=== PATIENT | male | born 1930 | race Hispanic/Latino ===

== ENCOUNTER 2018-06-23 16:02 | Inpatient (IN) | payer MEDICARE, MEDICAID ==
[2018-06-23 16:05] VITALS: BMI 33.7
[2018-06-23] MEDS ORDERED: Etomidate 20 mg/10ml Inj IV ONE (16:10)
[2018-06-23] MEDS ORDERED: Propofol 10 mg/ml Inj (20 ML) ONE (16:11)
[2018-06-23] MEDS ORDERED: Succinylcholine 200 mg/10 ml Inj IV ONE (16:11)
[2018-06-23] MEDS ORDERED: Propofol 10 mg/ml Inj (20 ML) IVP STA (16:17)
--- NOTE | 2018-06-23 16:23 | ED PDOC ---
Arrival/HPI - General Chief Complaint: Altered Mental Status Time Seen by Provider: 06/23/18 16:14 - History of Present Illness Narrative History of Present Illness (Text): 06/23/18 16:18 87 m with unknown pmhx presents to the ED for altered mentation and witnessed seizure activity. As per medics, they were called to scene for seizure, was noticed to be unconscious, fixed lateral gaze, breathing spontaneously, had another seizure en route to the hospital, was given ativan. Patient arrived in the ED, unsconcious, unresponsive to deep stimulus, breathing spontaneously, pupils were pinpoint and minimally responsive to light, eyes were roaming. Patient arrived in the ED alone.Code stroke was called immediately upon arrival. The decision was made to intubate prior to going to CT in order to protect airway as the patient was deeply unresponsive and to facilitate transfer to CT safely. 06/23/18 16:38 06/23/18 17:01 Further history obtained from the via tankage grinder operator. According to the , the patient woke up at [facility] 11:30 this morning and appeared confused where he picked up the remote and began talking on the remote control as if it were a phone. Patient has a hx of kidney cancer and ?cancer of the spine, was recently prescribed a pain medication, took first dose last night, slept all of this morning -?med too strong- patient sees dr. ozuna. As per the , she did not witness any seizure activity. Patient's son is reportedly on the way to hospital from [place]. Past Medical History - Cardiac Hx Cardiac Disorders: Yes Hx Hypertension: Yes - Renal Hx Renal Disorder: Yes - Endocrine/Metabolic Hx Endocrine Disorders: Yes Hx Hypothyroidism: Yes - Psychiatric Hx Substance Use: No Family/Social History Family/Social History: No Known Family HX Smoking Status: Never Smoked Hx Alcohol Use: No Hx Substance Use: No Allergies/Home Meds Allergies/Adverse Reactions: Allergies Unobtainable Allergy (Verified 06/23/18 16:04) Home Medications: Home Meds Medication Instructions Recorded Confirmed Allopurinol [Zyloprim] 300 mg PO DAILY 06/23/18 06/23/18 Furosemide [Lasix] 40 mg PO DAILY 06/23/18 06/23/18 Levothyroxine Sodium [Unithroid] 150 mcg PO DAILY 06/23/18 06/23/18 Omeprazole 40 mg PO DAILY 06/23/18 06/23/18 Tamsulosin [Flomax] 0.4 mg PO DAILY 06/23/18 06/23/18 Tramadol HCl [Ultram] 50 mg PO DAILY 06/23/18 06/23/18 cloNIDine [clonidine HCl] 0.1 mg PO BID 06/23/18 06/23/18 Review of Systems - Review of Systems Systems not reviewed;Unavailable: Altered Mental Status Physical Exam - Physical Exam Narrative Physical Exam (Text): 06/23/18 16:37 Gen: VS reviewed,well developed, well nourished, nontoxic, moderate distress , unresponsive (every patient is mild distress unless otherwise stated) Do not place this statement in any chart Eye: pupils equal and pinpoint bilaterally Neck: no JVD CV: rapid rate, regular rhythm, no rubs,no murmur, S1, S2 Pulm: no distress, clear to auscultation, no wheeze, no rhonchi, breath sounds equal, no rales Abd: soft, nondistended Ext: no edema Skin: good color, no rash, no cyanosis Psych: unable to assess second to unresponsiveness Neuro: unable to assess second to unresponsiveness Vital Signs Pulse Resp BP Pulse Ox 06/23/18 16:16 91 H 16 155/100 H 99 06/23/18 16:03 119 H 20 175/140 H 99 Medical Decision Making ED Course and Treatment: 06/23/18 16:[address] charlton, would like to get CTA head/neck and EEG. agrees that the patient is not a candidate for thrombolysis. 06/23/18 17:[address] russell, consult to dr. deutsch, mo ramsey, dr. aranda, injfectious disease. stroke consult cancelled as patient is not a candidate for thrombolysis. patient was seen for obtunded state, intubated upon arrival for airway protection and to facilitate Ct imaging, patient was worked up for CVA and admit to ICU. case d/w dr. cardozo, automotive service assistant, will see pt in consult/disposition planning 06/23/18 18:[address] kimble, neurosurgery, state he has personally re viewed the Ct of the brain and that "there's nothing there, it's normal, old patient's get calcified falx all the time" 06/23/18 18:08 06/24/18 17:51 06/24/18 17:52 - Critical Care Critical Care Minutes: 60 minutes - RAD Interpretation Narrative RAD Interpretations (Text): 06/23/18 18:24 Date of service: 06/23/2018 HISTORY: Code Stroke COMPARISON: 07/16/2013 FINDINGS: Endotracheal tube terminates at the aretha. LUNGS: Limited portable examination. There are low lung volumes. There is apparent airspace disease in the right lower lobe. The left lung is clear. PLEURA: No pleural effusions or pneumothorax. CARDIOVASCULAR: The heart is normal in size. No aortic atherosclerotic calcifications present. OSSEOUS STRUCTURES: Within normal limits for the patient's age. VISUALIZED UPPER ABDOMEN: Normal. OTHER FINDINGS: None. IMPRESSION: Endotracheal tube terminates at the aretha. Apparent airspace disease in the right lower lobe may represent effusion/edema or consolidation. Limited portable examination. Follow-up PA radiograph is recommended. 06/23/18 18:25 Date of service: 06/23/2018 PROCEDURE: CT HEAD WITHOUT CONTRAST. HISTORY: Code Stroke COMPARISON: None available. TECHNIQUE: Axial computed tomography images were obtained through the head/brain without intravenous contrast. Radiation dose: Total exam DLP = 1289.58 mGy-cm. This CT exam was performed using one or more of the following dose reduction techniques: Automated exposure control, adjustment of the mA and/or kV according to patient size, and/or use of iterative reconstruction technique. FINDINGS: HEMORRHAGE: No intracranial hemorrhage. BRAIN: Diffuse atrophy with prominence of the ventricles and sulci noted. No mass effect or edema. Intracranial atherosclerosis. Dense calcifications noted along the falx. Scattered periventricular and subcortical white matter hypodensities, which are nonspecific, but often seen with chronic microvascular ischemic disease. Please note that MRI with diffusion imaging is more sensitive in the detection of acute ischemic event. VENTRICLES: No hydrocephalus. CALVARIUM: Unremarkable. PARANASAL SINUSES: Mucosal thickening of the frontal sinuses and ethmoid air cells. MASTOID AIR CELLS: Under aeration of the left mastoid air cells. The right mastoid air cells appear clear. OTHER FINDINGS: Partially imaged endotracheal tube. IMPRESSION: Generalized atrophy. Nonspecific white matter changes. Under aeration of the left mastoid air cells. Mucosal thickening of the frontal sinuses and ethmoid air cells. Partially imaged endotracheal tube. Findings discussed with Dr. Robbins on 06/23/18 at 4:27 p.m. Radiology Orders: 06/23/18 16:15 HEAD W/O (CODE STROKE) [CT] Stat CHEST PORTABLE [RAD] Stat - EKG Interpretation EKG Interpretation (Text): 06/23/18 18:22 1630: sinus tach at 101 bpm, rbbb, lafb Interpreted by ED Physician: Yes - Medication Orders Current Medication Orders: Sodium Chloride (Sodium Chloride 0.9%) 1,000 mls @ 100 mls/hr IV .Q10H LUZ MARINA Propofol (Diprivan) 100 mg IVP ONCE STA Stop: 06/23/18 16:18 NIHSS Scale ([place]) Time Performed: 16:33 - How Severe is the Stoke Baseline Level of Consciousness: 3=Unresponsive LOC to Questions: 1=One correct LOC to commands: 2=Neither correct Best Gaze: 1=Partial gaze palsy Visual: 1=Partial hemianopia Facial: 0=Normal Motor Arm - Left: 4=No movement Motor Arm - Right: 4=No movement Motor Leg - Left: 4=No movement Motor Leg - Right: 4=No movement Limb Ataxia: 0=Absent Sensory: 2=Severe to total loss Best Language: 3=Mute Dysarthia: 2=Severe, near unintelligible or worse Extinction & Inattention (Neglect): 2=Profound neglect(does not recognize own hand or orients to one side) Score: 33 Risk Level: Severe Stroke Risk - Notes Notes: unreliable NIH scale as the patient was not conscious and could not participate in examination. rTPA Inclusion/Exclusion - Refusal of Treatment Patient Refused Treatment: No - Inclusion Criteria for Altepase Patient is 18 years or Older: Yes The Clinical Diagnosis of Ischemic Stroke That is Causing a Potentially Disa milan Neurological Deficit: Yes Time of Onset is Well Established to be Less Than 270 Minute Before Treatment Would Begin: No Risk/Benefit Discussed With Patient/Family Member Present: No - Exclusion Criteria for Altepase Uncontrolled Hypertension at Time of Treatment (Systolic BP above 185 or Diastolic BP above 110 mmHg): Yes - Warning to TPA With Conditions Condition: Seizure at Onset of Stroke Procedures - Time-Out Type of Procedure: endotracheal intubation done upon arrival Physician Name: Rosendo - Intubation Time of Intubation: 17:37 (done at arrival, see RN notes) Tube Size (cm): 7.5 Breath Sounds after Intubation: equal Intubation Complications: no complications Post Intubation Xray: Yes Disposition/Present on Arrival - Present on Arrival Any Indicators Present on Arrival: No History of DVT/PE: No History of Uncontrolled Diabetes: No Urinary Catheter: No History of Decub. Ulcer: No History Surgical Site Infection Following: None - Disposition Have Diagnosis and Disposition been Completed?: Yes Diagnosis: Seizure Disposition: HOSPITALIZED Disposition Time: 18:08 Patient Plan: Admission, ICU Patient Problems: Current Active Problems Problem Status Onset Seizure Acute Condition: GUARDED
[2018-06-23 16:24] LABS: BASO # 0.08 K/mm3 (0.0-2.0); BASO % 0.5 % (0.0-3.0); EOS # 0.4 (0.0-0.7); EOS % 2.4 % (1.5-5.0); HEMOGLOBIN 10.9 g/dL (14.0-18.0); LYMPH # 5.9 (1.2-3.4); MEAN CELL VOLUME 85.5 fl (80.0-105.0); MEAN CORPUSCULAR HEMOGLOBIN 24.7 pg (25.0-35.0); MEAN CORPUSCULAR HGB CONC 28.9 g/dl (31.0-37.0); MEAN PLATELET VOLUME 10.7 fl (7.0-11.0); RBC 4.41 10^6/uL (3.5-6.1); RED CELL DISTRIBUTION WIDTH 18.5 % (11.5-14.5); WHITE BLOOD COUNT 15.8 10^3/uL (4.5-11.0)
[2018-06-23 16:29] LABS: INR 1.08; PARTIAL THROMBOPLASTIN TIME 29.6 Seconds (26.9-38.3)
[2018-06-23 16:32] LABS: ALB/GLOB RATIO 1.2 (1.1-1.8); ALBUMIN 4.2 g/dL (3.0-4.8); ALT/SGPT 10 U/L (7-56); AST/SGOT 28 U/L (17-59); BLOOD UREA NITROGEN 21 mg/dL (7-21); CALCIUM 10.2 mg/dL (8.4-10.5); GFR NON-AFRICAN AMERICAN 52; HDL CHOLESTEROL 27 mg/dL (29-60)
[2018-06-23] MEDS ORDERED: Vancomycin 500 mg Inj IVPB STA (16:41)
--- NOTE | 2018-06-23 16:41 | CT ---
Date of service: 06/23/2018 PROCEDURE: CT HEAD WITHOUT CONTRAST. HISTORY: Code Stroke COMPARISON: None available. TECHNIQUE: Axial computed tomography images were obtained through the head/brain without intravenous contrast. Radiation dose: Total exam DLP = 1289.58 mGy-cm. This CT exam was performed using one or more of the following dose reduction techniques: Automated exposure control, adjustment of the mA and/or kV according to patient size, and/or use of iterative reconstruction technique. FINDINGS: HEMORRHAGE: No intracranial hemorrhage. BRAIN: Diffuse atrophy with prominence of the ventricles and sulci noted. No mass effect or edema. Intracranial atherosclerosis. Dense calcifications noted along the falx. Scattered periventricular and subcortical white matter hypodensities, which are nonspecific, but often seen with chronic microvascular ischemic disease. Please note that MRI with diffusion imaging is more sensitive in the detection of acute ischemic event. VENTRICLES: No hydrocephalus. CALVARIUM: Unremarkable. PARANASAL SINUSES: Mucosal thickening of the frontal sinuses and ethmoid air cells. MASTOID AIR CELLS: Under aeration of the left mastoid air cells. The right mastoid air cells appear clear. OTHER FINDINGS: Partially imaged endotracheal tube. IMPRESSION: Generalized atrophy. Nonspecific white matter changes. Under aeration of the left mastoid air cells. Mucosal thickening of the frontal sinuses and ethmoid air cells. Partially imaged endotracheal tube. Findings discussed with Dr. Robbins on 06/23/18 at 4:27 p.m.
[2018-06-23 16:43] LABS: LDL CHOLESTEROL 65 mg/dL (0-129)
[2018-06-23 16:45] LABS: TROPONIN I < 0.01 ng/mL
[2018-06-23] MEDS ORDERED: Vancomycin 1.5 GM in Sodium Chloride 0.9% 500 ML IVPB ONE (16:45)
--- NOTE | 2018-06-23 16:58 | RAD ---
Date of service: 06/23/2018 HISTORY: Code Stroke COMPARISON: 07/16/2013 FINDINGS: Endotracheal tube terminates at the aretha. LUNGS: Limited portable examination. There are low lung volumes. There is apparent airspace disease in the right lower lobe. The left lung is clear. PLEURA: No pleural effusions or pneumothorax. CARDIOVASCULAR: The heart is normal in size. No aortic atherosclerotic calcifications present. OSSEOUS STRUCTURES: Within normal limits for the patient's age. VISUALIZED UPPER ABDOMEN: Normal. OTHER FINDINGS: None. IMPRESSION: Endotracheal tube terminates at the aretha. Apparent airspace disease in the right lower lobe may represent effusion/edema or consolidation. Limited portable examination. Follow-up PA radiograph is recommended.
[2018-06-23] MEDS: Sodium Chloride 0.9% 1,000 ML IV SCH (17:00)
[2018-06-23 17:16] LABS: PH,URINE 6.5 (4.7-8.0); URINE BILIRUBIN NEGATIVE (NEGATIVE); URINE BLOOD SMALL (NEGATIVE); URINE GLUCOSE (UA) NEGATIVE (NEGATIVE); URINE LEUKOCYTE ESTERASE NEGATIVE Leu/uL (NEGATIVE); URINE PROTEIN 100 mg/dL (<30 mg/dL); URINE UROBILINOGEN 0.2 E.U./dL (<1 E.U./dL)
[2018-06-23 17:17] LABS: URINE APPEARANCE CLEAR (CLEAR); URINE COLOR LIGHT YELLOW (YELLOW)
[2018-06-23] MEDS ORDERED: Iohexol 350 MG/100 ML VIAL ONE (17:20)
[2018-06-23 17:22] LABS: URINE RBC 0 - 2 /hpf (0-2)
[2018-06-23] MEDS: Propofol 10 mg/ml 1,000 MG/100 ML VIAL IV PRN ×2 (17:27→22:58)
[2018-06-23 18:05] LABS: ARTERIAL BLOOD GAS HCO3 24.2 mmol/L (21-28); ARTERIAL BLOOD GAS O2 SAT 97.7 % (95-98); ARTERIAL BLOOD GAS PCO2 48 mm/Hg (35-45); ARTERIAL BLOOD GAS PH 7.31 (7.35-7.45); ARTERIAL BLOOD GAS TCO2 25.7 mmol.L (22-28)
--- NOTE | 2018-06-23 18:25 | CP.PCM.PCO ---
Addendum Addendum: 06/23/18 18:22 MICU Attending Patient seen and examined in the ED Will accept patient to ICU Patient awake, moving all extremities despite being intubated and on propofol CT head reported as no bleed as per ED Dr Robbins discussion with rads and neurosurgery No signs of sepsis will work up for patient being unresponsive, likely due to pain medication adjustment Full consult note to follow Jas Ennis MD MICU Attending
--- NOTE | 2018-06-23 18:30 | CP.PCM.CON ---
History of Present Illness - History of Present Illness History of Present Illness: Vipin Cagle, PGY1 ICU Consult Note for Dr. Ennis: CC: AMS and witnessed seizure activity ICU Consulted for: Ventalitory Failure Pt is a 87yo M with pmhx of CHF, Renal Ca s/p Nephrectomy, and COPD who came to the ED for AMS and witnessed seizure activity. Pt was given ativan on the field and then became flaccid. In ED pt was not responding to deep painful stimuli per ED physician and the decision was made to intubate the pt. Code Stroke was then initiated in the ED and pt was taken to CT scan. ICU is consulted for ventalitory failure. Pt at this time is intubated and sedated and there is no family present to provide additional hx. Further hx provided by ER physician which was provided by pts son (not present at time of exam). Pmhx: CHF, RCC s/p questionable Nephrectomy, COPD Pshx: questionable nephrectomy per pts family Meds: Unobtainable 2/2 pt intubated and sedated All: Unobtainable 2/2 pt intubated and sedated Fam hx: Unobtainable Review of Systems - Review of Systems Systems not reviewed;Unavailable: Intubated Past Patient History - Past Social History Smoking Status: Never Smoked - CARDIAC Hx Cardiac Disorders: Yes Hx Hypertension: Yes - RENAL Hx Chronic Kidney Disease: Yes - ENDOCRINE/METABOLIC Hx Endocrine Disorders: Yes Hx Hypothyroidism: Yes - PSYCHIATRIC Hx Substance Use: No - SURGICAL HISTORY Hx Surgeries: No Meds Allergies/Adverse Reactions: Allergies Allergy/AdvReac Type Severity Reaction Status Date / Time Unobtainable Allergy Verified 06/23/18 16:04 - Medications Medications: Current Medications Sodium Chloride (Sodium Chloride 0.9%) 1,000 mls @ 100 mls/hr IV .Q10H LUZ MARINA Last Admin: 06/23/18 17:00 Dose: 100 mls/hr Propofol (Diprivan) 1,000 mg in 100 mls @ 2.756 mls/hr IV .Q24H PRN; Protocol PRN Reason: TITRATE PER MD ORDER Last Admin: 06/23/18 17:27 Dose: 2.756 mls/hr Vancomycin HCl 1.5 gm/ Sodium (Chloride) 500 mls @ 167 mls/hr IVPB ONCE ONE Stop: 06/23/18 19:44 Last Admin: 06/23/18 17:33 Dose: 167 mls/hr Physical Exam - Constitutional Appears: Other (PT is intubated and sedated at this time.) - Head Exam Head Exam: ATRAUMATIC, NORMAL INSPECTION, NORMOCEPHALIC - Eye Exam Eye Exam: PERRL - ENT Exam Additional comments: ETT in place and secured - Respiratory Exam Respiratory Exam: Clear to Auscultation Bilateral. absent: Rales, Rhonchi, Wheezes Additional comments: Pt is intubated, only anterior lung tiwari could be assessed. - Cardiovascular Exam Cardiovascular Exam: Tachycardia, +S1, +S2. absent: Gallop, Rubs - GI/Abdominal Exam GI & Abdominal Exam: Normal Bowel Sounds, Soft. absent: Firm - Extremities Exam Extremities exam: Positive for: normal capillary refill, normal inspection, pedal edema, pedal pulses present - Back Exam Additional comments: unable to assess due to pt being intubated - Neurological Exam Additional comments: Pt is intubated and sedated - Psychiatric Exam Additional comments: Pt intubated and sedated. - Skin Skin Exam: Dry, Intact, Warm Results - Vital Signs Recent Vital Signs: Last Vital Signs Temp Pulse 91 H 06/23/18 16:16 Resp 16 06/23/18 16:16 BP 155/100 H 06/23/18 16:16 Pulse Ox 99 06/23/18 16:16 - Labs Result Diagrams: 06/23/18 16:17 06/23/18 16:17 Labs: Laboratory Results - last 24 hr 06/23/18 06/23/18 06/23/18 16:05 16:17 16:17 WBC 15.8 H RBC 4.41 Hgb 10.9 L Hct 37.7 L MCV 85.5 MCH 24.7 L MCHC 28.9 L RDW 18.5 H Plt Count 310 MPV 10.7 Neut % (Auto) 54.1 Lymph % (Auto) 37.0 H [place] % (Auto) 6.0 Eos % (Auto) 2.4 Baso % (Auto) 0.5 Lymph # (Auto) 5.9 H [place] # (Auto) 1.0 H Eos # (Auto) 0.4 Baso # (Auto) 0.08 Absolute Neuts (auto) 8.55 H PT 12.0 INR 1.08 APTT 29.6 pCO2 pO2 HCO3 ABG pH ABG Total CO2 ABG O2 Saturation ABG Base Excess ABG Potassium Glucose Lactate Mechanical Rate FiO2 Tidal Volume PEEP Sodium Potassium Chloride Carbon Dioxide Anion Gap BUN Creatinine Est GFR ( Amer) Est GFR (Non-Af Amer) Random Glucose Calcium Total Bilirubin AST ALT Alkaline Phosphatase Troponin I Total Protein Albumin Globulin Albumin/Globulin Ratio Triglycerides Cholesterol LDL Cholesterol Direct HDL Cholesterol Arterial Blood Potassium Urine Color Urine Appearance Urine pH Ur Specific [place] Urine Protein Urine Glucose (UA) Urine Ketones Urine Blood Urine Nitrate Urine Bilirubin Urine Urobilinogen Ur Leukocyte Esterase Urine RBC Urine WBC Ur Epithelial Cells Blood Type A NEGATIVE Blood Type Confirm Antibody Screen Negative BBK History Checked No verified bt 06/23/18 06/23/18 06/23/18 16:17 16:55 17:12 WBC RBC Hgb Hct MCV MCH MCHC RDW Plt Count MPV Neut % (Auto) Lymph % (Auto) [place] % (Auto) Eos % (Auto) Baso % (Auto) Lymph # (Auto) [place] # (Auto) Eos # (Auto) Baso # (Auto) Absolute Neuts (auto) PT INR APTT pCO2 pO2 HCO3 ABG pH ABG Total CO2 ABG O2 Saturation ABG Base Excess ABG Potassium Glucose Lactate Mechanical Rate FiO2 Tidal Volume PEEP Sodium 141 Potassium 4.0 Chloride 102 Carbon Dioxide 29 Anion Gap 14 BUN 21 Creatinine 1.3 Est GFR ( Amer) > 60 Est GFR (Non-Af Amer) 52 Random Glucose 169 H Calcium 10.2 Total Bilirubin 0.4 AST 28 ALT 10 Alkaline Phosphatase 101 Troponin I < 0.01 Total Protein 7.6 Albumin 4.2 Globulin 3.5 Albumin/Globulin Ratio 1.2 Triglycerides 203 H Cholesterol 134 LDL Cholesterol Direct 65 HDL Cholesterol 27 L Arterial Blood Potassium Urine Color Light yellow Urine Appearance Clear Urine pH 6.5 Ur Specific [place] 1.025 Urine Protein 100 H Urine Glucose (UA) Negative Urine Ketones Negative Urine Blood Small H Urine Nitrate Negative Urine Bilirubin Negative Urine Urobilinogen 0.2 Ur Leukocyte Esterase Negative Urine RBC 0 - 2 Urine WBC None Ur Epithelial Cells None Blood Type Blood Type Confirm A NEGATIVE Antibody Screen BBK History Checked 06/23/18 18:02 WBC RBC Hgb Hct MCV MCH MCHC RDW Plt Count MPV Neut % (Auto) Lymph % (Auto) [place] % (Auto) Eos % (Auto) Baso % (Auto) Lymph # (Auto) [place] # (Auto) Eos # (Auto) Baso # (Auto) Absolute Neuts (auto) PT INR APTT pCO2 48 H pO2 133.0 H HCO3 24.2 ABG pH 7.31 L ABG Total CO2 25.7 ABG O2 Saturation 97.7 ABG Base Excess -2.5 L ABG Potassium 3.3 L Glucose 181 H Lactate 1.9 Mechanical Rate 14 FiO2 50.0 Tidal Volume 400 PEEP 5 Sodium 138.0 Potassium Chloride 107.0 Carbon Dioxide Anion Gap BUN Creatinine Est GFR ( Amer) Est GFR (Non-Af Amer) Random Glucose Calcium Total Bilirubin AST ALT Alkaline Phosphatase Troponin I Total Protein Albumin Globulin Albumin/Globulin Ratio Triglycerides Cholesterol LDL Cholesterol Direct HDL Cholesterol Arterial Blood Potassium 3.3 L Urine Color Urine Appearance Urine pH Ur Specific [place] Urine Protein Urine Glucose (UA) Urine Ketones Urine Blood Urine Nitrate Urine Bilirubin Urine Urobilinogen Ur Leukocyte Esterase Urine RBC Urine WBC Ur Epithelial Cells Blood Type Blood Type Confirm Antibody Screen BBK History Checked Assessment & Plan - Assessment and Plan (Free Text) Assessment: Pt is a 87yo M with pmhx of CHF, Renal Ca s/p Nephrectomy, and COPD who came to the ED for AMS and witnessed seizure activity. Pt was given ativan on the field and then became flaccid. Pt in ED was intubated to protect airway and was sent for head CT. ICU consulted due to ventilatory failure. Plan: Neuro: AMS: - Head CT Showed: Generalized atrophy. Nonspecific white matter changes. Under aeration of the left mastoid air cells. Mucosal thickening of the frontal sinuses and ethmoid air cells. Partially imaged endotracheal tube. Diffuse atrophy with prominence of the ventricles and sulci noted. No mass effect or edema. Intracranial atherosclerosis. Dense calcifications noted along the falx. - Pt is sedated at this time - Likely 2/2 new pain medication by doctor started yesterday. Cardio: - Pt noted to be HTNsive on ICU floor - Nicardipine drip - Maintain MAP >65 - Will closely monitor pts BP Pulm: Ventilatory Failure: - Pt is intubated at this time - ABG shows: pH = 7.31, p02 = 133, pCO2 = 48, bicarb = 29 - Pt on propofol drip currently, will titrate to precedex over night - Duonebs q2 PRN - CXR: RLL may have effusion vs consolidation - f/u procal - f/u blood and sputum cx - Zithro and rocephin IV GI: - Will start ppx Nephro: - Will keep pt euvolemic Endo: - Will keep pt euglycemic Case seen and discussed with Dr. Loli Cagle, PGY1
--- NOTE | 2018-06-23 18:35 | CT ---
Date of service: 06/23/2018 PROCEDURE: CT Angiography of the neck and brain HISTORY: Altered mentation COMPARISON: Comparison made with prior CT scan brain 3 8 19 at 1621 hr. TECHNIQUE: Contiguous axial images of the neck were obtained from the level of the vertex of the skull to the superior mediastinum in the arteriographic phase of enhancement. Coronal and sagittal reformats or also generated. IV contrast dose: 100 cc Visipaque 350 contrast material. Radiation dose: Total exam DLP = 563.8 mGy-cm. This CT exam was performed using one or more of the following dose reduction techniques: Automated exposure control, adjustment of the mA and/or kV according to patient size, and/or use of iterative reconstruction technique. FINDINGS: Study is limited by motion artifact most significantly affecting superior sections particularly the intra cerebral vasculature. In situ endotracheal tube is present. The aortic arch is patent despite some mild calcified atherosclerotic plaque. 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 This lesion exhibits Hounsfield units in the mid 20s suggesting proteinaceous component. Internal and peripheral calcifications are present.. Rule out malignant neoplasm Followup thyroid ultrasound recommended. The lesion exerts mass-effect on the trachea and esophagus which are displaced anterolaterally and posterolaterally respectively.. The common carotid arteries and carotid bifurcations are patent despite some very minor partially calcified plaque along the right carotid bifurcation. No significant stenosis. No evidence of dissection. The distal internal carotid arteries including the petrous segments are patent. Note that the cavernous segments as well as the remaining intra cerebral vasculature is significantly distorted and obscured by motion artifact cannot be adequately evaluated although the supraclinoid carotid arteries appear patent as do the proximal middle cerebral arteries. The distal middle anterior and posterior cerebral arteries are poorly delineated. The vertebral arteries are patent throughout right-sided which is much larger in caliber/more dominant than the left side. Basilar artery is patent. There is distortion and motion artifact partially obscuring the distal vertebral artery and posterior cerebral arteries. IMPRESSION: Significant motion artifact results in obscuration of most of the cysts intra cerebral vasculature. The common carotid arteries and internal carotid arteries including the petrous segments are patent. Cavernous segments are poorly seen. There distortion of the supraclinoid segments which do appear patent. The distal cerebral vasculature is distorted by motion artifact. Marked asymmetry of the vertebral arteries right-sided which is larger in caliber/more dominant than the left. 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 This lesion contains internal and scattered peripheral calcifications. Follow-up thyroid ultrasound recommended further evaluation to exclude neoplasm. .
[2018-06-23] MEDS ORDERED: Labetalol 5mg/ml (4ml) IVP ONE (18:52)
[2018-06-23] MEDS: Nicardipine 20 MG/200 ML 20 MG/200 ML BAG IV PRN ×2 (19:03→23:38)
[2018-06-23 19:26] LABS: VENOUS BLOOD GAS BASE EXCESS 2.8 mmol/L (0.0-2.0); VENOUS BLOOD GAS PO2 35 mm/Hg (30-55); VENOUS BLOOD PH 7.29 (7.32-7.43)
[2018-06-23 21:13] LABS: B-TYPE NATRIURETIC PEPTIDE 474 pg/mL (0-450)
--- NOTE | 2018-06-23 22:34 | CARD ---
APPROVED REPORT Date of service: 06/23/2018 EKG Measurement Heart [id number] <Conclusion> Sinus tachycardia with 2 episodes of dropped beats- questionable high degree of AV block Right bundle branch block Left anterior fascicular block Bifascicular block CCR Abnormal ECG
[2018-06-23 23:01] LABS: VENOUS BLOOD GAS BASE EXCESS 6.4 mmol/L (0.0-2.0); VENOUS BLOOD GAS PO2 45 mm/Hg (30-55); VENOUS BLOOD PH 7.43 (7.32-7.43)
--- NOTE | 2018-06-24 04:54 | HP ---
DATE OF EXAM: 06/23/2018 HISTORY OF PRESENT ILLNESS: I know Federica very well from house calls. He is an 87-year-old man who presents to the emergency room with altered mentation and witnessed seizure. is unconscious, fixed lateral gaze, breathing spontaneously, had another seizure, admitted to the hospital. He was given Ativan. He was unconscious and unresponsive to deep stimuli. Breathing spontaneously. Pupils were pinpoint, minimally responsive to light. Eyes were roaming. Code stroke was called immediately. He was intubated. said he appeared confused, he took the remote control there is a phone. He does have a history of kidney cancer and nephrectomy. He was given pain medication by pain management doctor, Dr. Sandoval and he has done the same since. He has history of hypothyroidism. No substance abuse. One kidney from kidney cancer, had one removed. He has CHF and hypertension. SOCIAL HISTORY: No smoking. Not drinking. No drugs, REVIEW OF SYSTEMS: Unobtainable since he has altered mental status. PHYSICAL EXAMINATION: GENERAL: He is in distress, unresponsive. VITAL SIGNS: Pulse 119, respiratory rate 20, blood pressure 175/140, and O2 sat 99%. HEENT: Equal and pin point pupils. NECK: No JVD. HEART: Regular rate, tachy. LUNGS: Decreased breath sounds, clear, poor inspiration. ABDOMEN: Soft, obese, and nontender. EXTREMITIES: Pitting edema +3/4. SKIN: He has some venous stasis, otherwise the skin has no rash, no ulcers. NEUROLOGIC: He is unresponsive LABORATORY DATA: He had multiple tests. Because of thickening of the frontal sinuses CAT scan of the head. There is a thyroid mass on the neck CTA. Chest x-ray showed endotracheal tube terminates at the aretha, right lower lobe possible consolidation. Urine was clean. Sodium 141, potassium 4, BUN 21, creatinine 1.3, GFR 62, and sugar is 169. Hemoglobin A1c is 6.4. Calcium is 10.2, total bili is 0.4. AST is 20, ALT is 10, and alkaline phosphate 101. Troponin I is less than 0.1. BNP is 474. Total protein is 7.6. Albumin is 4.2. Globulin 3.5. Triglyceride is 203. Cholesterol 134, LDL 65, HDL 27, lactate 3.3. INR is 1.08. White count 15.8, hemoglobin 10.9, hemoglobin 37.7, and platelets 310. IMPRESSION AND PLAN: He will have multiple consults, Cardiology for congestive heart failure, Infectious Disease for elevated white count possible pneumonia, Neurology for his mental status changes and seizures, Pulmonary for the ventilation, and ENT for thyroid mass. We will check his labs tomorrow. He is currently on Ativan, Diprivan, nicardipine, propofol, pantoprazole, Rocephin, IV fluids, Trandate, vancomycin and azithromycin. He has got seizures. Respiratory failure on the ventilator. Change of mentation. Aleksey Neal DO MTDD
[2018-06-24 05:40] LABS: ALB/GLOB RATIO 1.1 (1.1-1.8); ALBUMIN 3.7 g/dL (3.0-4.8); ALT/SGPT 14 U/L (7-56); AST/SGOT 24 U/L (17-59); BLOOD UREA NITROGEN 21 mg/dL (7-21); CALCIUM 9.9 mg/dL (8.4-10.5); GFR NON-AFRICAN AMERICAN > 60
[2018-06-24 05:43] LABS: HEMOGLOBIN 10.3 g/dL (14.0-18.0); LYMPH # 1.3 (1.2-3.4); LYMPH % 7.6 % (22.0-35.0); MEAN CORPUSCULAR HEMOGLOBIN 23.8 pg (25.0-35.0); MEAN PLATELET VOLUME 10.1 fl (7.0-11.0); MONO # 0.8 (0.1-0.6); MONO % 4.6 % (1.0-6.0); RBC 4.33 10^6/uL (3.5-6.1); RED CELL DISTRIBUTION WIDTH 18.2 % (11.5-14.5); WHITE BLOOD COUNT 17.6 10^3/uL (4.5-11.0)
[2018-06-24] MEDS: Propofol 10 mg/ml 1,000 MG/100 ML VIAL IV PRN ×3 (05:45→19:25)
[2018-06-24] MEDS: Sodium Chloride 0.9% 1,000 ML IV SCH (06:46)
[2018-06-24] MEDS: Acyclovir 500 MG in Sodium Chloride 0.9% 100 ML IV SCH ×3 (09:00→21:33)
[2018-06-24] MEDS: cefTRIAXone 1 gm 1 GM/100 ML BAG IVPB SCH (09:42)
[2018-06-24] MEDS: Azithromycin 250 MG in Sodium Chloride 0.9% 250 ML IVPB SCH (09:43)
--- NOTE | 2018-06-24 11:33 | CON ---
DATE OF CONSULTATION: 06/24/2018 The patient is in the ICU 129, bed 2. The patient is intubated on a ventilator. CHIEF COMPLAINT: Change in mental status and new onset of seizures. HISTORY OF PRESENT ILLNESS: This is an 87-year-old male with congestive heart failure, hypertension, hypothyroidism, history of kidney cancer with questionable spine involvement, and chronic obstructive lung disease. The patient had nephrectomy. As per the nursing, the family states the patient was fine until the patient had an episode of confusion, may have been contributed to a medication. He had picked up the remote and thought it was a telephone, and there were no reports of fevers or headaches; however, there is a report of new onset of seizures. REVIEW OF SYSTEMS: Twelve-point review of systems is performed. PAST MEDICAL HISTORY: Significant for congestive heart failure, hypertension, hypothyroidism, kidney cancer with questionable spine involvement, chronic obstructive lung disease. PAST SURGICAL HISTORY: Significant for nephrectomy. ALLERGIES: UNKNOWN. MEDICATIONS: Medications at home included the patient was on tramadol, Unithroid, omeprazole, Lasix, and clonidine. PHYSICAL EXAMINATION: GENERAL: The patient is in bed, intubated on a ventilator. VITAL SIGNS: Temperature of 97, blood pressure is 130/50, respiratory rate is on the vent, heart rate of 68. HEENT: Examination of HEENT is ET-tube is in place. NECK: Supple. LUNGS: Have decreased breath sounds. HEART: Normal S1, S2. ABDOMEN: Soft, nontender. LABORATORY DATA: Laboratory examination reveals a white count of 15,000, hemoglobin of 10, platelets of 310. Chemistries revealed a BUN of 21, creatinine of 1.3 with a GFR of 52, and the BNP is 474. Urinalysis is noted. The patient had a CT of the head, which is unremarkable. The patient also had a CTA, which is also noted. Chest x-ray, is a right lower lobe infiltrate. ASSESSMENT AND PLAN: An 87-year-old male with hypertension, congestive heart failure, kidney cancer, questionable spine involvement, chronic obstructive lung disease, who has had a nephrectomy, and who is admitted with leukocytosis, tachycardia, change in mental status, new onset of seizures and developed, 1. Severe sepsis, respiratory failure, intubated on a ventilator with a right lower lobe community-acquired aspiration pneumonia. We will check on the pancultures, blood, urine, sputum, MRSA screen, concerned about the new seizures, and change in mental status, herpes encephalitis is in the differential diagnosis. At this time, we will start empirically acyclovir and dose adjusted for the renal insufficiency. We will adjust at 500 mg IV every 8 hours. We will follow the creatinine closely. Ceftriaxone and azithromycin are started. The patient also will check on the urine for Legionella antigen and procalcitonin, and if the change in mental status is not explained entirely, we will need an antiseizure, and neuro should consider MRI and a spinal tap and sent the CSF for herpes PCR, and we will make sure further recommendations upon availability of initial results. We will discuss with him. Omer Fortune MD
[2018-06-24] MEDS: Nicardipine 20 MG/200 ML 20 MG/200 ML BAG IV PRN ×2 (12:10→21:32)
--- NOTE | 2018-06-24 12:30 | PN ---
DATE: 06/24/2018 SUBJECTIVE: The patient is sedated on the ventilator with FIO2 of 50%. No new events last night. The patient continues to be on a Cardene drip and propofol for sedation. PHYSICAL EXAMINATION: VITAL SIGNS: Temperature is 97.7, his pulse is 67, respirations are 14, and BP is 137/51. SKIN: Warm and dry. HEENT: Head atraumatic, normocephalic. Eyes reactive to light. Ears, nose and throat seemed to be within normal limits. NECK: Supple. No JVD. No thyroid enlargement, no lymph nodes. HEART: Has regular rate and rhythm. Normal S1, S2. LUNGS: Reveal bilateral rhonchi. ABDOMEN: Soft. Decreased bowel sounds. GENITALIA AND RECTAL: Deferred. MUSCULOSKELETAL: No joint deformities. EXTREMITIES: Reveal positive edema. NEUROLOGIC: He is sedated on a ventilator. LABORATORY DATA: As far as his laboratories are concerned, his white count is 17.6, hemoglobin is 10.3, hematocrit 35.5 with platelets of 278,000. Sodium is 138, potassium 3.8, chloride 102, CO2 of 29 with a BUN of 21, creatinine of 1.1 and a glucose of 177. The patient's chest x-ray is pending. IMPRESSION: This patient has respiratory failure with requiring ventilator support, pneumonia, congestive heart failure as well as chronic obstructive pulmonary disease. The patient presented with altered mental status and seizure disorder and has a history of renal cell carcinoma and with a history of having a nephrectomy. The patient has anemia as well. PLAN: As far as our plan, we will continue to titrate the FIO2 as tolerated on the ventilator and support the patient with the Cardene and propofol for sedation. The patient is on Protonix as well as Rocephin, IV fluids, azithromycin and acyclovir. We will continue to treat aggressively along with the other consultants and the primary care doctor. Rebel Cardoso MD
--- NOTE | 2018-06-24 14:07 | CON ---
DATE: 06/24/2018 CHIEF COMPLAINT: Altered mental status, questionable seizure like activity. HISTORY OF PRESENT ILLNESS: This is an 87-year-old man, with history of CHF, renal carcinoma status post nephrectomy, COPD, who came into the ER after altered mental status with seizure like activity by EMS, and was intubated and placed on Propofol. The patient was given some pain medications became altered and like some generalized seizure activity was seen. CAT scan of the head showed no intracranial abnormalities. REVIEW OF SYSTEMS: Unable to obtain, since the patient is sedated. the patient open eyes to voice, withdraws localized to pain, moves all extremities equally. FAMILY HISTORY: Noncontributory. MEDICATIONS: Reviewed by nurse reconciliation sheet. ALLERGIES: NOT OBTAINED AT THIS TIME. PAST MEDICAL HISTORY: As above. LABORATORY DATA: Sodium is 138, potassium 3.8, chloride 102, carbon dioxide 29, BUN of 21, creatinine 1.1, and random glucose 177. PHYSICAL EXAMINATION: GENERAL: The patient is intubated on the ventilator. VITAL SIGNS: Temperature 97, blood pressure 130/50, respirations on the vent, and heart rate of 68. HEENT: Atraumatic and normocephalic. PERRLA. Extraocular muscles are intact. ET tube in place. LUNGS: Decreased breath sounds bilaterally. HEART: S1 and S2. Normal, rate, and rhythm. No murmurs, rubs. or gallops. ABDOMEN: Soft, nontender, and nondistended. Bowel sounds present. EXTREMITIES: No clubbing and no cyanosis. Peripheral pulses are 2+ bilaterally. NEUROLOGIC: The patient is drowsy. No acute distress. Cranial nerves II through XII are intact. Speech is difficult to access at this time. Motor exam; spontaneous movements in all of the extremities are noted. Sensory; . DTRs are 2+ in one at both knees and ankles. Toes are downgoing bilaterally. Coordination and gait is deferred for now. IMPRESSION: This is a 87-year-old man with history of hypertension, congestive heart failure, renal cell carcinoma status post nephrectomy, chronic obstructive pulmonary disease, who was admitted with leukocytosis and possible new onset seizure developed which is likely secondary to severe sepses, respiratory failure, and with underlying right lower lobe community acquired aspiration pneumonia. PLAN: At this time; 1. We will hold EEDs for now since there is no major seizure activity. 2. We will recommend an MRI of the brain with contrast. 3. An EEG. 4. Continue with the patient's euvolemic and euglycemic and monitor electrolytes accordingly. Thank you for this consult. Zach Bonilla MD
--- NOTE | 2018-06-24 14:48 | PN ---
DATE: 06/24/2018 SUBJECTIVE: He is still on the ventilator. He is still on Diprivan, acyclovir, Ativan, IV fluids, codeine, Protonix, Rocephin, IV fluids. PHYSICAL EXAMINATION: VITAL SIGNS: He has a 97.7 temperature, 77 pulse, 134/67 blood pressure, 15 respiratory rate, 97% O2 sat. HEENT: Head is atraumatic and normocephalic. GENERAL: He is not awake. HEART: Regular rate. LUNGS: Decreased breath sounds. ABDOMEN: Soft and obese. EXTREMITIES: +2/4 edema. LABORATORY DATA: He has a 17.6 white count going up, 10.3 hemoglobin, 35.5 hematocrit, 278 platelets. His lactate is 2.4 still elevated. 138 sodium, potassium 3.8, BUN 21, creatinine 1.1, GFR is greater than 60, sugar is 158, calcium 9.9, total bili is 0.3, AST is 24, ALT is 40, alk phos 97, and total protein 6.9. ASSESSMENT AND PLAN: He is being seen by Cardiology, Infectious Disease, Neurology, Pulmonary, and ENT. So far nobody has seen him yet. come in, he had seizures, acute respiratory failure, thyroid mass, possible right lower lobe pneumonia, change in mentation. He is intubated in the intensive care unit with seizures. Aleksey Neal DO MTDChandu
--- NOTE | 2018-06-24 16:29 | CON ---
DATE OF CONSULTATION: 06/24/[address] Prabhakar Cristina. REASON FOR CONSULTATION: Respiratory failure. 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 Apparently, the patient was given , which required him to be intubated. The patient is currently in the ICU. No reported hypotension or ventricular arrhythmia. PAST MEDICAL HISTORY: According to the primary physician's documentation, the patient has a history of hypothyroidism, had nephrectomy for kidney cancer, has history of CHF and hypertension. CURRENT MEDICATIONS: Acyclovir 500 mg every 8 hours, Zithromax 250 mg intravenously daily. The patient is on Cardene infusion at 2.5 mg per hour. He is on also IV Diprivan, Rocephin 1 g intravenously daily, normal saline at 100 mL an hour. REVIEW OF SYSTEMS: No reported seizures in ICU, no reported hypotension, and no reported ventricular arrhythmia. PHYSICAL EXAMINATION: GENERAL: The patient is an elderly male, who is currently sedated on a ventilator. VITAL SIGNS: Blood pressure 127/48, heart rate 69, temperature 97.7. HEENT: No icterus. NECK: No JVD. CHEST: Absent breath sounds over the bases. HEART: S1 and S2 regular. ABDOMEN: Soft. EXTREMITIES: Trace leg edema. LABORATORY DATA: SMA-7: Sodium 138, potassium 3.8, chloride 102, CO2 of 29, glucose 177, BUN 21, creatinine 1.1. One set of troponin is negative. Hemoglobin and hematocrit are 10.3 and 35.3. White count 17.6, platelet count 278,000. PT/PTT and INR are within normal limits. Chest x-ray was poor technique. It revealed cardiomegaly, right lower lobe and left hilar infiltrate. The costophrenic angles are not visualized. EKG revealed sinus tachycardia with frequent APCs, right bundle-branch block, multifocal atrial tachycardia cannot be completely ruled out, left anterior fascicular block. Head CT scan without contrast, generalized atrophy, nonspecific white matter changes. Head and neck CT angio: Significant for motion artifact. Common cardiac arteries and internal carotid arteries including the petrous segment are patent. Cavernous segments are poorly seen. There is distortion of the supraglenoid segment, which do appear patent. The distal cerebral vasculature is distorted by motion artifact. Marked asymmetry of the vertebral arteries, right sided, which is larger in caliber. There is a large mass lesion in the right lobe thyroid gland, extends to the mediastinum, compresses and displaces the trachea and esophagus to the left side. Followup thyroid ultrasound is recommended. ASSESSMENT: 1. Respiratory failure. 2. Witnessed seizure activity. 3. Retrosternal goiter. RECOMMENDATIONS: 1. Continue current IV Cardene, IV Rocephin. 2. Obtain chest CT scan without contrast and schedule the patient for a bedside echo. 3. Repeat 12-lead EKG. Manohar Guzman MD
--- NOTE | 2018-06-24 17:03 | RAD ---
Date of service: 06/24/2018 HISTORY: intubated/resp failure COMPARISON: Portable chest 06/23/2018. FINDINGS: LUNGS: Endotracheal tube does not appear significantly changed in position, terminating at the aretha. Retraction 2-3 cm remains advised. Left basilar atelectasis or infiltrate is unchanged with limited right basilar airspace disease present. PLEURA: No right pleural effusion. No pneumothorax bilaterally. Limited left pleural effusion not excluded. CARDIOVASCULAR: Calcific atherosclerotic changes are seen related to the thoracic aorta. Stable cardiac silhouette. No pulmonary vascular congestion. OSSEOUS STRUCTURES: No significant abnormalities. VISUALIZED UPPER ABDOMEN: Normal. OTHER FINDINGS: None. IMPRESSION: Limited right basilar airspace disease remaining with no interval change at retrocardiac left basilar opacity reflecting atelectasis or infiltrate. Small left pleural effusion not excluded. None is seen at the right. No pulmonary vascular congestion evident. ET tube terminates the aretha with retraction 2-3 cm recommended for more optimal positioning.
--- NOTE | 2018-06-24 21:14 | CARD ---
APPROVED REPORT Date of service: 06/24/2018 EKG Measurement Heart [id number] <Conclusion> Sinus rhythm with 1st degree AV block Right bundle branch block Left anterior fascicular block Bifascicular block Abnormal ECG
[2018-06-25] MEDS: Propofol 10 mg/ml 1,000 MG/100 ML VIAL IV PRN ×4 (00:09→18:07)
[2018-06-25] MEDS: Acyclovir 500 MG in Sodium Chloride 0.9% 100 ML IV SCH ×3 (05:27→21:40)
[2018-06-25 05:39] LABS: ARTERIAL BLOOD GAS HCO3 25.4 mmol/L (21-28); ARTERIAL BLOOD GAS PCO2 43 mm/Hg (35-45); ARTERIAL BLOOD GAS PH 7.38 (7.35-7.45); ARTERIAL BLOOD GAS TCO2 26.7 mmol.L (22-28)
[2018-06-25] MEDS: Nicardipine 20 MG/200 ML 20 MG/200 ML BAG IV PRN ×3 (06:17→15:00)
[2018-06-25 06:24] LABS: BASO # 0.01 K/mm3 (0.0-2.0); BASO % 0.1 % (0.0-3.0); EOS % 0.1 % (1.5-5.0); LYMPH # 1.1 (1.2-3.4); LYMPH % 7.5 % (22.0-35.0); MEAN CELL VOLUME 82.2 fl (80.0-105.0); MEAN CORPUSCULAR HGB CONC 29.2 g/dl (31.0-37.0); MEAN PLATELET VOLUME 10.1 fl (7.0-11.0); MONO # 1.4 (0.1-0.6); MONO % 9.5 % (1.0-6.0); RBC 4.16 10^6/uL (3.5-6.1); RED CELL DISTRIBUTION WIDTH 18.5 % (11.5-14.5); WHITE BLOOD COUNT 15.2 10^3/uL (4.5-11.0)
[2018-06-25 06:42] LABS: ALB/GLOB RATIO 1.1 (1.1-1.8); ALBUMIN 3.2 g/dL (3.0-4.8); ALT/SGPT 13 U/L (7-56); AST/SGOT 20 U/L (17-59); BLOOD UREA NITROGEN 17 mg/dL (7-21); CALCIUM 9.2 mg/dL (8.4-10.5); GFR NON-AFRICAN AMERICAN > 60
[2018-06-25 06:46] LABS: HDL CHOLESTEROL 27 mg/dL (29-60)
[2018-06-25 06:56] LABS: LDL CHOLESTEROL 61 mg/dL (0-129)
--- NOTE | 2018-06-25 07:31 | PCM.VEEG ---
Video EEG - Procedure Start Date: 06/24/18 Start Time: 14:25 End Date: 06/25/18 End Time: 07:10 Technical Summary: DATA ACQUISITION: This was a multichannel inpatient video-EEG, a minimum of 22 channels were uti lized, performed in accordance with recommendations specified by the [place] [employer] Society (Romain Espana et al. ACNS Guideline 1: Minimum Technical Requirements for Performing Clinical Electroencephalography. Journal of Clinical Neurophysiology 2016;33:303-7). The 10-20 electrode placement system was utilized in accordance with guidelines detailed by the International Federation of Clinical Neurophysiology (Loco Finley et al. The Ten-Twenty Electrode System of the International Federation. Recommendations for the Practice of Clinical Neurophysiology: Guidelines of the International Federation of Clinical Physiology 1999; EEG Suppl. 52.). DATA REVIEW / SPIKE DETECTION / DIGITAL ANALYSIS: The entire EEG was scanned and reviewed. Synchronized audio and video recording were reviewed at the time of each alarm and whenever an abnormality or suspicious activity was noted. The entire recording was analyzed utilizing an automated digital spike and seizure analysis program and all automatic spike and seizure detections were manually reviewed. A compressed spectral array was displayed and reviewed alongside the raw EEG tracings. In addition, further analysis of the EEG was performed when abnormalities were identified, including montage changes, dipole source localization, and frequency band identification. This study was attended 24 hours per day. - Interpretation Description of the study: 87 y/o man with new onset seizures. EEG Finding during wakefulness: On the entire study was not discernible awake EEG background, the EEG showed continuos monotonous diffuse bilateral attenuation with frequencies in the 4 to 5 Hz. Drowsiness was not seen. . There was intermittent bifrontal rhythmic delta slowing at 3 to 4 Hz lasting 3 to 6 seconds mainly seen during drowsiness occasionally during wakefulness. EEG Finding during sleep: Normal sleep architecture was not seen, the EEG showed diffuse bilateral slowing at 4 to 5 Hz. Interictal non-epileptiform abnormalities: None Interictal epileptiform abnormalities: There were occasional right frontal maximally at FP2, sharp waves that were seen in isolation. NO organized seizure activity was seen. Ictal epileptiform abnormalities: No seizures No Pb activations Induction procedures: None - Impression Impression: IMPRESSION: This was an abnormal video EEG, monitoring study, due to the presence of: 1-Severe background slowing/attenuation . 2-Right hemispheric mainly frontal interictal epileptiform discharges. NO SEIZURES, NOT IN STATUS EPILEPTICUS. INTERPRETATION: The above mentioned findings are in keeping with a moderate to sever non specific diffuse disturbance of cortical activity. This is in keeping with a diffuse graham matter dysfunction. The findings do not suggest a specific etiology. 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 Lastly, if clinical indicated, acute MANAGER [employer] conditions, should be considered, like herpes encephalitis, among others.
[2018-06-25] MEDS ORDERED: Vancomycin 1gm in NS 250ml 1 GM/250 ML BAG IVPB STA (08:56)
[2018-06-25] MEDS: Sodium Chloride 0.9% 1,000 ML IV SCH (09:00)
[2018-06-25] MEDS: cefTRIAXone 1 gm 1 GM/100 ML BAG IVPB SCH (09:04)
[2018-06-25] MEDS: Azithromycin 250 MG in Sodium Chloride 0.9% 250 ML IVPB SCH (09:12)
--- NOTE | 2018-06-25 10:02 | PN ---
DATE: 06/25/2018 SUBJECTIVE: The patient is still on vent with FIO2 of 50%, still sedated. No events overnight. The patient is on Cardene drip and propofol for sedation. Note that the patient does have large thyroid lesion pressing on the esophagus as well as the trachea. The patient is getting an EEG. PHYSICAL EXAMINATION: VITAL SIGNS: Temperature is 98.4, his pulse is 69, respirations are 18 and BP is 135/68. SKIN: Warm and dry. HEENT: Head atraumatic, normocephalic. Eyes reactive to light. Ears, nose and throat seemed to be within normal limits. NECK: Supple. No significant JVD. No obvious neck mass or thyroid. LUNGS: Bilateral rhonchi. HEART: Has regular rate and rhythm. Normal S1, S2. ABDOMEN: Soft. Decreased bowel sounds. GENITALIA AND RECTAL: Deferred. MUSCULOSKELETAL: No joint deformities. EXTREMITIES: Reveal positive edema. NEUROLOGICAL: He is sedated on a ventilator. LABORATORY DATA: White count of 15.2, hemoglobin of 10, hematocrit 34.2 with platelets of 237,000. Arterial blood gas reveals a pH of 7.38, pCO2 of 43, pO2 of 166. Sodium is 138, potassium 3.7, chloride 106, CO2 of 26 with a BUN of 17, creatinine of 1 and glucose of 101. IMPRESSION: The patient has respiratory failure requiring ventilator support secondary to pneumonia and congestive failure. He has a history of chronic obstructive pulmonary disease, presents with altered mental status and seizure. He also has a history of renal cell carcinoma with status post nephrectomy and anemia. It is noted on CT scan of the head and neck that the patient has a large thyroid lesion on the right that is pressing on the esophagus as well as the trachea. PLAN: We will continue with ventilator support and decrease the FIO2 as tolerated. Continue with aggressive pulmonary toilet. The patient is on Cardene as well as propofol and Protonix and Rocephin. He is also getting azithromycin and acyclovir. We will continue to treat aggressively along with the other consultants and the primary care doctor. Rebel Cardoso MD
--- NOTE | 2018-06-25 12:50 | PN ---
DATE: 06/25/2018 SUBJECTIVE: The patient is in bed, in CCU 129, bed 2. Nursing staff states overnight events. The patient remains intubated on the ventilator. PHYSICAL EXAMINATION: VITAL SIGNS: Temperature is 98, blood pressure is 135/68, respiratory rate is 20 on the vent, heart rate of 72. HEENT: Unremarkable. NECK: Supple. LUNGS: Decreased breath sounds. HEART: Normal S1, S2. ABDOMEN: Soft, nontender. LABORATORY DATA: Reveals a white count of 15,200, hemoglobin of 10, platelets of 237. BUN of 17, creatinine of 1. Urinalysis is noted. Microbiology reveals the blood cultures are negative; the nares, MRSA is not detected. The patient has continuous EEG. Chest x-ray shows ET tube with a left basal atelectasis infiltrate. Right basilar airspace disease. 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 Dr. Bonilla's consult is reviewed. ASSESSMENT AND PLAN: This is an 87-year-old male with hypertensive congestive heart failure, kidney cancer, questionable spine involvement, chronic obstructive lung disease, who has had a history of nephrectomy on this admission admitted with change of mental status, new onset of seizures, leukocytosis, positive infiltrate. Severe sepsis, respiratory failure, intubated on a ventilator with right lower lobe community-acquired pneumonia, original cause of change in mental status and seizure is unclear, herpes encephalitis is always in the differential diagnosis and new onset of seizures, currently on acyclovir, ceftriaxone, and azithromycin. Workup in progress. We will follow with you. We will discuss with Dr. Bonilla. Omer Fortune MD
[2018-06-25] MEDS: levETIRAcetam 500mg IVPB 500 MG/100 ML BAG IV SCH ×2 (13:05→21:40)
--- NOTE | 2018-06-25 13:15 | PN ---
DATE: 06/25/2018 SUBJECTIVE: He is in intensive care unit on the ventilator with a 24-hour video EEG on. He is on acyclovir, Ativan, azithromycin, Cardene, Diprivan, Keppra, Protonix, Rocephin and IV fluids. PHYSICAL EXAMINATION: VITAL SIGNS: He has 98.2 temp, 76 pulse, and he has 100% O2 sat. HEENT: Head atraumatic, normocephalic. HEART: Regular rate. LUNGS: Decreased breath sounds. ABDOMEN: Soft, obese. EXTREMITIES: +2/4 pitting edema. LABORATORY DATA: White count 15.2, 10 hemoglobin, 34.2 hematocrit with 237 platelets. Sodium 138, potassium 3.7, BUN 17, creatinine 1, GFR greater than 60, sugar is 101, calcium is 9.2, total bili is 0.3. AST is 20, ALT is 13, and alk phos is 84. Total protein is 6.2, albumin is 3.2, globulin 3, triglycerides 116. ASSESSMENT AND PLAN: He is being seen by the program director air talent, Neurology, Infectious Disease. 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 He has got multiple problems. He has new onset seizures, acute respiratory failure, thyroid mass, right lower lobe pneumonia, change in mentation, congestive heart failure, severe sepsis, continue aggressive treatment and care. Check his labs. Aleksey Neal DO
[2018-06-25] MEDS ORDERED: Magnesium Sulfate 1 gm in D5W 1 GM/100 ML BAG IVPB ONE (15:08)
--- NOTE | 2018-06-25 19:10 | PN ---
DATE: 06/25/2018 SUBJECTIVE: The patient was reported to be mildly bradycardic. He is still on a ventilator and is on IV Cardene and IV Keppra. OBJECTIVE: VITAL SIGNS: Blood pressure 159/56, earlier heart rate was 50, currently in the 60s, temperature 98.4. HEENT: Normocephalic. CHEST: Diminished breath sounds over the bases. HEART: S1 and S2 regular. EXTREMITIES: 2+ pitting edema. LABORATORY DATA: Hemoglobin and hematocrit 10 and 34.2, white count 15.2, platelet count 237,000. Today's SMA-7 is entirely within normal limits. EEG revealed severe background slowing/attenuation right hemispheric, mainly frontal interictal epileptiform discharges. 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 ASSESSMENT: 1. Respiratory failure. 2. Newly diagnosed seizure. 3. Retrosternal goiter. 4. Rule out underlying heart failure. 5. Hypertension. RECOMMENDATIONS: Continue current IV Cardene, continue current IV Zithromax, IV Keppra, IV Rocephin, and IV Protonix. Obtain a bedside echocardiogram study. Manohar Guzman MD
[2018-06-26] MEDS: Propofol 10 mg/ml 1,000 MG/100 ML VIAL IV PRN ×3 (00:17→18:19)
[2018-06-26] MEDS: Nicardipine 20 MG/200 ML 20 MG/200 ML BAG IV PRN ×3 (00:17→22:37)
[2018-06-26 05:42] LABS: ARTERIAL BLOOD GAS HCO3 26.6 mmol/L (21-28); ARTERIAL BLOOD GAS O2 SAT 98.1 % (95-98); ARTERIAL BLOOD GAS PCO2 42 mm/Hg (35-45); ARTERIAL BLOOD GAS PH 7.41 (7.35-7.45); ARTERIAL BLOOD GAS TCO2 27.9 mmol.L (22-28)
[2018-06-26 06:13] LABS: BASO # 0.02 K/mm3 (0.0-2.0); BASO % 0.1 % (0.0-3.0); EOS # 0.2 (0.0-0.7); EOS % 1.3 % (1.5-5.0); HEMOGLOBIN 10.3 g/dL (14.0-18.0); LYMPH # 1.5 (1.2-3.4); LYMPH % 11.2 % (22.0-35.0); MEAN CELL VOLUME 81.7 fl (80.0-105.0); MEAN CORPUSCULAR HEMOGLOBIN 24.5 pg (25.0-35.0); MEAN PLATELET VOLUME 9.8 fl (7.0-11.0); MONO # 1.5 (0.1-0.6); MONO % 10.8 % (1.0-6.0); RBC 4.2 10^6/uL (3.5-6.1); RED CELL DISTRIBUTION WIDTH 18.4 % (11.5-14.5); WHITE BLOOD COUNT 13.8 10^3/uL (4.5-11.0)
[2018-06-26] MEDS: Acyclovir 500 MG in Sodium Chloride 0.9% 100 ML IV SCH ×3 (06:20→21:39)
[2018-06-26 06:48] LABS: ALBUMIN 3.1 g/dL (3.0-4.8); ALT/SGPT 12 U/L (7-56); AST/SGOT 25 U/L (17-59); BLOOD UREA NITROGEN 12 mg/dL (7-21); GFR NON-AFRICAN AMERICAN > 60
--- NOTE | 2018-06-26 08:23 | PN ---
DATE: 06/24/2018 SUBJECTIVE: The patient remains intubated on mechanical ventilation in the intensive care unit. He has been followed by the military communications specialist on-call. He was seen by his primary medical doctor earlier today. I have discussed the case at length with the RN. The patient has a history of renal carcinoma, status post nephrectomy. The patient had presented unconscious and unresponsive. He had multiple seizures and altered mental status. The patient has no previous history of COPD according to the staff. PHYSICAL EXAMINATION: VITAL SIGNS: The patient is intubated on mechanical ventilation, afebrile. Temperature 99.8, pulse 110, respiratory rate 20, blood pressure 180/100, O2 saturation 99%. HEENT: Normocephalic, atraumatic. Pinpoint pupils. NECK: No jugular venous distention. No bruit. No mass. HEART: Tachycardic. No murmur appreciated. LUNGS: Scattered rhonchi throughout but essentially clear. ABDOMEN: Soft. Bowel sounds normoactive. EXTREMITIES: Edema in both lower extremities. SKIN: Venous stasis. No other rashes, no excoriations. NEUROLOGIC: Unresponsive. CURRENT LABORATORY DATA: White count 17,000, hemoglobin 10, hematocrit 35. PT 12. Last blood gas pH 7.43, pCO2 48, pO2 133. Chemistries show blood sugar of 177. Chest x-ray is a portable examination with poor inspiration. The left lung is clear. The right side appears to show a pneumonic infiltrate. Followup x-ray will be required. IMPRESSION: 1. Respiratory failure. 2. Cerebrovascular catastrophe. 3. Seizure disorder. 4. Renal cell carcinoma, status post nephrectomy. 5. Pneumonia. 6. Sepsis. PLAN: We will discuss with the military communications specialist on-call and primary medical doctor. Prognosis appears guarded at the age of 87 with past history as such. The patient's ability to fight is poor, awaiting another chest x-ray and blood gas which is pending. We will follow closely with you and decide on the need for further changes in treatment plan. Prognosis guarded. We will discuss with you. Stefan Alvarado MD
--- NOTE | 2018-06-26 08:39 | PN ---
DATE: 06/25/2018 PULMONARY PROGRESS NOTE SUBJECTIVE: The patient remains on mechanical ventilation, sedated. He is undergoing a 24-hour EEG to rule out brain . The patient remains on mechanical ventilation at this time with a poor prognosis. The case has been discussed with head nurse and the patient's private nurse. PHYSICAL EXAMINATION: VITAL SIGNS: The patient remains afebrile, respiratory rate of 18, and blood pressure 130/60. HEENT: Normocephalic, atraumatic. NECK: Supple, no jugular venous distention. HEART: Regular rhythm, S1 and S2 without murmur. LUNGS: Bilateral rhonchi. ABDOMEN: Soft, bowel sounds normoactive without mass, guarding, rebound, or organomegaly. : Within normal limits EXTREMITIES: Revealed no clubbing, cyanosis, or edema. SKIN: Dry; intact LABORATORY DATA: White count 15,000, hemoglobin 10. Chest x-ray not yet completed. Last arterial blood gas, pH 7.38, PCO2 43, PO2 of 166. CLINICAL IMPRESSION: 1. Respiratory failure. 2. Mechanical support. 3. Pneumonia. 4. Congestive heart failure. 5. Chronic obstructive pulmonary disease. 6. Abnormal mental status, rule out brain . 7. Renal cell carcinoma. PLAN: Continue ventilator support, pending EEG evaluation. We will defer to special events fundraiser on-call. We will follow closely with you. Stefan Alvarado MD MTD[facility]and[facility]
[2018-06-26] MEDS: levETIRAcetam 500mg IVPB 500 MG/100 ML BAG IV SCH ×2 (09:32→21:41)
[2018-06-26] MEDS: cefTRIAXone 1 gm 1 GM/100 ML BAG IVPB SCH (09:33)
[2018-06-26] MEDS: Azithromycin 250 MG in Sodium Chloride 0.9% 250 ML IVPB SCH (09:34)
--- NOTE | 2018-06-26 09:54 | CP.CCUPN ---
<Geoff Fernandez - Last Filed: 06/26/18 15:36> CCU Subjective - Physician Review Subjective (Free Text): Geoff Fernandez DO. Critical Care Progress note Patient seen and examined at bedside. No acute events overnight. He sedated/intubated on propofol. Awake but does not follow verbal stimuli. CCU Objective - Vital Signs / Intake & Output Intake and Output (Last 8hrs): Intake & Output 06/25/18 06/26/18 06/26/18 22:59 06:59 14:59 Intake Total 1439 2390 200 Output Total 1200 1070 Balance 239 1320 200 Intake: IV 1439 2390 200 0.9 400 1200 Magnesium 100 Potassium 200 antibiotic 100 200 cardene 141 240 diprivan 198 300 keppra 100 Output: Urine 1200 1070 Urethral (Phan) 1200 1070 - Physical Exam Physical Exam Limitations: Positive for: Altered Mental Status Head: Positive for: Atraumatic, Normocephalic Pupils: Positive for: PERRL Extroacular Muscles: Positive for: EOMI Conjunctiva: Positive for: Normal Pharnyx: Positive for: Normal Neck: Positive for: Normal Range of Motion. Negative for: JVD Respiratory/Chest: Positive for: Clear to Auscultation, Good Air Exchange Cardiovascular: Positive for: Regular Rate and Rhythm, Normal S1, S2 Abdomen: Positive for: Normal Bowel Sounds. Negative for: Tenderness, Distention Back: Positive for: Normal Inspection Upper Extremity: Positive for: Edema Lower Extremity: Positive for: Edema, Swelling Skin: Positive for: Warm, Dry, Normal Color - Medications Active Medications: Active Medications Generic Name Dose Route Start Last Admin Trade Name Freq PRN Reason Stop Dose Admin Sodium Chloride 1,000 mls @ 100 mls/hr 06/23/18 16:15 06/25/18 09:00 Sodium Chloride 0.9% IV 100 mls/hr .Q10H LUZ MARINA Administration Propofol 1,000 mg in 100 mls @ 2.756 mls/hr 06/23/18 16:18 06/26/18 03:00 Diprivan IV 20 mcg/kg/min .Q24H PRN 11.022 mls/hr TITRATE PER MD ORDER Titration Protocol 5 MCG/KG/MIN Nicardipine HCl 20 mg in 200 mls @ 50 mls/hr 06/23/18 18:52 06/26/18 09:38 Cardene Iv Premix IV 2 mg/hr .Q4H PRN 20 mls/hr TITRATE PER MD ORDER Administration Protocol 5 MG/HR Ceftriaxone Sodium 1 gm in 100 mls @ 100 mls/hr 06/24/18 10:00 06/26/18 09:33 Rocephin 1 Gram Ivpb IVPB 100 mls/hr DAILY LUZ MARINA Administration Protocol Azithromycin 250 mg/ Sodium 250 mls @ 167 mls/hr 06/24/18 10:00 06/26/18 09:34 Chloride IVPB 167 mls/hr DAILY LUZ MARINA Administration Protocol Acyclovir 500 mg/ Sodium 100 mls @ 100 mls/hr 06/24/18 07:24 06/26/18 06:20 Chloride IV 07/01/18 07:25 100 mls/hr Q8 LUZ MARINA Administration Protocol Levetiracetam 500 mg in 100 mls @ 400 mls/hr 06/25/18 11:45 06/26/18 09:32 Keppra 500mg Ivpb IV 400 mls/hr Q12 LUZ MARINA Administration Potassium Chloride 10 meq in 100 mls @ 50 mls/hr 06/26/18 08:15 06/26/18 09:32 Potassium Chloride 10 Meq/100 Ml IVPB 06/26/18 12:14 50 mls/hr Q2H LUZ MARINA Administration Lorazepam 2 mg 06/23/18 19:50 Ativan IVP Q1H PRN Seizure activity Protocol Pantoprazole Sodium 40 mg 06/24/18 10:00 06/26/18 09:41 Protonix Inj IVP 40 mg DAILY LUZ MARINA Administration - Patient Studies Lab Studies: Microbiology Studies 06/23/18 16:00 S.aureus & Coag-Neg Staph PNA FISH - Preliminary Blood-Venous Blood Culture - Preliminary Gram Positive Cocci Gram Stain - Final 06/23/18 16:30 Blood Culture - Preliminary Blood-Venous NO GROWTH AFTER 48 HOURS 06/23/18 17:12 Urine Culture - Final Urine,Catheterized No Growth (<1,000 CFU/ML) Lab Studies 06/26/18 06/26/18 06/26/18 Range/Units 07:57 06:06 05:40 WBC (4.5-11.0) 10^3/uL RBC (3.5-6.1) 10^6/uL Hgb (14.0-18.0) g/dL Hct (42.0-52.0) % MCV (80.0-105.0) fl MCH (25.0-35.0) pg MCHC (31.0-37.0) g/dl RDW (11.5-14.5) % Plt Count (120.0-450.0) 10^3/uL MPV (7.0-11.0) fl Neut % (Auto) (50.0-68.0) % Lymph % (Auto) (22.0-35.0) % [place] % (Auto) (1.0-6.0) % Eos % (Auto) (1.5-5.0) % Baso % (Auto) (0.0-3.0) % Lymph # (Auto) (1.2-3.4) [place] # (Auto) (0.1-0.6) Eos # (Auto) (0.0-0.7) Baso # (Auto) (0.0-2.0) K/mm3 Absolute Neuts (auto) (1.4-6.5) pCO2 (35-45) mm/Hg pO2 (80-100) mm/Hg HCO3 (21-28) mmol/L ABG pH (7.35-7.45) ABG Total CO2 (22-28) mmol.L ABG O2 Saturation (95-98) % ABG Base Excess (-2.0-3.0) mmol/L ABG Potassium (3.6-5.2) mmol/L Sodium 138 (132-148) mmol/L Chloride 105 (98-107) mmol/L Glucose (75-110) mg/dl Lactate (0.7-2.1) mmol/L FiO2 % Potassium 3.3 L (3.6-5.0) mmol/L Carbon Dioxide 27 (21-33) mmol/L Anion Gap 9 L (10-20) BUN 12 (7-21) mg/dL Creatinine 0.9 (0.8-1.5) mg/dl Est GFR ( Amer) > 60 Est GFR (Non-Af Amer) > 60 POC Glucose (mg/dL) 78 93 (65-110) mg/dL Random Glucose 100 (70-110) mg/dL Calcium 9.0 (8.4-10.5) mg/dL Magnesium (1.7-2.2) mg/dL Total Bilirubin 0.3 (0.2-1.3) mg/dL AST 25 (17-59) U/L ALT 12 (7-56) U/L Alkaline Phosphatase 79 (38-126) U/L Total Protein 6.0 (5.8-8.3) g/dL Albumin 3.1 (3.0-4.8) g/dL Globulin 3.0 gm/dL Albumin/Globulin Ratio 1.0 L (1.1-1.8) Arterial Blood Potassium (3.6-5.2) mmol/L 06/26/18 06/26/18 06/25/18 Range/Units 05:40 05:15 21:42 WBC 13.8 H (4.5-11.0) 10^3/uL RBC 4.20 (3.5-6.1) 10^6/uL Hgb 10.3 L (14.0-18.0) g/dL Hct 34.3 L (42.0-52.0) % MCV 81.7 (80.0-105.0) fl MCH 24.5 L (25.0-35.0) pg MCHC 30.0 L (31.0-37.0) g/dl RDW 18.4 H (11.5-14.5) % Plt Count 246 (120.0-450.0) 10^3/uL MPV 9.8 (7.0-11.0) fl Neut % (Auto) 76.6 H (50.0-68.0) % Lymph % (Auto) 11.2 L (22.0-35.0) % [place] % (Auto) 10.8 H (1.0-6.0) % Eos % (Auto) 1.3 L (1.5-5.0) % Baso % (Auto) 0.1 (0.0-3.0) % Lymph # (Auto) 1.5 (1.2-3.4) [place] # (Auto) 1.5 H (0.1-0.6) Eos # (Auto) 0.2 (0.0-0.7) Baso # (Auto) 0.02 (0.0-2.0) K/mm3 Absolute Neuts (auto) 10.54 H (1.4-6.5) pCO2 42 (35-45) mm/Hg pO2 172.0 H (80-100) mm/Hg HCO3 26.6 (21-28) mmol/L ABG pH 7.41 (7.35-7.45) ABG Total CO2 27.9 (22-28) mmol.L ABG O2 Saturation 98.1 H (95-98) % ABG Base Excess 1.7 (-2.0-3.0) mmol/L ABG Potassium 3.0 L (3.6-5.2) mmol/L Sodium 139.0 (132-148) mmol/L Chloride 109.0 H (98-107) mmol/L Glucose 101 (75-110) mg/dl Lactate 0.7 (0.7-2.1) mmol/L FiO2 50.0 % Potassium (3.6-5.0) mmol/L Carbon Dioxide (21-33) mmol/L Anion Gap (10-20) BUN (7-21) mg/dL Creatinine (0.8-1.5) mg/dl Est GFR ( Amer) Est GFR (Non-Af Amer) POC Glucose (mg/dL) 80 (65-110) mg/dL Random Glucose (70-110) mg/dL Calcium (8.4-10.5) mg/dL Magnesium (1.7-2.2) mg/dL Total Bilirubin (0.2-1.3) mg/dL AST (17-59) U/L ALT (7-56) U/L Alkaline Phosphatase (38-126) U/L Total Protein (5.8-8.3) g/dL Albumin (3.0-4.8) g/dL Globulin gm/dL Albumin/Globulin Ratio (1.1-1.8) Arterial Blood Potassium 3.0 L (3.6-5.2) mmol/L 06/25/18 06/25/18 06/25/18 Range/Units 16:00 11:13 07:12 WBC (4.5-11.0) 10^3/uL RBC (3.5-6.1) 10^6/uL Hgb (14.0-18.0) g/dL Hct (42.0-52.0) % MCV (80.0-105.0) fl MCH (25.0-35.0) pg MCHC (31.0-37.0) g/dl RDW (11.5-14.5) % Plt Count (120.0-450.0) 10^3/uL MPV (7.0-11.0) fl Neut % (Auto) (50.0-68.0) % Lymph % (Auto) (22.0-35.0) % [place] % (Auto) (1.0-6.0) % Eos % (Auto) (1.5-5.0) % Baso % (Auto) (0.0-3.0) % Lymph # (Auto) (1.2-3.4) [place] # (Auto) (0.1-0.6) Eos # (Auto) (0.0-0.7) Baso # (Auto) (0.0-2.0) K/mm3 Absolute Neuts (auto) (1.4-6.5) pCO2 (35-45) mm/Hg pO2 (80-100) mm/Hg HCO3 (21-28) mmol/L ABG pH (7.35-7.45) ABG Total CO2 (22-28) mmol.L ABG O2 Saturation (95-98) % ABG Base Excess (-2.0-3.0) mmol/L ABG Potassium (3.6-5.2) mmol/L Sodium (132-148) mmol/L Chloride (98-107) mmol/L Glucose (75-110) mg/dl Lactate (0.7-2.1) mmol/L FiO2 % Potassium (3.6-5.0) mmol/L Carbon Dioxide (21-33) mmol/L Anion Gap (10-20) BUN (7-21) mg/dL Creatinine (0.8-1.5) mg/dl Est GFR ( Amer) Est GFR (Non-Af Amer) POC Glucose (mg/dL) 88 103 111 H (65-110) mg/dL Random Glucose (70-110) mg/dL Calcium (8.4-10.5) mg/dL Magnesium (1.7-2.2) mg/dL Total Bilirubin (0.2-1.3) mg/dL AST (17-59) U/L ALT (7-56) U/L Alkaline Phosphatase (38-126) U/L Total Protein (5.8-8.3) g/dL Albumin (3.0-4.8) g/dL Globulin gm/dL Albumin/Globulin Ratio (1.1-1.8) Arterial Blood Potassium (3.6-5.2) mmol/L 06/25/18 Range/Units 06:00 WBC (4.5-11.0) 10^3/uL RBC (3.5-6.1) 10^6/uL Hgb (14.0-18.0) g/dL Hct (42.0-52.0) % MCV (80.0-105.0) fl MCH (25.0-35.0) pg MCHC (31.0-37.0) g/dl RDW (11.5-14.5) % Plt Count (120.0-450.0) 10^3/uL MPV (7.0-11.0) fl Neut % (Auto) (50.0-68.0) % Lymph % (Auto) (22.0-35.0) % [place] % (Auto) (1.0-6.0) % Eos % (Auto) (1.5-5.0) % Baso % (Auto) (0.0-3.0) % Lymph # (Auto) (1.2-3.4) [place] # (Auto) (0.1-0.6) Eos # (Auto) (0.0-0.7) Baso # (Auto) (0.0-2.0) K/mm3 Absolute Neuts (auto) (1.4-6.5) pCO2 (35-45) mm/Hg pO2 (80-100) mm/Hg HCO3 (21-28) mmol/L ABG pH (7.35-7.45) ABG Total CO2 (22-28) mmol.L ABG O2 Saturation (95-98) % ABG Base Excess (-2.0-3.0) mmol/L ABG Potassium (3.6-5.2) mmol/L Sodium (132-148) mmol/L Chloride (98-107) mmol/L Glucose (75-110) mg/dl Lactate (0.7-2.1) mmol/L FiO2 % Potassium (3.6-5.0) mmol/L Carbon Dioxide (21-33) mmol/L Anion Gap (10-20) BUN (7-21) mg/dL Creatinine (0.8-1.5) mg/dl Est GFR ( Amer) Est GFR (Non-Af Amer) POC Glucose (mg/dL) (65-110) mg/dL Random Glucose (70-110) mg/dL Calcium (8.4-10.5) mg/dL Magnesium 1.8 (1.7-2.2) mg/dL Total Bilirubin (0.2-1.3) mg/dL AST (17-59) U/L ALT (7-56) U/L Alkaline Phosphatase (38-126) U/L Total Protein (5.8-8.3) g/dL Albumin (3.0-4.8) g/dL Globulin gm/dL Albumin/Globulin Ratio (1.1-1.8) Arterial Blood Potassium (3.6-5.2) mmol/L Laboratory Results - last 24 hr 06/25/18 06/25/18 06/25/18 06:00 07:12 11:13 WBC RBC Hgb Hct MCV MCH MCHC RDW Plt Count MPV Neut % (Auto) Lymph % (Auto) [place] % (Auto) Eos % (Auto) Baso % (Auto) Lymph # (Auto) [place] # (Auto) Eos # (Auto) Baso # (Auto) Absolute Neuts (auto) pCO2 pO2 HCO3 ABG pH ABG Total CO2 ABG O2 Saturation ABG Base Excess ABG Potassium Sodium Chloride Glucose Lactate FiO2 Potassium Carbon Dioxide Anion Gap BUN Creatinine Est GFR ( Amer) Est GFR (Non-Af Amer) POC Glucose (mg/dL) 111 H 103 Random Glucose Calcium Magnesium 1.8 Total Bilirubin AST ALT Alkaline Phosphatase Total Protein Albumin Globulin Albumin/Globulin Ratio Arterial Blood Potassium 06/25/18 06/25/18 06/26/18 16:00 21:42 05:15 WBC RBC Hgb Hct MCV MCH MCHC RDW Plt Count MPV Neut % (Auto) Lymph % (Auto) [place] % (Auto) Eos % (Auto) Baso % (Auto) Lymph # (Auto) [place] # (Auto) Eos # (Auto) Baso # (Auto) Absolute Neuts (auto) pCO2 42 pO2 172.0 H HCO3 26.6 ABG pH 7.41 ABG Total CO2 27.9 ABG O2 Saturation 98.1 H ABG Base Excess 1.7 ABG Potassium 3.0 L Sodium 139.0 Chloride 109.0 H Glucose 101 Lactate 0.7 FiO2 50.0 Potassium Carbon Dioxide Anion Gap BUN Creatinine Est GFR ( Amer) Est GFR (Non-Af Amer) POC Glucose (mg/dL) 88 80 Random Glucose Calcium Magnesium Total Bilirubin AST ALT Alkaline Phosphatase Total Protein Albumin Globulin Albumin/Globulin Ratio Arterial Blood Potassium 3.0 L 06/26/18 06/26/18 06/26/18 05:40 05:40 06:06 WBC 13.8 H RBC 4.20 Hgb 10.3 L Hct 34.3 L MCV 81.7 MCH 24.5 L MCHC 30.0 L RDW 18.4 H Plt Count 246 MPV 9.8 Neut % (Auto) 76.6 H Lymph % (Auto) 11.2 L [place] % (Auto) 10.8 H Eos % (Auto) 1.3 L Baso % (Auto) 0.1 Lymph # (Auto) 1.5 [place] # (Auto) 1.5 H Eos # (Auto) 0.2 Baso # (Auto) 0.02 Absolute Neuts (auto) 10.54 H pCO2 pO2 HCO3 ABG pH ABG Total CO2 ABG O2 Saturation ABG Base Excess ABG Potassium Sodium 138 Chloride 105 Glucose Lactate FiO2 Potassium 3.3 L Carbon Dioxide 27 Anion Gap 9 L BUN 12 Creatinine 0.9 Est GFR ( Amer) > 60 Est GFR (Non-Af Amer) > 60 POC Glucose (mg/dL) 93 Random Glucose 100 Calcium 9.0 Magnesium Total Bilirubin 0.3 AST 25 ALT 12 Alkaline Phosphatase 79 Total Protein 6.0 Albumin 3.1 Globulin 3.0 Albumin/Globulin Ratio 1.0 L Arterial Blood Potassium 06/26/18 07:57 WBC RBC Hgb Hct MCV MCH MCHC RDW Plt Count MPV Neut % (Auto) Lymph % (Auto) [place] % (Auto) Eos % (Auto) Baso % (Auto) Lymph # (Auto) [place] # (Auto) Eos # (Auto) Baso # (Auto) Absolute Neuts (auto) pCO2 pO2 HCO3 ABG pH ABG Total CO2 ABG O2 Saturation ABG Base Excess ABG Potassium Sodium Chloride Glucose Lactate FiO2 Potassium Carbon Dioxide Anion Gap BUN Creatinine Est GFR ( Amer) Est GFR (Non-Af Amer) POC Glucose (mg/dL) 78 Random Glucose Calcium Magnesium Total Bilirubin AST ALT Alkaline Phosphatase Total Protein Albumin Globulin Albumin/Globulin Ratio Arterial Blood Potassium Fingerstick Blood Sugar Results: 80 Review of Systems - Review of Systems Systems not reviewed;Unavailable: Altered Mental Status Critical Care Progress Note - Ventilator Checklist Head of Bed 30 Degrees: Yes Daily Sedation Vacation: Yes Daily Assessment of Readiness to Wean: Yes Daily Spontaneous Breathing Trial: Yes PUD Prophalyxis: Yes DVT Prophylaxis: Yes Oral Care with Chlorhexidine Gluconate {CHG}: Yes - Vent Settings MODE:: ASSIST CONTROL - Nutrition Nutrition: Nutrition Category Date Time Status NPO Diet [DIET] Diets 06/25/18 Lunch Ordered Assessment/Plan - Assessment and Plan (Free Text) Assessment: 87 y/o male admitted to ICU for AMS in the setting of new onset seizure episode. He developed respiratory failure requiring ventilation/ sedation. Plan: Neuro: -awake, not oriented, does not follow verbal stimuli -etiology for AMS and new onset seizure is still unclear -MRI brain ordered -lumber puncture consent obtained from son on the phone -CT head negative for ICH, mass, edema -EEG negative for seizure , no status epilepticus -continue keppra 500 mg q12 -continue ativan prn for seizure Cardio: -maintain MAP>65 Pulm: -AB.41/42/172/26 -Vent settings: 400/14/5/40% -possible RLL PNA Renal: -maintain euvolemia -continue IVF -monitor I/O ID: -continue acyclovir, zithromax, rocephin as per ID -procal negative -leukocytosis is trending down -ID following Prophylaxis: Protonix SCD reviewed and discussed with attending Dr Ojeda <Micah Ojeda - Last Filed: 06/26/18 16:53> CCU Objective - Vital Signs / Intake & Output Intake and Output (Last 8hrs): Intake & Output 06/26/18 06/26/18 06/26/18 06:59 14:59 22:59 Intake Total 2390 250 Output Total 1070 Balance 1320 250 Intake: IV 2390 250 0.9 1200 antibiotic 200 cardene 240 diprivan 300 keppra 100 Output: Urine 1070 Urethral (Phan) 1070 - Medications Active Medications: Active Medications Generic Name Dose Route Start Last Admin Trade Name Freq PRN Reason Stop Dose Admin Sodium Chloride 1,000 mls @ 100 mls/hr 06/23/18 16:15 06/25/18 09:00 Sodium Chloride 0.9% IV 100 mls/hr .Q10H LUZ MARINA Administration Propofol 1,000 mg in 100 mls @ 2.756 mls/hr 06/23/18 16:18 06/26/18 09:53 Diprivan IV 20 mcg/kg/min .Q24H PRN 11.022 mls/hr TITRATE PER MD ORDER Administration Protocol 5 MCG/KG/MIN Nicardipine HCl 20 mg in 200 mls @ 50 mls/hr 06/23/18 18:52 06/26/18 09:38 Cardene Iv Premix IV 2 mg/hr .Q4H PRN 20 mls/hr TITRATE PER MD ORDER Administration Protocol 5 MG/HR Ceftriaxone Sodium 1 gm in 100 mls @ 100 mls/hr 06/24/18 10:00 06/26/18 09:33 Rocephin 1 Gram Ivpb IVPB 100 mls/hr DAILY LUZ MARINA Administration Protocol Azithromycin 250 mg/ Sodium 250 mls @ 167 mls/hr 06/24/18 10:00 06/26/18 09:34 Chloride IVPB 167 mls/hr DAILY LUZ MARINA Administration Protocol Acyclovir 500 mg/ Sodium 100 mls @ 100 mls/hr 06/24/18 07:24 06/26/18 14:28 Chloride IV 07/01/18 07:25 100 mls/hr Q8 LUZ MARINA Administration Protocol Levetiracetam 500 mg in 100 mls @ 400 mls/hr 06/25/18 11:45 06/26/18 09:32 Keppra 500mg Ivpb IV 400 mls/hr Q12 LUZ MARINA Administration Lorazepam 2 mg 06/23/18 19:50 Ativan IVP Q1H PRN Seizure activity Protocol Pantoprazole Sodium 40 mg 06/24/18 10:00 06/26/18 09:41 Protonix Inj IVP 40 mg DAILY LUZ MARINA Administration - Patient Studies Lab Studies: Microbiology Studies 06/23/18 16:00 S.aureus & Coag-Neg Staph PNA FISH - Final Blood-Venous Blood Culture - Preliminary Gram Positive Cocci Gram Stain - Final 06/23/18 16:30 Blood Culture - Preliminary Blood-Venous NO GROWTH AFTER 48 HOURS Lab Studies 06/26/18 06/26/18 06/26/18 Range/Units 11:10 07:57 06:06 WBC (4.5-11.0) 10^3/uL RBC (3.5-6.1) 10^6/uL Hgb (14.0-18.0) g/dL Hct (42.0-52.0) % MCV (80.0-105.0) fl MCH (25.0-35.0) pg MCHC (31.0-37.0) g/dl RDW (11.5-14.5) % Plt Count (120.0-450.0) 10^3/uL MPV (7.0-11.0) fl Neut % (Auto) (50.0-68.0) % Lymph % (Auto) (22.0-35.0) % [place] % (Auto) (1.0-6.0) % Eos % (Auto) (1.5-5.0) % Baso % (Auto) (0.0-3.0) % Lymph # (Auto) (1.2-3.4) [place] # (Auto) (0.1-0.6) Eos # (Auto) (0.0-0.7) Baso # (Auto) (0.0-2.0) K/mm3 Absolute Neuts (auto) (1.4-6.5) pCO2 (35-45) mm/Hg pO2 (80-100) mm/Hg HCO3 (21-28) mmol/L ABG pH (7.35-7.45) ABG Total CO2 (22-28) mmol.L ABG O2 Saturation (95-98) % ABG Base Excess (-2.0-3.0) mmol/L ABG Potassium (3.6-5.2) mmol/L Sodium (132-148) mmol/L Chloride (98-107) mmol/L Glucose (75-110) mg/dl Lactate (0.7-2.1) mmol/L FiO2 % Potassium (3.6-5.0) mmol/L Carbon Dioxide (21-33) mmol/L Anion Gap (10-20) BUN (7-21) mg/dL Creatinine (0.8-1.5) mg/dl Est GFR ( Amer) Est GFR (Non-Af Amer) POC Glucose (mg/dL) 94 78 93 (65-110) mg/dL Random Glucose (70-110) mg/dL Calcium (8.4-10.5) mg/dL Total Bilirubin (0.2-1.3) mg/dL AST (17-59) U/L ALT (7-56) U/L Alkaline Phosphatase (38-126) U/L Total Protein (5.8-8.3) g/dL Albumin (3.0-4.8) g/dL Globulin gm/dL Albumin/Globulin Ratio (1.1-1.8) Arterial Blood Potassium (3.6-5.2) mmol/L 06/26/18 06/26/18 06/26/18 Range/Units 05:40 05:40 05:15 WBC 13.8 H (4.5-11.0) 10^3/uL RBC 4.20 (3.5-6.1) 10^6/uL Hgb 10.3 L (14.0-18.0) g/dL Hct 34.3 L (42.0-52.0) % MCV 81.7 (80.0-105.0) fl MCH 24.5 L (25.0-35.0) pg MCHC 30.0 L (31.0-37.0) g/dl RDW 18.4 H (11.5-14.5) % Plt Count 246 (120.0-450.0) 10^3/uL MPV 9.8 (7.0-11.0) fl Neut % (Auto) 76.6 H (50.0-68.0) % Lymph % (Auto) 11.2 L (22.0-35.0) % [place] % (Auto) 10.8 H (1.0-6.0) % Eos % (Auto) 1.3 L (1.5-5.0) % Baso % (Auto) 0.1 (0.0-3.0) % Lymph # (Auto) 1.5 (1.2-3.4) [place] # (Auto) 1.5 H (0.1-0.6) Eos # (Auto) 0.2 (0.0-0.7) Baso # (Auto) 0.02 (0.0-2.0) K/mm3 Absolute Neuts (auto) 10.54 H (1.4-6.5) pCO2 42 (35-45) mm/Hg pO2 172.0 H (80-100) mm/Hg HCO3 26.6 (21-28) mmol/L ABG pH 7.41 (7.35-7.45) ABG Total CO2 27.9 (22-28) mmol.L ABG O2 Saturation 98.1 H (95-98) % ABG Base Excess 1.7 (-2.0-3.0) mmol/L ABG Potassium 3.0 L (3.6-5.2) mmol/L Sodium 138 139.0 (132-148) mmol/L Chloride 105 109.0 H (98-107) mmol/L Glucose 101 (75-110) mg/dl Lactate 0.7 (0.7-2.1) mmol/L FiO2 50.0 % Potassium 3.3 L (3.6-5.0) mmol/L Carbon Dioxide 27 (21-33) mmol/L Anion Gap 9 L (10-20) BUN 12 (7-21) mg/dL Creatinine 0.9 (0.8-1.5) mg/dl Est GFR ( Amer) > 60 Est GFR (Non-Af Amer) > 60 POC Glucose (mg/dL) (65-110) mg/dL Random Glucose 100 (70-110) mg/dL Calcium 9.0 (8.4-10.5) mg/dL Total Bilirubin 0.3 (0.2-1.3) mg/dL AST 25 (17-59) U/L ALT 12 (7-56) U/L Alkaline Phosphatase 79 (38-126) U/L Total Protein 6.0 (5.8-8.3) g/dL Albumin 3.1 (3.0-4.8) g/dL Globulin 3.0 gm/dL Albumin/Globulin Ratio 1.0 L (1.1-1.8) Arterial Blood Potassium 3.0 L (3.6-5.2) mmol/L 03/10/19 Range/Units 21:42 WBC (4.5-11.0) 10^3/uL RBC (3.5-6.1) 10^6/uL Hgb (14.0-18.0) g/dL Hct (42.0-52.0) % MCV (80.0-105.0) fl MCH (25.0-35.0) pg MCHC (31.0-37.0) g/dl RDW (11.5-14.5) % Plt Count (120.0-450.0) 10^3/uL MPV (7.0-11.0) fl Neut % (Auto) (50.0-68.0) % Lymph % (Auto) (22.0-35.0) % [place] % (Auto) (1.0-6.0) % Eos % (Auto) (1.5-5.0) % Baso % (Auto) (0.0-3.0) % Lymph # (Auto) (1.2-3.4) [place] # (Auto) (0.1-0.6) Eos # (Auto) (0.0-0.7) Baso # (Auto) (0.0-2.0) K/mm3 Absolute Neuts (auto) (1.4-6.5) pCO2 (35-45) mm/Hg pO2 (80-100) mm/Hg HCO3 (21-28) mmol/L ABG pH (7.35-7.45) ABG Total CO2 (22-28) mmol.L ABG O2 Saturation (95-98) % ABG Base Excess (-2.0-3.0) mmol/L ABG Potassium (3.6-5.2) mmol/L Sodium (132-148) mmol/L Chloride (98-107) mmol/L Glucose (75-110) mg/dl Lactate (0.7-2.1) mmol/L FiO2 % Potassium (3.6-5.0) mmol/L Carbon Dioxide (21-33) mmol/L Anion Gap (10-20) BUN (7-21) mg/dL Creatinine (0.8-1.5) mg/dl Est GFR ( Amer) Est GFR (Non-Af Amer) POC Glucose (mg/dL) 80 (65-110) mg/dL Random Glucose (70-110) mg/dL Calcium (8.4-10.5) mg/dL Total Bilirubin (0.2-1.3) mg/dL AST (17-59) U/L ALT (7-56) U/L Alkaline Phosphatase (38-126) U/L Total Protein (5.8-8.3) g/dL Albumin (3.0-4.8) g/dL Globulin gm/dL Albumin/Globulin Ratio (1.1-1.8) Arterial Blood Potassium (3.6-5.2) mmol/L Laboratory Results - last 24 hr 06/25/18 06/26/18 06/26/18 21:42 05:15 05:40 WBC 13.8 H RBC 4.20 Hgb 10.3 L Hct 34.3 L MCV 81.7 MCH 24.5 L MCHC 30.0 L RDW 18.4 H Plt Count 246 MPV 9.8 Neut % (Auto) 76.6 H Lymph % (Auto) 11.2 L [place] % (Auto) 10.8 H Eos % (Auto) 1.3 L Baso % (Auto) 0.1 Lymph # (Auto) 1.5 [place] # (Auto) 1.5 H Eos # (Auto) 0.2 Baso # (Auto) 0.02 Absolute Neuts (auto) 10.54 H pCO2 42 pO2 172.0 H HCO3 26.6 ABG pH 7.41 ABG Total CO2 27.9 ABG O2 Saturation 98.1 H ABG Base Excess 1.7 ABG Potassium 3.0 L Sodium 139.0 Chloride 109.0 H Glucose 101 Lactate 0.7 FiO2 50.0 Potassium Carbon Dioxide Anion Gap BUN Creatinine Est GFR ( Amer) Est GFR (Non-Af Amer) POC Glucose (mg/dL) 80 Random Glucose Calcium Total Bilirubin AST ALT Alkaline Phosphatase Total Protein Albumin Globulin Albumin/Globulin Ratio Arterial Blood Potassium 3.0 L 06/26/18 06/26/18 06/26/18 05:40 06:06 07:57 WBC RBC Hgb Hct MCV MCH MCHC RDW Plt Count MPV Neut % (Auto) Lymph % (Auto) [place] % (Auto) Eos % (Auto) Baso % (Auto) Lymph # (Auto) [place] # (Auto) Eos # (Auto) Baso # (Auto) Absolute Neuts (auto) pCO2 pO2 HCO3 ABG pH ABG Total CO2 ABG O2 Saturation ABG Base Excess ABG Potassium Sodium 138 Chloride 105 Glucose Lactate FiO2 Potassium 3.3 L Carbon Dioxide 27 Anion Gap 9 L BUN 12 Creatinine 0.9 Est GFR ( Amer) > 60 Est GFR (Non-Af Amer) > 60 POC Glucose (mg/dL) 93 78 Random Glucose 100 Calcium 9.0 Total Bilirubin 0.3 AST 25 ALT 12 Alkaline Phosphatase 79 Total Protein 6.0 Albumin 3.1 Globulin 3.0 Albumin/Globulin Ratio 1.0 L Arterial Blood Potassium 06/26/18 11:10 WBC RBC Hgb Hct MCV MCH MCHC RDW Plt Count MPV Neut % (Auto) Lymph % (Auto) [place] % (Auto) Eos % (Auto) Baso % (Auto) Lymph # (Auto) [place] # (Auto) Eos # (Auto) Baso # (Auto) Absolute Neuts (auto) pCO2 pO2 HCO3 ABG pH ABG Total CO2 ABG O2 Saturation ABG Base Excess ABG Potassium Sodium Chloride Glucose Lactate FiO2 Potassium Carbon Dioxide Anion Gap BUN Creatinine Est GFR ( Amer) Est GFR (Non-Af Amer) POC Glucose (mg/dL) 94 Random Glucose Calcium Total Bilirubin AST ALT Alkaline Phosphatase Total Protein Albumin Globulin Albumin/Globulin Ratio Arterial Blood Potassium Radiology Impressions: Radiology Impressions Chest CT 06/24/18 11:48 IMPRESSION: 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 Endotracheal tube in place. Bilateral effusions and associated bibasilar compressive atelectasis. Attending/Attestation - Attestation I have personally seen and examined this patient.: Yes I have fully participated in the care of the patient.: Yes I have reviewed all pertinent clinical information: Yes Notes (Text): 06/26/18 16:[address] Ojeda note
--- NOTE | 2018-06-26 10:04 | PN ---
DATE: 06/26/2018 PULMONARY NOTE SUBJECTIVE: The patient remains in the ICU. He remains on the ventilator and sedated. PHYSICAL EXAMINATION VITAL SIGNS: Temperature is 98.2, pulse is 70, respiratory rate 16/14. The blood pressure is 166/70. HEENT: Normocephalic, atraumatic. No JVD. CARDIOVASCULAR: Systolic ejection murmur at the lower left sternal border. No S3 gallop. LUNGS: Decreased breath sounds at the bases. No rhonchi. No wheezing. GI: Soft, nondistended. Bowel sounds are positive. EXTREMITIES: Mild edema. No cyanosis. No clubbing. SKIN: No acute rash. NEUROLOGIC: Limited at the present time. LABORATORY DATA: Arterial blood gas was done on PRVC 14, tidal volume 400, FiO2 of 50%. Results are; a pH of 7.41, pCO2 of 42, pO2 of 172. I have also reviewed the chest x-ray from 06/24/2018. There are minimal basilar changes most consistent with atelectasis. IMPRESSION 1. Respiratory failure. 2. New-onset seizures. 3. R/O Thyroid mass. 4. Renal cancer. 5. Anemia. PLAN: The patient remains in the ICU. He is intubated and sedated. I did discuss the case with the night nurse at length. The night nurse stated the patient had an uneventful night. I did review the last chest x-ray done. The chest x-ray is most consistent with bibasilar atelectasis. In addition, the procalcitonin done on 06/23/2018 -- negative. I would continue with the antibiotic coverage as per Infectious Disease. Input by Dr. Fortune is noted. The temperatures have fully resolved. The leukocytosis is resolving. Inputs by Cardiology and Neurology are also noted. An MRI has been ordered by Dr. Bonilla (Neurology). The patient remains critically ill with very guarded/poor prognosis. I did discuss the case with Dr. Ojeda (ICU) and the medical residents earlier this morning. I will discuss the above with the attending physician (Dr. Neal) later this morning. Theo Rivas MD [facility] # [id number] TODD
--- NOTE | 2018-06-26 10:27 | PN ---
DATE: 06/26/2018 CARDIOLOGY FOLLOWUP SUBJECTIVE: The patient remains on a ventilator. He is currently sedated. OBJECTIVE: VITAL SIGNS: Blood pressure is 168/78, heart rate reveals periods of Wenckebach. NECK: Negative JVD. LUNGS: Without rales. HEART: S1 and S2. EXTREMITIES: Without edema. LABORATORY DATA: Preliminary echocardiogram portable reveals good LV function with LVH and no aortic stenosis. Hemoglobin is 10.3, BUN and creatinine are unremarkable. IMPRESSION: 1. Respiratory failure. 2. Seizure 3. Hypertension. 4. Hypothyroidism. 5. Recent pain management. PLAN: Given these findings, the patient is for MRI and then possible spinal tap today. We will have a formal echocardiogram done. We will need to call his landscape painter to see what medications the patient was given. Prabhakar Cristina MD
--- NOTE | 2018-06-26 11:04 | CT ---
Date of service: 06/26/2018 PROCEDURE: CT Chest without contrast HISTORY: retro-sternal goiter COMPARISON: 06/24/2018 chest x-ray TECHNIQUE: Contiguous axial images were obtained through the chest without intravenous contrast enhancement. Sagittal and coronal reconstructions were performed. Radiation dose: Total exam DLP = 800.07 mGy-cm. This CT exam was performed using one or more of the following dose reduction techniques: Automated exposure control, adjustment of the mA and/or kV according to patient size, and/or use of iterative reconstruction technique. FINDINGS: LUNGS: Bilateral effusions and associated bibasilar compressive atelectasis. MEDIASTINUM: Unremarkable thoracic aorta. No aneurysm. Normal sized heart. Main pulmonary artery unremarkable. No vascular congestion. No lymphadenopathy. PLEURA: See above. BONES: No fracture. No destructive lesion. UPPER ABDOMEN: Grossly unremarkable. OTHER FINDINGS: 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 Endotracheal tube in place. IMPRESSION: 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 Endotracheal tube in place. Bilateral effusions and associated bibasilar compressive atelectasis.
--- NOTE | 2018-06-26 12:09 | PN ---
DATE: 06/26/2018 SUBJECTIVE: I saw him in the intensive care unit. He is on the ventilator. He is on acyclovir, Ativan, azithromycin premix, Cardene, Diprivan, Keppra, potassium replacement, Protonix, Rocephin and IV fluids. PHYSICAL EXAMINATION: VITAL SIGNS: He has 98.2 temp, 70 pulse, 99% O2 sat. HEENT: Head atraumatic, normocephalic. He is on a ventilator. He is on Diprivan. HEART: Regular rate. LUNGS: Decreased breath sounds, but clear. ABDOMEN: Soft, obese. EXTREMITIES: +2/4 pitting edema. LABORATORY DATA: He has a 30.8 white count, little better, 10.3 hemoglobin, 34.3 hematocrit with 246 platelets. He has a 138 sodium, potassium 3.3, potassium was replaced, BUN 12, creatinine 0.9, GFR greater than 60, sugar is 78, calcium is 9. AST is 25, ALT is 12, and alk phos 79. Total protein 6. Gram-positive cocci in venous blood. ASSESSMENT AND PLAN: We will continue aggressive treatment care on Federica De Leon. Discussed with the family at length. He had seizures, acute respiratory failure, severe sepsis. Aleksey Neal DO
--- NOTE | 2018-06-26 12:53 | PN ---
DATE: 06/26/2018 SUBJECTIVE: The patient is seen and examined at bedside. He is sedated with propofol 20 mcg per kg per minute. He just failed pressure support trial (he became tachypneic, and at some point, his heart rate went down). He is on PRVC now 400/14/5/40%. He is on nicardipine drip 2 mg per hour. He is on propofol 20 mcg per kg per minute. PHYSICAL EXAMINATION: VITAL SIGNS: On that setting as follows: Heart rate 72, oxygen saturation 99%, end-tidal CO2 on the monitor of 41, temperature 98.2, respiratory rate 16, blood pressure 174/91. HEAD, EYES, EARS, NOSE, AND THROAT: Head and neck atraumatic. The patient is intubated. HEART: Regular rate and rhythm. S1, S2 distant. Lungs: CTA b/l ABDOMEN: Soft, nontender, nondistended. MUSCULOSKELETAL: No C/C/E. NEUROLOGIC: The patient was seen moving all extremities spontaneously during pressure support trial. SKIN: Moist. PSYCHIATRIC: The patient appeared to be trying following commands. DIAGNOSTIC DATA: EEG on 06/25/2018 showed severe background slowing attenuation, right hemispheric mainly frontal interictal epileptiform discharges. No seizures, and not in status epilepticus. 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 Head and neck CTA showed patent common carotid arteries and internal carotid arteries, marked symmetry of the vertebral arteries right-sided which is large in caliber, more dominant than the left. Of note, it also showed large mass lesion in the right lobe thyroid gland extending into the mediastinum compresses and displacing the trachea and esophagus to the left side. The lesion contains internal and scattered peripheral calcifications. Followup thyroid ultrasound recommended to exclude neoplasm. Head CT showed generalized atrophy, nonspecific changes, no acute intracranial pathology. Chest x-ray showed limited right basilar air space disease remaining with no interval change at retrocardiac left basilar opacity reflecting atelectasis or infiltrate. Small left pleural effusion not excluded. Bedside echocardiogram done by law secretary today showed no significant left ventricular or right ventricular systolic dysfunction. Formal echocardiogram is pending. LABORATORY DATA: WBC 13.8, hemoglobin 10.3, platelet count 248. Sodium 138, potassium 3.3, chloride 105, carbon dioxide 27, BUN 12, creatinine 0.9, glucose 78, AST 25, ALT 12, total bilirubin 0.3, creatinine 0.9. ABG on 50% FiO2 showed 7.41/42/172. WBC 13.8, hemoglobin 10.3, platelet count 246. MEDICATIONS: Acyclovir 500 mg IV every 8 hours, Keppra, Ativan p.r.n., Cardene drip, Protonix, propofol drip, ceftriaxone, azithromycin, and normal saline 100 mL per hour. ASSESSMENT AND PLAN: This is an 87-year-old gentleman who presented with new onset of clinical seizures, requiring endotracheal intubation for airway protection. Subsequent electroencephalogram showed increased irritability in the right frontal focus without status epilepticus or active electroencephalographic seizures. One of the differential diagnosis include herpes encephalitis. Thus, the patient was empirically started on acyclovir by Infectious Disease service. MRI of the brain is pending as well as spinal tap. The thyroid mass compressing over trachea and esophagus is concerning, and once more acute pathologies ruled out or addressed (e.g brain mets? herpex encephalitis?), this will take priority as well. Neurologic: No seizures or status epilepticus found on recent electroencephalogram. The patient is on sedation with propofol which also has antiseizure activity. The patient is on Keppra. Neurology service is following him as well. The patient did not tolerate pressure support trial during which she was off of propofol. I did discuss weaning off propofol with Dr. Zach Bonilla. We agreed to proceed with sedation vacation under cover of Keppra. MRI of the brain is pending. Pulmonary: We will continue with [id number] tidal volume ventilation with plateau pressure less than 25 cmH20. Conservative fluid and oxygen management. Head of bed elevated more than 35 degrees. Oral hygiene. Deep venous thrombosis and gastrointestinal prophylaxis. Daily sedation vacation and weaning trials. Concern for community-acquired pneumonia versus aspiration pneumonitis was raised. The patient is on ceftriaxone and azithromycin for it at present time. We might start small dose of steroids as well as well as bronchodilators. Mediastinal mass that is thought to be originated from thyroid gland is of concern as well as it appeared to press over esophagus and trachea. It may represent malignancy and has to be worked up as well right after acute issues are resolved or addressed (such as ruling out herpes encephalitis and avoiding seizures). Cardiovascular: The patient is on Cardene drip for elevated blood pressure. Echocardiogram is pending, however, bedside did not reveal significant left ventricular or right ventricular dysfunction. We will continue to wean down Cardene drip as well. Gastrointestinal: The patient is nothing by mouth for now. Once spinal tap attempted, we might consider putting nasogastric tube and start some trophic feeds. Gastrointestinal prophylaxis. Infectious Disease: The patient has what appears to be community-acquired pneumonia versus aspiration pneumonitis. The patient is being treated with ceftriaxone and azithromycin. Infectious Disease service is following the patient as well. Blood culture, urine culture, and procalcitonin will be ordered. Urine for Legionella streptococcal antigen will be ordered as well. There is a concern for herpes encephalitis and the patient is on empiric acyclovir therapy as well. He tolerated well, and there are no signs of nephrotoxicity presently. Renal: We will maintain mean arterial pressure more than 65, urine output more than 0.5 cc per kg per hour. Maintain euvolemia, euglycemia, normothermia, and avoid hyperchloremia. Endocrine: We will maintain blood glucose within 140-180 range according to NICE-SUGAR trial. . ccm time 40 min Micah Ojeda MD TODD
--- NOTE | 2018-06-26 13:55 | PN ---
DATE: 06/26/2018 NEUROLOGY FOLLOWUP CHIEF COMPLAINT: Altered mental status followup. SUBJECTIVE: The patient was seen and examined at bedtime. Video EEG is complete, which showed no diffuse seizures, but showed some evidence of right hemispheric frontal interictal sharp waves with severe background slowing, which could indicates some acute AIRPORT PLANNER condition or encephalitis. The patient is currently on broad spectrum antibiotics, which is acylovir, ceftriaxone, and azithromycin for underlying sepsis. WBC count has trended down from 15.8 to 13.8. Electrolytes have been stabilized. The patient's MRI of brain is currently pending. The patient is on Keppra 500 mg IV every 12 hours for seizure prophylaxis. FAMILY HISTORY: Noncontributory. MEDICATIONS: Reviewed by nurse's reconciliation sheet. ALLERGIES: UNOBTAINABLE AT THIS TIME DUE TO MENTAL STATUS CHANGE. PAST MEDICAL HISTORY: History of CHF, renal cell carcinoma, status post nephrectomy and COPD. REVIEW OF SYSTEMS: A 14-point review of systems is unable to be obtained due to the patient's altered mental status. LABORATORY DATA: Sodium is 138, potassium 3.2, chloride 105, carbon dioxide 27, BUN of 12, creatinine 0.9. PHYSICAL EXAMINATION VITAL SIGNS: Temperature 98.2, pulse 87, blood pressure 166/70, ,. oxygen saturation 99% on mechanical ventilation. The patient is off sedation, being tapered off propofol. HEENT: Atraumatic, normocephalic. PERRLA. Extraocular muscles are intact. NECK: Supple. No JVD. No adenopathy noted. LUNGS: Decreased breath sounds bilaterally. ABDOMEN: Soft, nontender, obese. EXTREMITIES: 2+ pitting edema. Peripheral pulses 2+ felt bilaterally. NEUROLOGIC: Lethargic, no acute distress. Cranial nerves II through XII intact. Speech is difficult to assess at this time. Motor exam; Spontaneous movements of both upper and lower extremities are noted. Sensory exam, withdraws localized to noxious stimulus. DTRs are 2+ throughout, 1 at both knees and ankles. Toes are downgoing bilaterally. Coordination and gait is deferred for now. IMPRESSION: This is an 87-year-old man with history of hypertension, congestive heart failure, renal cell carcinoma status post nephrectomy, chronic obstructive pulmonary disease, who was admitted for leukocytosis, altered mental status, possible new onset of seizure likely secondary to severe sepsis, respiratory failure, which right lower lobe aspiration pneumonia. In addition, had an EEG, which shows some right hemispheric severe diffused slowing consistent with encephalopathy and right hemispheric interictal spikes indicate possible central etiologies as well. He has placed on Keppra 500 mg IV every 12 hours. RECOMMENDATIONS: 1. At this time, we will recommend continue with Keppra 500 mg IV every 12 hours for seizure prophylaxis. 2. Monitor electrolytes and correct accordingly. 3. MRI of the brain with and without contrast to assess any structural abnormalities. 4. done by the die sinking machine operator. Case discussed with Dr. Ojeda this morning and continue to monitor electrolytes. Zach Bonilla MD
--- NOTE | 2018-06-26 14:12 | CP.PCM.PCO ---
Physician Communication Note - Physician Communication Note Physician Communication Note: pt. remains intubated , resp failure
[2018-06-26] MEDS ORDERED: Gadodiamide 287 MG/ML VIAL (15ML) IV ONE (15:34)
--- NOTE | 2018-06-26 17:28 | CARD ---
APPROVED REPORT Date of service: 06/26/2018 EXAM: Two-dimensional and M-mode echocardiogram with Doppler and color Doppler. INDICATION Congestive Heart Failure 2D DIMENSIONS Left Atrium (2D)3.8 (1.6-4.0cm)IVSd1.5 (0.7-1.1cm) LVDd3.9 (3.9-5.9cm)PWd1.6 (0.7-1.1cm) LVDs2.8 (2.5-4.0cm)FS (%) 29.8 % LVEF (%)57.5 (>50%) M-Mode DIMENSIONS Aortic Root3.80 (2.2-3.7cm)Aortic Cusp Exc.1.90 (1.5-2.0cm) Aortic Valve AoV Peak Pcojlbvu088.0cm/Eduardo Peak GR.14mmHg Mitral Valve E/A ratio0.0 TDI E/Lateral E'0.0E/Medial E'0.0 Pulmonary Valve PV Peak Gszpkhga889.0cm/sPV Peak Grad.5mmHg Tricuspid Valve TR Peak [id number]/sRAP [id number] Peak Gr.35mmHg [id number] LEFT VENTRICLE The left ventricle is normal size. There is mild concentric left ventricular hypertrophy. The left ventricular function is normal. The left ventricular ejection fraction is within the normal range. There is normal LV segmental wall motion. Transmitral Doppler flow pattern is abnormal. RIGHT VENTRICLE The right ventricle is mildly dilated. There is normal right ventricular wall thickness. The right ventricular systolic function is normal. ATRIA The left atrium size is normal. The right atrium size is normal. AORTIC VALVE The aortic valve is mildly thickened. There is mild aortic regurgitation. There is no aortic valvular stenosis. MITRAL VALVE The mitral valve is normal in structure. There is no mitral valve regurgitation noted. There is no mitral valve stenosis. TRICUSPID VALVE There is mild tricuspid regurgitation. There is mild to moderate pulmonary hypertension. PULMONIC VALVE There is mild pulmonic valvular regurgitation. GREAT VESSELS The aortic root is mildly enlarged. The IVC collapses <50% with inspiration. <Conclusion> There is mild concentric left ventricular hypertrophy. The left ventricular function is normal. The left ventricular ejection fraction is within the normal range. There is normal LV segmental wall motion. There is mild aortic regurgitation. The aortic root is mildly enlarged. There is mild tricuspid regurgitation. There is mild pulmonic valvular regurgitation. There is mild to moderate pulmonary hypertension.
--- NOTE | 2018-06-26 17:41 | MRI ---
Date of service: 06/26/2018 PROCEDURE: MRI BRAIN WITH AND WITHOUT CONTRAST HISTORY: AMS COMPARISON: Comparison made with prior CT scan brain and CT brain dated 06/23/2018. TECHNIQUE: Multiplanar, multisequence MR images of the brain were obtained with and without intravenous contrast enhancement. FINDINGS: HEMORRHAGE: No acute parenchymal, subarachnoid nor extra-axial hemorrhage. No hemosiderin deposition identified on gradient echo weighted sequence. DWI: No evidence of an acute or early subacute infarction seen on diffusion. BRAIN PARENCHYMA: Mild chronic periventricular white matter ischemic changes seen extending peripherally into the deep white matter both cerebral hemispheres. Additionally, multiple more discrete small chronic lacunar-type infarcts scattered about and subcortical white matter both cerebral hemispheres.. Moderate to significant central volume loss. ENHANCEMENT: No enhancing parenchymal nor extra-axial masses or collections. No evidence of unusual meningeal enhancement VENTRICLES: No obstructive hydrocephalus. CRANIUM: Unremarkable. ORBITS: Changes of right-sided cataract surgery. PARANASAL SINUSES/MASTOIDS: Moderate mucosal thickening seen within the ethmoid and frontal sinuses. The maxillary antra appear diminutive in overall size right smaller than the left. VASCULAR SYSTEM: Visualized major vascular flow voids at skull base patent. OTHER FINDINGS: None . IMPRESSION: No evidence of acute intracranial hemorrhage or infarct. Mild chronic white matter and scattered basal nuclei ischemic changes. No enhancing lesions are identified. Moderate central volume loss.
[2018-06-26] MEDS: Albuterol-Ipratrop 3 mg / 0.5 (3 ml) UD IH SCH (19:31)
[2018-06-26] MEDS: MethylPREDNISolone 40 mg Vial IVP SCH (21:41)
--- NOTE | 2018-06-26 22:02 | PN ---
DATE: 06/26/2018 SUBJECTIVE: The patient is in bed, seen earlier this morning in room 129, bed 2. The patient remains intubated on a ventilator. No fevers reported. PHYSICAL EXAMINATION: VITAL SIGNS: Temperature is 98, blood pressure is 160/70, respiratory rate on the vent, heart rate of 74. HEENT: Unremarkable. NECK: Supple. LUNGS: Have decreased breath sounds. HEART: Normal S1 and S2. ABDOMEN: Soft. LABORATORY EXAMINATION: Reveals a white count of 13,800; hemoglobin of 10; platelets of 246. Chemistries reveal a BUN of 12, creatinine of 0.9. Procalcitonin is noted. Urinalysis is noted. Microbiology reveals gram-positive cocci. His report is a coag-negative staph by . Repeat blood cultures pending. Review of orders reveals the patient to be on ceftriaxone, acyclovir, and intermittent vancomycin. The patient is on azithromycin. The patient's procalcitonin is less than 0.05. Dr. Bonilla's progress note is reviewed. The patient had MRI of the brain; results are pending. Chest x-ray on 06/24/2018 is noted. ASSESSMENT AND PLAN: This is an 87-year-old male with hypertension, congestive heart failure, kidney disease, questionable spine involvement, chronic obstructive lung disease, history of nephrectomy on admission. Admitted with a change in mental status, new onset of seizures, leukocytosis, positive infiltrates, severe sepsis, respiratory failure, intubated on a ventilator with right lower lobe community-acquired pneumonia and change in mental status and seizure is unclear, herpes encephalitis is always in the differential diagnosis. Currently on ceftriaxone, acyclovir, azithromycin. We will request the urine for Legionella antigen. We will check on the MRI of the brain, and we will follow with you. Omer Fortune MD
[2018-06-27 00:03] VITALS: TEMP 98.1
[2018-06-27] MEDS: Propofol 10 mg/ml 1,000 MG/100 ML VIAL IV PRN ×2 (01:40→08:43)
[2018-06-27] MEDS: Sodium Chloride 0.9% 1,000 ML IV SCH (01:41)
[2018-06-27] MEDS: Albuterol-Ipratrop 3 mg / 0.5 (3 ml) UD IH SCH ×4 (01:44→20:30)
[2018-06-27] MEDS: Nicardipine 20 MG/200 ML 20 MG/200 ML BAG IV PRN (03:51)
[2018-06-27] MEDS: Acyclovir 500 MG in Sodium Chloride 0.9% 100 ML IV SCH ×2 (05:40→13:31)
[2018-06-27] MEDS ORDERED: PHENYLEPHRINE 2.5% OU SCH (06:00)
[2018-06-27] MEDS ORDERED: Tropicamide 1% Opht SOLUTION OU SCH (06:00)
[2018-06-27 06:10] LABS: ARTERIAL BLOOD GAS HCO3 23.5 mmol/L (21-28); ARTERIAL BLOOD GAS HEMOGLOBIN 9.4 g/dL (11.7-17.4); ARTERIAL BLOOD GAS O2 CAPACITY 13.2 mL/dl (16-24); ARTERIAL BLOOD GAS O2 CONTENT 12.9 ML/dl (15-23); ARTERIAL BLOOD GAS O2 SAT 97.9 % (95-98); ARTERIAL BLOOD GAS PCO2 37 mm/Hg (35-45); ARTERIAL BLOOD GAS PH 7.41 (7.35-7.45); ARTERIAL BLOOD GAS TCO2 24.6 mmol.L (22-28)
[2018-06-27 06:48] LABS: HEMOGLOBIN 10.2 g/dL (14.0-18.0); LYMPH # 0.7 (1.2-3.4); LYMPH % 5.5 % (22.0-35.0); MEAN CELL VOLUME 81.2 fl (80.0-105.0); MEAN CORPUSCULAR HEMOGLOBIN 24.3 pg (25.0-35.0); MEAN CORPUSCULAR HGB CONC 29.9 g/dl (31.0-37.0); MEAN PLATELET VOLUME 10.4 fl (7.0-11.0); MONO # 0.4 (0.1-0.6); PLATELET COUNT 256 10^3/uL (120.0-450.0); RED CELL DISTRIBUTION WIDTH 18.4 % (11.5-14.5); WHITE BLOOD COUNT 12.7 10^3/uL (4.5-11.0)
[2018-06-27 07:18] LABS: ALBUMIN 2.9 g/dL (3.0-4.8); ALT/SGPT 8 U/L (7-56); AST/SGOT 24 U/L (17-59); BLOOD UREA NITROGEN 14 mg/dL (7-21); GFR NON-AFRICAN AMERICAN > 60
--- NOTE | 2018-06-27 07:47 | PN ---
DATE: 06/27/2018 PULMONARY NOTE SUBJECTIVE: The patient remains on the ventilator. He remains sedated. PHYSICAL EXAMINATION: VITALS: Temperature is 98.1, pulse 76, respirations 17/14, blood pressure 166/70. HEENT: Normocephalic, atraumatic. No JVD. CARDIOVASCULAR: Systolic ejection murmur at the lower left sternal border. No S3 gallop. LUNGS: Decreased breath sounds at the bases. No rhonchi. No wheezing. EXTREMITIES: Mild edema. No cyanosis. No clubbing. GASTROINTESTINAL: Abdomen is soft, nondistended. Bowel sounds are positive. SKIN: No acute rash. NEUROLOGIC: Exam limited at the present time. PERTINENT LABORATORY DATA: Chest x-ray was done this morning and reviewed. There is chronic elevation of the right hemidiaphragm. There remains minimal bibasilar changes. Arterial blood gas was done on PRVC 14, tidal volume 400, FiO2 of 40%. Results are: PH 7.41, pCO2 37, pO2 of 105. IMPRESSION: 1. Respiratory failure. 2. New-onset seizures. 3. Thyroid mass (rule out goiter). 4. Renal cancer. 5. Anemia. PLAN: The patient remains in the ICU. He remains intubated and sedated. I discussed the case to night nurse at length. The night nurse stated that the patient had an uneventful night. I did review the chest x-ray as above. The chest x-ray reveals persistent bibasilar changes. I have also reviewed the arterial blood gas. The arterial blood gas is improved with normalization of the pH, and a decrease in the alveolar-arterial gradient. I will discuss possible weaning trials with the ICU team this morning. I would continue with the antibiotic coverage as per Infectious Disease. Input by Dr. Fortune is noted. There are no temperatures noted. The leukocytosis is resolving. Inputs by Cardiology and Neurology are also noted. Clinical status of the patient does appear improved - compared to last week. However, given the above, the future status/prognosis for this patient remains very guarded. I will discuss the above with the entire ICU team in the next few moments. I will also discuss the above with the attending physician later this morning. Theo Karpman, MD [facility] # [id number]
[2018-06-27 08:06] LABS: LYMPHOCYTE 5 % (22.0-35.0); MONOCYTE 1 % (1.0-6.0); NEUTROPHIL 94 % (50.0-70.0)
[2018-06-27 08:07] LABS: PLATELET ESTIMATE NORMAL (NORMAL)
--- NOTE | 2018-06-27 09:27 | RAD ---
Date of service: 06/27/2018 HISTORY: f/u COMPARISON: CT chest without contrast from 06/26/2018. FINDINGS: Endotracheal tube is stable in position and terminates in the mid trachea LUNGS: There is redemonstration of airspace disease in the right lower lobe. The left lung is well inflated and clear. PLEURA: Worsening right pleural effusion. No large left pleural effusion. No pneumothorax CARDIOVASCULAR: Persistent moderate cardiomegaly. There are aortic atherosclerotic calcifications present. OSSEOUS STRUCTURES: Within normal limits for the patient's age. VISUALIZED UPPER ABDOMEN: Normal. OTHER FINDINGS: Persistent widening of the superior mediastinum related to retrosternal goiter on the right. IMPRESSION: Worsening right pleural effusion. Underlying airspace disease may represent atelectasis or pneumonia.
--- NOTE | 2018-06-27 09:33 | CP.CCUPN ---
<Geoff Fernandez - Last Filed: 06/27/18 13:50> CCU Subjective - Physician Review Subjective (Free Text): Geoff Fernandez DO. Critical Care Progress note Patient seen and examined at bedside. No acute events overnight, afebrile. He is sedated/intubated on propofol. Awake but does not follow verbal stimuli. CCU Objective - Vital Signs / Intake & Output Vital Signs (Last 4 hours): Vital Signs Resp Pulse Ox 06/27/18 07:12 17 97 Intake and Output (Last 8hrs): Intake & Output 06/26/18 06/27/18 06/27/18 22:59 06:59 14:59 Intake Total 2762 2792 100 Output Total 3100 500 Balance -338 2292 100 Weight 202 lb Intake: IV 2512 2542 100 0.9 1200 1200 Magnesium 100 Potassium 200 antibiotic 200 200 cardene 260 500 diprivan 152 192 keppra 100 100 Oral 250 250 Output: Urine 3100 500 Urethral (Phan) 3100 500 Other: # Bowel Movements 0 0 - Physical Exam Physical Exam Limitations: Positive for: Altered Mental Status Head: Positive for: Atraumatic, Normocephalic Pupils: Positive for: PERRL Extroacular Muscles: Positive for: EOMI Conjunctiva: Positive for: Normal Pharnyx: Positive for: Normal Neck: Positive for: Normal Range of Motion. Negative for: JVD Respiratory/Chest: Positive for: Clear to Auscultation, Good Air Exchange Cardiovascular: Positive for: Regular Rate and Rhythm, Normal S1, S2 Abdomen: Positive for: Normal Bowel Sounds. Negative for: Tenderness, Distention Back: Positive for: Normal Inspection Upper Extremity: Positive for: Edema Lower Extremity: Positive for: Edema, Swelling Skin: Positive for: Warm, Dry, Normal Color Psychiatric: Positive for: Other (sedated/ntubated) - Medications Active Medications: Active Medications Generic Name Dose Route Start Last Admin Trade Name Freq PRN Reason Stop Dose Admin Albuterol/Ipratropium 3 ml 06/26/18 20:00 06/27/18 07:06 Duoneb 3 Mg/0.5 Mg (3 Ml) Ud IH 3 ml [id number] LUZ MARINA Administration Sodium Chloride 1,000 mls @ 100 mls/hr 06/23/18 16:15 06/27/18 01:41 Sodium Chloride 0.9% IV 100 mls/hr .Q10H LUZ MARINA Administration Propofol 1,000 mg in 100 mls @ 2.756 mls/hr 06/23/18 16:18 06/27/18 08:43 Diprivan IV 20 mcg/kg/min .Q24H PRN 11.022 mls/hr TITRATE PER MD ORDER Administration Protocol 5 MCG/KG/MIN Nicardipine HCl 20 mg in 200 mls @ 50 mls/hr 06/23/18 18:52 06/27/18 04:30 Cardene Iv Premix IV 2.5 mg/hr .Q4H PRN 25 mls/hr TITRATE PER MD ORDER Titration Protocol 5 MG/HR Ceftriaxone Sodium 1 gm in 100 mls @ 100 mls/hr 06/24/18 10:00 06/26/18 09:33 Rocephin 1 Gram Ivpb IVPB 100 mls/hr DAILY LUZ MARINA Administration Protocol Azithromycin 250 mg/ Sodium 250 mls @ 167 mls/hr 06/24/18 10:00 06/26/18 09:34 Chloride IVPB 167 mls/hr DAILY LUZ MARINA Administration Protocol Acyclovir 500 mg/ Sodium 100 mls @ 100 mls/hr 06/24/18 07:24 06/27/18 05:40 Chloride IV 07/01/18 07:25 100 mls/hr Q8 LUZ MARINA Administration Protocol Levetiracetam 500 mg in 100 mls @ 400 mls/hr 06/25/18 11:45 06/26/18 21:41 Keppra 500mg Ivpb IV 400 mls/hr Q12 LUZ MARINA Administration Lorazepam 2 mg 06/23/18 19:50 Ativan IVP Q1H PRN Seizure activity Protocol Methylprednisolone 20 mg 06/26/18 22:00 06/26/18 21:41 Solu-Medrol IVP 20 mg Q12 LUZ MARINA Administration Pantoprazole Sodium 40 mg 06/24/18 10:00 06/26/18 09:41 Protonix Inj IVP 40 mg DAILY LUZ MARINA Administration - Patient Studies Lab Studies: Microbiology Studies 06/23/18 16:00 S.aureus & Coag-Neg Staph PNA FISH - Final Blood-Venous Blood Culture - Final Coagulase Neg Staphylococcus Gram Stain - Final 06/23/18 16:30 Blood Culture - Preliminary Blood-Venous NO GROWTH AFTER 3 DAYS Lab Studies 06/27/18 06/27/18 06/27/18 Range/Units 07:13 05:50 05:35 WBC (4.5-11.0) 10^3/uL RBC (3.5-6.1) 10^6/uL Hgb (14.0-18.0) g/dL Hct (42.0-52.0) % MCV (80.0-105.0) fl MCH (25.0-35.0) pg MCHC (31.0-37.0) g/dl RDW (11.5-14.5) % Plt Count (120.0-450.0) 10^3/uL MPV (7.0-11.0) fl Neut % (Auto) (50.0-68.0) % Lymph % (Auto) (22.0-35.0) % [place] % (Auto) (1.0-6.0) % Eos % (Auto) (1.5-5.0) % Baso % (Auto) (0.0-3.0) % Lymph # (Auto) (1.2-3.4) [place] # (Auto) (0.1-0.6) Eos # (Auto) (0.0-0.7) Baso # (Auto) (0.0-2.0) K/mm3 Absolute Neuts (auto) (1.4-6.5) Neutrophils % (Manual) (50.0-70.0) % Lymphocytes % (Manual) (22.0-35.0) % Monocytes % (Manual) (1.0-6.0) % Platelet Evaluation (NORMAL) pCO2 37 (35-45) mm/Hg pO2 105.0 H (80-100) mm/Hg HCO3 23.5 (21-28) mmol/L ABG pH 7.41 (7.35-7.45) ABG Total CO2 24.6 (22-28) mmol.L ABG O2 Saturation 97.9 (95-98) % ABG O2 Content 12.9 L (15-23) ML/dl ABG Base Excess -0.9 (-2.0-3.0) mmol/L ABG Hemoglobin 9.4 L (11.7-17.4) g/dL ABG Carboxyhemoglobin 1.0 (0.5-1.5) % POC ABG HHb (Measured) 2.1 (0-5) % ABG Methemoglobin 0.8 (0.0-3.0) % ABG O2 Capacity 13.2 L (16-24) mL/dl Hgb O2 Saturation 96.1 (95.0-98.0) % FiO2 40.0 % Sodium 137 (132-148) mmol/L Potassium 3.7 (3.6-5.0) mmol/L Chloride 105 (98-107) mmol/L Carbon Dioxide 26 (21-33) mmol/L Anion Gap 9 L (10-20) BUN 14 (7-21) mg/dL Creatinine 1.0 (0.8-1.5) mg/dl Est GFR ( Amer) > 60 Est GFR (Non-Af Amer) > 60 POC Glucose (mg/dL) 164 H (65-110) mg/dL Random Glucose 160 H (70-110) mg/dL Calcium 9.0 (8.4-10.5) mg/dL Total Bilirubin 0.3 (0.2-1.3) mg/dL AST 24 (17-59) U/L ALT 8 (7-56) U/L Alkaline Phosphatase 73 (38-126) U/L Total Protein 5.8 (5.8-8.3) g/dL Albumin 2.9 L (3.0-4.8) g/dL Globulin 2.9 gm/dL Albumin/Globulin Ratio 1.0 L (1.1-1.8) 06/27/18 06/26/18 06/26/18 Range/Units 05:35 21:35 11:10 WBC 12.7 H (4.5-11.0) 10^3/uL RBC 4.20 (3.5-6.1) 10^6/uL Hgb 10.2 L (14.0-18.0) g/dL Hct 34.1 L (42.0-52.0) % MCV 81.2 (80.0-105.0) fl MCH 24.3 L (25.0-35.0) pg MCHC 29.9 L (31.0-37.0) g/dl RDW 18.4 H (11.5-14.5) % Plt Count 256 (120.0-450.0) 10^3/uL MPV 10.4 (7.0-11.0) fl Neut % (Auto) 91.5 H (50.0-68.0) % Lymph % (Auto) 5.5 L (22.0-35.0) % [place] % (Auto) 3.0 (1.0-6.0) % Eos % (Auto) 0.0 L (1.5-5.0) % Baso % (Auto) 0.0 (0.0-3.0) % Lymph # (Auto) 0.7 L (1.2-3.4) [place] # (Auto) 0.4 (0.1-0.6) Eos # (Auto) 0.0 (0.0-0.7) Baso # (Auto) 0.00 (0.0-2.0) K/mm3 Absolute Neuts (auto) 11.57 H (1.4-6.5) Neutrophils % (Manual) 94 H (50.0-70.0) % Lymphocytes % (Manual) 5 L (22.0-35.0) % Monocytes % (Manual) 1 (1.0-6.0) % Platelet Evaluation Normal (NORMAL) pCO2 (35-45) mm/Hg pO2 (80-100) mm/Hg HCO3 (21-28) mmol/L ABG pH (7.35-7.45) ABG Total CO2 (22-28) mmol.L ABG O2 Saturation (95-98) % ABG O2 Content (15-23) ML/dl ABG Base Excess (-2.0-3.0) mmol/L ABG Hemoglobin (11.7-17.4) g/dL ABG Carboxyhemoglobin (0.5-1.5) % POC ABG HHb (Measured) (0-5) % ABG Methemoglobin (0.0-3.0) % ABG O2 Capacity (16-24) mL/dl Hgb O2 Saturation (95.0-98.0) % FiO2 % Sodium (132-148) mmol/L Potassium (3.6-5.0) mmol/L Chloride (98-107) mmol/L Carbon Dioxide (21-33) mmol/L Anion Gap (10-20) BUN (7-21) mg/dL Creatinine (0.8-1.5) mg/dl Est GFR ( Amer) Est GFR (Non-Af Amer) POC Glucose (mg/dL) 113 H 94 (65-110) mg/dL Random Glucose (70-110) mg/dL Calcium (8.4-10.5) mg/dL Total Bilirubin (0.2-1.3) mg/dL AST (17-59) U/L ALT (7-56) U/L Alkaline Phosphatase (38-126) U/L Total Protein (5.8-8.3) g/dL Albumin (3.0-4.8) g/dL Globulin gm/dL Albumin/Globulin Ratio (1.1-1.8) Laboratory Results - last 24 hr 06/26/18 06/26/18 06/27/18 11:10 21:35 05:35 WBC 12.7 H RBC 4.20 Hgb 10.2 L Hct 34.1 L MCV 81.2 MCH 24.3 L MCHC 29.9 L RDW 18.4 H Plt Count 256 MPV 10.4 Neut % (Auto) 91.5 H Lymph % (Auto) 5.5 L [place] % (Auto) 3.0 Eos % (Auto) 0.0 L Baso % (Auto) 0.0 Lymph # (Auto) 0.7 L [place] # (Auto) 0.4 Eos # (Auto) 0.0 Baso # (Auto) 0.00 Absolute Neuts (auto) 11.57 H Neutrophils % (Manual) 94 H Lymphocytes % (Manual) 5 L Monocytes % (Manual) 1 Platelet Evaluation Normal pCO2 pO2 HCO3 ABG pH ABG Total CO2 ABG O2 Saturation ABG O2 Content ABG Base Excess ABG Hemoglobin ABG Carboxyhemoglobin POC ABG HHb (Measured) ABG Methemoglobin ABG O2 Capacity Hgb O2 Saturation FiO2 Sodium Potassium Chloride Carbon Dioxide Anion Gap BUN Creatinine Est GFR ( Amer) Est GFR (Non-Af Amer) POC Glucose (mg/dL) 94 113 H Random Glucose Calcium Total Bilirubin AST ALT Alkaline Phosphatase Total Protein Albumin Globulin Albumin/Globulin Ratio 06/27/18 06/27/18 06/27/18 05:35 05:50 07:13 WBC RBC Hgb Hct MCV MCH MCHC RDW Plt Count MPV Neut % (Auto) Lymph % (Auto) [place] % (Auto) Eos % (Auto) Baso % (Auto) Lymph # (Auto) [place] # (Auto) Eos # (Auto) Baso # (Auto) Absolute Neuts (auto) Neutrophils % (Manual) Lymphocytes % (Manual) Monocytes % (Manual) Platelet Evaluation pCO2 37 pO2 105.0 H HCO3 23.5 ABG pH 7.41 ABG Total CO2 24.6 ABG O2 Saturation 97.9 ABG O2 Content 12.9 L ABG Base Excess -0.9 ABG Hemoglobin 9.4 L ABG Carboxyhemoglobin 1.0 POC ABG HHb (Measured) 2.1 ABG Methemoglobin 0.8 ABG O2 Capacity 13.2 L Hgb O2 Saturation 96.1 FiO2 40.0 Sodium 137 Potassium 3.7 Chloride 105 Carbon Dioxide 26 Anion Gap 9 L BUN 14 Creatinine 1.0 Est GFR ( Amer) > 60 Est GFR (Non-Af Amer) > 60 POC Glucose (mg/dL) 164 H Random Glucose 160 H Calcium 9.0 Total Bilirubin 0.3 AST 24 ALT 8 Alkaline Phosphatase 73 Total Protein 5.8 Albumin 2.9 L Globulin 2.9 Albumin/Globulin Ratio 1.0 L Radiology Impressions: Radiology Impressions Chest CT 06/24/18 11:48 IMPRESSION: 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 Endotracheal tube in place. Bilateral effusions and associated bibasilar compressive atelectasis. Brain MRI 06/26/18 10:30 IMPRESSION: No evidence of acute intracranial hemorrhage or infarct. Mild chronic white matter and scattered basal nuclei ischemic changes. No enhancing lesions are identified. Moderate central volume loss. Chest X-Ray 06/27/18 06:00 IMPRESSION: Worsening right pleural effusion. Underlying airspace disease may represent atelectasis or pneumonia. Fingerstick Blood Sugar Results: 99 Review of Systems - Review of Systems Systems not reviewed;Unavailable: Altered Mental Status Critical Care Progress Note - Ventilator Checklist Head of Bed 30 Degrees: Yes Daily Sedation Vacation: Yes Daily Assessment of Readiness to Wean: Yes Daily Spontaneous Breathing Trial: Yes PUD Prophalyxis: Yes DVT Prophylaxis: Yes Oral Care with Chlorhexidine Gluconate {CHG}: Yes - Prophylaxis GI Prophylaxis GI: PPI - Prophylaxis DVT Prophylaxis DVT: Heparin SQ, SCDs - Nutrition Nutrition: Nutrition Category Date Time Status NPO Diet [DIET] Diets 06/27/18 Breakfast Ordered Assessment/Plan - Assessment and Plan (Free Text) Assessment: 87 y/o male admitted to ICU for AMS in the setting of new onset seizure episode. He developed respiratory failure requiring ventilation/ sedation. Plan: Neuro: -awake, not oriented, does not follow verbal stimuli -etiology for AMS and new onset seizure is still unclear -MRI brain is negative -lumber puncture done today. CSF cuture/cytology/HSV sent -CT head negative for ICH, mass, edema -EEG negative for seizure , no status epilepticus -continue keppra 500 mg q12 -continue ativan prn for seizure Cardio: -maintain MAP>65 -continue Nicardepine mg/hr Pulm: -AB.41/37/105/23 -Vent settings: 400/14/5/40% -possible RLL PNA -continue duoneb prn -continue solu-medrol q12h -consevative fluid and oxygen management Renal: -maintain euvolemia -continue IVF -I/O 5804/3600 continue monitoring ID: -continue acyclovir, zithromax, rocephin as per ID -procal negative -leukocytosis is trending down. Afebrile -BCxs 1/2 positive for coag negative staph -ID following Endo: -right thyroid mass, concern for neoplasm, IR consulted for biopsy -Surgery consulted, Dr Garrido -f/u TSH Prophylaxis: -Protonix -SCD. Heparin SQ NPO reviewed and discussed with attending Dr Ojeda <Micah Ojeda - Last Filed: 06/27/18 16:24> CCU Objective - Vital Signs / Intake & Output Intake and Output (Last 8hrs): Intake & Output 06/27/18 06/27/18 06/27/18 06:59 14:59 22:59 Intake Total 2792 260 0 Output Total 500 Balance 2292 260 0 Weight 202 lb Intake: IV 2542 260 0 0.9 1200 antibiotic 200 cardene 500 diprivan 192 keppra 100 Oral 250 Output: Urine 500 Urethral (Phan) 500 Other: # Bowel Movements 0 - Medications Active Medications: Active Medications Generic Name Dose Route Start Last Admin Trade Name Freq PRN Reason Stop Dose Admin Albuterol/Ipratropium 3 ml 06/26/18 20:00 06/27/18 13:18 Duoneb 3 Mg/0.5 Mg (3 Ml) Ud IH 3 ml [id number] LUZ MARINA Administration Heparin Sodium (Porcine) 5,000 units 06/27/18 14:00 06/27/18 13:37 Heparin SC 5,000 units Q8 LUZ MARINA Administration Protocol Sodium Chloride 1,000 mls @ 100 mls/hr 06/23/18 16:15 06/27/18 01:41 Sodium Chloride 0.9% IV 100 mls/hr .Q10H LUZ MARINA Administration Propofol 1,000 mg in 100 mls @ 2.756 mls/hr 06/23/18 16:18 06/27/18 16:11 Diprivan IV 9.07 mcg/kg/min .Q24H PRN 5 mls/hr TITRATE PER MD ORDER Titration Protocol 5 MCG/KG/MIN Nicardipine HCl 20 mg in 200 mls @ 50 mls/hr 06/23/18 18:52 06/27/18 11:40 Cardene Iv Premix IV 0 mg/hr .Q4H PRN 0 mls/hr TITRATE PER MD ORDER Titration Protocol 5 MG/HR Ceftriaxone Sodium 1 gm in 100 mls @ 100 mls/hr 06/24/18 10:00 06/27/18 12:40 Rocephin 1 Gram Ivpb IVPB 100 mls/hr DAILY LUZ MARINA Administration Protocol Azithromycin 250 mg/ Sodium 250 mls @ 167 mls/hr 06/24/18 10:00 06/27/18 12:39 Chloride IVPB 167 mls/hr DAILY LUZ MARINA Administration Protocol Acyclovir 500 mg/ Sodium 100 mls @ 100 mls/hr 06/24/18 07:24 06/27/18 13:31 Chloride IV 07/01/18 07:25 100 mls/hr Q8 LUZ MARINA Administration Protocol Levetiracetam 500 mg in 100 mls @ 400 mls/hr 06/25/18 11:45 06/27/18 12:12 Keppra 500mg Ivpb IV 400 mls/hr Q12 LUZ MARINA Administration Lorazepam 2 mg 06/23/18 19:50 06/27/18 13:24 Ativan IVP 2 mg Q1H PRN Administration Seizure activity Protocol Methylprednisolone 20 mg 06/26/18 22:00 06/27/18 12:24 Solu-Medrol IVP 20 mg Q12 LUZ MARINA Administration Pantoprazole Sodium 40 mg 06/24/18 10:00 06/27/18 12:14 Protonix Inj IVP 40 mg DAILY LUZ MARINA Administration - Patient Studies Lab Studies: Microbiology Studies 06/23/18 16:00 S.aureus & Coag-Neg Staph PNA FISH - Final Blood-Venous Blood Culture - Final Coagulase Neg Staphylococcus Gram Stain - Final 06/23/18 16:30 Blood Culture - Preliminary Blood-Venous NO GROWTH AFTER 3 DAYS Lab Studies 06/27/18 06/27/18 06/27/18 Range/Units 11:50 11:50 07:13 WBC (4.5-11.0) 10^3/uL RBC (3.5-6.1) 10^6/uL Hgb (14.0-18.0) g/dL Hct (42.0-52.0) % MCV (80.0-105.0) fl MCH (25.0-35.0) pg MCHC (31.0-37.0) g/dl RDW (11.5-14.5) % Plt Count (120.0-450.0) 10^3/uL MPV (7.0-11.0) fl Neut % (Auto) (50.0-68.0) % Lymph % (Auto) (22.0-35.0) % [place] % (Auto) (1.0-6.0) % Eos % (Auto) (1.5-5.0) % Baso % (Auto) (0.0-3.0) % Lymph # (Auto) (1.2-3.4) [place] # (Auto) (0.1-0.6) Eos # (Auto) (0.0-0.7) Baso # (Auto) (0.0-2.0) K/mm3 Absolute Neuts (auto) (1.4-6.5) Neutrophils % (Manual) (50.0-70.0) % Lymphocytes % (Manual) (22.0-35.0) % Monocytes % (Manual) (1.0-6.0) % Platelet Evaluation (NORMAL) pCO2 (35-45) mm/Hg pO2 (80-100) mm/Hg HCO3 (21-28) mmol/L ABG pH (7.35-7.45) ABG Total CO2 (22-28) mmol.L ABG O2 Saturation (95-98) % ABG O2 Content (15-23) ML/dl ABG Base Excess (-2.0-3.0) mmol/L ABG Hemoglobin (11.7-17.4) g/dL ABG Carboxyhemoglobin (0.5-1.5) % POC ABG HHb (Measured) (0-5) % ABG Methemoglobin (0.0-3.0) % ABG O2 Capacity (16-24) mL/dl Hgb O2 Saturation (95.0-98.0) % FiO2 % Sodium (132-148) mmol/L Potassium (3.6-5.0) mmol/L Chloride (98-107) mmol/L Carbon Dioxide (21-33) mmol/L Anion Gap (10-20) BUN (7-21) mg/dL Creatinine (0.8-1.5) mg/dl Est GFR ( Amer) Est GFR (Non-Af Amer) POC Glucose (mg/dL) 164 H (65-110) mg/dL Random Glucose (70-110) mg/dL Calcium (8.4-10.5) mg/dL Total Bilirubin (0.2-1.3) mg/dL AST (17-59) U/L ALT (7-56) U/L Alkaline Phosphatase (38-126) U/L Total Protein (5.8-8.3) g/dL Albumin (3.0-4.8) g/dL Globulin gm/dL Albumin/Globulin Ratio (1.1-1.8) Fluid Type Spinal fluid CSF Volume 1 (0-1) mL CSF Appearance Clear/colorless (CLEAR) CSF WBC TEST NOT PERFORMED CSF RBC TEST NOT PERFORMED CSF Total Cell Counted 0 (0-0) CSF Monos/Macrophages TEST NOT PERFORMED CSF Comment No cell seen CSF Glucose 91 H (40-70) mg/dL CSF Total Protein 37.0 (12-60) mg/dL 06/27/18 06/27/18 06/27/18 Range/Units 05:50 05:35 05:35 WBC 12.7 H (4.5-11.0) 10^3/uL RBC 4.20 (3.5-6.1) 10^6/uL Hgb 10.2 L (14.0-18.0) g/dL Hct 34.1 L (42.0-52.0) % MCV 81.2 (80.0-105.0) fl MCH 24.3 L (25.0-35.0) pg MCHC 29.9 L (31.0-37.0) g/dl RDW 18.4 H (11.5-14.5) % Plt Count 256 (120.0-450.0) 10^3/uL MPV 10.4 (7.0-11.0) fl Neut % (Auto) 91.5 H (50.0-68.0) % Lymph % (Auto) 5.5 L (22.0-35.0) % [place] % (Auto) 3.0 (1.0-6.0) % Eos % (Auto) 0.0 L (1.5-5.0) % Baso % (Auto) 0.0 (0.0-3.0) % Lymph # (Auto) 0.7 L (1.2-3.4) [place] # (Auto) 0.4 (0.1-0.6) Eos # (Auto) 0.0 (0.0-0.7) Baso # (Auto) 0.00 (0.0-2.0) K/mm3 Absolute Neuts (auto) 11.57 H (1.4-6.5) Neutrophils % (Manual) 94 H (50.0-70.0) % Lymphocytes % (Manual) 5 L (22.0-35.0) % Monocytes % (Manual) 1 (1.0-6.0) % Platelet Evaluation Normal (NORMAL) pCO2 37 (35-45) mm/Hg pO2 105.0 H (80-100) mm/Hg HCO3 23.5 (21-28) mmol/L ABG pH 7.41 (7.35-7.45) ABG Total CO2 24.6 (22-28) mmol.L ABG O2 Saturation 97.9 (95-98) % ABG O2 Content 12.9 L (15-23) ML/dl ABG Base Excess -0.9 (-2.0-3.0) mmol/L ABG Hemoglobin 9.4 L (11.7-17.4) g/dL ABG Carboxyhemoglobin 1.0 (0.5-1.5) % POC ABG HHb (Measured) 2.1 (0-5) % ABG Methemoglobin 0.8 (0.0-3.0) % ABG O2 Capacity 13.2 L (16-24) mL/dl Hgb O2 Saturation 96.1 (95.0-98.0) % FiO2 40.0 % Sodium 137 (132-148) mmol/L Potassium 3.7 (3.6-5.0) mmol/L Chloride 105 (98-107) mmol/L Carbon Dioxide 26 (21-33) mmol/L Anion Gap 9 L (10-20) BUN 14 (7-21) mg/dL Creatinine 1.0 (0.8-1.5) mg/dl Est GFR ( Amer) > 60 Est GFR (Non-Af Amer) > 60 POC Glucose (mg/dL) (65-110) mg/dL Random Glucose 160 H (70-110) mg/dL Calcium 9.0 (8.4-10.5) mg/dL Total Bilirubin 0.3 (0.2-1.3) mg/dL AST 24 (17-59) U/L ALT 8 (7-56) U/L Alkaline Phosphatase 73 (38-126) U/L Total Protein 5.8 (5.8-8.3) g/dL Albumin 2.9 L (3.0-4.8) g/dL Globulin 2.9 gm/dL Albumin/Globulin Ratio 1.0 L (1.1-1.8) Fluid Type CSF Volume (0-1) mL CSF Appearance (CLEAR) CSF WBC CSF RBC CSF Total Cell Counted (0-0) CSF Monos/Macrophages CSF Comment CSF Glucose (40-70) mg/dL CSF Total Protein (12-60) mg/dL 06/26/18 Range/Units 21:35 WBC (4.5-11.0) 10^3/uL RBC (3.5-6.1) 10^6/uL Hgb (14.0-18.0) g/dL Hct (42.0-52.0) % MCV (80.0-105.0) fl MCH (25.0-35.0) pg MCHC (31.0-37.0) g/dl RDW (11.5-14.5) % Plt Count (120.0-450.0) 10^3/uL MPV (7.0-11.0) fl Neut % (Auto) (50.0-68.0) % Lymph % (Auto) (22.0-35.0) % [place] % (Auto) (1.0-6.0) % Eos % (Auto) (1.5-5.0) % Baso % (Auto) (0.0-3.0) % Lymph # (Auto) (1.2-3.4) [place] # (Auto) (0.1-0.6) Eos # (Auto) (0.0-0.7) Baso # (Auto) (0.0-2.0) K/mm3 Absolute Neuts (auto) (1.4-6.5) Neutrophils % (Manual) (50.0-70.0) % Lymphocytes % (Manual) (22.0-35.0) % Monocytes % (Manual) (1.0-6.0) % Platelet Evaluation (NORMAL) pCO2 (35-45) mm/Hg pO2 (80-100) mm/Hg HCO3 (21-28) mmol/L ABG pH (7.35-7.45) ABG Total CO2 (22-28) mmol.L ABG O2 Saturation (95-98) % ABG O2 Content (15-23) ML/dl ABG Base Excess (-2.0-3.0) mmol/L ABG Hemoglobin (11.7-17.4) g/dL ABG Carboxyhemoglobin (0.5-1.5) % POC ABG HHb (Measured) (0-5) % ABG Methemoglobin (0.0-3.0) % ABG O2 Capacity (16-24) mL/dl Hgb O2 Saturation (95.0-98.0) % FiO2 % Sodium (132-148) mmol/L Potassium (3.6-5.0) mmol/L Chloride (98-107) mmol/L Carbon Dioxide (21-33) mmol/L Anion Gap (10-20) BUN (7-21) mg/dL Creatinine (0.8-1.5) mg/dl Est GFR ( Amer) Est GFR (Non-Af Amer) POC Glucose (mg/dL) 113 H (65-110) mg/dL Random Glucose (70-110) mg/dL Calcium (8.4-10.5) mg/dL Total Bilirubin (0.2-1.3) mg/dL AST (17-59) U/L ALT (7-56) U/L Alkaline Phosphatase (38-126) U/L Total Protein (5.8-8.3) g/dL Albumin (3.0-4.8) g/dL Globulin gm/dL Albumin/Globulin Ratio (1.1-1.8) Fluid Type CSF Volume (0-1) mL CSF Appearance (CLEAR) CSF WBC CSF RBC CSF Total Cell Counted (0-0) CSF Monos/Macrophages CSF Comment CSF Glucose (40-70) mg/dL CSF Total Protein (12-60) mg/dL Laboratory Results - last 24 hr 06/26/18 06/27/18 06/27/18 21:35 05:35 05:35 WBC 12.7 H RBC 4.20 Hgb 10.2 L Hct 34.1 L MCV 81.2 MCH 24.3 L MCHC 29.9 L RDW 18.4 H Plt Count 256 MPV 10.4 Neut % (Auto) 91.5 H Lymph % (Auto) 5.5 L [place] % (Auto) 3.0 Eos % (Auto) 0.0 L Baso % (Auto) 0.0 Lymph # (Auto) 0.7 L [place] # (Auto) 0.4 Eos # (Auto) 0.0 Baso # (Auto) 0.00 Absolute Neuts (auto) 11.57 H Neutrophils % (Manual) 94 H Lymphocytes % (Manual) 5 L Monocytes % (Manual) 1 Platelet Evaluation Normal pCO2 pO2 HCO3 ABG pH ABG Total CO2 ABG O2 Saturation ABG O2 Content ABG Base Excess ABG Hemoglobin ABG Carboxyhemoglobin POC ABG HHb (Measured) ABG Methemoglobin ABG O2 Capacity Hgb O2 Saturation FiO2 Sodium 137 Potassium 3.7 Chloride 105 Carbon Dioxide 26 Anion Gap 9 L BUN 14 Creatinine 1.0 Est GFR ( Amer) > 60 Est GFR (Non-Af Amer) > 60 POC Glucose (mg/dL) 113 H Random Glucose 160 H Calcium 9.0 Total Bilirubin 0.3 AST 24 ALT 8 Alkaline Phosphatase 73 Total Protein 5.8 Albumin 2.9 L Globulin 2.9 Albumin/Globulin Ratio 1.0 L Fluid Type CSF Volume CSF Appearance CSF WBC CSF RBC CSF Total Cell Counted CSF Monos/Macrophages CSF Comment CSF Glucose CSF Total Protein 06/27/18 06/27/18 06/27/18 05:50 07:13 11:50 WBC RBC Hgb Hct MCV MCH MCHC RDW Plt Count MPV Neut % (Auto) Lymph % (Auto) [place] % (Auto) Eos % (Auto) Baso % (Auto) Lymph # (Auto) [place] # (Auto) Eos # (Auto) Baso # (Auto) Absolute Neuts (auto) Neutrophils % (Manual) Lymphocytes % (Manual) Monocytes % (Manual) Platelet Evaluation pCO2 37 pO2 105.0 H HCO3 23.5 ABG pH 7.41 ABG Total CO2 24.6 ABG O2 Saturation 97.9 ABG O2 Content 12.9 L ABG Base Excess -0.9 ABG Hemoglobin 9.4 L ABG Carboxyhemoglobin 1.0 POC ABG HHb (Measured) 2.1 ABG Methemoglobin 0.8 ABG O2 Capacity 13.2 L Hgb O2 Saturation 96.1 FiO2 40.0 Sodium Potassium Chloride Carbon Dioxide Anion Gap BUN Creatinine Est GFR ( Amer) Est GFR (Non-Af Amer) POC Glucose (mg/dL) 164 H Random Glucose Calcium Total Bilirubin AST ALT Alkaline Phosphatase Total Protein Albumin Globulin Albumin/Globulin Ratio Fluid Type Spinal fluid CSF Volume 1 CSF Appearance Clear/colorless CSF WBC TEST NOT PERFORMED CSF RBC TEST NOT PERFORMED CSF Total Cell Counted 0 CSF Monos/Macrophages TEST NOT PERFORMED CSF Comment No cell seen CSF Glucose CSF Total Protein 06/27/18 11:50 WBC RBC Hgb Hct MCV MCH MCHC RDW Plt Count MPV Neut % (Auto) Lymph % (Auto) [place] % (Auto) Eos % (Auto) Baso % (Auto) Lymph # (Auto) [place] # (Auto) Eos # (Auto) Baso # (Auto) Absolute Neuts (auto) Neutrophils % (Manual) Lymphocytes % (Manual) Monocytes % (Manual) Platelet Evaluation pCO2 pO2 HCO3 ABG pH ABG Total CO2 ABG O2 Saturation ABG O2 Content ABG Base Excess ABG Hemoglobin ABG Carboxyhemoglobin POC ABG HHb (Measured) ABG Methemoglobin ABG O2 Capacity Hgb O2 Saturation FiO2 Sodium Potassium Chloride Carbon Dioxide Anion Gap BUN Creatinine Est GFR ( Amer) Est GFR (Non-Af Amer) POC Glucose (mg/dL) Random Glucose Calcium Total Bilirubin AST ALT Alkaline Phosphatase Total Protein Albumin Globulin Albumin/Globulin Ratio Fluid Type CSF Volume CSF Appearance CSF WBC CSF RBC CSF Total Cell Counted CSF Monos/Macrophages CSF Comment CSF Glucose 91 H CSF Total Protein 37.0 Radiology Impressions: Radiology Impressions Brain MRI 06/26/18 10:30 IMPRESSION: No evidence of acute intracranial hemorrhage or infarct. Mild chronic white matter and scattered basal nuclei ischemic changes. No enhancing lesions are identified. Moderate central volume loss. Chest X-Ray 06/27/18 06:00 IMPRESSION: Worsening right pleural effusion. Underlying airspace disease may represent atelectasis or pneumonia. Chest X-Ray 06/27/18 11:40 IMPRESSION: Little interval change in right lower lobe atelectasis/pneumonia and persistent small right pleural effusion. Endotracheal tube is low in position and terminates at the aretha. Critical Care Progress Note - Nutrition Nutrition: Nutrition Category Date Time Status NPO Diet [DIET] Diets 06/27/18 Breakfast Ordered Attending/Attestation - Attestation I have personally seen and examined this patient.: Yes I have fully participated in the care of the patient.: Yes I have reviewed all pertinent clinical information: Yes Notes (Text): 06/27/18 16:[address] Ojeda note
--- NOTE | 2018-06-27 10:32 | PN ---
DATE: 06/27/2018 SUBJECTIVE: He is still on a ventilator in Intensive Care Unit. We did do an lumbar puncture today. Then after that the plan will be to start to wean him off the ventilator. Most probably he needs to go to an [facility] before he goes home. He is on acyclovir IV, Ativan, azithromycin IV, Cardene IV, Diprivan, DuoNeb, Keppra IV, Protonix IV, Rocephin IV, IV fluids and Solu-Medrol IV. PHYSICAL EXAMINATION VITAL SIGNS: He has a 98.1 temperature, 79 pulse, 17 respiratory rate and 97% O2 sat. HEENT: Head is atraumatic and normocephalic. HEART: Regular rate. LUNGS: Decreased breath sounds. ABDOMEN: Soft and obese. EXTREMITIES: +2/4 pitting edema. LABORATORY DATA: A 12.7 white count, still coming down slowly, 10.2 hemoglobin, 34.1 hematocrit and 256 platelets. A 137 sodium, potassium 3.7, BUN 40, creatinine 1, GFR is greater than 60, sugar is 160, calcium 9, , AST is 24, ALT is 8, alk phos 73 and total protein is 5.8. 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 Being seen by Pulmonary, Infectious Disease, Cardiology and Pantograph Transferrer. He had seizures, respiratory failure, possible RN CVOR infection, lets see what that lumbar puncture shows. Continue aggressive treatment and check his labs tomorrow. Aleksey Neal DO MTDChandu
--- NOTE | 2018-06-27 10:34 | CP.PCM.PN ---
<Abe Cunningham - Last Filed: 06/27/18 10:29> Subjective - Date & Time of Evaluation Date of Evaluation: 06/27/18 Time of Evaluation: 09:00 - Subjective Subjective: Abe Cunningham D.O. PGY-3, Internal Medicine Resident, Infectious Disease Progress Note 87 year old male with a PMH of HF, renal Ca s/p nephrectomy, and COPD who presented for AMS and witnessed seizure activity. Infectious disease consultation was requested for sepsis. Patient was seen and examined at bedside. Continues to be intubated and currently sedated. Objective - Vital Signs/Intake and Output Vital Signs (last 24 hours): Temp Pulse Resp BP Pulse Ox 98.1 F 76 17 166/70 H 97 06/27/18 00:00 06/27/18 04:00 06/27/18 07:12 06/26/18 05:30 06/27/18 07:12 Intake and Output: 06/27/18 06/27/18 06:59 18:59 Intake Total 2992 100 Output Total 500 Balance 2492 100 - Medications Medications: Current Medications Albuterol/Ipratropium (Duoneb 3 Mg/0.5 Mg (3 Ml) Ud) 3 ml IH [id number] LUZ MARINA Last Admin: 06/27/18 07:06 Dose: 3 ml Sodium Chloride (Sodium Chloride 0.9%) 1,000 mls @ 100 mls/hr IV .Q10H [facility] Last Admin: 06/27/18 01:41 Dose: 100 mls/hr Propofol (Diprivan) 1,000 mg in 100 mls @ 2.756 mls/hr IV .Q24H PRN; Protocol PRN Reason: TITRATE PER MD ORDER Last Admin: 06/27/18 08:43 Dose: 20 mcg/kg/min, 11.022 mls/hr Nicardipine HCl (Cardene Iv Premix) 20 mg in 200 mls @ 50 mls/hr IV .Q4H PRN; Protocol PRN Reason: TITRATE PER MD ORDER Last Titration: 06/27/18 04:30 Dose: 2.5 mg/hr, 25 mls/hr Ceftriaxone Sodium (Rocephin 1 Gram Ivpb) 1 gm in 100 mls @ 100 mls/hr IVPB DAILY [facility] MARINA; Protocol Last Admin: 06/26/18 09:33 Dose: 100 mls/hr Azithromycin 250 mg/ Sodium (Chloride) 250 mls @ 167 mls/hr IVPB DAILY [facility]; Protocol Last Admin: 06/26/18 09:34 Dose: 167 mls/hr Acyclovir 500 mg/ Sodium (Chloride) 100 mls @ 100 mls/hr IV Q8 LUZ MARINA; Protocol Stop: 07/01/18 07:25 Last Admin: 06/27/18 05:40 Dose: 100 mls/hr Levetiracetam (Keppra 500mg Ivpb) 500 mg in 100 mls @ 400 mls/hr IV Q12 [facility]INA Last Admin: 06/26/18 21:41 Dose: 400 mls/hr Lorazepam (Ativan) 2 mg IVP Q1H PRN; Protocol PRN Reason: Seizure activity Methylprednisolone (Solu-Medrol) 20 mg IVP Q12 [facility] Last Admin: 06/26/18 21:41 Dose: 20 mg Pantoprazole Sodium (Protonix Inj) 40 mg IVP DAILY [facility] MARINA Last Admin: 06/26/18 09:41 Dose: 40 mg - Labs Labs: 06/27/18 05:35 06/27/18 05:35 PT 12.0 SECONDS (9.4-12.5) 06/23/18 16:17 INR 1.08 06/23/18 16:17 APTT 29.6 Seconds (26.9-38.3) 06/23/18 16:17 - Constitutional Appears: Other (AMS, elderly white male) - Head Exam Head Exam: ATRAUMATIC - Eye Exam Eye Exam: absent: Scleral icterus - ENT Exam ENT Exam: Mucous Membranes Moist - Neck Exam Neck Exam: Normal Inspection - Respiratory Exam Respiratory Exam: absent: Rhonchi - Cardiovascular Exam Cardiovascular Exam: RRR, +S1, +S2 - GI/Abdominal Exam GI & Abdominal Exam: Soft. absent: Tenderness - Extremities Exam Extremities Exam: Pedal Edema - Neurological Exam Additional comments: sedated - Skin Skin Exam: Dry, Warm Assessment and Plan - Assessment and Plan (Free Text) Assessment: 87 year old male with a PMH of HF, renal Ca s/p nephrectomy, and COPD who presented for AMS and witnessed seizure activity. Infectious disease consultation was requested for sepsis. Plan: Severe sepsis RLL CAP Acute mental status changes with new onset seizures BCxs 1/2 positive for coag negative staph Brain MRI did not show any areas of enhancement, only old areas of ischemic changes Continue azithromycin/acyclovir/ceftriaxone day 4 Leukocytosis continues to downtrend Has been afebrile Neurology note appreciated May benefit from a lumbar tap to further elucidate etiology given MRI findings Patient was seen and examined and case to be discussed with attending physician Thank you for the pleasure of participating in the care of this interesting patient <DevikaOmer - Last Filed: 06/27/18 12:42> Objective - Vital Signs/Intake and Output Vital Signs (last 24 hours): Temp Pulse Resp BP Pulse Ox 98.1 F 76 17 166/70 H 97 06/27/18 00:00 06/27/18 04:00 06/27/18 07:12 06/26/18 05:30 06/27/18 07:12 Intake and Output: 06/27/18 06/27/18 06:59 18:59 Intake Total 2992 100 Output Total 500 Balance 2492 100 - Medications Medications: Current Medications Albuterol/Ipratropium (Duoneb 3 Mg/0.5 Mg (3 Ml) Ud) 3 ml IH [id number] LUZ MARINA Last Admin: 06/27/18 07:06 Dose: 3 ml Heparin Sodium (Porcine) (Heparin) 5,000 units SC Q8 [facility] MARINA; Protocol Sodium Chloride (Sodium Chloride 0.9%) 1,000 mls @ 100 mls/hr IV .Q10H [facility] Last Admin: 06/27/18 01:41 Dose: 100 mls/hr Propofol (Diprivan) 1,000 mg in 100 mls @ 2.756 mls/hr IV .Q24H PRN; Protocol PRN Reason: TITRATE PER MD ORDER Last Admin: 06/27/18 08:43 Dose: 20 mcg/kg/min, 11.022 mls/hr Nicardipine HCl (Cardene Iv Premix) 20 mg in 200 mls @ 50 mls/hr IV .Q4H PRN; Protocol PRN Reason: TITRATE PER MD ORDER Last Titration: 06/27/18 04:30 Dose: 2.5 mg/hr, 25 mls/hr Ceftriaxone Sodium (Rocephin 1 Gram Ivpb) 1 gm in 100 mls @ 100 mls/hr IVPB DAILY [facility]INA; Protocol Last Admin: 03/11/19 09:33 Dose: 100 mls/hr Azithromycin 250 mg/ Sodium (Chloride) 250 mls @ 167 mls/hr IVPB DAILY [facility] MARINA; Protocol Last Admin: 06/26/18 09:34 Dose: 167 mls/hr Acyclovir 500 mg/ Sodium (Chloride) 100 mls @ 100 mls/hr IV Q8 [facility]; Protocol Stop: 07/01/18 07:25 Last Admin: 06/27/18 05:40 Dose: 100 mls/hr Levetiracetam (Keppra 500mg Ivpb) 500 mg in 100 mls @ 400 mls/hr IV Q12 [facility] Last Admin: 06/26/18 21:41 Dose: 400 mls/hr Lorazepam (Ativan) 2 mg IVP Q1H PRN; Protocol PRN Reason: Seizure activity Methylprednisolone (Solu-Medrol) 20 mg IVP Q12 [facility] Last Admin: 06/26/18 21:41 Dose: 20 mg Pantoprazole Sodium (Protonix Inj) 40 mg IVP DAILY [facility] Last Admin: 06/26/18 09:41 Dose: 40 mg - Labs Labs: 06/27/18 05:35 06/27/18 05:35 PT 12.0 SECONDS (9.4-12.5) 06/23/18 16:17 INR 1.08 06/23/18 16:17 APTT 29.6 Seconds (26.9-38.3) 06/23/18 16:17 Attending/Attestation - Attestation I have personally seen and examined this patient.: Yes I have fully participated in the care of the patient.: Yes I have reviewed all pertinent clinical information, including history, physical exam and plan: Yes
[2018-06-27] MEDS ORDERED: Midazolam 2 MG/2 ML VIAL IVP ONE ×2 (11:28→11:55)
[2018-06-27] MEDS ORDERED: Albuterol-Ipratrop 3 mg / 0.5 (3 ml) UD IH STA (11:43)
[2018-06-27] MEDS ORDERED: Ipratropium 0.02% Inhal Soln (0.5 mg/2.5 ml) UD IH ONE (11:46)
[2018-06-27 11:57] LABS: FLUID TYPE SPINAL FLUID
[2018-06-27 12:12] LABS: CSF VOLUME 1 mL (0-1)
[2018-06-27] MEDS: levETIRAcetam 500mg IVPB 500 MG/100 ML BAG IV SCH (12:12)
[2018-06-27 12:13] LABS: CSF APPEARANCE CLEAR/COLORLESS (CLEAR)
[2018-06-27] MEDS: MethylPREDNISolone 40 mg Vial IVP SCH (12:24)
[2018-06-27] MEDS: Azithromycin 250 MG in Sodium Chloride 0.9% 250 ML IVPB SCH (12:39)
[2018-06-27] MEDS: cefTRIAXone 1 gm 1 GM/100 ML BAG IVPB SCH (12:40)
--- NOTE | 2018-06-27 12:42 | PN ---
DATE: 06/27/2018 SUBJECTIVE: The patient remains on a ventilator. PHYSICAL EXAMINATION: VITAL SIGNS: Blood pressure varies from 144-166 systolic, heart rate is in the 70s. NECK: Negative JVD. LUNGS: Without rales. HEART: S1, S2. EXTREMITIES: Without change. LABORATORY DATA: Hemoglobin is 10.2, white count is down to 12.7. BUN and creatinine unremarkable. The glucose is 160. IMPRESSION: 1. Respiratory failure. 2. Seizure disorder. 3. History of recurrent epidural in the pain management office. 4. Hypertension. 5. Hypothyroidism. RECOMMENDATION: Given these findings, the patient is for LP today. The echocardiogram reveals good LV function with [id number] pulmonary hypertension. No acute cardiac issues at this time. Prabhakar Cristina MD
--- NOTE | 2018-06-27 13:37 | RAD ---
Date of service: 06/27/2018 HISTORY: hypoxic COMPARISON: 06/27/2018 FINDINGS: Endotracheal tube terminates at the aretha. LUNGS: There is stable airspace disease in the right lower lobe. The visualized left lung is clear. PLEURA: Small right pleural effusion. CARDIOVASCULAR: The heart is normal in size. No aortic atherosclerotic calcifications present. OSSEOUS STRUCTURES: Within normal limits for the patient's age. VISUALIZED UPPER ABDOMEN: Normal. 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 IMPRESSION: Little interval change in right lower lobe atelectasis/pneumonia and persistent small right pleural effusion. Endotracheal tube is low in position and terminates at the aretha.
--- NOTE | 2018-06-27 14:39 | CP.PCM.CON ---
History of Present Illness - History of Present Illness History of Present Illness: Alyce Napoles PGY1 Consult Note for Dr. Garrido Pt is a 87yo M with pmhx of CHF, Renal Ca s/p Nephrectomy, and COPD who came to the ED for AMS and witnessed seizure activity. He was intubated and sedated. Patient admitted and treated for sepsis, CAP, and AMS with new onset seizures. He is not able to provide history at this time as he is intubated and sedated. History obtained from EMR. Pmhx: CHF, RCC s/p questionable Nephrectomy, COPD Pshx: nephrectomy Meds: unobtainable Allergies: unobtainable Review of Systems - Review of Systems Systems not reviewed;Unavailable: Intubated Past Patient History - Past Social History Smoking Status: Never Smoked - CARDIAC Hx Cardiac Disorders: Yes Hx Hypertension: Yes - NEUROLOGICAL Hx Seizures: Yes - RENAL Hx Chronic Kidney Disease: Yes - ENDOCRINE/METABOLIC Hx Endocrine Disorders: Yes Hx Hypothyroidism: Yes - HEMATOLOGICAL/ONCOLOGICAL Hx Cancer: Yes - MUSCULOSKELETAL/RHEUMATOLOGICAL Hx Falls: Yes - PSYCHIATRIC Hx Substance Use: No - SURGICAL HISTORY Hx Surgeries: No Meds Allergies/Adverse Reactions: Allergies Allergy/AdvReac Type Severity Reaction Status Date / Time Unobtainable Allergy Verified 06/23/18 16:04 - Medications Medications: Current Medications Albuterol/Ipratropium (Duoneb 3 Mg/0.5 Mg (3 Ml) Ud) 3 ml IH [id number] [facility]Z MARINA Last Admin: 06/27/18 13:18 Dose: 3 ml Heparin Sodium (Porcine) (Heparin) 5,000 units SC Q8 [facility]Z MARINA; Protocol Last Admin: 06/27/18 13:37 Dose: 5,000 units Sodium Chloride (Sodium Chloride 0.9%) 1,000 mls @ 100 mls/hr IV .Q10H [facility] Last Admin: 06/27/18 01:41 Dose: 100 mls/hr Propofol (Diprivan) 1,000 mg in 100 mls @ 2.756 mls/hr IV .Q24H PRN; Protocol PRN Reason: TITRATE PER MD ORDER Last Titration: 06/27/18 12:00 Dose: 0 mcg/kg/min, 0 mls/hr Nicardipine HCl (Cardene Iv Premix) 20 mg in 200 mls @ 50 mls/hr IV .Q4H PRN; Protocol PRN Reason: TITRATE PER MD ORDER Last Titration: 06/27/18 11:40 Dose: 0 mg/hr, 0 mls/hr Ceftriaxone Sodium (Rocephin 1 Gram Ivpb) 1 gm in 100 mls @ 100 mls/hr IVPB DAILY [facility]; Protocol Last Admin: 06/27/18 12:40 Dose: 100 mls/hr Azithromycin 250 mg/ Sodium (Chloride) 250 mls @ 167 mls/hr IVPB DAILY [facility] MARINA; Protocol Last Admin: 06/27/18 12:39 Dose: 167 mls/hr Acyclovir 500 mg/ Sodium (Chloride) 100 mls @ 100 mls/hr IV Q8 [facility]INA; Protocol Stop: 07/01/18 07:25 Last Admin: 06/27/18 13:31 Dose: 100 mls/hr Levetiracetam (Keppra 500mg Ivpb) 500 mg in 100 mls @ 400 mls/hr IV Q12 [facility] Last Admin: 06/27/18 12:12 Dose: 400 mls/hr Lorazepam (Ativan) 2 mg IVP Q1H PRN; Protocol PRN Reason: Seizure activity Last Admin: 06/27/18 13:24 Dose: 2 mg Methylprednisolone (Solu-Medrol) 20 mg IVP Q12 [facility] Last Admin: 06/27/18 12:24 Dose: 20 mg Pantoprazole Sodium (Protonix Inj) 40 mg IVP DAILY [facility] Last Admin: 06/27/18 12:14 Dose: 40 mg Physical Exam - Head Exam Head Exam: ATRAUMATIC, NORMOCEPHALIC - ENT Exam ENT Exam: Mucous Membranes Dry Additional comments: intubated - Neck Exam Neck exam: Positive for: Thyromegaly - Respiratory Exam Respiratory Exam: NORMAL BREATHING PATTERN. absent: Accessory Muscle Use, Respiratory Distress - Cardiovascular Exam Cardiovascular Exam: REGULAR RHYTHM, +S1, +S2. absent: Gallop, Rubs, Systolic Murmur - GI/Abdominal Exam GI & Abdominal Exam: Normal Bowel Sounds, Soft. absent: Distended, Tenderness - Extremities Exam Extremities exam: Positive for: pedal edema Additional comments: upper extremity edema - Neurological Exam Additional comments: intubated and sedated, unable to asses mental status currently - Skin Skin Exam: Normal Color Results - Vital Signs Recent Vital Signs: Last Vital Signs Temp 98.1 F 06/27/18 00:00 Pulse 76 06/27/18 04:00 Resp 17 06/27/18 07:12 BP 166/70 H 06/26/18 05:30 Pulse Ox 97 06/27/18 07:12 - Labs Result Diagrams: 06/27/18 05:35 06/27/18 05:35 Labs: Laboratory Results - last 24 hr 06/26/18 06/27/18 06/27/18 21:35 05:35 05:35 WBC 12.7 H RBC 4.20 Hgb 10.2 L Hct 34.1 L MCV 81.2 MCH 24.3 L MCHC 29.9 L RDW 18.4 H Plt Count 256 MPV 10.4 Neut % (Auto) 91.5 H Lymph % (Auto) 5.5 L Lake % (Auto) 3.0 Eos % (Auto) 0.0 L Baso % (Auto) 0.0 Lymph # (Auto) 0.7 L Lake # (Auto) 0.4 Eos # (Auto) 0.0 Baso # (Auto) 0.00 Absolute Neuts (auto) 11.57 H Neutrophils % (Manual) 94 H Lymphocytes % (Manual) 5 L Monocytes % (Manual) 1 Platelet Evaluation Normal pCO2 pO2 HCO3 ABG pH ABG Total CO2 ABG O2 Saturation ABG O2 Content ABG Base Excess ABG Hemoglobin ABG Carboxyhemoglobin POC ABG HHb (Measured) ABG Methemoglobin ABG O2 Capacity Hgb O2 Saturation FiO2 Sodium 137 Potassium 3.7 Chloride 105 Carbon Dioxide 26 Anion Gap 9 L BUN 14 Creatinine 1.0 Est GFR ( Amer) > 60 Est GFR (Non-Af Amer) > 60 POC Glucose (mg/dL) 113 H Random Glucose 160 H Calcium 9.0 Total Bilirubin 0.3 AST 24 ALT 8 Alkaline Phosphatase 73 Total Protein 5.8 Albumin 2.9 L Globulin 2.9 Albumin/Globulin Ratio 1.0 L Fluid Type CSF Volume CSF Appearance CSF WBC CSF RBC CSF Total Cell Counted CSF Monos/Macrophages CSF Comment CSF Glucose CSF Total Protein 06/27/18 06/27/18 06/27/18 05:50 07:13 11:50 WBC RBC Hgb Hct MCV MCH MCHC RDW Plt Count MPV Neut % (Auto) Lymph % (Auto) Lake % (Auto) Eos % (Auto) Baso % (Auto) Lymph # (Auto) Lake # (Auto) Eos # (Auto) Baso # (Auto) Absolute Neuts (auto) Neutrophils % (Manual) Lymphocytes % (Manual) Monocytes % (Manual) Platelet Evaluation pCO2 37 pO2 105.0 H HCO3 23.5 ABG pH 7.41 ABG Total CO2 24.6 ABG O2 Saturation 97.9 ABG O2 Content 12.9 L ABG Base Excess -0.9 ABG Hemoglobin 9.4 L ABG Carboxyhemoglobin 1.0 POC ABG HHb (Measured) 2.1 ABG Methemoglobin 0.8 ABG O2 Capacity 13.2 L Hgb O2 Saturation 96.1 FiO2 40.0 Sodium Potassium Chloride Carbon Dioxide Anion Gap BUN Creatinine Est GFR ( Amer) Est GFR (Non-Af Amer) POC Glucose (mg/dL) 164 H Random Glucose Calcium Total Bilirubin AST ALT Alkaline Phosphatase Total Protein Albumin Globulin Albumin/Globulin Ratio Fluid Type Spinal fluid CSF Volume 1 CSF Appearance Clear/colorless CSF WBC TEST NOT PERFORMED CSF RBC TEST NOT PERFORMED CSF Total Cell Counted 0 CSF Monos/Macrophages TEST NOT PERFORMED CSF Comment No cell seen CSF Glucose CSF Total Protein 06/27/18 11:50 WBC RBC Hgb Hct MCV MCH MCHC RDW Plt Count MPV Neut % (Auto) Lymph % (Auto) Lake % (Auto) Eos % (Auto) Baso % (Auto) Lymph # (Auto) Lake # (Auto) Eos # (Auto) Baso # (Auto) Absolute Neuts (auto) Neutrophils % (Manual) Lymphocytes % (Manual) Monocytes % (Manual) Platelet Evaluation pCO2 pO2 HCO3 ABG pH ABG Total CO2 ABG O2 Saturation ABG O2 Content ABG Base Excess ABG Hemoglobin ABG Carboxyhemoglobin POC ABG HHb (Measured) ABG Methemoglobin ABG O2 Capacity Hgb O2 Saturation FiO2 Sodium Potassium Chloride Carbon Dioxide Anion Gap BUN Creatinine Est GFR ( Amer) Est GFR (Non-Af Amer) POC Glucose (mg/dL) Random Glucose Calcium Total Bilirubin AST ALT Alkaline Phosphatase Total Protein Albumin Globulin Albumin/Globulin Ratio Fluid Type CSF Volume CSF Appearance CSF WBC CSF RBC CSF Total Cell Counted CSF Monos/Macrophages CSF Comment CSF Glucose 91 H CSF Total Protein 37.0 Assessment & Plan - Assessment and Plan (Free Text) Assessment: Pt is a 87yo M with pmhx of CHF, Renal Ca s/p Nephrectomy, and COPD who came to the ED for AMS and witnessed seizure activity. He was intubated and sedated. Patient admitted and treated for sepsis, CAP, and AMS with new onset seizures. Surgery consulted for thyroid mass. 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 Garrido
--- NOTE | 2018-06-27 16:10 | PN ---
DATE: 06/27/2018 SUBJECTIVE: The patient seen and examined at bedside. He had spinal tap performed just about 2 hours ago, he tolerated procedure well. There were no cells, glucose was 91 and total protein was 37 in the CSF. The rest of the labs related to CSF are pending. Meanwhile, the patient is off of Cardizem drip. He is off of sedation. Of note, he did receive 2 mg of Versed and 50 mcg of fentanyl for sedation during the procedure. OBJECTIVE: VITAL SIGNS: His blood pressure 153/76, heart rate is 77. His oxygen saturation 98% on 40% FIO2. His end-tidal CO2 on the monitor is 38. HEENT: Head and neck atraumatic. The patient is intubated. LUNGS: Clear to auscultation bilaterally. Decreased breath sounds in the right base. HEART: Regular rate and rhythm. S1 and S2 is distant. ABDOMEN: Soft, nontender, nondistended. MUSCULOSKELETAL: Trace bilateral pedal and ankle edema. NEURO: The patient was seen moving all extremities spontaneously. SKIN: Moist. PSYCH: The patient currently is sedated. LABORATORY DATA: WBC 12.7, hemoglobin 10.2, platelet count 256. Sodium 137, potassium 3.7, chloride 105, carbon dioxide 26, BUN 14, creatinine 1, up from 0.9, glucose 164, AST 24, ALT 8, total bilirubin 0.3, total protein 5.8, albumin 2.9. ABG today is 7.41/37/105. CSF, no cells, glucose 91 and total protein 37. MEDICATIONS: Acyclovir, DuoNeb every 6 hours, heparin subcu, Keppra, Ativan p.r.n., Solu-Medrol 20 mg IV every 12 hours, Cardene drip is off, Protonix, ceftriaxone, azithromycin. Chest x-ray today showed a little interval change in the right lower lobe atelectasis/infiltrate and persistent small right pleural effusion. ASSESSMENT AND PLAN: This is 87-year-old gentleman who presented with altered mental status after clinical seizure complicated by inability to protect airways, requiring intubation. The patient also was found to have right lower lobe infiltrate and has been treated for community-acquired pneumonia versus aspiration. The patient is on ceftriaxone, azithromycin and acyclovir at present time. Acyclovir was started out of concern for possibility of herpes encephalitis as the patient presented with altered mental status and new onset seizures. Of note, procalcitonin level was very low, which argues significantly against bacterial etiology of the potential/presumed infection. MRI of the brain did not show focal changes that otherwise would have been suggesting viral/herpes encephalitis. What makes infectious (viral or bacterial) encephalitis even less likely is the lack of cells in the spinal fluid. Transparent/clear quality of the spinal fluid, normal glucose level and no elevation of total protein makes possibility of bacterial SCRAPE GATHERER infection very, very unlikely as well. The HSV PCR as well as CMV PCR in the spinal fluid were also sent for analysis and results are pending currently. The patient did fail pressure support trial earlier. The patient is not on any sedation drip, however may have some residual somnolence due to sedation recquiring for the procedure. 3. Neuro: The patient is somnolent, however, off of all sedation drip. We will avoid p.r.n. benzos or opiates before considering new pressure support trial. MRI of the brain yesterday revealed no enhancing lesion that otherwise would suggest metastasis. As was mentioned before, no focal changes on MRI that otherwise would suggest herpes encephalitis were seen. No acute intracranial hemorrhage or infarct were also seen. I will touch base with Neurology Service whether they would want to repeat EEG. 4. Pulmonary: The patient back on PRVC. We will continue with low to intermediate tidal volume ventilation with plateau pressure less than 25 cm of water. Head of bed elevated more than 35 degrees, oral hygiene, conservative fluid and oxygen management, daily sedation vacations and weaning trials. The patient may have aspiration pneumonitis. The patient is on low-dose steroids, bronchodilators. While not completely ruled out, the possibility of bacterial origin of community-acquired pneumonia appears to be less likely in light of a very low procalcitonin level. 5. Cardiovascular: The patient is hemodynamically relatively stable except for mild hypertension. 6. GI: We will put NG tube in and start enteral feeds at a minimal rate. 7. ID: The patient is on acyclovir, ceftriaxone and azithromycin. ID service is following the patient. Procalcitonin is very low. LP was done. Preliminary analysis does not suggest bacterial or even viral involvement. HSV PCR is still pending.. CMV PCR is still pending. 8. Renal: The patient is on acyclovir therapy for empiric coverage for herpes encephalitis. The creatinine start hanging around 1 (up from 0.9), and urine appears to become darker. u/o slowed down to 40 cc/hr, which is a bit less then 0.5 cc/kg/hr-->will increase IVF and call nephro consult. Will will touch base with ID service whether it would be prudent to stop acyclovir now based on MRI results and preliminary the CSF results. Nevertheless, we will proceed with IV fluids, maintaining mean arterial pressure more than 65, avoiding hyperchloremia. Maintain euvolemia and euglycemia. 9. Endocrine: We will maintain blood glucose within 140-180 range according to nice sugar trial. 10. Heme/Onc: The patient has thyroid growth which based on CAT scan description appears to be highly suspicious for malignancy. General surgery was consulted for the possibility of biopsy. Dr. Garrido saw patient at bedside. DVT, GI prophylaxis. ccm time 40 min Micah Ojeda MD .) MTDD
--- NOTE | 2018-06-27 16:23 | CP.PCM.PCO ---
Physician Communication Note - Physician Communication Note Physician Communication Note: patient intubated, s/p lumbar tap,thryoid mass,awaits IR bx when stable,
--- NOTE | 2018-06-27 16:24 | CP.PCM.PCO ---
Physician Communication Note - Physician Communication Note Physician Communication Note: Pt. will need YECENIA,after extubated and resp. status stable,per pmd
[2018-06-27] MEDS ORDERED: Sodium Chloride 0.9% 1,000 ML IV SCH (17:07)
[2018-06-27 17:22] LABS: FREE T4 0.97 ng/dL (0.78-2.19)
--- NOTE | 2018-06-27 18:32 | PN ---
DATE: 06/27/2018 NEUROLOGY FOLLOWUP CHIEF COMPLAINT: Followup for altered mental status. SUBJECTIVE: The patient is seen and examined at the bedside. The patient is awake, was on sedation, when taken off propofol which was a localized noxious stimulus. Does not follow any verbal responses. The patient was on Keppra, does have some interictal sharp waves with severe background slowing. MRI of the brain showed no acute intracranial abnormalities. The patient is status post lumbar puncture, HSV/PCR has been sent out. The CSF total protein is normal and CSF appearance of the fluid appeared colorless. The patient will definitely need subacute rehab once extubated and off sedation and proper telemetry monitoring. FAMILY HISTORY: Noncontributory. MEDICATIONS: Reviewed by nurse practitioner today. ALLERGIES: UNABLE TO OBTAIN DUE TO THE PATIENT'S MENTAL STATUS CHANGE. REVIEW OF SYSTEMS: 14-point unable to obtain due to the patient's altered mental status. PAST MEDICAL HISTORY: CHF, renal cell carcinoma, status post nephrectomy, COPD. LABORATORY DATA: Sodium is 137, potassium 3.7, chloride 105, carbon dioxide 26, BUN 9, creatinine of 14, random glucose of 160. CSF protein is 37, CSF glucose 91, is elevated. PHYSICAL EXAMINATION: GENERAL: The patient is intubated, when off sedation, opens eyes but does not have any verbal stimuli. HEENT: Atraumatic, normocephalic. PERRLA. Extraocular muscles are intact. NECK: Supple. No JVD. No adenopathy. LUNGS: Decreased breath sounds bilaterally. HEART: S1 and S2. Normal rate and rhythm. No murmurs, rubs, or gallops. ABDOMEN: Soft, nontender, nondistended, not obese. EXTREMITIES: 2+ pitting edema. Peripheral pulses 2+ felt bilaterally. NEUROLOGIC: Lethargic. When off sedation, wakes and moves all extremities spontaneously because of localized noxious stimulus. Cranial nerves II through XII are noted. Motor exam, spontaneous movements of upper and lower extremities are noted. Sensory examination withdraws and localized to noxious stimulus. No mean purposeful movements are elicited. DTRs are 2+ throughout and 1 at both knees and ankles. Toes are downgoing bilaterally. Coordination and gait deferred for now. IMPRESSION AND PLAN: This is an 87-year-old man with past medical history of hypertension, congestive heart failure, renal cell carcinoma status post nephrectomy, chronic obstructive pulmonary disease, admitted for leukocytosis and altered mental status with a new onset seizure secondary to severe sepsis and respiratory failure which resulted in right lower lobe aspiration pneumonia as well. In addition, he had an electroencephalogram showing right hemispheric slowing associated with interictal spikes on the right and became consistent with encephalopathy or possible central etiologies. On Keppra 500 mg intravenous every 12 hours. MRI of the brain showed no acute intracranial abnormalities. Status post lumbar puncture with a normal cerebrospinal fluid protein and elevated glucose. HSV/PCR has been sent off. At this time, would recommend: 1. Continuing with Keppra 500 mg IV every 12 hours for seizure prophylaxis. 2. Monitor electrolytes and correct accordingly. 3. Follow up for CSF HSV/PCR. 4. Continue current antibiotics and monitor electrolytes and correct accordingly. We will recommend subacute rehab once the patient is out of an acute stage. Thank you for this consult. Zach Bonilla MD
--- NOTE | 2018-06-27 20:03 | CP.PCM.CON ---
History of Present Illness - History of Present Illness History of Present Illness: CC: thyroid mass/VDRF 87 y/o male admitted to [facility] CCU. Patient has a past medical history of CHF, Renal cancer s/p nephrectomy and COPD who came to the ED with Seizure and acute mental status change. He has been intubated since his arrival on 06/23/18. The Patient has had a LP by ICU reported as clear on visualization. He has been geovany ated for pneumonia. ENT has been consulted regarding Thyroid mass and failure to wean from ventilator. The patient has had a known thyroid mass for many years treated with [place]. The family is involved with the care. He has a son who is a physician Milad, another son Harshad and a who are involved in the decision making. The Patient is sedated at time of examination. Review of Systems - Constitutional Constitutional: As Per HPI - EENT Eyes: As Per HPI Ears: As Per HPI Nose/Mouth/Throat: As Per HPI - Cardiovascular Cardiovascular: As Per HPI - Respiratory Respiratory: As Per HPI - Gastrointestinal Gastrointestinal: As Per HPI - Genitourinary Genitourinary: As Per HPI - Reproductive: Male Reproductive:Male: As Per HPI - Musculoskeletal Musculoskeletal: As Per HPI - Integumentary Integumentary: As Per HPI - Neurological Neurological: As Per HPI - Psychiatric Psychiatric: As Per HPI - Endocrine Endocrine: As Per HPI - Hematologic/Lymphatic Hematologic: As Per HPI Past Patient History - Past Social History Smoking Status: Never Smoked - CARDIAC Hx Cardiac Disorders: Yes Hx Hypertension: Yes - NEUROLOGICAL Hx Seizures: Yes - RENAL Hx Chronic Kidney Disease: Yes - ENDOCRINE/METABOLIC Hx Endocrine Disorders: Yes Hx Hypothyroidism: Yes - HEMATOLOGICAL/ONCOLOGICAL Hx Cancer: Yes - MUSCULOSKELETAL/RHEUMATOLOGICAL Hx Falls: Yes - PSYCHIATRIC Hx Substance Use: No - SURGICAL HISTORY Hx Surgeries: No Meds Allergies/Adverse Reactions: Allergies Allergy/AdvReac Type Severity Reaction Status Date / Time Unobtainable Allergy Verified 06/23/18 16:04 - Medications Medications: Current Medications Albuterol/Ipratropium (Duoneb 3 Mg/0.5 Mg (3 Ml) Ud) 3 ml IH [id number] LUZ MARINA Last Admin: 06/27/18 13:18 Dose: 3 ml Heparin Sodium (Porcine) (Heparin) 5,000 units SC Q8 LUZ MARINA; Protocol Last Admin: 06/27/18 13:37 Dose: 5,000 units Propofol (Diprivan) 1,000 mg in 100 mls @ 2.756 mls/hr IV .Q24H PRN; Protocol PRN Reason: TITRATE PER MD ORDER Last Titration: 06/27/18 16:11 Dose: 9.07 mcg/kg/min, 5 mls/hr Nicardipine HCl (Cardene Iv Premix) 20 mg in 200 mls @ 50 mls/hr IV .Q4H PRN; Protocol PRN Reason: TITRATE PER MD ORDER Last Titration: 06/27/18 11:40 Dose: 0 mg/hr, 0 mls/hr Ceftriaxone Sodium (Rocephin 1 Gram Ivpb) 1 gm in 100 mls @ 100 mls/hr IVPB DAILY LUZ MARINA; Protocol Last Admin: 06/27/18 12:40 Dose: 100 mls/hr Azithromycin 250 mg/ Sodium (Chloride) 250 mls @ 167 mls/hr IVPB DAILY LUZ MARINA; Protocol Last Admin: 06/27/18 12:39 Dose: 167 mls/hr Acyclovir 500 mg/ Sodium (Chloride) 100 mls @ 100 mls/hr IV Q8 LUZ MARINA; Protocol Stop: 07/01/18 07:25 Last Admin: 06/27/18 13:31 Dose: 100 mls/hr Levetiracetam (Keppra 500mg Ivpb) 500 mg in 100 mls @ 400 mls/hr IV Q12 LUZ MARINA Last Admin: 06/27/18 12:12 Dose: 400 mls/hr Sodium Chloride (Sodium Chloride 0.9%) 1,000 mls @ 150 mls/hr IV .Q6H40M LUZ MARINA Lorazepam (Ativan) 2 mg IVP Q1H PRN; Protocol PRN Reason: Seizure activity Last Admin: 06/27/18 13:24 Dose: 2 mg Methylprednisolone (Solu-Medrol) 20 mg IVP Q12 LUZ MARINA Last Admin: 06/27/18 12:24 Dose: 20 mg Pantoprazole Sodium (Protonix Inj) 40 mg IVP DAILY LUZ MARINA Last Admin: 06/27/18 12:14 Dose: 40 mg Physical Exam - Constitutional Appears: Well, Non-toxic - Head Exam Head Exam: NORMAL INSPECTION - ENT Exam ENT Exam: Mucous Membranes Moist Additional comments: ET tube in place - Neck Exam Neck exam: Positive for: Normal Inspection Additional comments: Thyroid poorly palpable Results - Vital Signs Recent Vital Signs: Last Vital Signs Temp 98.1 F 06/27/18 00:00 Pulse 86 06/27/18 12:00 Resp 17 06/27/18 07:12 BP 166/70 H 06/26/18 05:30 Pulse Ox 97 06/27/18 07:12 - Labs Result Diagrams: 06/27/18 05:35 06/27/18 05:35 Labs: Laboratory Results - last 24 hr 06/26/18 06/27/18 06/27/18 21:35 05:35 05:35 WBC 12.7 H RBC 4.20 Hgb 10.2 L Hct 34.1 L MCV 81.2 MCH 24.3 L MCHC 29.9 L RDW 18.4 H Plt Count 256 MPV 10.4 Neut % (Auto) 91.5 H Lymph % (Auto) 5.5 L Sac % (Auto) 3.0 Eos % (Auto) 0.0 L Baso % (Auto) 0.0 Lymph # (Auto) 0.7 L Sac # (Auto) 0.4 Eos # (Auto) 0.0 Baso # (Auto) 0.00 Absolute Neuts (auto) 11.57 H Neutrophils % (Manual) 94 H Lymphocytes % (Manual) 5 L Monocytes % (Manual) 1 Platelet Evaluation Normal pCO2 pO2 HCO3 ABG pH ABG Total CO2 ABG O2 Saturation ABG O2 Content ABG Base Excess ABG Hemoglobin ABG Carboxyhemoglobin POC ABG HHb (Measured) ABG Methemoglobin ABG O2 Capacity Hgb O2 Saturation FiO2 Sodium 137 Potassium 3.7 Chloride 105 Carbon Dioxide 26 Anion Gap 9 L BUN 14 Creatinine 1.0 Est GFR ( Amer) > 60 Est GFR (Non-Af Amer) > 60 POC Glucose (mg/dL) 113 H Random Glucose 160 H Calcium 9.0 Magnesium Total Bilirubin 0.3 AST 24 ALT 8 Alkaline Phosphatase 73 Total Protein 5.8 Albumin 2.9 L Globulin 2.9 Albumin/Globulin Ratio 1.0 L Free T4 TSH 3rd Generation Fluid Type CSF Volume CSF Appearance CSF WBC CSF RBC CSF Total Cell Counted CSF Monos/Macrophages CSF Comment CSF Glucose CSF Total Protein 06/27/18 06/27/18 06/27/18 05:50 07:13 11:50 WBC RBC Hgb Hct MCV MCH MCHC RDW Plt Count MPV Neut % (Auto) Lymph % (Auto) Sac % (Auto) Eos % (Auto) Baso % (Auto) Lymph # (Auto) Sac # (Auto) Eos # (Auto) Baso # (Auto) Absolute Neuts (auto) Neutrophils % (Manual) Lymphocytes % (Manual) Monocytes % (Manual) Platelet Evaluation pCO2 37 pO2 105.0 H HCO3 23.5 ABG pH 7.41 ABG Total CO2 24.6 ABG O2 Saturation 97.9 ABG O2 Content 12.9 L ABG Base Excess -0.9 ABG Hemoglobin 9.4 L ABG Carboxyhemoglobin 1.0 POC ABG HHb (Measured) 2.1 ABG Methemoglobin 0.8 ABG O2 Capacity 13.2 L Hgb O2 Saturation 96.1 FiO2 40.0 Sodium Potassium Chloride Carbon Dioxide Anion Gap BUN Creatinine Est GFR ( Amer) Est GFR (Non-Af Amer) POC Glucose (mg/dL) 164 H Random Glucose Calcium Magnesium Total Bilirubin AST ALT Alkaline Phosphatase Total Protein Albumin Globulin Albumin/Globulin Ratio Free T4 TSH 3rd Generation Fluid Type Spinal fluid CSF Volume 1 CSF Appearance Clear/colorless CSF WBC TEST NOT PERFORMED CSF RBC TEST NOT PERFORMED CSF Total Cell Counted 0 CSF Monos/Macrophages TEST NOT PERFORMED CSF Comment No cell seen CSF Glucose CSF Total Protein 06/27/18 06/27/18 06/27/18 11:50 16:15 16:15 WBC RBC Hgb Hct MCV MCH MCHC RDW Plt Count MPV Neut % (Auto) Lymph % (Auto) Sac % (Auto) Eos % (Auto) Baso % (Auto) Lymph # (Auto) Sac # (Auto) Eos # (Auto) Baso # (Auto) Absolute Neuts (auto) Neutrophils % (Manual) Lymphocytes % (Manual) Monocytes % (Manual) Platelet Evaluation pCO2 pO2 HCO3 ABG pH ABG Total CO2 ABG O2 Saturation ABG O2 Content ABG Base Excess ABG Hemoglobin ABG Carboxyhemoglobin POC ABG HHb (Measured) ABG Methemoglobin ABG O2 Capacity Hgb O2 Saturation FiO2 Sodium Potassium Chloride Carbon Dioxide Anion Gap BUN Creatinine Est GFR ( Amer) Est GFR (Non-Af Amer) POC Glucose (mg/dL) Random Glucose Calcium Magnesium 1.9 Total Bilirubin AST ALT Alkaline Phosphatase Total Protein Albumin Globulin Albumin/Globulin Ratio Free T4 0.97 TSH 3rd Generation 0.91 Fluid Type CSF Volume CSF Appearance CSF WBC CSF RBC CSF Total Cell Counted CSF Monos/Macrophages CSF Comment CSF Glucose 91 H CSF Total Protein 37.0 - Impressions Impression: CT Chest reviewed. Assessment & Plan (1) Seizure Status: Acute (2) CHF (congestive heart failure) Status: Acute (3) COPD (chronic obstructive pulmonary disease) Status: Acute (4) Carcinoma of kidney Status: Acute (5) S/p nephrectomy Status: Acute (6) Thyroid mass Status: Acute (7) Ventilatory failure Status: Acute - Assessment and Plan (Free Text) Plan: I had a long discussion with both sons of the patient. I informed them and they are aware this is a difficult situation. I presented options to the family 1) continued weaning trials and trial of extubation. 2) tracheotomy alone, 3) tracheotomy with thyroidectomy (possibly sternotomy). The family clearly understood the high risk of this procedure on a patient who is 87 years of age. We discussed all the potential complications nerve injury, calcium problems, bleeding, infection scarring and possibly . I discussed the case with the cardiothoracic surgery team at [facility]. I discussed the guzman sfer with the patient's current physician Dr. Neal. I discussed transferring the patient to [facility] under the care of the ICU Dr. Bradford. Dr. Bradford is willing to accept the admission. The family is agreeable to the transfer and will make a decision regarding surgery in the days to come. 2 hour discussion with all involved. - Date & Time Date: 06/27/18 Time: 20:03
[2018-06-27 22:21] LABS: SPECIMEN SOURCE FLUID
[2018-06-27 23:43] VITALS: BP 163/87; PULSE 79; RESP 18; O2SAT 99
--- NOTE | 2018-06-29 02:21 | OP ---
PROCEDURE DATE: 06/27/2018 PROCEDURE: Spinal tap. INDICATION: Rule out herpes encephalitis. DESCRIPTION OF PROCEDURE: After obtaining informed consent, operational area was sterilized. Needle insertion was made between L4 and L5. About 3 mL of clear transparent fluid was received. The patient tolerated the procedure well. Sterile dressing was applied. No blood loss. Micah Ojeda MD
== END 2018-06-27 22:40 | disposition short-term general hospital (02) | DRG 870 ==
LOC: ED 16:02 → ERH 17:23 → CCU 18:48
PROVIDERS: ADMIT Family Medicine; ATTEND Family Medicine
PROC: 5A1955Z Respiratory Ventilation, Greater than 96 Consecutive Hours (ICD-10-PCS; principal; 2018-06-23)
PROC: 0BH17EZ Insertion of Endotracheal Airway into Trachea, Via Natural or Artificial Opening (ICD-10-PCS; 2018-06-23)
PROC: 009U3ZX Drainage of Spinal Canal, Percutaneous Approach, Diagnostic (ICD-10-PCS; 2018-06-27)
DX: A41.9 Sepsis, unspecified organism (principal); J96.00 Acute respiratory failure, unspecified whether with hypoxia or hypercapnia; J69.0 Pneumonitis due to inhalation of food and vomit; G93.40 Encephalopathy, unspecified; I45.2 Bifascicular block; J98.11 Atelectasis; Z99.11 Dependence on respirator [ventilator] status; R65.20 Severe sepsis without septic shock; G40.909 Epilepsy, unspecified, not intractable, without status epilepticus; E03.9 Hypothyroidism, unspecified; I11.0 Hypertensive heart disease with heart failure; I50.9 Heart failure, unspecified; J44.9 Chronic obstructive pulmonary disease, unspecified; E04.8 Other specified nontoxic goiter; I27.20 Pulmonary hypertension, unspecified; D64.9 Anemia, unspecified; Z85.528 Personal history of other malignant neoplasm of kidney; Z90.5 Acquired absence of kidney; Z79.899 Other long term (current) drug therapy; Z79.890 Hormone replacement therapy

== ENCOUNTER 2018-07-14 21:40 | Inpatient (IN) | payer MEDICARE, MEDICAID ==
[2018-07-14 22:05] VITALS: BMI 30.6
[2018-07-14] MEDS ORDERED: Dextrose 50% SYRINGE Inj (50 ml) IV PRN (22:13)
[2018-07-14] MEDS ORDERED: Piperacillin/Tazobact 2.25gm 2.25 GM/100 ML BAG IVPB STA (22:13)
--- NOTE | 2018-07-15 02:02 | CP.PCM.CON ---
<Timothy Napoles - Last Filed: 07/15/18 02:30> History of Present Illness - History of Present Illness History of Present Illness: Dr Napoles CCU Consult Note Pt is a 87yo M with pmhx of CHF, Renal Ca s/p Nephrectomy, and COPD who was originally admitted [place] [facility] [place] ago for AMS and witnessed seizure activity. Pt was given ativan on the field and then became flaccid. In ED pt was not responding to deep painful stimuli per ED physician and the decision was made to intubate the pt. Pt was found to have a thyroid mass, decision was made to transfer to [facility] for possible ENT intervention by Dr Ndiaye, Pt was then recieved by Intesivist Dr Bradford. Pt did not end up receiving any surgical intervention while there, decision was made to transfer back to [facility] Pt's Son Milad is a physician. Pt at this time is intubated and sedated. Pmhx: CHF, RCC s/p questionable Nephrectomy, COPD Pshx: questionable nephrectomy per pts family Meds: Unobtainable 2/2 pt intubated and sedated All: Unobtainable 2/2 pt intubated and sedated Fam hx: Unobtainable Review of Systems - Review of Systems Systems not reviewed;Unavailable: Acuity of Condition, Intubated Past Patient History - Past Social History Smoking Status: Unknown If Ever Smoked - CARDIAC Hx Cardiac Disorders: Yes Hx Hypertension: Yes - NEUROLOGICAL Hx Seizures: Yes - RENAL Hx Chronic Kidney Disease: Yes - ENDOCRINE/METABOLIC Hx Endocrine Disorders: Yes Hx Hypothyroidism: Yes - HEMATOLOGICAL/ONCOLOGICAL Hx Cancer: Yes - MUSCULOSKELETAL/RHEUMATOLOGICAL Hx Falls: Yes - PSYCHIATRIC Hx Substance Use: No - SURGICAL HISTORY Hx Surgeries: No Meds Allergies/Adverse Reactions: Allergies Allergy/AdvReac Type Severity Reaction Status Date / Time Unobtainable Allergy Verified 06/23/18 16:04 - Medications Medications: Current Medications Amino Acid Protein (Prostat 15 G Packet) 15 gm GT BID [facility]Z [facility]INA Amlodipine Besylate (Norvasc) 5 mg PO DAILY LUZ MARINA Atorvastatin Calcium (Lipitor) 20 mg PO DIN LUZ MARINA Dextrose (Dextrose 50% Inj) 0 ml IV STAT PRN; Protocol PRN Reason: Hypoglycemia Protocol Heparin Sodium (Porcine) (Heparin) 5,000 units SC Q8 LUZ MARINA; Protocol Dextrose (Dextrose 5% In Water 1000 Ml) 1,000 mls @ 0 mls/hr IV .Q0M PRN; Protocol PRN Reason: Hypoglycemia Protocol Insulin Human Regular (Humulin R Low) 0 units SC ACHS LUZ MARINA; Protocol Morphine Sulfate (Morphine) 4 mg IVP Q4H PRN PRN Reason: Pain, moderate (4-7) Pantoprazole Sodium (Protonix Inj) 40 mg IVP DAILY LUZ MARINA Polyethylene Glycol (Miralax) 17 gm PO BID [facility]Z MARINA Quetiapine Fumarate (Seroquel) 50 mg PO HS LUZ MARINA; Protocol Senna/Docusate Sodium (Senokot S 50 Mg-8.6 Mg) 1 tab PO BID LUZ MARINA Results - Vital Signs Recent Vital Signs: Last Vital Signs Temp 99.9 F H 07/15/18 01:40 Pulse 69 07/15/18 01:40 Resp 19 07/14/18 22:06 BP 126/71 07/15/18 01:01 Pulse Ox 100 07/15/18 01:40 - Labs Labs: Laboratory Results - last 24 hr 07/14/18 22:36 POC Glucose (mg/dL) 106 Assessment & Plan - Assessment and Plan (Free Text) Assessment: 87 y/o male admitted to ICU for AMS in the setting of new onset seizure episode. He developed respiratory failure requiring ventilation/ sedation. Plan: Neuro: -awake, not oriented, does not follow verbal stimuli -etiology for AMS and new onset seizure is still unclear -MRI brain is negative -CSF cuture/cytology/HSV: neg -CT head negative for ICH, mass, edema -EEG negative for seizure , no status epilepticus -continue keppra 500 mg q12 -Seroquel 50 HS Cardio: -maintain MAP>65 -continue Norvasc 5mg daily Pulm: -Vent settings: 400/14/5/40% -Zosyn 2.25 q8 IVPB -consevative fluid and oxygen management Renal: -maintain euvolemia -Monitor I/Os ID: -continue zisyn 2.25 q8 IVPB -leukocytosis is trending down. Afebrile -BCxs 1/2 positive for coag negative staph -ID following Endo: -right thyroid mass, concern for neoplasm, ENT Dr Ndiaye consulted Prophylaxis: -Protonix -SCD. Heparin SQ <Bonilla,Bankimchan - Last Filed: 07/15/18 20:13> Meds - Medications Medications: Current Medications Amino Acid Protein (Prostat 15 G Packet) 15 gm GT BID [facility] Last Admin: 07/15/18 18:00 Dose: Not Given Amlodipine Besylate (Norvasc) 5 mg PO DAILY [facility] Last Admin: 07/15/18 10:49 Dose: 5 mg Atorvastatin Calcium (Lipitor) 20 mg PO DIN [facility] Last Admin: 07/15/18 17:00 Dose: Not Given Dextrose (Dextrose 50% Inj) 0 ml IV STAT PRN; Protocol PRN Reason: Hypoglycemia Protocol Heparin Sodium (Porcine) (Heparin) 5,000 units SC Q8 LUZ MARINA; Protocol Last Admin: 07/15/18 14:18 Dose: 5,000 units Dextrose (Dextrose 5% In Water 1000 Ml) 1,000 mls @ 0 mls/hr IV .Q0M PRN; Protocol PRN Reason: Hypoglycemia Protocol Cefepime HCl (Maxipime 1gm) 1 gm in 100 mls @ 100 mls/hr IVPB Q8 LUZ MARINA; Protocol Last Admin: 07/15/18 17:27 Dose: 100 mls/hr Vancomycin HCl (Vancomycin 1gm) 1 gm in 250 mls @ 167 mls/hr IVPB DAILY [facility]; Protocol Stop: 07/18/18 17:01 Last Admin: 07/15/18 17:28 Dose: 167 mls/hr Insulin Human Regular (Humulin R Med) 0 units SC Q6H LUZ MARINA; Protocol Last Admin: 07/15/18 18:00 Dose: Not Given Levetiracetam (Keppra) 500 mg PO BID [facility] Last Admin: 07/15/18 18:00 Dose: Not Given Morphine Sulfate (Morphine) 4 mg IVP Q4H PRN PRN Reason: Pain, moderate (4-7) Pantoprazole Sodium (Protonix Inj) 40 mg IVP DAILY [facility] Last Admin: 07/15/18 10:49 Dose: 40 mg Polyethylene Glycol (Miralax) 17 gm PO BID [facility] Last Admin: 07/15/18 18:00 Dose: Not Given Quetiapine Fumarate (Seroquel) 50 mg PO HS [facility]; Protocol Senna/Docusate Sodium (Senokot S 50 Mg-8.6 Mg) 1 tab PO BID [facility] Last Admin: 07/15/18 18:00 Dose: Not Given Results - Vital Signs Recent Vital Signs: Last Vital Signs Temp 100.2 F H 07/15/18 09:00 Pulse 83 07/15/18 16:00 Resp 19 07/14/18 22:06 BP 145/63 07/15/18 11:50 Pulse Ox 98 07/15/18 09:00 - Labs Result Diagrams: 07/15/18 15:16 07/15/18 08:30 Labs: Laboratory Results - last 24 hr 07/14/18 07/15/18 07/15/18 22:36 07:19 08:30 WBC 17.6 H D RBC 3.20 L Hgb 7.8 L D Hct 26.5 L MCV 82.8 MCH 24.4 L MCHC 29.4 L RDW 21.2 H Plt Count 598 H MPV 9.9 Neut % (Auto) 82.3 H Lymph % (Auto) 10.1 L [place] % (Auto) 5.5 Eos % (Auto) 1.8 Baso % (Auto) 0.3 Lymph # (Auto) 1.8 [place] # (Auto) 1.0 H Eos # (Auto) 0.3 Baso # (Auto) 0.05 Absolute Neuts (auto) 14.47 H APTT Sodium Potassium Chloride Carbon Dioxide Anion Gap BUN Creatinine Est GFR ( Amer) Est GFR (Non-Af Amer) POC Glucose (mg/dL) 106 150 H Random Glucose Calcium Phosphorus Magnesium Total Bilirubin AST ALT Alkaline Phosphatase Total Protein Albumin Globulin Albumin/Globulin Ratio Blood Type Antibody Screen Crossmatch BBK History Checked 07/15/18 07/15/18 07/15/18 08:30 08:30 11:00 WBC RBC Hgb Hct MCV MCH MCHC RDW Plt Count MPV Neut % (Auto) Lymph % (Auto) [place] % (Auto) Eos % (Auto) Baso % (Auto) Lymph # (Auto) [place] # (Auto) Eos # (Auto) Baso # (Auto) Absolute Neuts (auto) APTT 29.7 Sodium 140 Potassium 3.3 L Chloride 104 Carbon Dioxide 32 Anion Gap 8 L BUN 49 H Creatinine 1.2 Est GFR ( Amer) > 60 Est GFR (Non-Af Amer) 57 POC Glucose (mg/dL) Random Glucose 118 H Calcium 10.0 Phosphorus 3.4 Magnesium 1.8 Total Bilirubin 0.3 AST 95 H D ALT 64 H Alkaline Phosphatase 512 H D Total Protein 5.7 L Albumin 2.6 L Globulin 3.1 Albumin/Globulin Ratio 0.8 L Blood Type A NEGATIVE Antibody Screen Negative Crossmatch See Detail BBK History Checked Patient has bt 07/15/18 07/15/18 07/15/18 11:46 15:16 17:40 WBC 19.1 H RBC 3.05 L Hgb 7.6 L Hct 25.3 L MCV 83.0 MCH 24.9 L MCHC 30.0 L RDW 21.0 H Plt Count 603 H MPV 10.2 Neut % (Auto) 82.0 H Lymph % (Auto) 10.3 L [place] % (Auto) 6.0 Eos % (Auto) 1.4 L Baso % (Auto) 0.3 Lymph # (Auto) 2.0 [place] # (Auto) 1.2 H Eos # (Auto) 0.3 Baso # (Auto) 0.05 Absolute Neuts (auto) 15.68 H APTT Sodium Potassium Chloride Carbon Dioxide Anion Gap BUN Creatinine Est GFR ( Amer) Est GFR (Non-Af Amer) POC Glucose (mg/dL) 141 H 107 Random Glucose Calcium Phosphorus Magnesium Total Bilirubin AST ALT Alkaline Phosphatase Total Protein Albumin Globulin Albumin/Globulin Ratio Blood Type Antibody Screen Crossmatch BBK History Checked Attending/Attestation - Attestation I have personally seen and examined this patient.: Yes I have fully participated in the care of the patient.: Yes I have reviewed all pertinent clinical information: Yes Notes (Text): 07/15/18 20:12 CCT:30 minutes.
--- NOTE | 2018-07-15 07:27 | CP.CCUPN ---
<Jesu Ramirez - Last Filed: 07/15/18 15:21> CCU Subjective - Physician Review Events Since Last Encounter (Free Text): 07/15/18 07:23 Pt received last night from [facility], trach in place on vent. no cute events overnight Subjective (Free Text): 07/15/18 07:27 Pt seen and examined this morning at bedside, trach in place, NAD CCU Objective - Vital Signs / Intake & Output Vital Signs (Last 4 hours): Vital Signs Temp Pulse BP Pulse Ox 07/15/18 06:10 100.2 F H 58 L 99 07/15/18 06:01 100.2 F H 66 120/86 97 07/15/18 06:00 100.2 F H 85 94 L 07/15/18 05:50 100.2 F H 71 99 07/15/18 05:40 100.0 F H 58 L 99 07/15/18 05:30 100.0 F H 62 99 07/15/18 05:20 100.0 F H 77 99 07/15/18 05:10 100.0 F H 70 07/15/18 05:05 99.9 F H 67 07/15/18 05:04 99.9 F H 78 07/15/18 05:03 99.9 F H 53 L 07/15/18 05:02 99.9 F H 70 07/15/18 05:01 106/44 L 07/15/18 05:00 99.9 F H 93 H 07/15/18 04:59 99.9 F H 82 07/15/18 04:58 99.9 F H 77 07/15/18 04:57 99.9 F H 76 07/15/18 04:56 99.9 F H 66 07/15/18 04:55 99.9 F H 88 07/15/18 04:54 99.9 F H 66 07/15/18 04:53 99.9 F H 70 07/15/18 04:52 99.9 F H 73 07/15/18 04:51 99.9 F H 86 07/15/18 04:50 99.9 F H 72 07/15/18 04:49 99.9 F H 82 07/15/18 04:48 99.9 F H 72 07/15/18 04:47 99.9 F H 77 07/15/18 04:46 99.9 F H 81 07/15/18 04:45 99.9 F H 81 07/15/18 04:44 99.9 F H 90 07/15/18 04:43 99.9 F H 82 07/15/18 04:42 99.9 F H 74 07/15/18 04:41 99.9 F H 68 07/15/18 04:40 99.9 F H 90 07/15/18 04:39 99.9 F H 69 07/15/18 04:38 99.9 F H 65 07/15/18 04:37 99.9 F H 76 07/15/18 04:36 99.9 F H 89 07/15/18 04:35 99.7 F H 82 07/15/18 04:34 99.9 F H 68 07/15/18 04:33 99.9 F H 66 07/15/18 04:32 99.9 F H 70 07/15/18 04:31 99.9 F H 66 07/15/18 04:30 99.7 F H 60 07/15/18 04:29 99.7 F H 75 07/15/18 04:28 99.9 F H 85 07/15/18 04:27 99.9 F H 79 07/15/18 04:26 99.9 F H 70 07/15/18 04:25 99.7 F H 59 L 07/15/18 04:24 99.7 F H 77 07/15/18 04:23 99.7 F H 83 07/15/18 04:22 99.9 F H 74 07/15/18 04:21 99.9 F H 71 07/15/18 04:20 99.9 F H 66 07/15/18 04:19 99.9 F H 72 Intake and Output (Last 8hrs): Intake & Output 07/14/18 07/15/18 07/15/18 22:59 06:59 14:59 Intake Total 895 Output Total 900 Balance -5 Weight 226 lb 226 lb Intake: IV 100 Left Upper arm 100 Tube Feeding 315 Other 480 Output: Urine 900 Urethral (Phan) 900 Other: # Bowel Movements 1 - Physical Exam Head: Positive for: Atraumatic, Normocephalic Pupils: Positive for: PERRL Extroacular Muscles: Positive for: EOMI Mouth: Positive for: Moist Mucous Membranes Respiratory/Chest: Positive for: Clear to Auscultation, Good Air Exchange. Negative for: Respiratory Distress, Accessory Muscle Use Cardiovascular: Positive for: Regular Rate and Rhythm, Normal S1, S2. Negative for: Murmurs Abdomen: Negative for: Tenderness, Distention, Normal Bowel Sounds Upper Extremity: Negative for: Edema Lower Extremity: Positive for: Edema Skin: Positive for: Warm, Dry, Normal Color - Medications Active Medications: Active Medications Generic Name Dose Route Start Last Admin Trade Name Freq PRN Reason Stop Dose Admin Amino Acid Protein 15 gm 07/15/18 10:00 Prostat 15 G Packet GT BID [facility] Amlodipine Besylate 5 mg 07/15/18 10:00 Norvasc PO DAILY [facility] Atorvastatin Calcium 20 mg 07/15/18 17:00 Lipitor PO DIN [facility] Dextrose 0 ml 07/14/18 22:13 Dextrose 50% Inj IV STAT PRN Hypoglycemia Protocol Protocol Heparin Sodium (Porcine) 5,000 units 07/15/18 06:00 07/15/18 05:29 Heparin SC 5,000 units Q8 [facility] Administration Protocol Dextrose 1,000 mls @ 0 mls/hr 07/14/18 22:13 Dextrose 5% In Water 1000 Ml IV .Q0M PRN Hypoglycemia Protocol Protocol Per Protocol Insulin Human Regular 0 units 07/15/18 07:30 Humulin R Low SC ACHS [facility] Protocol Levetiracetam 500 mg 07/15/18 10:00 Keppra PO BID [facility] Morphine Sulfate 4 mg 07/14/18 22:13 Morphine IVP Q4H PRN Pain, moderate (4-7) Pantoprazole Sodium 40 mg 07/15/18 10:00 Protonix Inj IVP DAILY [facility] Polyethylene Glycol 17 gm 07/15/18 10:00 Miralax PO BID [facility] Quetiapine Fumarate 50 mg 07/15/18 22:00 Seroquel PO HS [facility] Protocol Senna/Docusate Sodium 1 tab 07/15/18 10:00 Senokot S 50 Mg-8.6 Mg PO BID [facility] - Patient Studies Lab Studies: Lab Studies 07/14/18 Range/Units 22:36 POC Glucose (mg/dL) 106 (65-110) mg/dL Laboratory Results - last 24 hr 07/14/18 22:36 POC Glucose (mg/dL) 106 Fingerstick Blood Sugar Results: 106 Assessment/Plan - Assessment and Plan (Free Text) Assessment: Pt is an 87 yo male with a PMH of CHF, renal cancer, COPD, seizures, and a thyroid mass, who was admitted to the ICU for AMS and new onset seizure, who subsequently developed respiratory failure and needed ventilation. Plan: Neuro - awake, but not oriented - MRI brain 06/26/18 unremarkable - CSF cuture/cytology/HSV: neg, from 06/27/18 - EEG negative for seizure , no status epilepticus, 06/25/18 - keppra 500 mg q12 - Seroquel 50 HS Cardio - maintain MAP>65 - Norvasc, lipitor Pulm -Vent settings: 500/15/5/50% -given a dose of Zosyn -conservative fluid and oxygen management GI -Protonix Renal - maintain euvolemia ID - given dose of zosyn - ID consulted, Dr Fortune Endo - right thyroid mass - ENT consulted, Dr Ndiaye, michael thyroid surgical intervention was performed Heme -SCD. Heparin SQ Pt seen, examined, assessment and plan discussed with Dr Rusty Rmairez PGY1 - Date & Time Date: 07/15/18 Time: 07:28 <Micah Ojeda - Last Filed: 07/15/18 17:09> CCU Objective - Vital Signs / Intake & Output Vital Signs (Last 4 hours): Vital Signs Pulse 07/15/18 16:00 83 Intake and Output (Last 8hrs): Intake & Output 07/15/18 07/15/18 07/15/18 06:59 14:59 22:59 Intake Total 895 Output Total 900 Balance -5 Weight 226 lb Intake: IV 100 Left Upper arm 100 Tube Feeding 315 Other 480 Output: Urine 900 Urethral (Phan) 900 Other: # Bowel Movements 1 - Medications Active Medications: Active Medications Generic Name Dose Route Start Last Admin Trade Name Freq PRN Reason Stop Dose Admin Amino Acid Protein 15 gm 07/15/18 10:00 07/15/18 11:51 Prostat 15 G Packet GT 15 gm BID [facility] Administration Amlodipine Besylate 5 mg 07/15/18 10:00 07/15/18 10:49 Norvasc PO 5 mg DAILY [facility] Administration Atorvastatin Calcium 20 mg 07/15/18 17:00 Lipitor PO DIN [facility] Dextrose 0 ml 07/14/18 22:13 Dextrose 50% Inj IV STAT PRN Hypoglycemia Protocol Protocol Heparin Sodium (Porcine) 5,000 units 07/15/18 06:00 07/15/18 14:18 Heparin SC 5,000 units Q8 [facility] Administration Protocol Dextrose 1,000 mls @ 0 mls/hr 07/14/18 22:13 Dextrose 5% In Water 1000 Ml IV .Q0M PRN Hypoglycemia Protocol Protocol Per Protocol Cefepime HCl 1 gm in 100 mls @ 100 mls/hr 07/15/18 17:00 Maxipime 1gm IVPB Q8 [facility] Protocol Vancomycin HCl 1 gm in 250 mls @ 167 mls/hr 07/15/18 17:00 Vancomycin 1gm IVPB 07/18/18 17:01 DAILY [facility] Protocol Insulin Human Regular 0 units 07/15/18 12:00 07/15/18 12:39 Humulin R Med SC Not Given Q6H [facility] Protocol Levetiracetam 500 mg 07/15/18 10:00 07/15/18 10:51 Keppra PO 500 mg BID [facility] Administration Morphine Sulfate 4 mg 07/14/18 22:13 Morphine IVP Q4H PRN Pain, moderate (4-7) Pantoprazole Sodium 40 mg 07/15/18 10:00 07/15/18 10:49 Protonix Inj IVP 40 mg DAILY [facility] Administration Polyethylene Glycol 17 gm 07/15/18 10:00 07/15/18 10:51 Miralax PO 17 gm BID [facility] Administration Quetiapine Fumarate 50 mg 07/15/18 22:00 Seroquel PO HS [facility] Protocol Senna/Docusate Sodium 1 tab 07/15/18 10:00 07/15/18 11:49 Senokot S 50 Mg-8.6 Mg PO 1 tab BID [facility] Administration - Patient Studies Lab Studies: Lab Studies 07/15/18 07/15/18 07/15/18 Range/Units 15:16 11:46 11:00 WBC 19.1 H (4.5-11.0) 10^3/uL RBC 3.05 L (3.5-6.1) 10^6/uL Hgb 7.6 L (14.0-18.0) g/dL Hct 25.3 L (42.0-52.0) % MCV 83.0 (80.0-105.0) fl MCH 24.9 L (25.0-35.0) pg MCHC 30.0 L (31.0-37.0) g/dl RDW 21.0 H (11.5-14.5) % Plt Count 603 H (120.0-450.0) 10^3/uL MPV 10.2 (7.0-11.0) fl Neut % (Auto) 82.0 H (50.0-68.0) % Lymph % (Auto) 10.3 L (22.0-35.0) % [place] % (Auto) 6.0 (1.0-6.0) % Eos % (Auto) 1.4 L (1.5-5.0) % Baso % (Auto) 0.3 (0.0-3.0) % Lymph # (Auto) 2.0 (1.2-3.4) [place] # (Auto) 1.2 H (0.1-0.6) Eos # (Auto) 0.3 (0.0-0.7) Baso # (Auto) 0.05 (0.0-2.0) K/mm3 Absolute Neuts (auto) 15.68 H (1.4-6.5) APTT (26.9-38.3) Seconds Sodium (132-148) mmol/L Potassium (3.6-5.0) mmol/L Chloride (98-107) mmol/L Carbon Dioxide (21-33) mmol/L Anion Gap (10-20) BUN (7-21) mg/dL Creatinine (0.8-1.5) mg/dl Est GFR ( Amer) Est GFR (Non-Af Amer) POC Glucose (mg/dL) 141 H (65-110) mg/dL Random Glucose (70-110) mg/dL Calcium (8.4-10.5) mg/dL Phosphorus (2.5-4.5) mg/dL Magnesium (1.7-2.2) mg/dL Total Bilirubin (0.2-1.3) mg/dL AST (17-59) U/L ALT (7-56) U/L Alkaline Phosphatase (38-126) U/L Total Protein (5.8-8.3) g/dL Albumin (3.0-4.8) g/dL Globulin gm/dL Albumin/Globulin Ratio (1.1-1.8) Blood Type A NEGATIVE Antibody Screen Negative Crossmatch See Detail BBK History Checked Patient has bt 07/15/18 07/15/18 07/15/18 Range/Units 08:30 08:30 08:30 WBC 17.6 H D (4.5-11.0) 10^3/uL RBC 3.20 L (3.5-6.1) 10^6/uL Hgb 7.8 L D (14.0-18.0) g/dL Hct 26.5 L (42.0-52.0) % MCV 82.8 (80.0-105.0) fl MCH 24.4 L (25.0-35.0) pg MCHC 29.4 L (31.0-37.0) g/dl RDW 21.2 H (11.5-14.5) % Plt Count 598 H (120.0-450.0) 10^3/uL MPV 9.9 (7.0-11.0) fl Neut % (Auto) 82.3 H (50.0-68.0) % Lymph % (Auto) 10.1 L (22.0-35.0) % [place] % (Auto) 5.5 (1.0-6.0) % Eos % (Auto) 1.8 (1.5-5.0) % Baso % (Auto) 0.3 (0.0-3.0) % Lymph # (Auto) 1.8 (1.2-3.4) [place] # (Auto) 1.0 H (0.1-0.6) Eos # (Auto) 0.3 (0.0-0.7) Baso # (Auto) 0.05 (0.0-2.0) K/mm3 Absolute Neuts (auto) 14.47 H (1.4-6.5) APTT 29.7 (26.9-38.3) Seconds Sodium 140 (132-148) mmol/L Potassium 3.3 L (3.6-5.0) mmol/L Chloride 104 (98-107) mmol/L Carbon Dioxide 32 (21-33) mmol/L Anion Gap 8 L (10-20) BUN 49 H (7-21) mg/dL Creatinine 1.2 (0.8-1.5) mg/dl Est GFR ( Amer) > 60 Est GFR (Non-Af Amer) 57 POC Glucose (mg/dL) (65-110) mg/dL Random Glucose 118 H (70-110) mg/dL Calcium 10.0 (8.4-10.5) mg/dL Phosphorus 3.4 (2.5-4.5) mg/dL Magnesium 1.8 (1.7-2.2) mg/dL Total Bilirubin 0.3 (0.2-1.3) mg/dL AST 95 H D (17-59) U/L ALT 64 H (7-56) U/L Alkaline Phosphatase 512 H D (38-126) U/L Total Protein 5.7 L (5.8-8.3) g/dL Albumin 2.6 L (3.0-4.8) g/dL Globulin 3.1 gm/dL Albumin/Globulin Ratio 0.8 L (1.1-1.8) Blood Type Antibody Screen Crossmatch BBK History Checked 07/15/18 07/14/18 Range/Units 07:19 22:36 WBC (4.5-11.0) 10^3/uL RBC (3.5-6.1) 10^6/uL Hgb (14.0-18.0) g/dL Hct (42.0-52.0) % MCV (80.0-105.0) fl MCH (25.0-35.0) pg MCHC (31.0-37.0) g/dl RDW (11.5-14.5) % Plt Count (120.0-450.0) 10^3/uL MPV (7.0-11.0) fl Neut % (Auto) (50.0-68.0) % Lymph % (Auto) (22.0-35.0) % [place] % (Auto) (1.0-6.0) % Eos % (Auto) (1.5-5.0) % Baso % (Auto) (0.0-3.0) % Lymph # (Auto) (1.2-3.4) [place] # (Auto) (0.1-0.6) Eos # (Auto) (0.0-0.7) Baso # (Auto) (0.0-2.0) K/mm3 Absolute Neuts (auto) (1.4-6.5) APTT (26.9-38.3) Seconds Sodium (132-148) mmol/L Potassium (3.6-5.0) mmol/L Chloride (98-107) mmol/L Carbon Dioxide (21-33) mmol/L Anion Gap (10-20) BUN (7-21) mg/dL Creatinine (0.8-1.5) mg/dl Est GFR ( Amer) Est GFR (Non-Af Amer) POC Glucose (mg/dL) 150 H 106 (65-110) mg/dL Random Glucose (70-110) mg/dL Calcium (8.4-10.5) mg/dL Phosphorus (2.5-4.5) mg/dL Magnesium (1.7-2.2) mg/dL Total Bilirubin (0.2-1.3) mg/dL AST (17-59) U/L ALT (7-56) U/L Alkaline Phosphatase (38-126) U/L Total Protein (5.8-8.3) g/dL Albumin (3.0-4.8) g/dL Globulin gm/dL Albumin/Globulin Ratio (1.1-1.8) Blood Type Antibody Screen Crossmatch BBK History Checked Laboratory Results - last 24 hr 07/14/18 07/15/18 07/15/18 22:36 07:19 08:30 WBC 17.6 H D RBC 3.20 L Hgb 7.8 L D Hct 26.5 L MCV 82.8 MCH 24.4 L MCHC 29.4 L RDW 21.2 H Plt Count 598 H MPV 9.9 Neut % (Auto) 82.3 H Lymph % (Auto) 10.1 L [place] % (Auto) 5.5 Eos % (Auto) 1.8 Baso % (Auto) 0.3 Lymph # (Auto) 1.8 [place] # (Auto) 1.0 H Eos # (Auto) 0.3 Baso # (Auto) 0.05 Absolute Neuts (auto) 14.47 H APTT Sodium Potassium Chloride Carbon Dioxide Anion Gap BUN Creatinine Est GFR ( Amer) Est GFR (Non-Af Amer) POC Glucose (mg/dL) 106 150 H Random Glucose Calcium Phosphorus Magnesium Total Bilirubin AST ALT Alkaline Phosphatase Total Protein Albumin Globulin Albumin/Globulin Ratio Blood Type Antibody Screen Crossmatch BBK History Checked 07/15/18 07/15/18 07/15/18 08:30 08:30 11:00 WBC RBC Hgb Hct MCV MCH MCHC RDW Plt Count MPV Neut % (Auto) Lymph % (Auto) [place] % (Auto) Eos % (Auto) Baso % (Auto) Lymph # (Auto) [place] # (Auto) Eos # (Auto) Baso # (Auto) Absolute Neuts (auto) APTT 29.7 Sodium 140 Potassium 3.3 L Chloride 104 Carbon Dioxide 32 Anion Gap 8 L BUN 49 H Creatinine 1.2 Est GFR ( Amer) > 60 Est GFR (Non-Af Amer) 57 POC Glucose (mg/dL) Random Glucose 118 H Calcium 10.0 Phosphorus 3.4 Magnesium 1.8 Total Bilirubin 0.3 AST 95 H D ALT 64 H Alkaline Phosphatase 512 H D Total Protein 5.7 L Albumin 2.6 L Globulin 3.1 Albumin/Globulin Ratio 0.8 L Blood Type A NEGATIVE Antibody Screen Negative Crossmatch See Detail BBK History Checked Patient has bt 07/15/18 07/15/18 11:46 15:16 WBC 19.1 H RBC 3.05 L Hgb 7.6 L Hct 25.3 L MCV 83.0 MCH 24.9 L MCHC 30.0 L RDW 21.0 H Plt Count 603 H MPV 10.2 Neut % (Auto) 82.0 H Lymph % (Auto) 10.3 L [place] % (Auto) 6.0 Eos % (Auto) 1.4 L Baso % (Auto) 0.3 Lymph # (Auto) 2.0 [place] # (Auto) 1.2 H Eos # (Auto) 0.3 Baso # (Auto) 0.05 Absolute Neuts (auto) 15.68 H APTT Sodium Potassium Chloride Carbon Dioxide Anion Gap BUN Creatinine Est GFR ( Amer) Est GFR (Non-Af Amer) POC Glucose (mg/dL) 141 H Random Glucose Calcium Phosphorus Magnesium Total Bilirubin AST ALT Alkaline Phosphatase Total Protein Albumin Globulin Albumin/Globulin Ratio Blood Type Antibody Screen Crossmatch BBK History Checked Radiology Impressions: Radiology Impressions Chest X-Ray 07/15/18 11:45 IMPRESSION: There is a left-sided PICC line that terminates in the axilla. There is no PICC line seen on the right Chest X-Ray 07/15/18 14:23 IMPRESSION: There is a left-sided central line that terminates in the SVC just above the right atrium in satisfactory position EKG/Cardiology Studies: Cardiology / EKG Studies 07/15/18 14:28 EKG [ELECTROCARDIOGRAM] Stat Comment: Reason For Exam: bradycardia during cental line placement Attending/Attestation - Attestation I have personally seen and examined this patient.: Yes I have fully participated in the care of the patient.: Yes I have reviewed all pertinent clinical information: Yes Notes (Text): 07/15/18 17:00 87 yo male with VDRF, now s/p trach. transferred from [facility] yesterday night--no thyroid surgery was done there. Meanwhile, patient appears to be in severe sepsis with rising wbc, low grade fever, complicated by MAGGIE and possibly septic encephalopathy, in the setting of persistent bilateral infiltrate, old PICC line, which appears to be in axillary position and displaced peg tube. We removed old picc line, put new scl CVC, started cefepime, vanco, sent blood cultures, urine cultures, trach aspirate culture and procalcitonin. stop ngt feeds, called surgery consult and ordered stat CT abdo/pelvis. patient is hemodynamically stable, but didnt tolerate PST today. will continue conservative fluid and 02 management, will hold PRBC transfusion for Hb>7, unless lactic acidosis or NM. HOB>35, oral hygiene, daily sedation vacation and weaning trials. dvt/gi prophylaxis. dvt/gi prophylaxis ccm time 40 min
[2018-07-15] MEDS ORDERED: Insulin Reg-LOW-Coverage SC SCH (07:30)
[2018-07-15 08:51] LABS: BASO # 0.05 K/mm3 (0.0-2.0); BASO % 0.3 % (0.0-3.0); EOS # 0.3 (0.0-0.7); EOS % 1.8 % (1.5-5.0); HEMOGLOBIN 7.8 g/dL (14.0-18.0); LYMPH # 1.8 (1.2-3.4); LYMPH % 10.1 % (22.0-35.0); MEAN CELL VOLUME 82.8 fl (80.0-105.0); MEAN CORPUSCULAR HEMOGLOBIN 24.4 pg (25.0-35.0); MEAN CORPUSCULAR HGB CONC 29.4 g/dl (31.0-37.0); MEAN PLATELET VOLUME 9.9 fl (7.0-11.0); MONO % 5.5 % (1.0-6.0); RBC 3.2 10^6/uL (3.5-6.1); RED CELL DISTRIBUTION WIDTH 21.2 % (11.5-14.5); WHITE BLOOD COUNT 17.6 10^3/uL (4.5-11.0)
[2018-07-15 09:36] LABS: ALB/GLOB RATIO 0.8 (1.1-1.8); ALBUMIN 2.6 g/dL (3.0-4.8); ALT/SGPT 64 U/L (7-56); AST/SGOT 95 U/L (17-59); BLOOD UREA NITROGEN 49 mg/dL (7-21); GFR NON-AFRICAN AMERICAN 57
[2018-07-15] MEDS: POLYETHYLENE GLYCOL 3350 17 GM/Dose PACKET PO SCH ×2 (10:51→18:00)
[2018-07-15] MEDS: levETIRAcetam 500 mg/5ml UD cups PO SCH ×2 (10:51→18:00)
[2018-07-15] MEDS: Docusate-Senna 50 mg-8.6 mg Tab PO SCH ×2 (11:49→18:00)
[2018-07-15] MEDS: Prostat 15 g packet GT SCH ×2 (11:51→18:00)
[2018-07-15] MEDS: Insulin Reg-MEDIUM-Coverage SC SCH ×2 (12:39→18:00)
--- NOTE | 2018-07-15 12:51 | RAD ---
Date of service: 07/15/2018 HISTORY: R upper arm PICC placement COMPARISON: 06/27/2018 TECHNIQUE: 1 view obtained. FINDINGS: LUNGS: Bilateral perihilar infiltrates most consistent with CHF. Possible pneumonia PLEURA: No significant pleural effusion identified, no pneumothorax apparent. CARDIOVASCULAR: No aortic atherosclerotic calcification present. Normal cardiac size. No pulmonary vascular congestion. OSSEOUS STRUCTURES: No significant abnormalities. VISUALIZED UPPER ABDOMEN: Normal. OTHER FINDINGS: None. IMPRESSION: There is a left-sided PICC line that terminates in the axilla. There is no PICC line seen on the right
[2018-07-15] MEDS ORDERED: Potassium Chloride 40 mEq/30 ml LIQ UD PO ONE (13:32)
[2018-07-15] MEDS ORDERED: Midazolam 2 MG/2 ML VIAL IVP ONE (13:52)
[2018-07-15] MEDS ORDERED: Sodium Chloride 0.9% 1,000 ML IV STA (14:33)
--- NOTE | 2018-07-15 14:54 | CON ---
DATE OF CONSULTATION: 07/15/2018 CARDIOLOGY CONSULTATION HISTORY: The patient is an 87-year-old male, who has respiratory failure and is straight, and was sent to [facility] for thyroid surgery and was sent back here because there surgery was not done. Currently, the patient is in ICU, awake on a ventilator, in no acute distress. PAST MEDICAL HISTORY: The patient's past medical history includes a history of hypertension. Echocardiogram reveals good LV function with pulmonary hypertension. Review of systems and social history is not available. PHYSICAL EXAMINATION: VITAL SIGNS: Blood pressure is 157/70, the heart rate is in the 60s, and temperature is 100.2. NECK: Negative JVD. LUNGS: No rales noted. HEART: Revealed S1, S2. EXTREMITIES: Without edema. LABORATORY DATA: EKG shows no acute changes. Hemoglobin is 7.8 with an elevated white count of 17,000, glucose is 150. The creatinine is 1. IMPRESSION: 1. Respiratory failure. 2. Thyroid mass. 3. Good left ventricular function. 4. Anemia. 5. Pulmonary hypertension. PLAN: Given these findings, it is unclear what the plans for the patient's thyroid mass are, however, from a cardiac perspective, there are no active cardiac issues at this time. Prabhakar Cristina MD
--- NOTE | 2018-07-15 14:58 | RAD ---
Date of service: 07/15/2018 HISTORY: central line placement COMPARISON: No prior. TECHNIQUE: 1 view obtained. FINDINGS: LUNGS: Bilateral infiltrates unchanged. PLEURA: No significant pleural effusion identified, no pneumothorax apparent. CARDIOVASCULAR: No aortic atherosclerotic calcification present. Normal cardiac size. No pulmonary vascular congestion. OSSEOUS STRUCTURES: No significant abnormalities. VISUALIZED UPPER ABDOMEN: Normal. OTHER FINDINGS: None. IMPRESSION: There is a left-sided central line that terminates in the SVC just above the right atrium in satisfactory position
[2018-07-15 15:24] LABS: BASO # 0.05 K/mm3 (0.0-2.0); BASO % 0.3 % (0.0-3.0); EOS # 0.3 (0.0-0.7); EOS % 1.4 % (1.5-5.0); HEMOGLOBIN 7.6 g/dL (14.0-18.0); LYMPH % 10.3 % (22.0-35.0); MEAN CORPUSCULAR HEMOGLOBIN 24.9 pg (25.0-35.0); MEAN PLATELET VOLUME 10.2 fl (7.0-11.0); MONO # 1.2 (0.1-0.6); RBC 3.05 10^6/uL (3.5-6.1); WHITE BLOOD COUNT 19.1 10^3/uL (4.5-11.0)
[2018-07-15] MEDS: Cefepime 1gm in NS 100ml 1 GM/100 ML BAG IVPB SCH (17:27)
[2018-07-15] MEDS: Vancomycin 1gm in NS 250ml 1 GM/250 ML BAG IVPB SCH (17:28)
--- NOTE | 2018-07-15 18:18 | CARD ---
APPROVED REPORT Date of service: 07/15/2018 EKG Measurement Heart [id number] <Conclusion> Sinus rhythm with marked sinus arrhythmia with 1st degree AV block Left axis deviation Incomplete right bundle branch block Poor R wave progression in Precordial leads Abnormal ECG
--- NOTE | 2018-07-15 19:05 | CP.PCM.CON ---
History of Present Illness - History of Present Illness History of Present Illness: Surgery Consult note. Dr. Garrido Patient unable to provide history. History obtained from chart review and from discussion with family. 87yo M with PMHx of CHF, Renal CA s/p nephrectomy, COPD who was initially here with large thyroid mass. Patient was transferred to [facility] for possible resection of mass vs. tracheostomy with CT surgery and ENT. Patient family opted for Tracheostomy and PEG placement and the patient returned to [facility] for further management. PEG, which was placed 10 days ago, was noted to be dislodged this morning and surgery consult was obtained. Patient received tube feeds via dislodged PEG overnight. Surgery consult was obtained. PMHx: CHF, Renal CA, COPD PSHx: Nephrectomy, Tracheostomy and PEG placed 10 days ago Review of Systems - Review of Systems Systems not reviewed;Unavailable: Altered Mental Status, Other (Tracheostomy, non-fenestrated in place) Past Patient History - Past Medical History & Family History Past Medical History?: Yes Past Family History: Reviewed and not pertinent - Past Social History Smoking Status: Unknown If Ever Smoked - CARDIAC Hx Cardiac Disorders: Yes Hx Hypertension: Yes - NEUROLOGICAL Hx Seizures: Yes - RENAL Hx Chronic Kidney Disease: Yes - ENDOCRINE/METABOLIC Hx Endocrine Disorders: Yes Hx Hypothyroidism: Yes - HEMATOLOGICAL/ONCOLOGICAL Hx Cancer: Yes - MUSCULOSKELETAL/RHEUMATOLOGICAL Hx Falls: Yes - PSYCHIATRIC Hx Substance Use: No - SURGICAL HISTORY Hx Surgeries: No Meds Allergies/Adverse Reactions: Allergies Allergy/AdvReac Type Severity Reaction Status Date / Time Unobtainable Allergy Verified 06/23/18 16:04 - Medications Medications: Current Medications Amino Acid Protein (Prostat 15 G Packet) 15 gm GT BID [facility] Last Admin: 07/15/18 11:51 Dose: 15 gm Amlodipine Besylate (Norvasc) 5 mg PO DAILY [facility] Last Admin: 07/15/18 10:49 Dose: 5 mg Atorvastatin Calcium (Lipitor) 20 mg PO DIN [facility] Dextrose (Dextrose 50% Inj) 0 ml IV STAT PRN; Protocol PRN Reason: Hypoglycemia Protocol Heparin Sodium (Porcine) (Heparin) 5,000 units SC Q8 [facility]; Protocol Last Admin: 07/15/18 14:18 Dose: 5,000 units Dextrose (Dextrose 5% In Water 1000 Ml) 1,000 mls @ 0 mls/hr IV .Q0M PRN; Protocol PRN Reason: Hypoglycemia Protocol Cefepime HCl (Maxipime 1gm) 1 gm in 100 mls @ 100 mls/hr IVPB Q8 [facility]; Protocol Last Admin: 07/15/18 17:27 Dose: 100 mls/hr Vancomycin HCl (Vancomycin 1gm) 1 gm in 250 mls @ 167 mls/hr IVPB DAILY [facility]; Protocol Stop: 07/18/18 17:01 Last Admin: 07/15/18 17:28 Dose: 167 mls/hr Insulin Human Regular (Humulin R Med) 0 units SC Q6H [facility]; Protocol Last Admin: 07/15/18 12:39 Dose: Not Given Levetiracetam (Keppra) 500 mg PO BID [facility] Last Admin: 07/15/18 10:51 Dose: 500 mg Morphine Sulfate (Morphine) 4 mg IVP Q4H PRN PRN Reason: Pain, moderate (4-7) Pantoprazole Sodium (Protonix Inj) 40 mg IVP DAILY [facility] Last Admin: 07/15/18 10:49 Dose: 40 mg Polyethylene Glycol (Miralax) 17 gm PO BID [facility] Last Admin: 07/15/18 10:51 Dose: 17 gm Quetiapine Fumarate (Seroquel) 50 mg PO HS [facility]; Protocol Senna/Docusate Sodium (Senokot S 50 Mg-8.6 Mg) 1 tab PO BID [facility] Last Admin: 07/15/18 11:49 Dose: 1 tab Physical Exam - Constitutional Appears: Non-toxic, Chronically Ill - Head Exam Head Exam: ATRAUMATIC, NORMAL INSPECTION, NORMOCEPHALIC - Eye Exam Eye Exam: EOMI. absent: Scleral icterus Additional comments: Tracheostomy in place - ENT Exam ENT Exam: Mucous Membranes Moist - Respiratory Exam Respiratory Exam: absent: Accessory Muscle Use Additional comments: On trach vented - Cardiovascular Exam Cardiovascular Exam: absent: JVD - GI/Abdominal Exam GI & Abdominal Exam: Soft. absent: Distended, Firm, Guarding, Rebound, Rigid, Tenderness Additional comments: PEG in subcutaneous space at 1cm at the level of the skin - Extremities Exam Extremities exam: Positive for: normal inspection - Neurological Exam Neurological exam: Alert Additional comments: Nods appropriately Results - Vital Signs Recent Vital Signs: Last Vital Signs Temp 100.2 F H 07/15/18 09:00 Pulse 83 07/15/18 16:00 Resp 19 07/14/18 22:06 BP 145/63 07/15/18 11:50 Pulse Ox 98 07/15/18 09:00 - Labs Result Diagrams: 07/15/18 15:16 07/15/18 08:30 Labs: Laboratory Results - last 24 hr 07/14/18 07/15/18 07/15/18 22:36 07:19 08:30 WBC 17.6 H D RBC 3.20 L Hgb 7.8 L D Hct 26.5 L MCV 82.8 MCH 24.4 L MCHC 29.4 L RDW 21.2 H Plt Count 598 H MPV 9.9 Neut % (Auto) 82.3 H Lymph % (Auto) 10.1 L [place] % (Auto) 5.5 Eos % (Auto) 1.8 Baso % (Auto) 0.3 Lymph # (Auto) 1.8 [place] # (Auto) 1.0 H Eos # (Auto) 0.3 Baso # (Auto) 0.05 Absolute Neuts (auto) 14.47 H APTT Sodium Potassium Chloride Carbon Dioxide Anion Gap BUN Creatinine Est GFR ( Amer) Est GFR (Non-Af Amer) POC Glucose (mg/dL) 106 150 H Random Glucose Calcium Phosphorus Magnesium Total Bilirubin AST ALT Alkaline Phosphatase Total Protein Albumin Globulin Albumin/Globulin Ratio Blood Type Antibody Screen Crossmatch BBK History Checked 07/15/18 07/15/18 07/15/18 08:30 08:30 11:00 WBC RBC Hgb Hct MCV MCH MCHC RDW Plt Count MPV Neut % (Auto) Lymph % (Auto) [place] % (Auto) Eos % (Auto) Baso % (Auto) Lymph # (Auto) [place] # (Auto) Eos # (Auto) Baso # (Auto) Absolute Neuts (auto) APTT 29.7 Sodium 140 Potassium 3.3 L Chloride 104 Carbon Dioxide 32 Anion Gap 8 L BUN 49 H Creatinine 1.2 Est GFR ( Amer) > 60 Est GFR (Non-Af Amer) 57 POC Glucose (mg/dL) Random Glucose 118 H Calcium 10.0 Phosphorus 3.4 Magnesium 1.8 Total Bilirubin 0.3 AST 95 H D ALT 64 H Alkaline Phosphatase 512 H D Total Protein 5.7 L Albumin 2.6 L Globulin 3.1 Albumin/Globulin Ratio 0.8 L Blood Type A NEGATIVE Antibody Screen Negative Crossmatch See Detail BBK History Checked Patient has bt 07/15/18 07/15/18 07/15/18 11:46 15:16 17:40 WBC 19.1 H RBC 3.05 L Hgb 7.6 L Hct 25.3 L MCV 83.0 MCH 24.9 L MCHC 30.0 L RDW 21.0 H Plt Count 603 H MPV 10.2 Neut % (Auto) 82.0 H Lymph % (Auto) 10.3 L [place] % (Auto) 6.0 Eos % (Auto) 1.4 L Baso % (Auto) 0.3 Lymph # (Auto) 2.0 [place] # (Auto) 1.2 H Eos # (Auto) 0.3 Baso # (Auto) 0.05 Absolute Neuts (auto) 15.68 H APTT Sodium Potassium Chloride Carbon Dioxide Anion Gap BUN Creatinine Est GFR ( Amer) Est GFR (Non-Af Amer) POC Glucose (mg/dL) 141 H 107 Random Glucose Calcium Phosphorus Magnesium Total Bilirubin AST ALT Alkaline Phosphatase Total Protein Albumin Globulin Albumin/Globulin Ratio Blood Type Antibody Screen Crossmatch BBK History Checked Assessment & Plan - Assessment and Plan (Free Text) Assessment: 87yo M with large thyroid mass. s/p Tracheostomy and PEG placed at [facility] 10 days ago. Surgery consulted for a dislodged PEG. - CT A/P noted with subcutaneous emphysema and malpositioned PEG in subcutaneous space Plan: - Unable to recannulate stomach with small feeding tube through PEG - PEG removed from subcutaneous space - IV abx - NPO - Will discuss with patient's family for replacement of PEG vs. Gastrostomy Further recs as per Dr. Hema Mast PGY2 surgery
--- NOTE | 2018-07-15 21:28 | HP ---
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 He was in [facility] for a while. He is a very noncompliant patient I have asked to come to the emergency room numerous times for CHF, edema and he would not come. He had a witnessed seizure, altered mentation, was brought to the emergency room. He was unconscious and unresponsive. He was on the ventilator, was found to have a thyroid mass. After treatment, we sent him to [facility] before we could do the tracheostomy because ENT felt that there should be surgery of the thyroid mass before the tracheostomy was done and they sent the patient back to [facility] ICU with a tracheostomy in place without doing the surgery of the thyroid mass. PAST MEDICAL HISTORY: He sees a pain management for chronic back pain. He has got hypothyroidism. He has one kidney from kidney cancer. He had a nephrectomy. He has CHF, hypertension, morbidly obese. There was altered mental status when he first came to the hospital. Now he is back from [facility] and there is a tracheostomy, he is on the ventilator. PHYSICAL EXAMINATION GENERAL: He is alert, nonverbal. I understand they had a hard time weaning him off the ventilator. VITAL SIGNS: He has a 100.4 temperature, 66 pulse, and 98% O2 sat. HEENT: Head is atraumatic, normocephalic. His eyes are open, he is looking at me and I think he understands what I am saying. He is in restraints due to pulling out the tube. CARDIOPULMONARY: Heart is regular rate. LUNGS: With decreased breath sounds but clear. ABDOMEN: Soft, obese. EXTREMITIES: Trace edema. SKIN: As far as I could tell seems to be intact. MEDICATIONS: He has a tracheostomy tube, it is on the tracheostomy vent. He is on morphine, dextrose, heparin, Keppra, Lipitor, MiraLax, Norvasc, potassium replacement, Pro-Stat, Protonix, Senokot, Seroquel. He did get a dose of Zosyn in the ER. LABORATORY DATA: He started with a 17.6 white count, 7.8 hemoglobin. I will transfuse him a unit of packed red blood cells. Hematocrit is 26.5, platelets are 598. A 140 sodium, potassium 3.3, we will replace the potassium. BUN 49, creatinine 0.2, GFR is 57, sugar is 118, calcium is 10, phosphorous 3.4, magnesium 1.8, total bili is 0.3. AST is 95, ALT is 64, alk phos 105, total protein is 5.7. IMPRESSION AND PLAN: He will be seen by the greenhouse transplanter, Infectious Disease, Cardiology, Pulmonology. We will treat him as aggressively as we can. He is here for respiratory failure. He started with a seizure and being unresponsive. He might have evidence of an infection. Aleksey Neal DO
[2018-07-15] MEDS: Morphine 4 mg/ml ISec IVP PRN (21:30)
[2018-07-16] MEDS: Insulin Reg-MEDIUM-Coverage SC SCH ×4 (00:08→17:25)
[2018-07-16] MEDS: Cefepime 1gm in NS 100ml 1 GM/100 ML BAG IVPB SCH ×4 (00:10→22:45)
[2018-07-16] MEDS: metroNIDAZOLE IV 500 mg/100 ml 500 MG/100 ML BAG IVPB SCH ×4 (01:00→21:44)
--- NOTE | 2018-07-16 02:17 | CON ---
DATE: 07/15/2018 Patient was seen earlier today in room 129, bed 3. CHIEF COMPLAINT: Weakness. HISTORY OF PRESENT ILLNESS: This is an 87-year-old male with a recent hospitalization at [facility]. He has a history of renal cancer, chronic obstructive lung disease, congestive heart failure who had a nephrectomy with seizures who developed severe sepsis, right lower lobe community-acquired pneumonia, change in mental status with seizures, had one bottle of coagulase negative staph bacteremia. Patient had an MRI of the brain, which was essentially with any enhancement, was treated with ceftriaxone, acyclovir, and azithromycin. He recently was found to have a mass in the thyroid, was transferred to a tertiary care facility for management of thyroid mass. Now, he has returned to [facility] for thyroid surgery. Surgery was not done. Patient is awake. He was trached, returned on a tracheostomy on a ventilator. Patient does have pulmonary hypertension. Infectious Disease consultation requested. Patient is having fevers at this time. PAST MEDICAL HISTORY: Significant for renal cancer, chronic obstructive lung disease, congestive heart failure, pulmonary hypertension, seizures, and hypothyroidism. PAST SURGICAL HISTORY: Significant for nephrectomy. ALLERGIES: PATIENT HAS NO KNOWN ALLERGIES. MEDICATIONS: Noted. REVIEW OF SYSTEMS: A 12-point review of systems is performed. PHYSICAL EXAMINATION VITAL SIGNS: Temperature is 100.4, pulse of 88, respiratory rate; patient is on a ventilator, blood pressure 140/60. HEENT: Unremarkable. NECK: Supple. Tracheostomy site is clean. LUNGS: Decreased breath sounds. HEART: Normal S1 and S2. ABDOMEN: Soft, nontender. No rebound or guarding. LABORATORY DATA: Reveals the patient's white count of 17,600, hemoglobin of 7.8. Chemistries reveals a creatinine of 1.2. Glucose is 141. LFTs are elevated. No urinalysis is available. Blood cultures are pending. Review of orders reveals blood cultures are pending. Urine culture has been ordered, but not been obtained. Chest x-ray reveals bilateral infiltrates that are unchanged. Dr. Ojeda's note is reviewed. Review of the laboratories from previous admission; serology, spinal fluid, HSV-PCR was negative and a spinal fluid DNA for CMV was negative. WBC's in the spinal fluid were not obtained. Urinalysis was unremarkable. Chemistries are noted with LFT elevation, alk phos elevation, leukocytes are noted. Blood cultures from the prior with the one coagulase negative. No growth in the CSF. No growth in the urine. Review of orders; procalcitonin has been ordered, cultures have been ordered and MRSA screen is also ordered. ASSESSMENT AND PLAN: The patient is an [id number] with renal cancer, renal insufficiency, chronic obstructive pulmonary disease, congestive heart failure with preserved ejection fraction, seizures, pulmonary hypertension, now with severe sepsis, healthcare associated pneumonia, tracheostomized on a ventilator, thyroid mass. We will treat with vancomycin and Maxipime and pending repeat blood cultures, urine cultures, sputum cultures, methicillin-resistant Staphylococcus aureus screen, procalcitonin. We will make further recommendations. Overall prognosis is poor. Omer Fortune MD
[2018-07-16 06:35] LABS: BASO # 0.04 K/mm3 (0.0-2.0); BASO % 0.2 % (0.0-3.0); EOS # 0.3 (0.0-0.7); EOS % 1.7 % (1.5-5.0); LYMPH # 1.5 (1.2-3.4); LYMPH % 7.4 % (22.0-35.0); MEAN CELL VOLUME 84.5 fl (80.0-105.0); MEAN CORPUSCULAR HEMOGLOBIN 25.6 pg (25.0-35.0); MEAN CORPUSCULAR HGB CONC 30.3 g/dl (31.0-37.0); MONO # 0.9 (0.1-0.6); MONO % 4.5 % (1.0-6.0); RBC 3.28 10^6/uL (3.5-6.1); RED CELL DISTRIBUTION WIDTH 20.5 % (11.5-14.5); WHITE BLOOD COUNT 19.6 10^3/uL (4.5-11.0)
[2018-07-16 06:43] LABS: HEMOGLOBIN 8.4 g/dL (14.0-18.0)
[2018-07-16 08:02] LABS: ALB/GLOB RATIO 0.7 (1.1-1.8); ALBUMIN 2.3 g/dL (3.0-4.8); ALT/SGPT 70 U/L (7-56); AST/SGOT 75 U/L (17-59); BLOOD UREA NITROGEN 35 mg/dL (7-21); CALCIUM 9.8 mg/dL (8.4-10.5); GFR NON-AFRICAN AMERICAN > 60
[2018-07-16] MEDS ORDERED: Dextrose 5%/0.45% NS 1,000 ML IV SCH (09:15)
[2018-07-16] MEDS ORDERED: levETIRAcetam 500 MG in Sodium Chloride 0.9% 100 ML IVPB SCH (10:00)
--- NOTE | 2018-07-16 10:00 | CP.PCM.PN ---
Subjective - Date & Time of Evaluation Date of Evaluation: 07/16/18 Time of Evaluation: 09:57 - Subjective Subjective: Surgery Progress note. Dr. Garrido Pt seen and examined at bedside this morning. Slightly more tender upon abdominal wall palpation. Dislodged gastrostomy removed yesterday. Expressed and having purulent/brown drainage from the tract. Objective - Vital Signs/Intake and Output Vital Signs (last 24 hours): Temp Pulse Resp BP Pulse Ox 98.8 F 64 16 153/58 H 99 07/16/18 08:19 07/16/18 09:33 07/15/18 20:22 07/16/18 09:00 07/15/18 20:22 Intake and Output: 07/16/18 07/16/18 06:59 18:59 Intake Total 917 Output Total 1100 Balance -183 - Medications Medications: Current Medications Amino Acid Protein (Prostat 15 G Packet) 15 gm GT BID [facility] Last Admin: 07/15/18 18:00 Dose: Not Given Amlodipine Besylate (Norvasc) 5 mg PO DAILY [facility] Last Admin: 07/15/18 10:49 Dose: 5 mg Atorvastatin Calcium (Lipitor) 20 mg PO DIN [facility] Last Admin: 07/15/18 17:00 Dose: Not Given Dextrose (Dextrose 50% Inj) 0 ml IV STAT PRN; Protocol PRN Reason: Hypoglycemia Protocol Heparin Sodium (Porcine) (Heparin) 5,000 units SC Q8 [facility]; Protocol Last Admin: 07/16/18 05:54 Dose: 5,000 units Dextrose (Dextrose 5% In Water 1000 Ml) 1,000 mls @ 0 mls/hr IV .Q0M PRN; Protocol PRN Reason: Hypoglycemia Protocol Cefepime HCl (Maxipime 1gm) 1 gm in 100 mls @ 100 mls/hr IVPB Q8 [facility]; Protocol Last Admin: 07/16/18 08:34 Dose: 100 mls/hr Vancomycin HCl (Vancomycin 1gm) 1 gm in 250 mls @ 167 mls/hr IVPB DAILY [facility]; Protocol Stop: 07/18/18 17:01 Last Admin: 07/15/18 17:28 Dose: 167 mls/hr Metronidazole (Flagyl) 500 mg in 100 mls @ 100 mls/hr IVPB Q8 [facility]; Protocol Last Admin: 07/16/18 05:53 Dose: 100 mls/hr Levetiracetam (Keppra 500mg Ivpb) 500 mg in 100 mls @ 400 mls/hr IVPB Q12 [facility] Potassium Chloride (Potassium Chloride 20 Meq/100 Ml) 20 meq in 100 mls @ 50 mls/hr IVPB Q2H [facility] Stop: 07/16/18 12:44 Dextrose/Sodium Chloride (Dextrose 5%/0.45% Ns 1000 Ml) 1,000 mls @ 100 mls/hr IV .Q10H [facility] Insulin Human Regular (Humulin R Med) 0 units SC Q6H [facility]; Protocol Last Admin: 07/16/18 06:28 Dose: Not Given Morphine Sulfate (Morphine) 4 mg IVP Q4H PRN PRN Reason: Pain, moderate (4-7) Pantoprazole Sodium (Protonix Inj) 40 mg IVP Q12 [facility] Polyethylene Glycol (Miralax) 17 gm PO BID [facility] Last Admin: 07/15/18 18:00 Dose: Not Given Quetiapine Fumarate (Seroquel) 50 mg PO HS [facility]; Protocol Last Admin: 07/15/18 22:00 Dose: Not Given Senna/Docusate Sodium (Senokot S 50 Mg-8.6 Mg) 1 tab PO BID [facility] Last Admin: 07/15/18 18:00 Dose: Not Given - Labs Labs: 07/16/18 06:00 07/16/18 06:00 APTT 29.7 Seconds (26.9-38.3) 07/15/18 08:30 - Constitutional Appears: Well, Non-toxic, No Acute Distress - Head Exam Head Exam: ATRAUMATIC, NORMAL INSPECTION, NORMOCEPHALIC - Eye Exam Eye Exam: EOMI, Normal appearance. absent: Scleral icterus - ENT Exam ENT Exam: Mucous Membranes Moist - Respiratory Exam Respiratory Exam: NORMAL BREATHING PATTERN. absent: Accessory Muscle Use, Respiratory Distress - Cardiovascular Exam Cardiovascular Exam: RRR. absent: JVD - GI/Abdominal Exam GI & Abdominal Exam: Soft. absent: Firm, Guarding, Rebound Additional comments: Tenderness to abdominal wall palpation. purulent drainage expressed from prior gastrostomy site. - Extremities Exam Extremities Exam: Normal Inspection. absent: Calf Tenderness - Neurological Exam Additional comments: Tracheostomy in place. Assessment and Plan - Assessment and Plan (Free Text) Assessment: 87yo M with dislodged PEG Plan: - Unable to recannulate stomach with small feeding tube through PEG last night so PEG was removed - Continue dressing changes - IV abx - consider BID Protonix - NPO - F/u family discussion for replacement of PEG vs. Gastrostomy Further recs as per Dr. Hema Mast PGY2 surgery
[2018-07-16] MEDS: levETIRAcetam 500mg IVPB 500 MG/100 ML BAG IVPB SCH ×2 (10:16→21:08)
[2018-07-16] MEDS: Vancomycin 1gm in NS 250ml 1 GM/250 ML BAG IVPB SCH (10:19)
[2018-07-16] MEDS: POLYETHYLENE GLYCOL 3350 17 GM/Dose PACKET PO SCH (10:44)
[2018-07-16] MEDS: Prostat 15 g packet GT SCH ×2 (10:44→17:26)
[2018-07-16] MEDS: Docusate-Senna 50 mg-8.6 mg Tab PO SCH ×2 (10:44→17:26)
--- NOTE | 2018-07-16 10:48 | CT ---
Date of service: 07/15/2018 PROCEDURE: CT Abdomen and Pelvis without intravenous contrast HISTORY: PEG tube position COMPARISON: None. TECHNIQUE: Without contrast.. Contrast dose: Radiation dose: Total exam DLP = 1263.34 mGy-cm. This CT exam was performed using one or more of the following dose reduction techniques: Automated exposure control, adjustment of the mA and/or kV according to patient size, and/or use of iterative reconstruction technique. FINDINGS: LOWER THORAX: There is dense consolidation at both lung bases with small pleural effusions. There is a moderate size hiatal hernia LIVER: There is a large left lobe of the liver relative to the right lobe. This is probably a normal variation. The gallbladder is seen near the midline. GALLBLADDER AND BILE DUCTS: Multiple small gallstones are seen. PANCREAS: Unremarkable. No gross lesion or ductal dilatation. SPLEEN: Spleen is been removed ADRENALS: Unremarkable. No mass. KIDNEYS AND URETERS: Solitary right kidney. VASCULATURE: Unremarkable. No aortic aneurysm. Aortic calcification BOWEL: The PEG tube is seen in the subcutaneous space of the anterior abdominal wall. There is a large amount of subcutaneous emphysema. APPENDIX: Unremarkable. Normal appendix. PERITONEUM: Unremarkable. No free fluid. No free air. LYMPH NODES: Unremarkable. No enlarged lymph nodes. BLADDER: Unremarkable. REPRODUCTIVE: Unremarkable. BONES: No acute fracture. OTHER FINDINGS: The report concurs with the preliminary [facility] report IMPRESSION: PEG tube does not penetrate the peritoneal cavity or the wall of the stomach. The tube is seen in the subcutaneous fat with associated emphysema.
--- NOTE | 2018-07-16 12:56 | PROCN ---
DATE: 07/15/2018 The patient was seen and examined at the bedside. PROCEDURE: Left subclavian central venous catheter. INDICATIONS: IV access and removal of old PICC line. After obtaining informed consent, the operational area was sterilized. Maximum barrier precautions used. Left subclavian vein was cannulated by a sterile Seldinger technique under real-time ultrasound guidance. Guidewire removed. Hemostasis achieved. Sterile dressings applied. The patient tolerated the procedure well. Chest x-ray was discussed with Dr. Mckay. No pneumothorax. Micah Ojeda MD MTDChandu
[2018-07-16] MEDS: Morphine 4 mg/ml ISec IVP PRN (13:33)
--- NOTE | 2018-07-16 14:59 | PN ---
DATE: 07/16/2018 SUBJECTIVE: He is in Intensive Care unit. He is on the trach vent. He is alert. He does open his eyes. He has multiple issues going on. He has had severe sepsis, pneumonia, renal insufficiency, COPD, CHF, history of thyroid mass. PHYSICAL EXAMINATION: VITAL SIGNS: He has a temperature of 98.8, pulse 62, blood pressure 163/58 and sating at 98%. HEENT: Head is atraumatic and normocephalic. He opened his eyes yesterday, he is not opening up his eyes today. HEART: Regular rate. LUNGS: Decreased breath sounds on the vent. ABDOMEN: Soft and obese. EXTREMITIES: May be +1 or trace edema. MEDICATIONS: He is currently on Dextrose, Flagyl, IV heparin, insulin, Keppra IV, Lipitor, Maxipime IV, MiraLax, morphine as needed, Norvasc, potassium replacement, amino acid, protein, Protonix, Senna, Seroquel and vancomycin IV. LABORATORY DATA: He has a 19.6 white count, hemoglobin elevated 8.4 hemoglobin transfusion, 27.7 hematocrit with a 586 platelets. Sodium 142, potassium 3.2 is replaced, BUN 35, creatinine 1, GFR is greater than 60, sugar is 78, calcium is 9.8, total bili is 0.4, AST is 75, ALT is 70 and alk phos 135. He is definitely in trouble. He is being seen by Infectious Disease, [facility] and Cardiology. He is in very much lot of better. Continue aggressive treatment and care . Aleksey Neal DO MTDD
--- NOTE | 2018-07-16 16:50 | PN ---
DATE: 07/16/2018 SUBJECTIVE: The patient is seen and examined at bedside. He is not on any sedation. He is on PRVC 500/15/5/50%, on that setting, his oxygen saturation is 97%, blood pressure 143/60, heart rate 73, respiratory rate 17, and end-tidal CO2 on the monitor 40. The patient just had an episode of diarrhea. We will proceed with pressure support trial soon. PHYSICAL EXAMINATION: HEAD AND NECK: Atraumatic. Trach is in right spot, appears to be okay. LUNGS: Few crackles bibasilar. HEART: Regular rate and rhythm. S1 and S2 distant. ABDOMEN: Soft, nontender, and nondistended; however, PEG tube was removed yesterday by surgical team after while it does not penetrate peritoneal cavity and space in the abdominal wall. Feeds were stopped well before that. However, today, there is a pus visible and coming out from the tract where PEG tube was before. Surgical team is aware and on its way to evaluate the patient. MUSCULOSKELETAL: Trace to 1+ bilateral pedal and ankle edema. NEURO: The patient moves all extremities spontaneously. SKIN: Moist. PSYCH: The patient is easily arousable, questionably following commands. LABORATORY DATA: Sodium 142, potassium 3.2, chloride 104, carbon dioxide 31, BUN 35, creatinine 1 down from 1.2, glucose 82, AST 75, ALT 70, total bilirubin 0.4, 0.5, WBC 19.6 up from 19.1, and hemoglobin 8.4. Chest x-ray showed bilateral infiltrates. Abdominal and pelvic CAT scan from yesterday showed PEG tube does not penetrate the peritoneal cavity or the wall of the stomach. The tube is seen in the subcutaneous fat with associated emphysema. Low thoraco CAT scan showed bibasilar consolidation. MEDICATIONS: Norvasc, Lipitor, D5 half normal saline at 100 mL per hour, which will be stopped, Flagyl, Lasix, Keppra, cefepime, morphine p.r.n., Protonix, MiraLax was stopped, and vancomycin. ASSESSMENT AND PLAN: This is an 87-year-old gentleman with severe sepsis with possible sources of infection, including abscess in the anterior abdominal wall, bilateral pneumonia. The patient did have diarrhea; however, he was on MiraLax, so, my suspicion for Clostridium difficile colitis is less likely; however, we are going to send stool for Clostridium difficile evaluation. NEUROLOGIC: The patient is off of sedation. He appears to be able to follow commands. He is moving all extremities spontaneously as well. PULMONARY: The patient is status post tracheotomy. It appears that he tolerates pressure support trial okay and his rapid shallow breathing index is 55. He is pulling about 4 to 600 mL of tidal volume and his respiratory rate is 20. His FIO2 is 50%. We will continue with weaning process and daily sedation medication. We will continue with conservative fluid and oxygen management. We will continue with head of bed elevated at 135 degrees, oral hygiene, and deep venous thrombosis/gastrointestinal prophylaxis. The patient is on cefepime and vancomycin. Sputum culture was sent and showed some gram-positive bacilli? CARDIOVASCULAR: The patient is hemodynamically stable and his heart rate is controlled. GASTROINTESTINAL: The patient will be n.p.o. for now. The abscess of the abdominal wall will be addressed by surgical team, who are on their way to evaluate the patient. The patient is on antibiotics. GI prophylaxis. INFECTIOUS DISEASE: The patient has severe sepsis due to either bilateral pneumonia or anterior wall abscess. Old PICC line was removed yesterday and new subclavian CVC was placed yesterday. The patient is on cefepime and vancomycin. The surgical team started the patient on Flagyl; however, I have low suspicion for Clostridium difficile colitis as the patient was on MiraLax when he had episode of diarrhea. Nevertheless, we will send stool for Clostridium difficile. ENDOCRINE: We will maintain blood glucose within 140 to 180 range according to NICE sugar trial. We will proceed with Accu-Check every 4 hours to avoid hyperglycemia episode. RENAL: The patient's acute kidney injury improving. We will continue with relative balance between avoiding pulmonary congestion and renal hypoperfusion in the same time. We will try to maintain euvolemia, euglycemia, and normothermia. We will try to avoid hyperchloremia and maintain mean arterial pressure more than 65. Micah Ojeda MD (Delete this signature block when dictator is a preceptor.)
[2018-07-16] MEDS: Nystatin 100,000 Units/gm Topical Pow(15 gm) TOP SCH (21:21)
--- NOTE | 2018-07-17 00:31 | CP.PCM.PN ---
Subjective - Date & Time of Evaluation Date of Evaluation: 07/17/18 Time of Evaluation: 00:29 - Subjective Subjective: FSBS -62 mg % Rx, D50 % x 1 It was requested to co-sign order for restraint. Patient has tracheostomy, is on vent and needs restraint order to keep tracheostomy secure. Patient awake.Not able to offer any complaints. Medical record was reviewed. This 87 year old white male was admitted with Witnessed seizure. AMS Respiratory failure. Was found to have thyroid mass. S/P tracheostomy, unoperated thyroid mass from [facility]. PMH: Chronic back pain. Hypothyroidism. CHF. HTN. Nephrectomy. Morbid obesity. Objective - Vital Signs/Intake and Output Vital Signs (last 24 hours): Temp Pulse Resp BP Pulse Ox 98.8 F 58 L 17 140/49 L 99 07/16/18 17:08 07/16/18 22:20 07/16/18 18:25 07/16/18 22:00 07/15/18 20:22 Intake and Output: 07/16/18 07/17/18 18:59 06:59 Intake Total 650 Output Total 3200 Balance -2550 - Medications Medications: Current Medications Amino Acid Protein (Prostat 15 G Packet) 15 gm GT BID [facility] Last Admin: 07/16/18 17:26 Dose: Not Given Amlodipine Besylate (Norvasc) 5 mg PO DAILY [facility] Last Admin: 07/16/18 10:44 Dose: Not Given Atorvastatin Calcium (Lipitor) 20 mg PO DIN [facility] Last Admin: 07/16/18 17:26 Dose: Not Given Dextrose (Dextrose 50% Inj) 0 ml IV STAT PRN; Protocol PRN Reason: Hypoglycemia Protocol Heparin Sodium (Porcine) (Heparin) 5,000 units SC Q8 [facility]; Protocol Last Admin: 07/16/18 21:09 Dose: 5,000 units Dextrose (Dextrose 5% In Water 1000 Ml) 1,000 mls @ 0 mls/hr IV .Q0M PRN; Protocol PRN Reason: Hypoglycemia Protocol Cefepime HCl (Maxipime 1gm) 1 gm in 100 mls @ 100 mls/hr IVPB Q8 [facility]; Protocol Last Admin: 07/16/18 22:45 Dose: 100 mls/hr Vancomycin HCl (Vancomycin 1gm) 1 gm in 250 mls @ 167 mls/hr IVPB DAILY [facility]; Protocol Stop: 07/18/18 17:01 Last Admin: 07/16/18 10:19 Dose: 167 mls/hr Metronidazole (Flagyl) 500 mg in 100 mls @ 100 mls/hr IVPB Q8 [facility]; Protocol Last Admin: 07/16/18 21:44 Dose: 100 mls/hr Levetiracetam (Keppra 500mg Ivpb) 500 mg in 100 mls @ 400 mls/hr IVPB Q12 [facility] Last Admin: 07/16/18 21:08 Dose: 400 mls/hr Insulin Human Regular (Humulin R Med) 0 units SC Q6H [facility]; Protocol Last Admin: 07/16/18 17:25 Dose: Not Given Morphine Sulfate (Morphine) 4 mg IVP Q4H PRN PRN Reason: Pain, moderate (4-7) Last Admin: 07/16/18 13:33 Dose: 4 mg Nystatin (Nystop Topical Powder) 1 gm TOP Q12H [facility] Last Admin: 07/16/18 21:21 Dose: 1 applic Pantoprazole Sodium (Protonix Inj) 40 mg IVP Q12 [facility] Last Admin: 07/16/18 21:10 Dose: 40 mg Senna/Docusate Sodium (Senokot S 50 Mg-8.6 Mg) 1 tab PO BID [facility] Last Admin: 07/16/18 17:26 Dose: Not Given - Labs Labs: 07/16/18 06:00 07/16/18 06:00 APTT 29.7 Seconds (26.9-38.3) 07/15/18 08:30 - Constitutional Appears: Well, No Acute Distress - Head Exam Head Exam: ATRAUMATIC, NORMAL INSPECTION, NORMOCEPHALIC Additional comments: Obese person. - Eye Exam Eye Exam: Normal appearance - ENT Exam ENT Exam: Normal External Ear Exam Additional comments: Tracheostomy + - Neck Exam Neck Exam: Normal Inspection (except trach +) - Respiratory Exam Respiratory Exam: NORMAL BREATHING PATTERN - Cardiovascular Exam Cardiovascular Exam: absent: JVD - GI/Abdominal Exam GI & Abdominal Exam: absent: Distended - Rectal Exam Rectal Exam: Deferred - Exam Additional comments: Deferred. - Extremities Exam Extremities Exam: Normal Inspection - Back Exam Back Exam: NORMAL INSPECTION - Neurological Exam Neurological Exam: Alert, Awake - Psychiatric Exam Psychiatric exam: Normal Affect - Skin Skin Exam: Normal Color Assessment and Plan - Assessment and Plan (Free Text) Assessment: Hypoglycemia. Agitation. S/P tracheostomy S/P respiratory failure. Chronic back pain. Hypothyroidism. CHF. HTN. DM Nephrectomy. Morbid obesity. Plan: Restraint order was renewed. D50% was ordered for blood glucose level of 62 mg%. Continue present management.
[2018-07-17] MEDS ORDERED: Iohexol 240 (50 ml) ONE (04:13)
[2018-07-17] MEDS: Insulin Reg-MEDIUM-Coverage SC SCH ×4 (05:36→19:03)
[2018-07-17] MEDS: metroNIDAZOLE IV 500 mg/100 ml 500 MG/100 ML BAG IVPB SCH ×3 (05:42→23:11)
[2018-07-17 06:34] LABS: BASO # 0.02 K/mm3 (0.0-2.0); BASO % 0.1 % (0.0-3.0); EOS # 0.5 (0.0-0.7); EOS % 2.4 % (1.5-5.0); HEMOGLOBIN 9.1 g/dL (14.0-18.0); LYMPH # 1.3 (1.2-3.4); LYMPH % 6.3 % (22.0-35.0); MEAN CELL VOLUME 85.9 fl (80.0-105.0); MEAN CORPUSCULAR HEMOGLOBIN 26.7 pg (25.0-35.0); MEAN CORPUSCULAR HGB CONC 31.1 g/dl (31.0-37.0); MEAN PLATELET VOLUME 10.3 fl (7.0-11.0); MONO # 0.7 (0.1-0.6); MONO % 3.3 % (1.0-6.0); RBC 3.41 10^6/uL (3.5-6.1); RED CELL DISTRIBUTION WIDTH 20.3 % (11.5-14.5); WHITE BLOOD COUNT 20.2 10^3/uL (4.5-11.0)
[2018-07-17 07:27] LABS: ALB/GLOB RATIO 0.9 (1.1-1.8); ALBUMIN 2.6 g/dL (3.0-4.8); ALT/SGPT 63 U/L (7-56); AST/SGOT 53 U/L (17-59); BLOOD UREA NITROGEN 28 mg/dL (7-21); CALCIUM 10.2 mg/dL (8.4-10.5); GFR NON-AFRICAN AMERICAN > 60
[2018-07-17] MEDS: levETIRAcetam 500mg IVPB 500 MG/100 ML BAG IVPB SCH ×2 (09:14→23:12)
[2018-07-17] MEDS: Cefepime 1gm in NS 100ml 1 GM/100 ML BAG IVPB SCH ×3 (09:15→23:10)
[2018-07-17] MEDS: Vancomycin 1gm in NS 250ml 1 GM/250 ML BAG IVPB SCH (09:16)
--- NOTE | 2018-07-17 09:19 | PN ---
DATE: 07/16/2018 SUBJECTIVE: The patient is in bed in no acute distress, nontoxic. PHYSICAL EXAMINATION: VITAL SIGNS: Temperature is 98, blood pressure is 150/58, respiratory rate of 18, heart rate of 55. HEENT: Unremarkable. NECK: Supple. LUNGS: Decreased breath sounds. HEART: Normal S1, S2. ABDOMEN: Soft, nontender. LABORATORY DATA: Reveals a white count of 19,600. Chemistry reveals that creatinine is 1, alk phos is 435, procalcitonin is 0.5. Microbiology reveals the trach culture is pending. Review of orders reveals MRSA screen is pending. Sputum culture is pending. Blood cultures are pending. The patient is currently on Flagyl, cefepime, and vancomycin. Review of chest x-ray reveals bilateral infiltrates unchanged. ASSESSMENT AND PLAN: Consultation by Dr. Mast, surgical consultation states the patient has renal carcinoma status post nephrectomy, chronic obstructive pulmonary disease, heart failure, large thyroid mass, now trached and percutaneous endoscopic gastrostomy. Noted to have subcutaneous emphysema and malpositioned percutaneous endoscopic gastrostomy in the subcutaneous space. They will discuss the patient for replacement of the percutaneous endoscopic gastrostomy versus a gastrostomy. We will continue vancomycin, Maxipime, Flagyl for now pending culture results. The patient's temperature appears to be responding. We will follow the white blood cell count because it is 19,000. We will check on the CAT scan of the abdomen and pelvis, official report is pending. We will follow with you. Omer Fortune MD
--- NOTE | 2018-07-17 09:23 | CP.CCUPN ---
<Jesu Ramirez - Last Filed: 07/17/18 09:29> CCU Subjective - Physician Review Events Since Last Encounter (Free Text): 07/17/18 09:19 no acute events overnight Subjective (Free Text): 07/15/18 07:27 Pt seen and examined this morning at bedside, trach in place, NAD 07/17/18 09:23 pt seen and examined this morning, trach collar in place, pt unable to answer CCU Objective - Vital Signs / Intake & Output Vital Signs (Last 4 hours): Vital Signs Pulse BP Pulse Ox 07/17/18 08:11 51 L 07/17/18 08:10 74 07/17/18 08:09 60 07/17/18 08:08 62 07/17/18 08:07 59 L 07/17/18 08:06 60 07/17/18 08:05 65 07/17/18 08:04 65 07/17/18 08:03 61 07/17/18 08:02 64 07/17/18 08:01 56 L 07/17/18 08:00 133/101 H 07/17/18 07:59 54 L 07/17/18 07:58 51 L 07/17/18 07:57 60 07/17/18 07:56 60 07/17/18 07:55 60 07/17/18 07:54 60 07/17/18 07:53 56 L 07/17/18 07:52 58 L 07/17/18 07:51 63 07/17/18 07:50 62 07/17/18 07:49 54 L 07/17/18 07:48 52 L 07/17/18 07:47 59 L 07/17/18 07:46 58 L 07/17/18 07:45 53 L 07/17/18 07:44 67 07/17/18 07:43 69 07/17/18 07:42 62 07/17/18 07:41 56 L 07/17/18 07:40 69 07/17/18 07:39 54 L 07/17/18 07:38 49 L 07/17/18 07:37 53 L 07/17/18 07:36 51 L 07/17/18 07:35 65 07/17/18 07:34 55 L 07/17/18 07:33 59 L 07/17/18 07:32 54 L 07/17/18 07:30 56 L 75 L 07/17/18 07:20 55 L 81 L 07/17/18 07:10 60 77 L 07/17/18 07:00 51 L 137/80 81 L 07/17/18 06:50 48 L 100 07/17/18 06:40 51 L 99 07/17/18 06:30 44 L 80 L 07/17/18 06:20 61 87 L 07/17/18 06:10 66 76 L 07/17/18 05:46 55 L 07/17/18 05:45 81 07/17/18 05:44 55 L 07/17/18 05:43 100 H 07/17/18 05:42 61 07/17/18 05:41 60 07/17/18 05:40 57 L 07/17/18 05:39 63 07/17/18 05:38 68 07/17/18 05:30 60 91 L 07/17/18 05:20 65 77 L Intake and Output (Last 8hrs): Intake & Output 07/16/18 07/17/18 07/17/18 22:59 06:59 14:59 Intake Total 650 355 Output Total 3200 1600 Balance -2550 -1245 Weight 216 lb 6 oz Intake: IV 650 55 Left Internal Jugular 650 55 Oral 0 Other 300 Output: Urine 3100 1400 Urethral (Phan) 3100 1400 Stool 100 200 - Physical Exam Physical Exam Limitations: Positive for: Altered Mental Status Head: Positive for: Atraumatic, Normocephalic Pupils: Positive for: PERRL Extroacular Muscles: Positive for: EOMI Mouth: Positive for: Moist Mucous Membranes Respiratory/Chest: Positive for: Clear to Auscultation, Good Air Exchange. Negative for: Respiratory Distress, Accessory Muscle Use Cardiovascular: Positive for: Regular Rate and Rhythm, Normal S1, S2. Negative for: Murmurs Abdomen: Negative for: Tenderness, Distention, Normal Bowel Sounds Upper Extremity: Negative for: Edema Lower Extremity: Positive for: Edema Skin: Positive for: Warm, Dry, Normal Color - Medications Active Medications: Active Medications Generic Name Dose Route Start Last Admin Trade Name Freq PRN Reason Stop Dose Admin Amino Acid Protein 15 gm 07/15/18 10:00 07/16/18 17:26 Prostat 15 G Packet GT Not Given BID LUZ MARINA Amlodipine Besylate 5 mg 07/15/18 10:00 07/16/18 10:44 Norvasc PO Not Given DAILY LUZ MARINA Atorvastatin Calcium 20 mg 07/15/18 17:00 07/16/18 17:26 Lipitor PO Not Given DIN LUZ MARINA Dextrose 0 ml 07/14/18 22:13 07/17/18 00:59 Dextrose 50% Inj IV 50 ml STAT PRN Administration Hypoglycemia Protocol Protocol Heparin Sodium (Porcine) 5,000 units 07/15/18 06:00 07/17/18 05:43 Heparin SC 5,000 units Q8 LUZ MARINA Administration Protocol Dextrose 1,000 mls @ 0 mls/hr 07/14/18 22:13 Dextrose 5% In Water 1000 Ml IV .Q0M PRN Hypoglycemia Protocol Protocol Per Protocol Cefepime HCl 1 gm in 100 mls @ 100 mls/hr 07/15/18 17:00 07/16/18 22:45 Maxipime 1gm IVPB 100 mls/hr Q8 LUZ MARINA Administration Protocol Vancomycin HCl 1 gm in 250 mls @ 167 mls/hr 07/15/18 17:00 07/16/18 10:19 Vancomycin 1gm IVPB 07/18/18 17:01 167 mls/hr DAILY LUZ MARINA Administration Protocol Metronidazole 500 mg in 100 mls @ 100 mls/hr 07/15/18 22:15 07/17/18 05:42 Flagyl IVPB 100 mls/hr Q8 LUZ MARINA Administration Protocol Levetiracetam 500 mg in 100 mls @ 400 mls/hr 07/16/18 10:00 07/16/18 21:08 Keppra 500mg Ivpb IVPB 400 mls/hr Q12 LUZ MARINA Administration Potassium Chloride 20 meq in 100 mls @ 50 mls/hr 07/17/18 07:30 Potassium Chloride 20 Meq/100 Ml IVPB 07/17/18 15:29 Q2H LUZ MARINA Insulin Human Regular 0 units 07/15/18 12:00 07/17/18 05:36 Humulin R Med SC Not Given Q6H LUZ MARINA Protocol Morphine Sulfate 4 mg 07/14/18 22:13 07/16/18 13:33 Morphine IVP 4 mg Q4H PRN Administration Pain, moderate (4-7) Nystatin 1 gm 07/16/18 22:00 07/16/18 21:21 Nystop Topical Powder TOP 1 applic Q12H LUZ MARINA Administration Pantoprazole Sodium 40 mg 07/16/18 10:00 07/16/18 21:10 Protonix Inj IVP 40 mg Q12 LUZ MARINA Administration Senna/Docusate Sodium 1 tab 07/15/18 10:00 07/16/18 17:26 Senokot S 50 Mg-8.6 Mg PO Not Given BID LUZ MARINA - Patient Studies Lab Studies: Microbiology Studies 07/15/18 17:00 Gram Stain - Final Trachasp Sputum Culture - Preliminary Gram Negative Bunny 07/14/18 23:00 MRSA Culture (Admit) - Final Nose MRSA NOT DETECTED 07/15/18 14:30 Blood Culture - Preliminary Blood NO GROWTH AFTER 24 HOURS Lab Studies 07/17/18 07/17/18 07/17/18 Range/Units 06:15 05:08 05:00 WBC (4.5-11.0) 10^3/uL RBC (3.5-6.1) 10^6/uL Hgb (14.0-18.0) g/dL Hct (42.0-52.0) % MCV (80.0-105.0) fl MCH (25.0-35.0) pg MCHC (31.0-37.0) g/dl RDW (11.5-14.5) % Plt Count (120.0-450.0) 10^3/uL MPV (7.0-11.0) fl Neut % (Auto) (50.0-68.0) % Lymph % (Auto) (22.0-35.0) % Tama % (Auto) (1.0-6.0) % Eos % (Auto) (1.5-5.0) % Baso % (Auto) (0.0-3.0) % Lymph # (Auto) (1.2-3.4) Tama # (Auto) (0.1-0.6) Eos # (Auto) (0.0-0.7) Baso # (Auto) (0.0-2.0) K/mm3 Absolute Neuts (auto) (1.4-6.5) Sodium (132-148) mmol/L Potassium (3.6-5.0) mmol/L Chloride (98-107) mmol/L Carbon Dioxide (21-33) mmol/L Anion Gap (10-20) BUN (7-21) mg/dL Creatinine (0.8-1.5) mg/dl Est GFR ( Amer) Est GFR (Non-Af Amer) POC Glucose (mg/dL) 66 74 (65-110) mg/dL Random Glucose (70-110) mg/dL Calcium (8.4-10.5) mg/dL Magnesium 1.6 L (1.7-2.2) mg/dL Total Bilirubin (0.2-1.3) mg/dL AST (17-59) U/L ALT (7-56) U/L Alkaline Phosphatase (38-126) U/L Total Protein (5.8-8.3) g/dL Albumin (3.0-4.8) g/dL Globulin gm/dL Albumin/Globulin Ratio (1.1-1.8) 07/17/18 07/17/18 07/17/18 Range/Units 05:00 05:00 00:08 WBC 20.2 H (4.5-11.0) 10^3/uL RBC 3.41 L (3.5-6.1) 10^6/uL Hgb 9.1 L (14.0-18.0) g/dL Hct 29.3 L (42.0-52.0) % MCV 85.9 (80.0-105.0) fl MCH 26.7 (25.0-35.0) pg MCHC 31.1 (31.0-37.0) g/dl RDW 20.3 H (11.5-14.5) % Plt Count 643 H (120.0-450.0) 10^3/uL MPV 10.3 (7.0-11.0) fl Neut % (Auto) 87.9 H (50.0-68.0) % Lymph % (Auto) 6.3 L (22.0-35.0) % Tama % (Auto) 3.3 (1.0-6.0) % Eos % (Auto) 2.4 (1.5-5.0) % Baso % (Auto) 0.1 (0.0-3.0) % Lymph # (Auto) 1.3 (1.2-3.4) Tama # (Auto) 0.7 H (0.1-0.6) Eos # (Auto) 0.5 (0.0-0.7) Baso # (Auto) 0.02 (0.0-2.0) K/mm3 Absolute Neuts (auto) 17.79 H (1.4-6.5) Sodium 145 (132-148) mmol/L Potassium 2.7 L* (3.6-5.0) mmol/L Chloride 105 (98-107) mmol/L Carbon Dioxide 34 H (21-33) mmol/L Anion Gap 8 L (10-20) BUN 28 H (7-21) mg/dL Creatinine 1.1 (0.8-1.5) mg/dl Est GFR ( Amer) > 60 Est GFR (Non-Af Amer) > 60 POC Glucose (mg/dL) 62 L (65-110) mg/dL Random Glucose 68 L (70-110) mg/dL Calcium 10.2 (8.4-10.5) mg/dL Magnesium (1.7-2.2) mg/dL Total Bilirubin 0.5 (0.2-1.3) mg/dL AST 53 (17-59) U/L ALT 63 H (7-56) U/L Alkaline Phosphatase 373 H (38-126) U/L Total Protein 5.7 L (5.8-8.3) g/dL Albumin 2.6 L (3.0-4.8) g/dL Globulin 3.1 gm/dL Albumin/Globulin Ratio 0.9 L (1.1-1.8) 07/16/18 Range/Units 11:29 WBC (4.5-11.0) 10^3/uL RBC (3.5-6.1) 10^6/uL Hgb (14.0-18.0) g/dL Hct (42.0-52.0) % MCV (80.0-105.0) fl MCH (25.0-35.0) pg MCHC (31.0-37.0) g/dl RDW (11.5-14.5) % Plt Count (120.0-450.0) 10^3/uL MPV (7.0-11.0) fl Neut % (Auto) (50.0-68.0) % Lymph % (Auto) (22.0-35.0) % Tama % (Auto) (1.0-6.0) % Eos % (Auto) (1.5-5.0) % Baso % (Auto) (0.0-3.0) % Lymph # (Auto) (1.2-3.4) Tama # (Auto) (0.1-0.6) Eos # (Auto) (0.0-0.7) Baso # (Auto) (0.0-2.0) K/mm3 Absolute Neuts (auto) (1.4-6.5) Sodium (132-148) mmol/L Potassium (3.6-5.0) mmol/L Chloride (98-107) mmol/L Carbon Dioxide (21-33) mmol/L Anion Gap (10-20) BUN (7-21) mg/dL Creatinine (0.8-1.5) mg/dl Est GFR ( Amer) Est GFR (Non-Af Amer) POC Glucose (mg/dL) 74 (65-110) mg/dL Random Glucose (70-110) mg/dL Calcium (8.4-10.5) mg/dL Magnesium (1.7-2.2) mg/dL Total Bilirubin (0.2-1.3) mg/dL AST (17-59) U/L ALT (7-56) U/L Alkaline Phosphatase (38-126) U/L Total Protein (5.8-8.3) g/dL Albumin (3.0-4.8) g/dL Globulin gm/dL Albumin/Globulin Ratio (1.1-1.8) Laboratory Results - last 24 hr 07/16/18 07/17/18 07/17/18 11:29 00:08 05:00 WBC 20.2 H RBC 3.41 L Hgb 9.1 L Hct 29.3 L MCV 85.9 MCH 26.7 MCHC 31.1 RDW 20.3 H Plt Count 643 H MPV 10.3 Neut % (Auto) 87.9 H Lymph % (Auto) 6.3 L Tama % (Auto) 3.3 Eos % (Auto) 2.4 Baso % (Auto) 0.1 Lymph # (Auto) 1.3 Tama # (Auto) 0.7 H Eos # (Auto) 0.5 Baso # (Auto) 0.02 Absolute Neuts (auto) 17.79 H Sodium Potassium Chloride Carbon Dioxide Anion Gap BUN Creatinine Est GFR ( Amer) Est GFR (Non-Af Amer) POC Glucose (mg/dL) 74 62 L Random Glucose Calcium Magnesium Total Bilirubin AST ALT Alkaline Phosphatase Total Protein Albumin Globulin Albumin/Globulin Ratio 07/17/18 07/17/18 07/17/18 05:00 05:00 05:08 WBC RBC Hgb Hct MCV MCH MCHC RDW Plt Count MPV Neut % (Auto) Lymph % (Auto) Tama % (Auto) Eos % (Auto) Baso % (Auto) Lymph # (Auto) Tama # (Auto) Eos # (Auto) Baso # (Auto) Absolute Neuts (auto) Sodium 145 Potassium 2.7 L* Chloride 105 Carbon Dioxide 34 H Anion Gap 8 L BUN 28 H Creatinine 1.1 Est GFR ( Amer) > 60 Est GFR (Non-Af Amer) > 60 POC Glucose (mg/dL) 74 Random Glucose 68 L Calcium 10.2 Magnesium 1.6 L Total Bilirubin 0.5 AST 53 ALT 63 H Alkaline Phosphatase 373 H Total Protein 5.7 L Albumin 2.6 L Globulin 3.1 Albumin/Globulin Ratio 0.9 L 07/17/18 06:15 WBC RBC Hgb Hct MCV MCH MCHC RDW Plt Count MPV Neut % (Auto) Lymph % (Auto) Tama % (Auto) Eos % (Auto) Baso % (Auto) Lymph # (Auto) Tama # (Auto) Eos # (Auto) Baso # (Auto) Absolute Neuts (auto) Sodium Potassium Chloride Carbon Dioxide Anion Gap BUN Creatinine Est GFR ( Amer) Est GFR (Non-Af Amer) POC Glucose (mg/dL) 66 Random Glucose Calcium Magnesium Total Bilirubin AST ALT Alkaline Phosphatase Total Protein Albumin Globulin Albumin/Globulin Ratio Radiology Impressions: Radiology Impressions Abdomen/Pelvis CT 07/15/18 19:00 IMPRESSION: PEG tube does not penetrate the peritoneal cavity or the wall of the stomach. The tube is seen in the subcutaneous fat with associated emphysema. Fingerstick Blood Sugar Results: 66 Critical Care Progress Note - Nutrition Nutrition: Nutrition Category Date Time Status NPO Diet [DIET] Diets 07/16/18 Breakfast Ordered Assessment/Plan - Assessment and Plan (Free Text) Assessment: Pt is an 87 yo male with a PMH of CHF, renal cancer, COPD, seizures, and a thyroid mass, who was admitted to the ICU for AMS and new onset seizure, who subsequently developed respiratory failure and needed ventilation. Plan: Neuro - awake, but not oriented - unable to speak because of trach collar - MRI brain 06/26/18 unremarkable - CSF cuture/cytology/HSV: NEGATIVE, from 06/27/18 - EEG negative for seizure, no signs of status epilepticus, 06/25/18 - keppra 500 mg q12 Cardio - maintain MAP>65 - Norvasc, lipitor Pulm - Vent settings: 500/15/5/50% - conservative fluid and oxygen management GI - Protonix Renal - maintain euvolemia - K 2.7, replete PRN ID - metronidazole - cefepime - ID consulted, Dr Fortune Endo - right thyroid mass - ENT consulted, Dr Ndiaye, no thyroid surgical intervention was performed at [facility] - started on D5, POC glucose 60's-70's Heme - SCD. Heparin SQ Pt seen, examined, assessment and plan discussed with Dr Jas Ennis - Date & Time Date: 07/17/18 Time: 09:24 <Jas Ennis - Last Filed: 07/17/18 11:40> CCU Objective - Vital Signs / Intake & Output Vital Signs (Last 4 hours): Vital Signs Pulse BP 07/17/18 08:11 51 L 07/17/18 08:10 74 07/17/18 08:09 60 07/17/18 08:08 62 07/17/18 08:07 59 L 07/17/18 08:06 60 07/17/18 08:05 65 07/17/18 08:04 65 07/17/18 08:03 61 07/17/18 08:02 64 07/17/18 08:01 56 L 07/17/18 08:00 133/101 H 07/17/18 07:59 54 L 07/17/18 07:58 51 L 07/17/18 07:57 60 07/17/18 07:56 60 07/17/18 07:55 60 07/17/18 07:54 60 07/17/18 07:53 56 L 07/17/18 07:52 58 L 07/17/18 07:51 63 07/17/18 07:50 62 07/17/18 07:49 54 L 07/17/18 07:48 52 L 07/17/18 07:47 59 L 07/17/18 07:46 58 L 07/17/18 07:45 53 L 07/17/18 07:44 67 07/17/18 07:43 69 07/17/18 07:42 62 07/17/18 07:41 56 L Intake and Output (Last 8hrs): Intake & Output 07/16/18 07/17/18 07/17/18 22:59 06:59 14:59 Intake Total 650 355 Output Total 3200 1600 Balance -2550 -1245 Weight 98.146 kg Intake: IV 650 55 Left Internal Jugular 650 55 Oral 0 Other 300 Output: Urine 3100 1400 Urethral (Phan) 3100 1400 Stool 100 200 - Medications Active Medications: Active Medications Generic Name Dose Route Start Last Admin Trade Name Freq PRN Reason Stop Dose Admin Amino Acid Protein 15 gm 07/15/18 10:00 07/16/18 17:26 Prostat 15 G Packet GT Not Given BID LUZ MARINA Amlodipine Besylate 5 mg 07/15/18 10:00 07/16/18 10:44 Norvasc PO Not Given DAILY LUZ MARINA Atorvastatin Calcium 20 mg 07/15/18 17:00 07/16/18 17:26 Lipitor PO Not Given DIN LUZ MARINA Dextrose 0 ml 07/14/18 22:13 07/17/18 00:59 Dextrose 50% Inj IV 50 ml STAT PRN Administration Hypoglycemia Protocol Protocol Heparin Sodium (Porcine) 5,000 units 07/15/18 06:00 07/17/18 05:43 Heparin SC 5,000 units Q8 LUZ MARINA Administration Protocol Dextrose 1,000 mls @ 0 mls/hr 07/14/18 22:13 Dextrose 5% In Water 1000 Ml IV .Q0M PRN Hypoglycemia Protocol Protocol Per Protocol Cefepime HCl 1 gm in 100 mls @ 100 mls/hr 07/15/18 17:00 07/17/18 09:15 Maxipime 1gm IVPB 100 mls/hr Q8 LUZ MARINA Administration Protocol Vancomycin HCl 1 gm in 250 mls @ 167 mls/hr 07/15/18 17:00 07/17/18 09:16 Vancomycin 1gm IVPB 07/18/18 17:01 167 mls/hr DAILY LUZ MARINA Administration Protocol Metronidazole 500 mg in 100 mls @ 100 mls/hr 07/15/18 22:15 07/17/18 05:42 Flagyl IVPB 100 mls/hr Q8 LUZ MARINA Administration Protocol Levetiracetam 500 mg in 100 mls @ 400 mls/hr 07/16/18 10:00 07/17/18 09:14 Keppra 500mg Ivpb IVPB 400 mls/hr Q12 LUZ MARINA Administration Potassium Chloride 20 meq in 100 mls @ 50 mls/hr 07/17/18 07:30 07/17/18 09:14 Potassium Chloride 20 Meq/100 Ml IVPB 07/17/18 15:29 50 mls/hr Q2H LUZ MARINA Administration Dextrose/Sodium Chloride 1,000 mls @ 75 mls/hr 07/17/18 10:45 Dextrose 5%/0.45% Ns 1000 Ml IV .[id number] LUZ MARINA Magnesium Sulfate 2 gm in 50 mls @ 25 mls/hr 07/17/18 11:28 Magnesium Sulfate 2 Gm/50 Ml Water IVPB 07/17/18 13:27 ONCE ONE Insulin Human Regular 0 units 07/15/18 12:00 07/17/18 05:36 Humulin R Med SC Not Given Q6H [facility] Protocol Morphine Sulfate 4 mg 07/14/18 22:13 07/16/18 13:33 Morphine IVP 4 mg Q4H PRN Administration Pain, moderate (4-7) Nystatin 1 gm 07/16/18 22:00 07/16/18 21:21 Nystop Topical Powder TOP 1 applic Q12H LUZ MARINA Administration Pantoprazole Sodium 40 mg 07/16/18 10:00 07/17/18 09:14 Protonix Inj IVP 40 mg Q12 LUZ MARINA Administration Senna/Docusate Sodium 1 tab 07/15/18 10:00 07/16/18 17:26 Senokot S 50 Mg-8.6 Mg PO Not Given BID [facility] - Patient Studies Lab Studies: Microbiology Studies 07/15/18 17:00 Gram Stain - Final Trachasp Sputum Culture - Preliminary Gram Negative Bunny 07/14/18 23:00 MRSA Culture (Admit) - Final Nose MRSA NOT DETECTED 07/15/18 14:30 Blood Culture - Preliminary Blood NO GROWTH AFTER 24 HOURS Lab Studies 04/01/19 04/01/19 04/01/19 Range/Units 06:15 05:08 05:00 WBC (4.5-11.0) 10^3/uL RBC (3.5-6.1) 10^6/uL Hgb (14.0-18.0) g/dL Hct (42.0-52.0) % MCV (80.0-105.0) fl MCH (25.0-35.0) pg MCHC (31.0-37.0) g/dl RDW (11.5-14.5) % Plt Count (120.0-450.0) 10^3/uL MPV (7.0-11.0) fl Neut % (Auto) (50.0-68.0) % Lymph % (Auto) (22.0-35.0) % Tama % (Auto) (1.0-6.0) % Eos % (Auto) (1.5-5.0) % Baso % (Auto) (0.0-3.0) % Lymph # (Auto) (1.2-3.4) Tama # (Auto) (0.1-0.6) Eos # (Auto) (0.0-0.7) Baso # (Auto) (0.0-2.0) K/mm3 Absolute Neuts (auto) (1.4-6.5) Sodium (132-148) mmol/L Potassium (3.6-5.0) mmol/L Chloride (98-107) mmol/L Carbon Dioxide (21-33) mmol/L Anion Gap (10-20) BUN (7-21) mg/dL Creatinine (0.8-1.5) mg/dl Est GFR ( Amer) Est GFR (Non-Af Amer) POC Glucose (mg/dL) 66 74 (65-110) mg/dL Random Glucose (70-110) mg/dL Calcium (8.4-10.5) mg/dL Magnesium 1.6 L (1.7-2.2) mg/dL Total Bilirubin (0.2-1.3) mg/dL AST (17-59) U/L ALT (7-56) U/L Alkaline Phosphatase (38-126) U/L Total Protein (5.8-8.3) g/dL Albumin (3.0-4.8) g/dL Globulin gm/dL Albumin/Globulin Ratio (1.1-1.8) 07/17/18 07/17/18 07/17/18 Range/Units 05:00 05:00 00:08 WBC 20.2 H (4.5-11.0) 10^3/uL RBC 3.41 L (3.5-6.1) 10^6/uL Hgb 9.1 L (14.0-18.0) g/dL Hct 29.3 L (42.0-52.0) % MCV 85.9 (80.0-105.0) fl MCH 26.7 (25.0-35.0) pg MCHC 31.1 (31.0-37.0) g/dl RDW 20.3 H (11.5-14.5) % Plt Count 643 H (120.0-450.0) 10^3/uL MPV 10.3 (7.0-11.0) fl Neut % (Auto) 87.9 H (50.0-68.0) % Lymph % (Auto) 6.3 L (22.0-35.0) % Tama % (Auto) 3.3 (1.0-6.0) % Eos % (Auto) 2.4 (1.5-5.0) % Baso % (Auto) 0.1 (0.0-3.0) % Lymph # (Auto) 1.3 (1.2-3.4) Tama # (Auto) 0.7 H (0.1-0.6) Eos # (Auto) 0.5 (0.0-0.7) Baso # (Auto) 0.02 (0.0-2.0) K/mm3 Absolute Neuts (auto) 17.79 H (1.4-6.5) Sodium 145 (132-148) mmol/L Potassium 2.7 L* (3.6-5.0) mmol/L Chloride 105 (98-107) mmol/L Carbon Dioxide 34 H (21-33) mmol/L Anion Gap 8 L (10-20) BUN 28 H (7-21) mg/dL Creatinine 1.1 (0.8-1.5) mg/dl Est GFR ( Amer) > 60 Est GFR (Non-Af Amer) > 60 POC Glucose (mg/dL) 62 L (65-110) mg/dL Random Glucose 68 L (70-110) mg/dL Calcium 10.2 (8.4-10.5) mg/dL Magnesium (1.7-2.2) mg/dL Total Bilirubin 0.5 (0.2-1.3) mg/dL AST 53 (17-59) U/L ALT 63 H (7-56) U/L Alkaline Phosphatase 373 H (38-126) U/L Total Protein 5.7 L (5.8-8.3) g/dL Albumin 2.6 L (3.0-4.8) g/dL Globulin 3.1 gm/dL Albumin/Globulin Ratio 0.9 L (1.1-1.8) Laboratory Results - last 24 hr 07/17/18 07/17/18 07/17/18 00:08 05:00 05:00 WBC 20.2 H RBC 3.41 L Hgb 9.1 L Hct 29.3 L MCV 85.9 MCH 26.7 MCHC 31.1 RDW 20.3 H Plt Count 643 H MPV 10.3 Neut % (Auto) 87.9 H Lymph % (Auto) 6.3 L Tama % (Auto) 3.3 Eos % (Auto) 2.4 Baso % (Auto) 0.1 Lymph # (Auto) 1.3 Tama # (Auto) 0.7 H Eos # (Auto) 0.5 Baso # (Auto) 0.02 Absolute Neuts (auto) 17.79 H Sodium 145 Potassium 2.7 L* Chloride 105 Carbon Dioxide 34 H Anion Gap 8 L BUN 28 H Creatinine 1.1 Est GFR ( Amer) > 60 Est GFR (Non-Af Amer) > 60 POC Glucose (mg/dL) 62 L Random Glucose 68 L Calcium 10.2 Magnesium Total Bilirubin 0.5 AST 53 ALT 63 H Alkaline Phosphatase 373 H Total Protein 5.7 L Albumin 2.6 L Globulin 3.1 Albumin/Globulin Ratio 0.9 L 07/17/18 07/17/18 07/17/18 05:00 05:08 06:15 WBC RBC Hgb Hct MCV MCH MCHC RDW Plt Count MPV Neut % (Auto) Lymph % (Auto) Tama % (Auto) Eos % (Auto) Baso % (Auto) Lymph # (Auto) Tama # (Auto) Eos # (Auto) Baso # (Auto) Absolute Neuts (auto) Sodium Potassium Chloride Carbon Dioxide Anion Gap BUN Creatinine Est GFR ( Amer) Est GFR (Non-Af Amer) POC Glucose (mg/dL) 74 66 Random Glucose Calcium Magnesium 1.6 L Total Bilirubin AST ALT Alkaline Phosphatase Total Protein Albumin Globulin Albumin/Globulin Ratio Critical Care Progress Note - Nutrition Nutrition: Nutrition Category Date Time Status NPO Diet [DIET] Diets 07/16/18 Breakfast Ordered Addendum Addendum: 07/17/18 11:40 MICU Attending Addendum: Patient seen and examined with housestaff, case discussed on rounds. I agree with resident note above with the following additions/exceptions: 87M hx of CHF, renal cancer s/p nephrectomy, COPD, seizures, and a thyroid mass being managed for AMS and vent depedant resp failure Initially admitted to [facility] 06/23 and intubated. Was being tx for seizures/AMS. Noted to have large thyroid mass. Transferred to [facility] on 06/27 where he had a trach/peg placed. Returned to [facility] 07/15 Yesterday, 07/16 concern for leaking PEG Tube. Removed by surgical team. Plan for CT with PO gastrograffin and IV contrast will plan for intra-op Gtube placment. Currently on low vt on vent, plan to wean to trach collar post-surgical procedure Growing GNR in sputum on broad abx as per ID cefepime, vanc, flagyl. Covering a BL PNA as well. CDfiff pending Keppra for seizures replace mag and K, repeat chem this afternoon given severe hypoK Low glucose borderline - cannot feed, will start D51/2NS Lines: PICC removed 07/15; Subclavian TLC placed 07/16 hep Sq dvt ppx ppi for gi ppx Rest of care as per resident note above Jas Ennis MD Attending Pulmonary Critical Care Sleep Medicine
[2018-07-17] MEDS ORDERED: Nystatin 100,000 Units/gm Topical Pow(15 gm) TOP SCH (10:00)
[2018-07-17] MEDS ORDERED: Magnesium Sulfate 2 gm/50 ml 2 GM/50 ML BAG IVPB ONE (11:28)
[2018-07-17] MEDS: Nystatin 100,000 Units/gm Topical Pow(15 gm) TOP SCH ×2 (11:41→23:13)
[2018-07-17] MEDS: Prostat 15 g packet GT SCH ×2 (11:43→19:03)
[2018-07-17] MEDS: Docusate-Senna 50 mg-8.6 mg Tab PO SCH ×2 (11:44→19:03)
--- NOTE | 2018-07-17 12:21 | CT ---
Date of service: 07/17/2018 PROCEDURE: CT Abdomen and Pelvis with contrast HISTORY: dislodged PEG tube, abdominal collection COMPARISON: 07/15/2018 TECHNIQUE: Contrast dose: 150 cc of Omni 350 Radiation dose: Total exam DLP = 1035.68 mGy-cm. This CT exam was performed using one or more of the following dose reduction techniques: Automated exposure control, adjustment of the mA and/or kV according to patient size, and/or use of iterative reconstruction technique. FINDINGS: LOWER THORAX: There is bibasilar consolidation and small pleural effusions. There is a moderate size hiatal hernia. LIVER: Unremarkable. No gross lesion or ductal dilatation. GALLBLADDER AND BILE DUCTS: Gallstones PANCREAS: Unremarkable. No gross lesion or ductal dilatation. SPLEEN: Removed ADRENALS: Unremarkable. No mass. KIDNEYS AND URETERS: Left kidney removed VASCULATURE: Unremarkable. No aortic aneurysm. No aortic atherosclerotic calcification or mural plaque present. BOWEL: The PEG tube seen previously in the subcutaneous fat of the anterior abdominal wall has been removed. The current study shows a moderate amount of subcutaneous air as well as intraperitoneal air. There is no evidence of an abscess collection. APPENDIX: Normal appendix. PERITONEUM: Unremarkable. No free fluid. No free air. LYMPH NODES: Unremarkable. No enlarged lymph nodes. BLADDER: There is a Phan catheter in the bladder. REPRODUCTIVE: Mildly enlarged prostate BONES: No acute fracture. OTHER FINDINGS: None. IMPRESSION: The PEG tube seen previously in the subcutaneous fat of the anterior abdominal wall has been removed. The current study shows a moderate amount of subcutaneous air as well as intraperitoneal air. There is no evidence of an abscess collection.
--- NOTE | 2018-07-17 13:27 | PN ---
DATE: 07/17/2018 CARDIOLOGY FOLLOWUP SUBJECTIVE: The patient is awake remains with a trach on a ventilator. PHYSICAL EXAMINATION: VITAL SIGNS: Blood pressure 170/90. NECK: Negative JVD. LUNGS: Without rales. HEART: S1 and S2. EXTREMITIES: Without edema. IMPRESSION: 1. Thyroid mass. 2. Respiratory failure. 3. Hypertension. Given these findings, we will start the patient on antihypertensive medications. I will discuss with the [employer] team. Prabhakar Cristina MD
--- NOTE | 2018-07-17 14:09 | PN ---
DATE: 07/17/2018 SUBJECTIVE: He is alert. He looks at me, understands what I am saying. He has got a tach vent, PEG tube, which is malfunctioning right now. MEDICATIONS: He is currently on dextrose as needed for low blood sugars, Flagyl IV, heparin, insulin, Keppra, Lasix, Lipitor, Maxipime, morphine as needed, Norvasc, nystatin, potassium replacement, Pro-Stat, Protonix, Senokot, vancomycin IV. PHYSICAL EXAMINATION: GENERAL: He is alert. He understands what I am saying. VITAL SIGNS: He has 99.3 temp, 56 pulse, 131/101 blood pressure, high for him; 100% O2 sat. HEENT: Head is atraumatic, normocephalic. HEART: Regular rate. LUNGS: Decreased breath sounds. ABDOMEN: Soft, obese. The PEG tube, I understand from the nurses, is not working. His blood sugar is getting low. EXTREMITIES: +1 edema, if that much. LABORATORY DATA: He has 145 sodium, potassium 2.72, potassiums were given, BUN 28, creatinine 1.1, GFR is greater than 60, sugar is 66, calcium is 10.2, magnesium is 1.6, total bili is 0.5, AST is 53, ALT is 63, alk phos 373, total protein is 5.7. White count 20.2, it is going up, 9.1 hemoglobin, 29.3 hematocrit, platelets 643. ASSESSMENT AND PLAN: I am concerned that the white count is going up is the Gram negative joão and the Gram stain. He is being seen by [facility], Surgery, Infectious Disease, Cardiology. We will continue with aggressive treatment and care. Adjust his electrolytes. Check his labs tomorrow. Continue aggressive treatment and care on . Aleksey Neal DO MTDD
--- NOTE | 2018-07-17 14:14 | CP.PCM.PN ---
Subjective - Date & Time of Evaluation Date of Evaluation: 07/17/18 Time of Evaluation: 07:10 - Subjective Subjective: General surgery progress note for Dr. Arabella Singletary, PGY-2 Pt seen/examined at bedside. Pt resting comfortably in bed, trach in place. No acute distress. No acute events as per nursing. Objective - Vital Signs/Intake and Output Vital Signs (last 24 hours): Temp Pulse Resp BP Pulse Ox 99.3 F 51 L 17 133/101 H 75 L 07/17/18 04:00 07/17/18 08:11 07/16/18 18:25 07/17/18 08:00 07/17/18 07:30 Intake and Output: 07/17/18 07/17/18 06:59 18:59 Intake Total 355 Output Total 1600 Balance -1245 - Medications Medications: Current Medications Amino Acid Protein (Prostat 15 G Packet) 15 gm GT BID [facility] Last Admin: 07/17/18 11:43 Dose: Not Given Amlodipine Besylate (Norvasc) 5 mg PO DAILY [facility] Last Admin: 07/17/18 11:34 Dose: Not Given Atorvastatin Calcium (Lipitor) 20 mg PO DIN [facility] Last Admin: 07/16/18 17:26 Dose: Not Given Dextrose (Dextrose 50% Inj) 0 ml IV STAT PRN; Protocol PRN Reason: Hypoglycemia Protocol Last Admin: 07/17/18 00:59 Dose: 50 ml Heparin Sodium (Porcine) (Heparin) 5,000 units SC Q8 [facility]; Protocol Last Admin: 07/17/18 05:43 Dose: 5,000 units Dextrose (Dextrose 5% In Water 1000 Ml) 1,000 mls @ 0 mls/hr IV .Q0M PRN; Protocol PRN Reason: Hypoglycemia Protocol Cefepime HCl (Maxipime 1gm) 1 gm in 100 mls @ 100 mls/hr IVPB Q8 [facility]; Protocol Last Admin: 07/17/18 09:15 Dose: 100 mls/hr Vancomycin HCl (Vancomycin 1gm) 1 gm in 250 mls @ 167 mls/hr IVPB DAILY [facility]; Protocol Stop: 07/18/18 17:01 Last Admin: 07/17/18 09:16 Dose: 167 mls/hr Metronidazole (Flagyl) 500 mg in 100 mls @ 100 mls/hr IVPB Q8 [facility]; Protocol Last Admin: 07/17/18 05:42 Dose: 100 mls/hr Levetiracetam (Keppra 500mg Ivpb) 500 mg in 100 mls @ 400 mls/hr IVPB Q12 [facility] Last Admin: 07/17/18 09:14 Dose: 400 mls/hr Potassium Chloride (Potassium Chloride 20 Meq/100 Ml) 20 meq in 100 mls @ 50 mls/hr IVPB Q2H [facility] Stop: 07/17/18 15:29 Last Admin: 07/17/18 11:41 Dose: 50 mls/hr Dextrose/Sodium Chloride (Dextrose 5%/0.45% Ns 1000 Ml) 1,000 mls @ 75 mls/hr IV .[id number] [facility] Insulin Human Regular (Humulin R Med) 0 units SC Q6H [facility]; Protocol Last Admin: 07/17/18 05:36 Dose: Not Given Morphine Sulfate (Morphine) 4 mg IVP Q4H PRN PRN Reason: Pain, moderate (4-7) Last Admin: 07/16/18 13:33 Dose: 4 mg Nystatin (Nystop Topical Powder) 1 gm TOP Q12H [facility] Last Admin: 07/17/18 11:41 Dose: 1 applic Pantoprazole Sodium (Protonix Inj) 40 mg IVP Q12 [facility] Last Admin: 07/17/18 09:14 Dose: 40 mg Senna/Docusate Sodium (Senokot S 50 Mg-8.6 Mg) 1 tab PO BID [facility] Last Admin: 07/17/18 11:44 Dose: Not Given - Labs Labs: 07/17/18 05:00 07/17/18 05:00 APTT 29.7 Seconds (26.9-38.3) 07/15/18 08:30 - Constitutional Appears: Non-toxic, No Acute Distress - Head Exam Head Exam: ATRAUMATIC, NORMAL INSPECTION, NORMOCEPHALIC - Eye Exam Eye Exam: EOMI, Normal appearance - ENT Exam ENT Exam: Mucous Membranes Moist, Normal Exam Additional comments: Trach in place - Respiratory Exam Respiratory Exam: NORMAL BREATHING PATTERN - Cardiovascular Exam Cardiovascular Exam: REGULAR RHYTHM - GI/Abdominal Exam GI & Abdominal Exam: Soft. absent: Distended, Firm, Guarding, Tenderness Additional comments: RUQ with small hole- previous PEG tube insertion site, no purulent drainage noted - Neurological Exam Neurological Exam: Alert, Awake, CN II-XII Intact - Psychiatric Exam Additional comments: Trached, non verbal - Skin Skin Exam: Dry, Intact, Normal Color, Warm Assessment and Plan - Assessment and Plan (Free Text) Assessment: 87M w/dislodged PEG tube Plan: Plan for G tube insertion later this week Further care as per ICU DW Dr. Garrido
--- NOTE | 2018-07-17 15:11 | CP.PCM.PN ---
<Abe Cunningham - Last Filed: 07/17/18 15:07> Subjective - Date & Time of Evaluation Date of Evaluation: 07/17/18 Time of Evaluation: 09:50 - Subjective Subjective: Aeb Cunningham D.O. PGY-3, Internal Medicine Resident, Infectious Disease Progress Note 87 year old male with a PMH of heart failure, renal Ca s/p nephrectomy, and COPD who was found to have a thyroid mass, was transferred temporarily to [facility] and then transferred back. Infectious disease consultation was requested. Patient was seen and examined at bedside. Trach in place at this time. Appears comfortable. Objective - Vital Signs/Intake and Output Vital Signs (last 24 hours): Temp Pulse Resp BP Pulse Ox 99.3 F 76 17 133/101 H 75 L 07/17/18 04:00 07/17/18 12:00 07/16/18 18:25 07/17/18 08:00 07/17/18 07:30 Intake and Output: 07/17/18 07/17/18 06:59 18:59 Intake Total 355 Output Total 1600 Balance -1245 - Medications Medications: Current Medications Amino Acid Protein (Prostat 15 G Packet) 15 gm GT BID [facility] Last Admin: 07/17/18 11:43 Dose: Not Given Amlodipine Besylate (Norvasc) 5 mg PO DAILY [facility] Last Admin: 07/17/18 11:34 Dose: Not Given Atorvastatin Calcium (Lipitor) 20 mg PO DIN [facility] Last Admin: 07/16/18 17:26 Dose: Not Given Dextrose (Dextrose 50% Inj) 0 ml IV STAT PRN; Protocol PRN Reason: Hypoglycemia Protocol Last Admin: 07/17/18 00:59 Dose: 50 ml Heparin Sodium (Porcine) (Heparin) 5,000 units SC Q8 [facility]; Protocol Last Admin: 07/17/18 14:13 Dose: 5,000 units Dextrose (Dextrose 5% In Water 1000 Ml) 1,000 mls @ 0 mls/hr IV .Q0M PRN; Protocol PRN Reason: Hypoglycemia Protocol Cefepime HCl (Maxipime 1gm) 1 gm in 100 mls @ 100 mls/hr IVPB Q8 [facility]; Protocol Last Admin: 07/17/18 14:13 Dose: 100 mls/hr Vancomycin HCl (Vancomycin 1gm) 1 gm in 250 mls @ 167 mls/hr IVPB DAILY [facility]; Protocol Stop: 07/18/18 17:01 Last Admin: 07/17/18 09:16 Dose: 167 mls/hr Metronidazole (Flagyl) 500 mg in 100 mls @ 100 mls/hr IVPB Q8 [facility]; Protocol Last Admin: 07/17/18 14:13 Dose: 100 mls/hr Levetiracetam (Keppra 500mg Ivpb) 500 mg in 100 mls @ 400 mls/hr IVPB Q12 [facility] Last Admin: 07/17/18 09:14 Dose: 400 mls/hr Potassium Chloride (Potassium Chloride 20 Meq/100 Ml) 20 meq in 100 mls @ 50 mls/hr IVPB Q2H [facility] Stop: 07/17/18 15:29 Last Admin: 07/17/18 14:13 Dose: 50 mls/hr Dextrose/Sodium Chloride (Dextrose 5%/0.45% Ns 1000 Ml) 1,000 mls @ 75 mls/hr IV .[id number] [facility] Insulin Human Regular (Humulin R Med) 0 units SC Q6H [facility]; Protocol Last Admin: 07/17/18 14:31 Dose: Not Given Morphine Sulfate (Morphine) 4 mg IVP Q4H PRN PRN Reason: Pain, moderate (4-7) Last Admin: 07/16/18 13:33 Dose: 4 mg Nystatin (Nystop Topical Powder) 1 gm TOP Q12H [facility] Last Admin: 07/17/18 11:41 Dose: 1 applic Pantoprazole Sodium (Protonix Inj) 40 mg IVP Q12 [facility] Last Admin: 07/17/18 09:14 Dose: 40 mg Senna/Docusate Sodium (Senokot S 50 Mg-8.6 Mg) 1 tab PO BID [facility] Last Admin: 07/17/18 11:44 Dose: Not Given - Labs Labs: 07/17/18 05:00 07/17/18 05:00 APTT 29.7 Seconds (26.9-38.3) 07/15/18 08:30 - Constitutional Appears: Chronically Ill - Head Exam Head Exam: ATRAUMATIC, NORMOCEPHALIC - Eye Exam Eye Exam: absent: Scleral icterus - ENT Exam ENT Exam: Mucous Membranes Moist - Neck Exam Additional comments: s/p trach - Respiratory Exam Respiratory Exam: Clear to Ausculation Bilateral. absent: Rhonchi, Wheezes - Cardiovascular Exam Cardiovascular Exam: +S1, +S2. absent: Gallop, Rubs - GI/Abdominal Exam GI & Abdominal Exam: Soft, Normal Bowel Sounds. absent: Distended, Tenderness - Neurological Exam Neurological Exam: Alert, Awake - Skin Skin Exam: Dry, Warm Assessment and Plan - Assessment and Plan (Free Text) Assessment: 87 year old male with a PMH of heart failure, renal Ca s/p nephrectomy, and COPD who was found to have a thyroid mass, was transferred temporarily to [facility] and then transferred back. Infectious disease consultation was requested. 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 Malpositioned PEG tube COPD HFpEF Renal insufficiency Renal CA s/p nephrectomy Seizure disorder Pulmonary hypertension Thyroid mass Afebrile more than 24 hrs Continues to have leukocytosis PEG tube has been removed, plan for G tube by surgery Procal was elevated On cefepime/metronidazole/vancomycin BCx negative 04/18 day 1 MRSA negative Sputum grew pseudomonas C diff negative We will follow with you Patient was seen and examined and case to be discussed with attending physician Thank you for the pleasure of participating in the care of this interesting patient <Omer Fortune - Last Filed: 07/17/18 15:37> Objective - Vital Signs/Intake and Output Vital Signs (last 24 hours): Temp Pulse Resp BP Pulse Ox 99.3 F 76 17 133/101 H 75 L 07/17/18 04:00 07/17/18 12:00 07/16/18 18:25 07/17/18 08:00 07/17/18 07:30 Intake and Output: 07/17/18 07/17/18 06:59 18:59 Intake Total 355 Output Total 1600 Balance -1245 - Medications Medications: Current Medications Amino Acid Protein (Prostat 15 G Packet) 15 gm GT BID [facility] Last Admin: 07/17/18 11:43 Dose: Not Given Amlodipine Besylate (Norvasc) 5 mg PO DAILY [facility] Last Admin: 07/17/18 11:34 Dose: Not Given Atorvastatin Calcium (Lipitor) 20 mg PO DIN [facility] Last Admin: 07/16/18 17:26 Dose: Not Given Dextrose (Dextrose 50% Inj) 0 ml IV STAT PRN; Protocol PRN Reason: Hypoglycemia Protocol Last Admin: 07/17/18 00:59 Dose: 50 ml Heparin Sodium (Porcine) (Heparin) 5,000 units SC Q8 [facility]; Protocol Last Admin: 07/17/18 14:13 Dose: 5,000 units Dextrose (Dextrose 5% In Water 1000 Ml) 1,000 mls @ 0 mls/hr IV .Q0M PRN; Protocol PRN Reason: Hypoglycemia Protocol Cefepime HCl (Maxipime 1gm) 1 gm in 100 mls @ 100 mls/hr IVPB Q8 [facility]; Protocol Last Admin: 07/17/18 14:13 Dose: 100 mls/hr Metronidazole (Flagyl) 500 mg in 100 mls @ 100 mls/hr IVPB Q8 [facility]; Protocol Last Admin: 07/17/18 14:13 Dose: 100 mls/hr Levetiracetam (Keppra 500mg Ivpb) 500 mg in 100 mls @ 400 mls/hr IVPB Q12 [facility] Last Admin: 07/17/18 09:14 Dose: 400 mls/hr Dextrose/Sodium Chloride (Dextrose 5%/0.45% Ns 1000 Ml) 1,000 mls @ 75 mls/hr IV .[id number] [facility] Insulin Human Regular (Humulin R Med) 0 units SC Q6H [facility]; Protocol Last Admin: 07/17/18 14:31 Dose: Not Given Morphine Sulfate (Morphine) 4 mg IVP Q4H PRN PRN Reason: Pain, moderate (4-7) Last Admin: 07/16/18 13:33 Dose: 4 mg Nystatin (Nystop Topical Powder) 1 gm TOP Q12H [facility] Last Admin: 07/17/18 11:41 Dose: 1 applic Pantoprazole Sodium (Protonix Inj) 40 mg IVP Q12 [facility] Last Admin: 07/17/18 09:14 Dose: 40 mg Senna/Docusate Sodium (Senokot S 50 Mg-8.6 Mg) 1 tab PO BID [facility] Last Admin: 07/17/18 11:44 Dose: Not Given - Labs Labs: 07/17/18 05:00 07/17/18 05:00 APTT 29.7 Seconds (26.9-38.3) 07/15/18 08:30 Attending/Attestation - Attestation I have personally seen and examined this patient.: Yes I have fully participated in the care of the patient.: Yes I have reviewed all pertinent clinical information, including history, physical exam and plan: Yes
--- NOTE | 2018-07-17 15:39 | CP.PCM.APN ---
Subjective - Date & Time of Evaluation Date of Evaluation: 07/17/18 Time of Evaluation: 12:15 - Subjective Subjective: pt seen and examined at bedside, pt asleep in NAD, pt with trach intact Review of Systems - Review of Systems All systems: reviewed and no additional remarkable complaints except Objective - Vital Signs/Intake and Output Vital Signs (last 24 hours): Temp Pulse Resp BP Pulse Ox 99.3 F 76 17 133/101 H 75 L 07/17/18 04:00 07/17/18 12:00 07/16/18 18:25 07/17/18 08:00 07/17/18 07:30 Intake and Output: 07/17/18 07/17/18 06:59 18:59 Intake Total 355 Output Total 1600 Balance -1245 - Medications Medications: Current Medications Amino Acid Protein (Prostat 15 G Packet) 15 gm GT BID [facility] Last Admin: 07/17/18 11:43 Dose: Not Given Amlodipine Besylate (Norvasc) 5 mg PO DAILY [facility] Last Admin: 07/17/18 11:34 Dose: Not Given Atorvastatin Calcium (Lipitor) 20 mg PO DIN [facility] Last Admin: 07/16/18 17:26 Dose: Not Given Dextrose (Dextrose 50% Inj) 0 ml IV STAT PRN; Protocol PRN Reason: Hypoglycemia Protocol Last Admin: 07/17/18 00:59 Dose: 50 ml Heparin Sodium (Porcine) (Heparin) 5,000 units SC Q8 [facility]; Protocol Last Admin: 07/17/18 14:13 Dose: 5,000 units Dextrose (Dextrose 5% In Water 1000 Ml) 1,000 mls @ 0 mls/hr IV .Q0M PRN; Protocol PRN Reason: Hypoglycemia Protocol Cefepime HCl (Maxipime 1gm) 1 gm in 100 mls @ 100 mls/hr IVPB Q8 [facility]; Protocol Last Admin: 07/17/18 14:13 Dose: 100 mls/hr Vancomycin HCl (Vancomycin 1gm) 1 gm in 250 mls @ 167 mls/hr IVPB DAILY [facility]; Pr otocol Stop: 07/18/18 17:01 Last Admin: 07/17/18 09:16 Dose: 167 mls/hr Metronidazole (Flagyl) 500 mg in 100 mls @ 100 mls/hr IVPB Q8 [facility]; Protocol Last Admin: 07/17/18 14:13 Dose: 100 mls/hr Levetiracetam (Keppra 500mg Ivpb) 500 mg in 100 mls @ 400 mls/hr IVPB Q12 [facility] Last Admin: 07/17/18 09:14 Dose: 400 mls/hr Potassium Chloride (Potassium Chloride 20 Meq/100 Ml) 20 meq in 100 mls @ 50 mls/hr IVPB Q2H [facility] Stop: 07/17/18 15:29 Last Admin: 07/17/18 14:13 Dose: 50 mls/hr Dextrose/Sodium Chloride (Dextrose 5%/0.45% Ns 1000 Ml) 1,000 mls @ 75 mls/hr IV .[id number] [facility] Insulin Human Regular (Humulin R Med) 0 units SC Q6H [facility]; Protocol Last Admin: 07/17/18 14:31 Dose: Not Given Morphine Sulfate (Morphine) 4 mg IVP Q4H PRN PRN Reason: Pain, moderate (4-7) Last Admin: 07/16/18 13:33 Dose: 4 mg Nystatin (Nystop Topical Powder) 1 gm TOP Q12H [facility] Last Admin: 07/17/18 11:41 Dose: 1 applic Pantoprazole Sodium (Protonix Inj) 40 mg IVP Q12 [facility] Last Admin: 07/17/18 09:14 Dose: 40 mg Senna/Docusate Sodium (Senokot S 50 Mg-8.6 Mg) 1 tab PO BID [facility] Last Admin: 07/17/18 11:44 Dose: Not Given - Labs Labs: 07/17/18 05:00 07/17/18 05:00 APTT 29.7 Seconds (26.9-38.3) 07/15/18 08:30 - Constitutional Appears: No Acute Distress, Chronically Ill - Head Exam Head Exam: ATRAUMATIC - ENT Exam ENT Exam: Mucous Membranes Dry - Neck Exam Additional comments: trach in place - Respiratory Exam Respiratory Exam: Decreased Breath Sounds, NORMAL BREATHING PATTERN - Cardiovascular Exam Cardiovascular Exam: +S1, +S2 - GI/Abdominal Exam GI & Abdominal Exam: Soft Additional comments: peg site - Rectal Exam Rectal Exam: Deferred - Neurological Exam Neurological Exam: Awake Additional comments: trached, nonverbal - Skin Skin Exam: Dry, Intact Assessment and Plan - Assessment and Plan (Free Text) Plan: ITS Impressions Chest X-Ray 07/15/18 11:45 IMPRESSION: There is a left-sided PICC line that terminates in the axilla. There is no PICC line seen on the right Chest X-Ray 07/15/18 14:23 IMPRESSION: There is a left-sided central line that terminates in the SVC just above the right atrium in satisfactory position Abdomen/Pelvis CT 07/15/18 19:00 IMPRESSION: PEG tube does not penetrate the peritoneal cavity or the wall of the stomach. The tube is seen in the subcutaneous fat with associated emphysema. Abdomen/Pelvis CT 07/17/18 09:00 IMPRESSION: The PEG tube seen previously in the subcutaneous fat of the anterior abdominal wall has been removed. The current study shows a moderate amount of subcutaneous air as well as intraperitoneal air. There is no evidence of an abscess collection. 87 yr old white male with pmh sig for renal ca s/p nephrectomy, chf, htn, morbid obesity who was admitted after witnessed seizure where he became unconscious and unresponsive and was subsequently vented. Pt was found to have thyroid mass and was transferred to [facility] facility for intervention. Pt apparently was transferred back with no thyroid mass intervention but with trach in place. now with sepsis, bilateral pneumonia, trached, s/p PEG removal that did not penetrate peritoneal cavity or the wall of the stomach with plans for g-tube insertion by surgical team. pt is npo, pt is on tracheostomy vent pt with ID consultation. pt with negative c.diff, microbiology shows pseudomo david aeriginoas from trach culture. pt on IV cefepime and vanco with continued leukocytosis. Pt with electrolyte imbalance- being repleted. pt on iv keppra consultants recommenations and IDT notes reviewed. will follow clinical course.
[2018-07-17 16:14] LABS: PH,URINE 6.5 (4.7-8.0); URINE APPEARANCE CLEAR (CLEAR); URINE BILIRUBIN NEGATIVE (NEGATIVE); URINE BLOOD TRACE-INTACT (NEGATIVE); URINE COLOR LIGHT YELLOW (YELLOW); URINE GLUCOSE (UA) NEGATIVE (NEGATIVE); URINE LEUKOCYTE ESTERASE NEGATIVE Leu/uL (NEGATIVE); URINE PROTEIN 30 mg/dL (<30 mg/dL); URINE UROBILINOGEN 0.2 E.U./dL (<1 E.U./dL)
[2018-07-17 16:48] LABS: BLOOD UREA NITROGEN 22 mg/dL (7-21); CALCIUM 9.9 mg/dL (8.4-10.5); GFR NON-AFRICAN AMERICAN > 60
--- NOTE | 2018-07-17 19:02 | RAD ---
Date of service: 07/17/2018 HISTORY: Dobhoff placement COMPARISON: July 15, 2018. FINDINGS: LUNGS: Stable consolidative changes. PLEURA: Stable pleural effusions. CARDIOVASCULAR: No atherosclerotic calcification present Normal. OSSEOUS STRUCTURES: No significant abnormalities. VISUALIZED UPPER ABDOMEN: Normal. OTHER FINDINGS: Satisfactory position of support apparatus including tracheostomy device, venous access catheter and nasogastric tube. IMPRESSION: Stable infiltrates. Stable, satisfactory position of support apparatus.
[2018-07-17] MEDS: Dextrose 5%/0.45% NS 1,000 ML IV SCH (21:23)
[2018-07-18] MEDS: Morphine 4 mg/ml ISec IVP PRN (00:24)
[2018-07-18] MEDS: Insulin Reg-MEDIUM-Coverage SC SCH ×4 (00:30→18:45)
[2018-07-18 06:24] LABS: BASO # 0.04 K/mm3 (0.0-2.0); BASO % 0.2 % (0.0-3.0); EOS # 0.8 (0.0-0.7); EOS % 4.3 % (1.5-5.0); HEMOGLOBIN 9.2 g/dL (14.0-18.0); LYMPH # 1.3 (1.2-3.4); LYMPH % 6.7 % (22.0-35.0); MEAN CELL VOLUME 86.6 fl (80.0-105.0); MEAN CORPUSCULAR HEMOGLOBIN 25.6 pg (25.0-35.0); MEAN CORPUSCULAR HGB CONC 29.6 g/dl (31.0-37.0); MEAN PLATELET VOLUME 10.1 fl (7.0-11.0); MONO % 5.1 % (1.0-6.0); RBC 3.59 10^6/uL (3.5-6.1); RED CELL DISTRIBUTION WIDTH 20.8 % (11.5-14.5); WHITE BLOOD COUNT 18.7 10^3/uL (4.5-11.0)
[2018-07-18] MEDS: Cefepime 1gm in NS 100ml 1 GM/100 ML BAG IVPB SCH ×3 (06:44→22:18)
[2018-07-18] MEDS: metroNIDAZOLE IV 500 mg/100 ml 500 MG/100 ML BAG IVPB SCH ×3 (06:45→22:19)
[2018-07-18 07:22] LABS: ALB/GLOB RATIO 0.8 (1.1-1.8); ALBUMIN 2.8 g/dL (3.0-4.8); ALT/SGPT 48 U/L (7-56); AST/SGOT 44 U/L (17-59); BLOOD UREA NITROGEN 18 mg/dL (7-21); CALCIUM 10.2 mg/dL (8.4-10.5); GFR NON-AFRICAN AMERICAN > 60
--- NOTE | 2018-07-18 08:41 | CP.CCUPN ---
<Geoff Fernandez - Last Filed: 07/18/18 14:44> CCU Subjective - Physician Review Subjective (Free Text): Geoff Fernandez DO. Critical Care Progress note Patient seen and examined at bedside. On PRVC trach ventilation. Opens eyes spontaneously, non verbal but responds to verbal stimulation by moving his head. No acute events overnight. CCU Objective - Vital Signs / Intake & Output Intake and Output (Last 8hrs): Intake & Output 07/17/18 07/18/18 07/18/18 22:59 06:59 14:59 Intake Total 1050 Output Total 1600 Balance -550 Intake: IV 1050 Left Internal Jugular 1050 Output: Urine 1150 Urethral (Phan) 1150 Stool 450 - Physical Exam Head: Positive for: Atraumatic, Normocephalic Pupils: Positive for: PERRL Extroacular Muscles: Positive for: EOMI Mouth: Positive for: Moist Mucous Membranes Respiratory/Chest: Positive for: Clear to Auscultation, Good Air Exchange, Decreased Breath Sounds. Negative for: Respiratory Distress, Accessory Muscle Use Cardiovascular: Positive for: Regular Rate and Rhythm, Normal S1, S2. Negative for: Murmurs Abdomen: Negative for: Tenderness, Distention, Normal Bowel Sounds Upper Extremity: Negative for: Edema Lower Extremity: Positive for: Edema Skin: Positive for: Warm, Dry, Normal Color - Medications Active Medications: Active Medications Generic Name Dose Route Start Last Admin Trade Name Freq PRN Reason Stop Dose Admin Amino Acid Protein 15 gm 07/15/18 10:00 07/17/18 19:03 Prostat 15 G Packet GT Not Given BID [facility] Amlodipine Besylate 5 mg 07/15/18 10:00 07/17/18 11:34 Norvasc PO Not Given DAILY LUZ MARINA Atorvastatin Calcium 20 mg 07/15/18 17:00 07/17/18 19:03 Lipitor PO Not Given DIN LUZ MARINA Dextrose 0 ml 07/14/18 22:13 07/17/18 00:59 Dextrose 50% Inj IV 50 ml STAT PRN Administration Hypoglycemia Protocol Protocol Heparin Sodium (Porcine) 5,000 units 07/15/18 06:00 07/18/18 06:44 Heparin SC 5,000 units Q8 LUZ MARINA Administration Protocol Dextrose 1,000 mls @ 0 mls/hr 07/14/18 22:13 Dextrose 5% In Water 1000 Ml IV .Q0M PRN Hypoglycemia Protocol Protocol Per Protocol Cefepime HCl 1 gm in 100 mls @ 100 mls/hr 07/15/18 17:00 07/18/18 06:44 Maxipime 1gm IVPB 100 mls/hr Q8 LUZ MARINA Administration Protocol Metronidazole 500 mg in 100 mls @ 100 mls/hr 07/15/18 22:15 07/18/18 06:45 Flagyl IVPB 100 mls/hr Q8 LUZ MARINA Administration Protocol Levetiracetam 500 mg in 100 mls @ 400 mls/hr 07/16/18 10:00 07/17/18 23:12 Keppra 500mg Ivpb IVPB 400 mls/hr Q12 LUZ MARINA Administration Dextrose/Sodium Chloride 1,000 mls @ 75 mls/hr 07/17/18 10:45 07/17/18 21:23 Dextrose 5%/0.45% Ns 1000 Ml IV 75 mls/hr .[id number] LUZ MARINA Administration Potassium Chloride 20 meq in 100 mls @ 50 mls/hr 07/18/18 08:45 Potassium Chloride 20 Meq/100 Ml IVPB 07/18/18 14:44 Q2H [facility] Insulin Human Regular 0 units 07/15/18 12:00 07/18/18 06:46 Humulin R Med SC Not Given Q6H [facility] Protocol Morphine Sulfate 4 mg 07/14/18 22:13 07/18/18 00:24 Morphine IVP 4 mg Q4H PRN Administration Pain, moderate (4-7) Nystatin 1 gm 07/16/18 22:00 07/17/18 23:13 Nystop Topical Powder TOP 1 applic Q12H LUZ MARINA Administration Pantoprazole Sodium 40 mg 07/16/18 10:00 07/17/18 23:17 Protonix Inj IVP 40 mg Q12 LUZ MARINA Administration Senna/Docusate Sodium 1 tab 07/15/18 10:00 07/17/18 19:03 Senokot S 50 Mg-8.6 Mg PO Not Given BID LUZ MARINA - Patient Studies Lab Studies: Microbiology Studies 07/15/18 14:30 Blood Culture - Preliminary Blood NO GROWTH AFTER 48 HOURS 07/17/18 05:35 Gram Stain - Final Abdomen 07/17/18 08:39 C. difficile Antigen & Toxins A,B - Final Stool 07/15/18 17:00 Gram Stain - Final Trachasp Sputum Culture - Final Pseudomonas Aeruginosa Lab Studies 07/18/18 07/18/18 07/18/18 Range/Units 06:13 05:20 05:20 WBC 18.7 H (4.5-11.0) 10^3/uL RBC 3.59 (3.5-6.1) 10^6/uL Hgb 9.2 L (14.0-18.0) g/dL Hct 31.1 L (42.0-52.0) % MCV 86.6 (80.0-105.0) fl MCH 25.6 (25.0-35.0) pg MCHC 29.6 L (31.0-37.0) g/dl RDW 20.8 H (11.5-14.5) % Plt Count 653 H (120.0-450.0) 10^3/uL MPV 10.1 (7.0-11.0) fl Neut % (Auto) 83.7 H (50.0-68.0) % Lymph % (Auto) 6.7 L (22.0-35.0) % Alcorn % (Auto) 5.1 (1.0-6.0) % Eos % (Auto) 4.3 (1.5-5.0) % Baso % (Auto) 0.2 (0.0-3.0) % Lymph # (Auto) 1.3 (1.2-3.4) Alcorn # (Auto) 1.0 H (0.1-0.6) Eos # (Auto) 0.8 H (0.0-0.7) Baso # (Auto) 0.04 (0.0-2.0) K/mm3 Absolute Neuts (auto) 15.59 H (1.4-6.5) Sodium 146 (132-148) mmol/L Potassium 3.2 L (3.6-5.0) mmol/L Chloride 110 H (98-107) mmol/L Carbon Dioxide 30 (21-33) mmol/L Anion Gap 10 (10-20) BUN 18 (7-21) mg/dL Creatinine 1.1 (0.8-1.5) mg/dl Est GFR ( Amer) > 60 Est GFR (Non-Af Amer) > 60 POC Glucose (mg/dL) 72 (65-110) mg/dL Random Glucose 86 (70-110) mg/dL Calcium 10.2 (8.4-10.5) mg/dL Magnesium (1.7-2.2) mg/dL Total Bilirubin 0.5 (0.2-1.3) mg/dL AST 44 (17-59) U/L ALT 48 (7-56) U/L Alkaline Phosphatase 349 H (38-126) U/L Total Protein 6.2 (5.8-8.3) g/dL Albumin 2.8 L (3.0-4.8) g/dL Globulin 3.4 gm/dL Albumin/Globulin Ratio 0.8 L (1.1-1.8) Urine Color (YELLOW) Urine Appearance (CLEAR) Urine pH (4.7-8.0) Ur Specific [place] (1.005-1.035) Urine Protein (<30 mg/dL) mg/dL Urine Glucose (UA) (NEGATIVE) mg/dL Urine Ketones (NEGATIVE) mg/dL Urine Blood (NEGATIVE) Urine Nitrate (NEGATIVE) Urine Bilirubin (NEGATIVE) Urine Urobilinogen (<1 E.U./dL) E.U./dL Ur Leukocyte Esterase (NEGATIVE) Deejay/uL Urine RBC (0-2) /hpf Urine WBC (0-6) /hpf 07/18/18 07/18/18 07/17/18 Range/Units 01:53 00:15 21:46 WBC (4.5-11.0) 10^3/uL RBC (3.5-6.1) 10^6/uL Hgb (14.0-18.0) g/dL Hct (42.0-52.0) % MCV (80.0-105.0) fl MCH (25.0-35.0) pg MCHC (31.0-37.0) g/dl RDW (11.5-14.5) % Plt Count (120.0-450.0) 10^3/uL MPV (7.0-11.0) fl Neut % (Auto) (50.0-68.0) % Lymph % (Auto) (22.0-35.0) % Alcorn % (Auto) (1.0-6.0) % Eos % (Auto) (1.5-5.0) % Baso % (Auto) (0.0-3.0) % Lymph # (Auto) (1.2-3.4) Alcorn # (Auto) (0.1-0.6) Eos # (Auto) (0.0-0.7) Baso # (Auto) (0.0-2.0) K/mm3 Absolute Neuts (auto) (1.4-6.5) Sodium (132-148) mmol/L Potassium (3.6-5.0) mmol/L Chloride (98-107) mmol/L Carbon Dioxide (21-33) mmol/L Anion Gap (10-20) BUN (7-21) mg/dL Creatinine (0.8-1.5) mg/dl Est GFR ( Amer) Est GFR (Non-Af Amer) POC Glucose (mg/dL) 75 84 79 (65-110) mg/dL Random Glucose (70-110) mg/dL Calcium (8.4-10.5) mg/dL Magnesium (1.7-2.2) mg/dL Total Bilirubin (0.2-1.3) mg/dL AST (17-59) U/L ALT (7-56) U/L Alkaline Phosphatase (38-126) U/L Total Protein (5.8-8.3) g/dL Albumin (3.0-4.8) g/dL Globulin gm/dL Albumin/Globulin Ratio (1.1-1.8) Urine Color (YELLOW) Urine Appearance (CLEAR) Urine pH (4.7-8.0) Ur Specific [place] (1.005-1.035) Urine Protein (<30 mg/dL) mg/dL Urine Glucose (UA) (NEGATIVE) mg/dL Urine Ketones (NEGATIVE) mg/dL Urine Blood (NEGATIVE) Urine Nitrate (NEGATIVE) Urine Bilirubin (NEGATIVE) Urine Urobilinogen (<1 E.U./dL) E.U./dL Ur Leukocyte Esterase (NEGATIVE) Deejay/uL Urine RBC (0-2) /hpf Urine WBC (0-6) /hpf 07/17/18 07/17/18 07/17/18 Range/Units 16:15 16:00 11:14 WBC (4.5-11.0) 10^3/uL RBC (3.5-6.1) 10^6/uL Hgb (14.0-18.0) g/dL Hct (42.0-52.0) % MCV (80.0-105.0) fl MCH (25.0-35.0) pg MCHC (31.0-37.0) g/dl RDW (11.5-14.5) % Plt Count (120.0-450.0) 10^3/uL MPV (7.0-11.0) fl Neut % (Auto) (50.0-68.0) % Lymph % (Auto) (22.0-35.0) % Alcorn % (Auto) (1.0-6.0) % Eos % (Auto) (1.5-5.0) % Baso % (Auto) (0.0-3.0) % Lymph # (Auto) (1.2-3.4) Alcorn # (Auto) (0.1-0.6) Eos # (Auto) (0.0-0.7) Baso # (Auto) (0.0-2.0) K/mm3 Absolute Neuts (auto) (1.4-6.5) Sodium 144 (132-148) mmol/L Potassium 3.4 L (3.6-5.0) mmol/L Chloride 107 (98-107) mmol/L Carbon Dioxide 34 H (21-33) mmol/L Anion Gap 7 L (10-20) BUN 22 H (7-21) mg/dL Creatinine 1.0 (0.8-1.5) mg/dl Est GFR ( Amer) > 60 Est GFR (Non-Af Amer) > 60 POC Glucose (mg/dL) 75 (65-110) mg/dL Random Glucose 82 (70-110) mg/dL Calcium 9.9 (8.4-10.5) mg/dL Magnesium 2.0 (1.7-2.2) mg/dL Total Bilirubin (0.2-1.3) mg/dL AST (17-59) U/L ALT (7-56) U/L Alkaline Phosphatase (38-126) U/L Total Protein (5.8-8.3) g/dL Albumin (3.0-4.8) g/dL Globulin gm/dL Albumin/Globulin Ratio (1.1-1.8) Urine Color Light yellow (YELLOW) Urine Appearance Clear (CLEAR) Urine pH 6.5 (4.7-8.0) Ur Specific [place] 1.015 (1.005-1.035) Urine Protein 30 H (<30 mg/dL) mg/dL Urine Glucose (UA) Negative (NEGATIVE) mg/dL Urine Ketones Trace H (NEGATIVE) mg/dL Urine Blood Trace-intact H (NEGATIVE) Urine Nitrate Negative (NEGATIVE) Urine Bilirubin Negative (NEGATIVE) Urine Urobilinogen 0.2 (<1 E.U./dL) E.U./dL Ur Leukocyte Esterase Negative (NEGATIVE) Deejay/uL Urine RBC 1 - 3 H (0-2) /hpf Urine WBC None (0-6) /hpf Laboratory Results - last 24 hr 07/17/18 07/17/18 07/17/18 11:14 16:00 16:15 WBC RBC Hgb Hct MCV MCH MCHC RDW Plt Count MPV Neut % (Auto) Lymph % (Auto) Alcorn % (Auto) Eos % (Auto) Baso % (Auto) Lymph # (Auto) Alcorn # (Auto) Eos # (Auto) Baso # (Auto) Absolute Neuts (auto) Sodium 144 Potassium 3.4 L Chloride 107 Carbon Dioxide 34 H Anion Gap 7 L BUN 22 H Creatinine 1.0 Est GFR ( Amer) > 60 Est GFR (Non-Af Amer) > 60 POC Glucose (mg/dL) 75 Random Glucose 82 Calcium 9.9 Magnesium 2.0 Total Bilirubin AST ALT Alkaline Phosphatase Total Protein Albumin Globulin Albumin/Globulin Ratio Urine Color Light yellow Urine Appearance Clear Urine pH 6.5 Ur Specific [place] 1.015 Urine Protein 30 H Urine Glucose (UA) Negative Urine Ketones Trace H Urine Blood Trace-intact H Urine Nitrate Negative Urine Bilirubin Negative Urine Urobilinogen 0.2 Ur Leukocyte Esterase Negative Urine RBC 1 - 3 H Urine WBC None 07/17/18 07/18/18 07/18/18 21:46 00:15 01:53 WBC RBC Hgb Hct MCV MCH MCHC RDW Plt Count MPV Neut % (Auto) Lymph % (Auto) Alcorn % (Auto) Eos % (Auto) Baso % (Auto) Lymph # (Auto) Alcorn # (Auto) Eos # (Auto) Baso # (Auto) Absolute Neuts (auto) Sodium Potassium Chloride Carbon Dioxide Anion Gap BUN Creatinine Est GFR ( Amer) Est GFR (Non-Af Amer) POC Glucose (mg/dL) 79 84 75 Random Glucose Calcium Magnesium Total Bilirubin AST ALT Alkaline Phosphatase Total Protein Albumin Globulin Albumin/Globulin Ratio Urine Color Urine Appearance Urine pH Ur Specific [place] Urine Protein Urine Glucose (UA) Urine Ketones Urine Blood Urine Nitrate Urine Bilirubin Urine Urobilinogen Ur Leukocyte Esterase Urine RBC Urine WBC 07/18/18 07/18/18 07/18/18 05:20 05:20 06:13 WBC 18.7 H RBC 3.59 Hgb 9.2 L Hct 31.1 L MCV 86.6 MCH 25.6 MCHC 29.6 L RDW 20.8 H Plt Count 653 H MPV 10.1 Neut % (Auto) 83.7 H Lymph % (Auto) 6.7 L Alcorn % (Auto) 5.1 Eos % (Auto) 4.3 Baso % (Auto) 0.2 Lymph # (Auto) 1.3 Alcorn # (Auto) 1.0 H Eos # (Auto) 0.8 H Baso # (Auto) 0.04 Absolute Neuts (auto) 15.59 H Sodium 146 Potassium 3.2 L Chloride 110 H Carbon Dioxide 30 Anion Gap 10 BUN 18 Creatinine 1.1 Est GFR ( Amer) > 60 Est GFR (Non-Af Amer) > 60 POC Glucose (mg/dL) 72 Random Glucose 86 Calcium 10.2 Magnesium Total Bilirubin 0.5 AST 44 ALT 48 Alkaline Phosphatase 349 H Total Protein 6.2 Albumin 2.8 L Globulin 3.4 Albumin/Globulin Ratio 0.8 L Urine Color Urine Appearance Urine pH Ur Specific [place] Urine Protein Urine Glucose (UA) Urine Ketones Urine Blood Urine Nitrate Urine Bilirubin Urine Urobilinogen Ur Leukocyte Esterase Urine RBC Urine WBC Radiology Impressions: Radiology Impressions Abdomen/Pelvis CT 07/17/18 09:00 IMPRESSION: The PEG tube seen previously in the subcutaneous fat of the anterior abdominal wall has been removed. The current study shows a moderate amount of subcutaneous air as well as intraperitoneal air. There is no evidence of an abscess collection. Chest X-Ray 07/17/18 17:08 IMPRESSION: Stable infiltrates. Stable, satisfactory position of support apparatus. Fingerstick Blood Sugar Results: 72 Critical Care Progress Note - Ventilator Checklist Head of Bed 30 Degrees: Yes Daily Sedation Vacation: Yes Daily Assessment of Readiness to Wean: Yes Daily Spontaneous Breathing Trial: Yes PUD Prophalyxis: Yes DVT Prophylaxis: Yes Oral Care with Chlorhexidine Gluconate {CHG}: Yes - Vent Settings MODE:: PRVC TIDAL VOLUME:: 500 RESP RATE:: 15 FIO2:: 50 PEEP:: 5 - Nutrition Nutrition: Nutrition Category Date Time Status NPO Diet [DIET] Diets 07/16/18 Breakfast Ordered Assessment/Plan - Assessment and Plan (Free Text) Assessment: 87 y/o male admitted to ICU for AMS in the setting of new onset seizure episode. He developed respiratory failure requiring ventilation s/p trach placed. Plan: Neuro: -awake, non verbal -CT head negative for ICH, mass, edema -EEG negative for seizure , no status epilepticus -CSF cx negative. HSV negative -continue keppra 500 mg q12 Cardio: -HFpEF -continue norvasc, lipitor -maintain MAP>65 Pulm: -Ventilator dependent respiratory failure s/p trach insertion -b/l PNA. continue abx as per ID -on trach vent 500/15/5/50% -continue duoneb prn GI: -dislodged PEG tube -PEG tube removed, plan for G tube by surgery -CT A/P (07/17) usbcutaneous/intrapertoneal air, no evidence of abscess collection -resumed enteral feeding Renal: -hypokalemia. K repleted, lab repeated this pm, continue monitoring -maintain euvolemia -I/O 5804/[id number] continue monitoring ID: -continue vanc, cefepime, flagyl per ID per ID -procal elevated -leukocytosis is trending down. Afebrile -sputum cx positive for GNR -BCx negative to date -cdiff, MRSA negative -ID following Endo: -right thyroid mass -transfered to [facility] on 06/27 [place] [facility] [place] s/p tach and PEG tube placement -no surgical intervention needed Prophylaxis: GI ppx Protonix DVT SCD, Heparin sq Continue ICU management Full code Case reviewed and plan discussed with attending physician Dr Brandy Ennis <Jas Ennis - Last Filed: 07/18/18 16:48> CCU Objective - Medications Active Medications: Active Medications Generic Name Dose Route Start Last Admin Trade Name Freq PRN Reason Stop Dose Admin Amino Acid Protein 15 gm 07/15/18 10:00 07/17/18 19:03 Prostat 15 G Packet GT Not Given BID LUZ MARINA Amlodipine Besylate 5 mg 07/15/18 10:00 07/18/18 09:24 Norvasc PO 5 mg DAILY LUZ MARINA Administration Atorvastatin Calcium 20 mg 07/15/18 17:00 07/17/18 19:03 Lipitor PO Not Given DIN LUZ MARINA Dextrose 0 ml 07/14/18 22:13 07/17/18 00:59 Dextrose 50% Inj IV 50 ml STAT PRN Administration Hypoglycemia Protocol Protocol Heparin Sodium (Porcine) 5,000 units 07/15/18 06:00 07/18/18 14:10 Heparin SC 5,000 units Q8 LUZ MARINA Administration Protocol Dextrose 1,000 mls @ 0 mls/hr 07/14/18 22:13 Dextrose 5% In Water 1000 Ml IV .Q0M PRN Hypoglycemia Protocol Protocol Per Protocol Cefepime HCl 1 gm in 100 mls @ 100 mls/hr 07/15/18 17:00 07/18/18 14:09 Maxipime 1gm IVPB 100 mls/hr Q8 LUZ MARINA Administration Protocol Metronidazole 500 mg in 100 mls @ 100 mls/hr 07/15/18 22:15 07/18/18 14:09 Flagyl IVPB 100 mls/hr Q8 LUZ MARINA Administration Protocol Levetiracetam 500 mg in 100 mls @ 400 mls/hr 07/16/18 10:00 07/18/18 09:23 Keppra 500mg Ivpb IVPB 400 mls/hr Q12 LUZ MARINA Administration Dextrose/Sodium Chloride 1,000 mls @ 75 mls/hr 07/17/18 10:45 07/18/18 14:10 Dextrose 5%/0.45% Ns 1000 Ml IV 75 mls/hr .[id number] LUZ MARINA Administration Insulin Human Regular 0 units 07/15/18 12:00 07/18/18 14:11 Humulin R Med SC Not Given Q6H LUZ MARINA Protocol Morphine Sulfate 4 mg 07/14/18 22:13 07/18/18 00:24 Morphine IVP 4 mg Q4H PRN Administration Pain, moderate (4-7) Nystatin 1 gm 07/16/18 22:00 07/18/18 09:33 Nystop Topical Powder TOP 1 applic Q12H LUZ MARINA Administration Pantoprazole Sodium 40 mg 07/16/18 10:00 07/18/18 09:26 Protonix Inj IVP 40 mg Q12 LUZ MARINA Administration Senna/Docusate Sodium 1 tab 07/15/18 10:00 07/18/18 14:09 Senokot S 50 Mg-8.6 Mg PO 1 tab BID LUZ MARINA Administration - Patient Studies Lab Studies: Microbiology Studies 07/15/18 14:30 Blood Culture - Preliminary Blood NO GROWTH AFTER 3 DAYS 07/17/18 05:35 Gram Stain - Final Abdomen Lab Studies 07/18/18 07/18/18 07/18/18 Range/Units 15:45 11:35 06:13 WBC (4.5-11.0) 10^3/uL RBC (3.5-6.1) 10^6/uL Hgb (14.0-18.0) g/dL Hct (42.0-52.0) % MCV (80.0-105.0) fl MCH (25.0-35.0) pg MCHC (31.0-37.0) g/dl RDW (11.5-14.5) % Plt Count (120.0-450.0) 10^3/uL MPV (7.0-11.0) fl Neut % (Auto) (50.0-68.0) % Lymph % (Auto) (22.0-35.0) % Alcorn % (Auto) (1.0-6.0) % Eos % (Auto) (1.5-5.0) % Baso % (Auto) (0.0-3.0) % Lymph # (Auto) (1.2-3.4) Alcorn # (Auto) (0.1-0.6) Eos # (Auto) (0.0-0.7) Baso # (Auto) (0.0-2.0) K/mm3 Absolute Neuts (auto) (1.4-6.5) Sodium 144 (132-148) mmol/L Potassium 3.5 L (3.6-5.0) mmol/L Chloride 111 H (98-107) mmol/L Carbon Dioxide 31 (21-33) mmol/L Anion Gap 6 L (10-20) BUN 19 (7-21) mg/dL Creatinine 1.1 (0.8-1.5) mg/dl Est GFR ( Amer) > 60 Est GFR (Non-Af Amer) > 60 POC Glucose (mg/dL) 100 72 (65-110) mg/dL Random Glucose 113 H (70-110) mg/dL Calcium 9.5 (8.4-10.5) mg/dL Magnesium 1.9 (1.7-2.2) mg/dL Total Bilirubin (0.2-1.3) mg/dL AST (17-59) U/L ALT (7-56) U/L Alkaline Phosphatase (38-126) U/L Total Protein (5.8-8.3) g/dL Albumin (3.0-4.8) g/dL Globulin gm/dL Albumin/Globulin Ratio (1.1-1.8) 07/18/18 07/18/18 07/18/18 Range/Units 05:20 05:20 01:53 WBC 18.7 H (4.5-11.0) 10^3/uL RBC 3.59 (3.5-6.1) 10^6/uL Hgb 9.2 L (14.0-18.0) g/dL Hct 31.1 L (42.0-52.0) % MCV 86.6 (80.0-105.0) fl MCH 25.6 (25.0-35.0) pg MCHC 29.6 L (31.0-37.0) g/dl RDW 20.8 H (11.5-14.5) % Plt Count 653 H (120.0-450.0) 10^3/uL MPV 10.1 (7.0-11.0) fl Neut % (Auto) 83.7 H (50.0-68.0) % Lymph % (Auto) 6.7 L (22.0-35.0) % Alcorn % (Auto) 5.1 (1.0-6.0) % Eos % (Auto) 4.3 (1.5-5.0) % Baso % (Auto) 0.2 (0.0-3.0) % Lymph # (Auto) 1.3 (1.2-3.4) Alcorn # (Auto) 1.0 H (0.1-0.6) Eos # (Auto) 0.8 H (0.0-0.7) Baso # (Auto) 0.04 (0.0-2.0) K/mm3 Absolute Neuts (auto) 15.59 H (1.4-6.5) Sodium 146 (132-148) mmol/L Potassium 3.2 L (3.6-5.0) mmol/L Chloride 110 H (98-107) mmol/L Carbon Dioxide 30 (21-33) mmol/L Anion Gap 10 (10-20) BUN 18 (7-21) mg/dL Creatinine 1.1 (0.8-1.5) mg/dl Est GFR ( Amer) > 60 Est GFR (Non-Af Amer) > 60 POC Glucose (mg/dL) 75 (65-110) mg/dL Random Glucose 86 (70-110) mg/dL Calcium 10.2 (8.4-10.5) mg/dL Magnesium (1.7-2.2) mg/dL Total Bilirubin 0.5 (0.2-1.3) mg/dL AST 44 (17-59) U/L ALT 48 (7-56) U/L Alkaline Phosphatase 349 H (38-126) U/L Total Protein 6.2 (5.8-8.3) g/dL Albumin 2.8 L (3.0-4.8) g/dL Globulin 3.4 gm/dL Albumin/Globulin Ratio 0.8 L (1.1-1.8) 07/18/18 07/17/18 07/17/18 Range/Units 00:15 21:46 16:15 WBC (4.5-11.0) 10^3/uL RBC (3.5-6.1) 10^6/uL Hgb (14.0-18.0) g/dL Hct (42.0-52.0) % MCV (80.0-105.0) fl MCH (25.0-35.0) pg MCHC (31.0-37.0) g/dl RDW (11.5-14.5) % Plt Count (120.0-450.0) 10^3/uL MPV (7.0-11.0) fl Neut % (Auto) (50.0-68.0) % Lymph % (Auto) (22.0-35.0) % Alcorn % (Auto) (1.0-6.0) % Eos % (Auto) (1.5-5.0) % Baso % (Auto) (0.0-3.0) % Lymph # (Auto) (1.2-3.4) Alcorn # (Auto) (0.1-0.6) Eos # (Auto) (0.0-0.7) Baso # (Auto) (0.0-2.0) K/mm3 Absolute Neuts (auto) (1.4-6.5) Sodium 144 (132-148) mmol/L Potassium 3.4 L (3.6-5.0) mmol/L Chloride 107 (98-107) mmol/L Carbon Dioxide 34 H (21-33) mmol/L Anion Gap 7 L (10-20) BUN 22 H (7-21) mg/dL Creatinine 1.0 (0.8-1.5) mg/dl Est GFR ( Amer) > 60 Est GFR (Non-Af Amer) > 60 POC Glucose (mg/dL) 84 79 (65-110) mg/dL Random Glucose 82 (70-110) mg/dL Calcium 9.9 (8.4-10.5) mg/dL Magnesium 2.0 (1.7-2.2) mg/dL Total Bilirubin (0.2-1.3) mg/dL AST (17-59) U/L ALT (7-56) U/L Alkaline Phosphatase (38-126) U/L Total Protein (5.8-8.3) g/dL Albumin (3.0-4.8) g/dL Globulin gm/dL Albumin/Globulin Ratio (1.1-1.8) Laboratory Results - last 24 hr 07/17/18 07/17/18 07/18/18 16:15 21:46 00:15 WBC RBC Hgb Hct MCV MCH MCHC RDW Plt Count MPV Neut % (Auto) Lymph % (Auto) Alcorn % (Auto) Eos % (Auto) Baso % (Auto) Lymph # (Auto) Alcorn # (Auto) Eos # (Auto) Baso # (Auto) Absolute Neuts (auto) Sodium 144 Potassium 3.4 L Chloride 107 Carbon Dioxide 34 H Anion Gap 7 L BUN 22 H Creatinine 1.0 Est GFR ( Amer) > 60 Est GFR (Non-Af Amer) > 60 POC Glucose (mg/dL) 79 84 Random Glucose 82 Calcium 9.9 Magnesium 2.0 Total Bilirubin AST ALT Alkaline Phosphatase Total Protein Albumin Globulin Albumin/Globulin Ratio 07/18/18 07/18/18 07/18/18 01:53 05:20 05:20 WBC 18.7 H RBC 3.59 Hgb 9.2 L Hct 31.1 L MCV 86.6 MCH 25.6 MCHC 29.6 L RDW 20.8 H Plt Count 653 H MPV 10.1 Neut % (Auto) 83.7 H Lymph % (Auto) 6.7 L Alcorn % (Auto) 5.1 Eos % (Auto) 4.3 Baso % (Auto) 0.2 Lymph # (Auto) 1.3 Alcorn # (Auto) 1.0 H Eos # (Auto) 0.8 H Baso # (Auto) 0.04 Absolute Neuts (auto) 15.59 H Sodium 146 Potassium 3.2 L Chloride 110 H Carbon Dioxide 30 Anion Gap 10 BUN 18 Creatinine 1.1 Est GFR ( Amer) > 60 Est GFR (Non-Af Amer) > 60 POC Glucose (mg/dL) 75 Random Glucose 86 Calcium 10.2 Magnesium Total Bilirubin 0.5 AST 44 ALT 48 Alkaline Phosphatase 349 H Total Protein 6.2 Albumin 2.8 L Globulin 3.4 Albumin/Globulin Ratio 0.8 L 07/18/18 07/18/18 07/18/18 06:13 11:35 15:45 WBC RBC Hgb Hct MCV MCH MCHC RDW Plt Count MPV Neut % (Auto) Lymph % (Auto) Alcorn % (Auto) Eos % (Auto) Baso % (Auto) Lymph # (Auto) Alcorn # (Auto) Eos # (Auto) Baso # (Auto) Absolute Neuts (auto) Sodium 144 Potassium 3.5 L Chloride 111 H Carbon Dioxide 31 Anion Gap 6 L BUN 19 Creatinine 1.1 Est GFR ( Amer) > 60 Est GFR (Non-Af Amer) > 60 POC Glucose (mg/dL) 72 100 Random Glucose 113 H Calcium 9.5 Magnesium 1.9 Total Bilirubin AST ALT Alkaline Phosphatase Total Protein Albumin Globulin Albumin/Globulin Ratio Radiology Impressions: Radiology Impressions Gallbladder Ultrasound 07/17/18 15:35 IMPRESSION: Multiple simple right renal cortical cysts. Poor visualization of gallbladder. Fatty infiltration of the liver. No biliary dilatation. The preliminary findings for this examination were reported by [facility] Radiology at 9 p.m. on 07/17/2018. There is concurrence of this report with the preliminary findings. Chest X-Ray 07/17/18 17:08 IMPRESSION: Stable infiltrates. Stable, satisfactory position of support apparatus. Chest X-Ray 07/18/18 00:30 IMPRESSION: Right basilar infiltrate. Possible pneumonia. Chest X-Ray 07/18/18 07:31 IMPRESSION: Left perihilar opacity. Small bilateral pleural effusion. EKG/Cardiology Studies: Cardiology / EKG Studies 07/18/18 15:52 EKG [ELECTROCARDIOGRAM] Stat Comment: Reason For Exam: changes in hr Critical Care Progress Note - Nutrition Nutrition: Nutrition Category Date Time Status NPO Diet [DIET] Diets 07/16/18 Breakfast Ordered Addendum Addendum: 07/18/18 16:47 MICU Attending Addendum: Patient seen and examined with housestaff, case discussed on rounds. I agree with resident note above with the following additions/exceptions: 87M hx of CHF, renal cancer s/p nephrectomy, COPD, seizures, and a thyroid mass being managed for AMS and vent depedant resp failure [place] [facility] [place]. Was being tx for seizures/AMS. Noted to have large thyroid mass. Transferred to [facility] on 06/27 where he had a trach/peg placed. [place] [facility] [place] 07/16 concern for leaking PEG Tube. Removed by surgical team. Plan for intra-op Gtube placment later in the week by surg team, dobhoff inserted to start tube feeds enterally Currently on low vt on vent, plan to wean to trach collar post-surgical procedure Growing GNR psuedomaons in sputum on broad abx as per ID cefepime, vanc, flagyl. Covering a BL PNA as well. CDfiff neg Keppra for seizures replace mag and K, repeat chem this afternoon given severe hypoK Lines: PICC removed 07/15; Subclavian TLC placed 07/16 hep Sq dvt ppx ppi for gi ppx Rest of care as per resident note above Jas Ennis MD Attending Pulmonary Critical Care Sleep Medicine
--- NOTE | 2018-07-18 08:59 | US ---
Date of service: 07/17/2018 HISTORY: elevated alk phos, critically ill COMPARISON: None. TECHNIQUE: Sonographic evaluation of the right upper quadrant of the abdomen. FINDINGS: LIVER: Measures 13.8 cm in length. Diffusely increased echogenicity of the liver parenchyma. Consistent with fatty infiltration. No mass. No biliary dilatation. GALLBLADDER: Obscured. Unable to evaluate. COMMON BILE DUCT: Measures 5 mm. No stones. No dilatation. PANCREAS: Unremarkable as visualized. No mass. No ductal dilatation. RIGHT KIDNEY: Measures 8.7 cm in length. Lower pole simple cortical cyst, 6.2 x 6.3 x 6.6 cm. Mid renal cortical cyst, 4.0 x 4.2 x 4.4 cm. No solid mass. No calculus or hydronephrosis. AORTA: No aneurysmal dilatation. IVC: Unremarkable. OTHER FINDINGS: None . IMPRESSION: Multiple simple right renal cortical cysts. Poor visualization of gallbladder. Fatty infiltration of the liver. No biliary dilatation. The preliminary findings for this examination were reported by [facility] at 9 p.m. on 07/17/2018. There is concurrence of this report with the preliminary findings.
--- NOTE | 2018-07-18 09:02 | RAD ---
Date of service: 07/18/2018 HISTORY: Evaluate feeding tube position COMPARISON: 07/17/2018 TECHNIQUE: One view obtained. FINDINGS: LUNGS: Opacity at right base suspicious for pneumonia. Evaluation limited by oblique positioning. This represents interval change from the prior examination. PLEURA: No significant pleural effusion identified, no pneumothorax apparent. CARDIOVASCULAR: Tracheostomy tube and nasogastric tube are unchanged. There is atherosclerotic calcification of the thoracic aorta. Normal cardiac size. No pulmonary vascular congestion. OSSEOUS STRUCTURES: No significant abnormalities. VISUALIZED UPPER ABDOMEN: Normal. OTHER FINDINGS: None. IMPRESSION: Right basilar infiltrate. Possible pneumonia.
--- NOTE | 2018-07-18 09:07 | CON ---
DATE OF CONSULTATION: 07/18/2018 PULMONARY CONSULTATION REASON FOR PULMONARY CONSULTATION: Respiratory failure. REFERRING PHYSICIAN FOR THIS PULMONARY CONSULTATION: Dr. Aleksey Neal SOURCE OF HISTORY: History is obtained via extensive discussion with the nursing staff. The patient is currently intubated and sedated. HISTORY OF PRESENT ILLNESS: The patient is a chronically ill, 87-year-old male, with past medical history significant for renal cancer, status post nephrectomy, chronic obstructive pulmonary disease, congestive heart failure, who presented to [facility] - originally on 06/23/2018 - with seizures. In the emergency room, the patient was unresponsive. Code stroke was called and the patient was intubated. During the admission, a thyroid mass was discovered - After stabilization, the patient was transferred to [facility] - for possible thyroid surgery. As it turns out, the patient did not receive thyroid surgery. He did receive a tracheostomy. He was then transferred back to [facility] for additional evaluation. Again, I did discuss the case with the nursing staff at length. The patient did present back to [facility] on 07/15/2018. On admission, the patient was noted to have bilateral pulmonary infiltrates - consistent with pneumonia. Dr. Fortune (Infectious Disease) was called on the case and instituted appropriate antibiotic therapy. There has been resolution of his temperatures. Again, the patient did receive a tracheostomy at [facility]. I am thus asked to evaluate on this case for additional ventilator management. REVIEW OF SYSTEMS: There have been no acute pulmonary symptoms - as the patient has remained intubated. There is no history of nausea, vomiting, or diarrhea. No known acute urinary symptoms. Rest of the review of systems is negative. ALLERGIES: NO KNOWN DEMONSTRABLE ALLERGIES. SOCIAL HISTORY: Positive for tobacco and negative for alcohol. FAMILY HISTORY: No inheritable diseases. HOME MEDICATIONS: Include clonidine, Ultram, Flomax, omeprazole, levothyroxine, Lasix, Zyloprim. PHYSICAL EXAMINATION: GENERAL: The patient remains on the ventilator. He is sedated. VITAL SIGNS: Temperature is 98.5, pulse 65, respirations 15/15, blood pressure 133/69. HEENT: Normocephalic, atraumatic. Positive tracheostomy. NECK: No JVD. CARDIOVASCULAR: Systolic ejection murmur at the lower left sternal border. No S3 gallop. LUNGS: Decreased breath sounds at the bases. Very minimal bilateral rhonchi. No wheezing. EXTREMITIES: Mild edema. No cyanosis or clubbing. GASTROINTESTINAL: Abdomen is soft, nondistended. Bowel sounds are positive. SKIN: No acute rash. NEUROLOGIC: Exam is limited at the present time. PERTINENT LABORATORY DATA: Chest x-ray was done this morning and reviewed. There are bilateral lower lobe infiltrates noted. CBC: White count 18.7K, hemoglobin 9.2, hematocrit 31.1, platelets of 653,000. Complete metabolic profile: Potassium 3.4, carbon dioxide 34, BUN 22. Rest of the metabolic profile is within normal limits. IMPRESSION: 1. Respiratory failure. 2. Bilateral pneumonia. 3. Chronic obstructive pulmonary disease. 4. Seizure disorder. 5. Thyroid mass. 6. Anemia. PLAN: Again, I did discuss the case with the nursing staff at length. I have also reviewed the chart at length. The patient is currently intubated and sedated. The patient did present to [facility] - transferred back from [facility] - status post tracheostomy. Again, as above, thyroid surgery was never performed. I did review the chest x-ray as above. There are bilateral lower lobe infiltrates noted. I would continue with the antibiotic coverage as per Infectious Disease. Input by Dr. Fortune is noted. The temperatures have resolved. The leukocytosis is improved/decreased. On physical exam, there is no significant bronchospasm noted. Input by Cardiology (Dr. Cristina) is also noted. The patient remains critically ill with overall very poor prognosis. I will discuss the above with the entire ICU team in the next few moments. I will also discuss the above with Dr. Neal later this morning. Thank you very much for this pulmonary consultation. Theo Rivas MD MTDChandu
[2018-07-18] MEDS: levETIRAcetam 500mg IVPB 500 MG/100 ML BAG IVPB SCH ×2 (09:23→22:19)
[2018-07-18] MEDS: Nystatin 100,000 Units/gm Topical Pow(15 gm) TOP SCH ×2 (09:33→22:20)
--- NOTE | 2018-07-18 09:50 | RAD ---
Date of service: 07/18/2018 HISTORY: NG tube placement COMPARISON: 07/18/2018 at 1:19 a.m. TECHNIQUE: 1 view obtained. FINDINGS: LUNGS: Left perihilar opacity. Possible pneumonia. Follow-up advised. PLEURA: Small bilateral pleural effusion. CARDIOVASCULAR: No aortic atherosclerotic calcification present. Normal cardiac size. Tracheostomy tube unchanged. Nasogastric tube noted. OSSEOUS STRUCTURES: No significant abnormalities. VISUALIZED UPPER ABDOMEN: Normal. OTHER FINDINGS: None. IMPRESSION: Left perihilar opacity. Small bilateral pleural effusion.
[2018-07-18] MEDS: Prostat 15 g packet GT SCH ×2 (11:00→18:37)
[2018-07-18] MEDS: Docusate-Senna 50 mg-8.6 mg Tab PO SCH ×2 (14:09→18:36)
[2018-07-18] MEDS: Dextrose 5%/0.45% NS 1,000 ML IV SCH (14:10)
--- NOTE | 2018-07-18 14:48 | CP.PCM.PN ---
Subjective - Date & Time of Evaluation Date of Evaluation: 07/18/18 Time of Evaluation: 07:00 - Subjective Subjective: GENERAL SURGERY PROGRESS NOTE FOR DR. ROLLE Patient seen and examined at bedside. No acute events overnight. Objective - Vital Signs/Intake and Output Vital Signs (last 24 hours): Temp Pulse Resp BP Pulse Ox 98.5 F 61 16 131/77 98 07/17/18 20:00 07/18/18 10:43 07/18/18 10:43 07/18/18 10:01 07/18/18 10:43 - Medications Medications: Current Medications Amino Acid Protein (Prostat 15 G Packet) 15 gm GT BID [facility] Last Admin: 07/17/18 19:03 Dose: Not Given Amlodipine Besylate (Norvasc) 5 mg PO DAILY [facility] Last Admin: 07/18/18 09:24 Dose: 5 mg Atorvastatin Calcium (Lipitor) 20 mg PO DIN [facility] Last Admin: 07/17/18 19:03 Dose: Not Given Dextrose (Dextrose 50% Inj) 0 ml IV STAT PRN; Protocol PRN Reason: Hypoglycemia Protocol Last Admin: 07/17/18 00:59 Dose: 50 ml Heparin Sodium (Porcine) (Heparin) 5,000 units SC Q8 [facility]; Protocol Last Admin: 07/18/18 14:10 Dose: 5,000 units Dextrose (Dextrose 5% In Water 1000 Ml) 1,000 mls @ 0 mls/hr IV .Q0M PRN; Protocol PRN Reason: Hypoglycemia Protocol Cefepime HCl (Maxipime 1gm) 1 gm in 100 mls @ 100 mls/hr IVPB Q8 [facility]; Protocol Last Admin: 07/18/18 14:09 Dose: 100 mls/hr Metronidazole (Flagyl) 500 mg in 100 mls @ 100 mls/hr IVPB Q8 [facility]; Protocol Last Admin: 07/18/18 14:09 Dose: 100 mls/hr Levetiracetam (Keppra 500mg Ivpb) 500 mg in 100 mls @ 400 mls/hr IVPB Q12 [facility] Last Admin: 07/18/18 09:23 Dose: 400 mls/hr Dextrose/Sodium Chloride (Dextrose 5%/0.45% Ns 1000 Ml) 1,000 mls @ 75 mls/hr IV .[id number] [facility] Last Admin: 07/18/18 14:10 Dose: 75 mls/hr Insulin Human Regular (Humulin R Med) 0 units SC Q6H [facility]; Protocol Last Admin: 07/18/18 14:11 Dose: Not Given Morphine Sulfate (Morphine) 4 mg IVP Q4H PRN PRN Reason: Pain, moderate (4-7) Last Admin: 07/18/18 00:24 Dose: 4 mg Nystatin (Nystop Topical Powder) 1 gm TOP Q12H [facility] Last Admin: 07/18/18 09:33 Dose: 1 applic Pantoprazole Sodium (Protonix Inj) 40 mg IVP Q12 [facility] Last Admin: 07/18/18 09:26 Dose: 40 mg Senna/Docusate Sodium (Senokot S 50 Mg-8.6 Mg) 1 tab PO BID [facility] Last Admin: 07/18/18 14:09 Dose: 1 tab - Labs Labs: 07/18/18 05:20 07/18/18 05:20 APTT 29.7 Seconds (26.9-38.3) 07/15/18 08:30 - Constitutional Appears: No Acute Distress - Respiratory Exam Respiratory Exam: NORMAL BREATHING PATTERN (trach). absent: Respiratory Distress - Cardiovascular Exam Cardiovascular Exam: +S1, +S2 - GI/Abdominal Exam GI & Abdominal Exam: Soft. absent: Distended, Firm, Guarding, Rigid, Tenderness, Rebound Assessment and Plan - Assessment and Plan (Free Text) Assessment: 87M w/ dislodged PEG tube Plan: - May use Dobhoff for tube feeds - Plan for open G tube insertion later this week - Further care as per ICU Discussed plan with Dr. Hema Garcia PGY-4
--- NOTE | 2018-07-18 15:24 | PN ---
DATE: 07/18/2018 SUBJECTIVE: He is on the trach vent, he has got a feeding tube which is not working well. He has a oropharyngeal tube in place to feed him. He is on dextrose, Flagyl, heparin, Keppra, Lipitor, Maxipime, Norvasc, morphine, nystatin, potassium, Pro-Stat, Protonix and Senokot. PHYSICAL EXAMINATION: VITAL SIGNS: He has a 98.5 temperature, 61 pulse, 163/89 blood pressure, and 100% O2 sat on oxygen. HEENT: Head is atraumatic, normocephalic. He has got a trach. HEART: Regular rate. LUNGS: Decreased breath sounds. ABDOMEN: Soft, obese. He has got a PEG tube. EXTREMITIES: Trace edema. He is tied down because he pulls things out for his safety. LABORATORY DATA: He has a 18.7 white count, 9.2 hemoglobin, 31.1 hematocrit with 683 platelets. He has a 146 sodium, potassium 3.2, he needs to have potassium replaced. BUN 80, creatinine 1.1. GFR is greater than 60, sugar is 86, calcium is 10.2, total bili is 0.5, AST is 44, ALT is 48, alk phos 349. He has Pseudomonas in his gram stain. 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 He needs to go to a long-term care facility as per family. When that could be arranged, we will transfer him there. He had potassium replaced this morning. He has got multiple issues for acute respiratory failure, congestive heart failure, severe sepsis, pneumonia, renal insufficiency, chronic obstructive pulmonary disease, and thyroid mass. Aleksey Neal DO
[2018-07-18 16:06] LABS: BLOOD UREA NITROGEN 19 mg/dL (7-21); CALCIUM 9.5 mg/dL (8.4-10.5); GFR NON-AFRICAN AMERICAN > 60
--- NOTE | 2018-07-18 16:06 | CP.PCM.PN ---
<Abe Cunningham - Last Filed: 07/18/18 16:00> Subjective - Date & Time of Evaluation Date of Evaluation: 07/18/18 Time of Evaluation: 09:58 - Subjective Subjective: Abe Cunningham D.O. PGY-3, Internal Medicine Resident, Infectious Disease Progress Note 87 year old male with a PMH of heart failure, renal Ca s/p nephrectomy, and COPD who was found to have a thyroid mass, was transferred temporarily to [facility] and then transferred back. Infectious disease consultation was requested. Patient was seen and examined at bedside. Trached. Awake. Appears comfortable. Objective - Vital Signs/Intake and Output Vital Signs (last 24 hours): Temp Pulse Resp BP Pulse Ox 98.5 F 61 16 131/77 98 07/17/18 20:00 07/18/18 10:43 07/18/18 10:43 07/18/18 10:01 07/18/18 10:43 - Medications Medications: Current Medications Amino Acid Protein (Prostat 15 G Packet) 15 gm GT BID [facility] Last Admin: 07/17/18 19:03 Dose: Not Given Amlodipine Besylate (Norvasc) 5 mg PO DAILY [facility] Last Admin: 07/18/18 09:24 Dose: 5 mg Atorvastatin Calcium (Lipitor) 20 mg PO DIN [facility] Last Admin: 07/17/18 19:03 Dose: Not Given Dextrose (Dextrose 50% Inj) 0 ml IV STAT PRN; Protocol PRN Reason: Hypoglycemia Protocol Last Admin: 07/17/18 00:59 Dose: 50 ml Heparin Sodium (Porcine) (Heparin) 5,000 units SC Q8 [facility]; Protocol Last Admin: 07/18/18 14:10 Dose: 5,000 units Dextrose (Dextrose 5% In Water 1000 Ml) 1,000 mls @ 0 mls/hr IV .Q0M PRN; Protocol PRN Reason: Hypoglycemia Protocol Cefepime HCl (Maxipime 1gm) 1 gm in 100 mls @ 100 mls/hr IVPB Q8 [facility]; Protocol Last Admin: 07/18/18 14:09 Dose: 100 mls/hr Metronidazole (Flagyl) 500 mg in 100 mls @ 100 mls/hr IVPB Q8 [facility]; Protocol Last Admin: 07/18/18 14:09 Dose: 100 mls/hr Levetiracetam (Keppra 500mg Ivpb) 500 mg in 100 mls @ 400 mls/hr IVPB Q12 [facility] Last Admin: 07/18/18 09:23 Dose: 400 mls/hr Dextrose/Sodium Chloride (Dextrose 5%/0.45% Ns 1000 Ml) 1,000 mls @ 75 mls/hr IV .[id number] [facility] Last Admin: 07/18/18 14:10 Dose: 75 mls/hr Insulin Human Regular (Humulin R Med) 0 units SC Q6H [facility]; Protocol Last Admin: 07/18/18 14:11 Dose: Not Given Morphine Sulfate (Morphine) 4 mg IVP Q4H PRN PRN Reason: Pain, moderate (4-7) Last Admin: 07/18/18 00:24 Dose: 4 mg Nystatin (Nystop Topical Powder) 1 gm TOP Q12H [facility] Last Admin: 07/18/18 09:33 Dose: 1 applic Pantoprazole Sodium (Protonix Inj) 40 mg IVP Q12 [facility] Last Admin: 07/18/18 09:26 Dose: 40 mg Senna/Docusate Sodium (Senokot S 50 Mg-8.6 Mg) 1 tab PO BID [facility] Last Admin: 07/18/18 14:09 Dose: 1 tab - Labs Labs: 07/18/18 05:20 07/18/18 05:20 APTT 29.7 Seconds (26.9-38.3) 07/15/18 08:30 - Constitutional Appears: Chronically Ill - Head Exam Head Exam: ATRAUMATIC, NORMOCEPHALIC - Eye Exam Eye Exam: absent: Scleral icterus - ENT Exam ENT Exam: Mucous Membranes Moist - Neck Exam Additional comments: s/p trach - Respiratory Exam Respiratory Exam: Clear to Ausculation Bilateral. absent: Rhonchi, Wheezes - Cardiovascular Exam Cardiovascular Exam: +S1, +S2. absent: Gallop, Rubs - GI/Abdominal Exam GI & Abdominal Exam: Soft, Normal Bowel Sounds. absent: Distended, Tenderness - Neurological Exam Neurological Exam: Alert, Awake - Skin Skin Exam: Dry, Warm Assessment and Plan - Assessment and Plan (Free Text) Assessment: 87 year old male with a PMH of heart failure, renal Ca s/p nephrectomy, and COPD who was found to have a thyroid mass, was transferred temporarily to [facility] and then transferred back. Infectious disease consultation was requested. 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 Malpositioned PEG tube COPD HFpEF Renal insufficiency Renal CA s/p nephrectomy Seizure disorder Pulmonary hypertension Thyroid mass Afebrile more than 24 hrs Leukocytosis appears to be downtrending MRSA screen negative, d/c'ed vancomycin Continue metronidazole Continue cefepime BCx negative 1 day 2 Surgery note reviewed and appreciated We will follow with you Patient was seen and examined and case to be discussed with attending physician Thank you for the pleasure of participating in the care of this interesting patient <DevikaOmer - Last Filed: 07/18/18 18:12> Objective - Vital Signs/Intake and Output Vital Signs (last 24 hours): Temp Pulse Resp BP Pulse Ox 98.5 F 61 16 131/77 98 07/17/18 20:00 07/18/18 10:43 07/18/18 10:43 07/18/18 10:01 07/18/18 10:43 - Medications Medications: Current Medications Amino Acid Protein (Prostat 15 G Packet) 15 gm GT BID [facility] Last Admin: 07/17/18 19:03 Dose: Not Given Amlodipine Besylate (Norvasc) 5 mg PO DAILY [facility] Last Admin: 07/18/18 09:24 Dose: 5 mg Atorvastatin Calcium (Lipitor) 20 mg PO DIN [facility] Last Admin: 07/17/18 19:03 Dose: Not Given Dextrose (Dextrose 50% Inj) 0 ml IV STAT PRN; Protocol PRN Reason: Hypoglycemia Protocol Last Admin: 07/17/18 00:59 Dose: 50 ml Heparin Sodium (Porcine) (Heparin) 5,000 units SC Q8 [facility]; Protocol Last Admin: 07/18/18 14:10 Dose: 5,000 units Dextrose (Dextrose 5% In Water 1000 Ml) 1,000 mls @ 0 mls/hr IV .Q0M PRN; Protocol PRN Reason: Hypoglycemia Protocol Cefepime HCl (Maxipime 1gm) 1 gm in 100 mls @ 100 mls/hr IVPB Q8 [facility]; Protocol Last Admin: 07/18/18 14:09 Dose: 100 mls/hr Metronidazole (Flagyl) 500 mg in 100 mls @ 100 mls/hr IVPB Q8 [facility]; Protocol Last Admin: 07/18/18 14:09 Dose: 100 mls/hr Levetiracetam (Keppra 500mg Ivpb) 500 mg in 100 mls @ 400 mls/hr IVPB Q12 [facility] Last Admin: 07/18/18 09:23 Dose: 400 mls/hr Dextrose/Sodium Chloride (Dextrose 5%/0.45% Ns 1000 Ml) 1,000 mls @ 75 mls/hr IV .[id number] [facility] Last Admin: 07/18/18 14:10 Dose: 75 mls/hr Potassium Chloride (Potassium Chloride 20 Meq/100 Ml) 20 meq in 100 mls @ 50 mls/hr IVPB ONCE ONE Stop: 07/18/18 18:59 Insulin Human Regular (Humulin R Med) 0 units SC Q6H [facility]; Protocol Last Admin: 07/18/18 14:11 Dose: Not Given Morphine Sulfate (Morphine) 4 mg IVP Q4H PRN PRN Reason: Pain, moderate (4-7) Last Admin: 07/18/18 00:24 Dose: 4 mg Nystatin (Nystop Topical Powder) 1 gm TOP Q12H [facility] Last Admin: 07/18/18 09:33 Dose: 1 applic Pantoprazole Sodium (Protonix Inj) 40 mg IVP Q12 [facility] Last Admin: 07/18/18 09:26 Dose: 40 mg Senna/Docusate Sodium (Senokot S 50 Mg-8.6 Mg) 1 tab PO BID [facility] Last Admin: 07/18/18 14:09 Dose: 1 tab - Labs Labs: 07/18/18 05:20 07/18/18 15:45 APTT 29.7 Seconds (26.9-38.3) 07/15/18 08:30 Attending/Attestation - Attestation I have personally seen and examined this patient.: Yes I have fully participated in the care of the patient.: Yes I have reviewed all pertinent clinical information, including history, physical exam and plan: Yes
--- NOTE | 2018-07-18 17:32 | CARD ---
APPROVED REPORT Date of service: 07/18/2018 EKG Measurement Heart [id number] <Conclusion> Sinus bradycardia with marked sinus arrhythmia with 1st degree AV block Right bundle branch block Left anterior fascicular block Bifascicular block NDSTT abnormalities Abnormal ECG
[2018-07-19] MEDS: Cefepime 1gm in NS 100ml 1 GM/100 ML BAG IVPB SCH ×2 (05:03→13:14)
[2018-07-19] MEDS: Dextrose 5%/0.45% NS 1,000 ML IV SCH (05:29)
[2018-07-19 05:51] LABS: ARTERIAL BLOOD GAS HCO3 27.3 mmol/L (21-28); ARTERIAL BLOOD GAS HEMOGLOBIN 8.8 g/dL (11.7-17.4); ARTERIAL BLOOD GAS O2 CAPACITY 12.2 mL/dl (16-24); ARTERIAL BLOOD GAS O2 SAT 98.6 % (95-98); ARTERIAL BLOOD GAS PCO2 35 mm/Hg (35-45); ARTERIAL BLOOD GAS TCO2 28.4 mmol.L (22-28)
[2018-07-19 06:27] LABS: BASO # 0.05 K/mm3 (0.0-2.0); BASO % 0.3 % (0.0-3.0); EOS % 5.7 % (1.5-5.0); HEMOGLOBIN 9.3 g/dL (14.0-18.0); LYMPH # 1.3 (1.2-3.4); LYMPH % 7.1 % (22.0-35.0); MEAN CELL VOLUME 87.9 fl (80.0-105.0); MEAN CORPUSCULAR HEMOGLOBIN 26.1 pg (25.0-35.0); MEAN CORPUSCULAR HGB CONC 29.7 g/dl (31.0-37.0); MEAN PLATELET VOLUME 9.9 fl (7.0-11.0); MONO # 0.7 (0.1-0.6); MONO % 3.9 % (1.0-6.0); RBC 3.56 10^6/uL (3.5-6.1); RED CELL DISTRIBUTION WIDTH 21.6 % (11.5-14.5); WHITE BLOOD COUNT 18.2 10^3/uL (4.5-11.0)
[2018-07-19] MEDS: Insulin Reg-MEDIUM-Coverage SC SCH ×4 (06:31→17:57)
[2018-07-19 06:47] LABS: ALB/GLOB RATIO 0.8 (1.1-1.8); ALBUMIN 2.6 g/dL (3.0-4.8); ALT/SGPT 41 U/L (7-56); AST/SGOT 48 U/L (17-59); BLOOD UREA NITROGEN 18 mg/dL (7-21); CALCIUM 9.7 mg/dL (8.4-10.5); GFR NON-AFRICAN AMERICAN > 60
--- NOTE | 2018-07-19 08:02 | CP.CCUPN ---
<Geoff Fernandez - Last Filed: 07/19/18 11:09> CCU Subjective - Physician Review Subjective (Free Text): Geoff Fernandez DO. Critical Care Progress note Patient seen and examined at bedside. On PRVC trach ventilation. Opens eyes spontaneously, non verbal. No acute events overnight. CCU Objective - Vital Signs / Intake & Output Intake and Output (Last 8hrs): Intake & Output 07/18/18 07/19/18 07/19/18 22:59 06:59 14:59 Intake Total 1600 Output Total 300 Balance 1300 Intake: IV 1600 Left Internal Jugular 1600 Output: Stool 300 - Physical Exam Head: Positive for: Atraumatic, Normocephalic Pupils: Positive for: PERRL Extroacular Muscles: Positive for: EOMI Mouth: Positive for: Moist Mucous Membranes Respiratory/Chest: Positive for: Clear to Auscultation, Good Air Exchange, Decreased Breath Sounds. Negative for: Respiratory Distress, Accessory Muscle Use Cardiovascular: Positive for: Regular Rate and Rhythm, Normal S1, S2. Negative for: Murmurs Abdomen: Negative for: Tenderness, Distention, Normal Bowel Sounds Upper Extremity: Negative for: Edema Lower Extremity: Positive for: Edema Skin: Positive for: Warm, Dry, Normal Color - Medications Active Medications: Active Medications Generic Name Dose Route Start Last Admin Trade Name Freq PRN Reason Stop Dose Admin Amino Acid Protein 15 gm 07/15/18 10:00 07/18/18 18:37 Prostat 15 G Packet GT 15 gm BID LUZ MARINA Administration Amlodipine Besylate 5 mg 07/15/18 10:00 07/18/18 09:24 Norvasc PO 5 mg DAILY LUZ MARINA Administration Atorvastatin Calcium 20 mg 07/15/18 17:00 07/18/18 18:39 Lipitor PO 20 mg DIN LUZ MARINA Administration Dextrose 0 ml 07/14/18 22:13 07/17/18 00:59 Dextrose 50% Inj IV 50 ml STAT PRN Administration Hypoglycemia Protocol Protocol Heparin Sodium (Porcine) 5,000 units 07/15/18 06:00 07/19/18 05:03 Heparin SC 5,000 units Q8 LUZ MARINA Administration Protocol Dextrose 1,000 mls @ 0 mls/hr 07/14/18 22:13 Dextrose 5% In Water 1000 Ml IV .Q0M PRN Hypoglycemia Protocol Protocol Per Protocol Cefepime HCl 1 gm in 100 mls @ 100 mls/hr 07/15/18 17:00 07/19/18 05:03 Maxipime 1gm IVPB 100 mls/hr Q8 LUZ MARINA Administration Protocol Levetiracetam 500 mg in 100 mls @ 400 mls/hr 07/16/18 10:00 07/18/18 22:19 Keppra 500mg Ivpb IVPB 400 mls/hr Q12 LUZ MARINA Administration Dextrose/Sodium Chloride 1,000 mls @ 75 mls/hr 07/17/18 10:45 07/19/18 05:29 Dextrose 5%/0.45% Ns 1000 Ml IV 75 mls/hr .[id number] LUZ MARINA Administration Insulin Human Regular 0 units 07/15/18 12:00 07/19/18 00:00 Humulin R Med SC Not Given Q6H LUZ MARINA Protocol Nystatin 1 gm 07/16/18 22:00 07/18/18 22:20 Nystop Topical Powder TOP 1 applic Q12H LUZ MARINA Administration Pantoprazole Sodium 40 mg 07/16/18 10:00 07/18/18 22:18 Protonix Inj IVP 40 mg Q12 LUZ MARINA Administration Senna/Docusate Sodium 1 tab 07/15/18 10:00 07/18/18 18:36 Senokot S 50 Mg-8.6 Mg PO 1 tab BID LUZ MARINA Administration - Patient Studies Lab Studies: Microbiology Studies 07/17/18 16:00 Urine Culture - Final Urine Random No Growth (<1,000 CFU/ML) 07/17/18 05:35 Gram Stain - Final Abdomen Wound Culture - Preliminary Gram Negative Bunny 07/15/18 14:30 Blood Culture - Preliminary Blood NO GROWTH AFTER 3 DAYS Lab Studies 07/19/18 07/19/18 07/19/18 Range/Units 05:30 05:30 05:25 WBC 18.2 H (4.5-11.0) 10^3/uL RBC 3.56 (3.5-6.1) 10^6/uL Hgb 9.3 L (14.0-18.0) g/dL Hct 31.3 L (42.0-52.0) % MCV 87.9 (80.0-105.0) fl MCH 26.1 (25.0-35.0) pg MCHC 29.7 L (31.0-37.0) g/dl RDW 21.6 H (11.5-14.5) % Plt Count 610 H (120.0-450.0) 10^3/uL MPV 9.9 (7.0-11.0) fl Neut % (Auto) 83.0 H (50.0-68.0) % Lymph % (Auto) 7.1 L (22.0-35.0) % [place] % (Auto) 3.9 (1.0-6.0) % Eos % (Auto) 5.7 H (1.5-5.0) % Baso % (Auto) 0.3 (0.0-3.0) % Lymph # (Auto) 1.3 (1.2-3.4) [place] # (Auto) 0.7 H (0.1-0.6) Eos # (Auto) 1.0 H (0.0-0.7) Baso # (Auto) 0.05 (0.0-2.0) K/mm3 Absolute Neuts (auto) 15.11 H (1.4-6.5) pCO2 35 (35-45) mm/Hg pO2 92.0 (80-100) mm/Hg HCO3 27.3 (21-28) mmol/L ABG pH 7.50 H (7.35-7.45) ABG Total CO2 28.4 H (22-28) mmol.L ABG O2 Saturation 98.6 H (95-98) % ABG O2 Content 12.0 L (15-23) ML/dl ABG Base Excess 4.0 H (-2.0-3.0) mmol/L ABG Hemoglobin 8.8 L (11.7-17.4) g/dL ABG Carboxyhemoglobin 1.5 (0.5-1.5) % POC ABG HHb (Measured) 1.4 (0-5) % ABG Methemoglobin 1.2 (0.0-3.0) % ABG O2 Capacity 12.2 L (16-24) mL/dl Hgb O2 Saturation 96.0 (95.0-98.0) % FiO2 50.0 % Sodium 145 (132-148) mmol/L Potassium 3.5 L (3.6-5.0) mmol/L Chloride 111 H (98-107) mmol/L Carbon Dioxide 30 (21-33) mmol/L Anion Gap 8 L (10-20) BUN 18 (7-21) mg/dL Creatinine 1.0 (0.8-1.5) mg/dl Est GFR ( Amer) > 60 Est GFR (Non-Af Amer) > 60 POC Glucose (mg/dL) (65-110) mg/dL Random Glucose 116 H (70-110) mg/dL Calcium 9.7 (8.4-10.5) mg/dL Phosphorus 2.6 (2.5-4.5) mg/dL Magnesium 1.9 (1.7-2.2) mg/dL Total Bilirubin 0.3 (0.2-1.3) mg/dL AST 48 (17-59) U/L ALT 41 (7-56) U/L Alkaline Phosphatase 285 H (38-126) U/L Total Protein 5.8 (5.8-8.3) g/dL Albumin 2.6 L (3.0-4.8) g/dL Globulin 3.1 gm/dL Albumin/Globulin Ratio 0.8 L (1.1-1.8) 07/19/18 07/18/18 07/18/18 Range/Units 00:01 15:45 11:35 WBC (4.5-11.0) 10^3/uL RBC (3.5-6.1) 10^6/uL Hgb (14.0-18.0) g/dL Hct (42.0-52.0) % MCV (80.0-105.0) fl MCH (25.0-35.0) pg MCHC (31.0-37.0) g/dl RDW (11.5-14.5) % Plt Count (120.0-450.0) 10^3/uL MPV (7.0-11.0) fl Neut % (Auto) (50.0-68.0) % Lymph % (Auto) (22.0-35.0) % [place] % (Auto) (1.0-6.0) % Eos % (Auto) (1.5-5.0) % Baso % (Auto) (0.0-3.0) % Lymph # (Auto) (1.2-3.4) [place] # (Auto) (0.1-0.6) Eos # (Auto) (0.0-0.7) Baso # (Auto) (0.0-2.0) K/mm3 Absolute Neuts (auto) (1.4-6.5) pCO2 (35-45) mm/Hg pO2 (80-100) mm/Hg HCO3 (21-28) mmol/L ABG pH (7.35-7.45) ABG Total CO2 (22-28) mmol.L ABG O2 Saturation (95-98) % ABG O2 Content (15-23) ML/dl ABG Base Excess (-2.0-3.0) mmol/L ABG Hemoglobin (11.7-17.4) g/dL ABG Carboxyhemoglobin (0.5-1.5) % POC ABG HHb (Measured) (0-5) % ABG Methemoglobin (0.0-3.0) % ABG O2 Capacity (16-24) mL/dl Hgb O2 Saturation (95.0-98.0) % FiO2 % Sodium 144 (132-148) mmol/L Potassium 3.5 L (3.6-5.0) mmol/L Chloride 111 H (98-107) mmol/L Carbon Dioxide 31 (21-33) mmol/L Anion Gap 6 L (10-20) BUN 19 (7-21) mg/dL Creatinine 1.1 (0.8-1.5) mg/dl Est GFR ( Amer) > 60 Est GFR (Non-Af Amer) > 60 POC Glucose (mg/dL) 153 H 100 (65-110) mg/dL Random Glucose 113 H (70-110) mg/dL Calcium 9.5 (8.4-10.5) mg/dL Phosphorus (2.5-4.5) mg/dL Magnesium 1.9 (1.7-2.2) mg/dL Total Bilirubin (0.2-1.3) mg/dL AST (17-59) U/L ALT (7-56) U/L Alkaline Phosphatase (38-126) U/L Total Protein (5.8-8.3) g/dL Albumin (3.0-4.8) g/dL Globulin gm/dL Albumin/Globulin Ratio (1.1-1.8) 07/18/18 Range/Units 01:53 WBC (4.5-11.0) 10^3/uL RBC (3.5-6.1) 10^6/uL Hgb (14.0-18.0) g/dL Hct (42.0-52.0) % MCV (80.0-105.0) fl MCH (25.0-35.0) pg MCHC (31.0-37.0) g/dl RDW (11.5-14.5) % Plt Count (120.0-450.0) 10^3/uL MPV (7.0-11.0) fl Neut % (Auto) (50.0-68.0) % Lymph % (Auto) (22.0-35.0) % [place] % (Auto) (1.0-6.0) % Eos % (Auto) (1.5-5.0) % Baso % (Auto) (0.0-3.0) % Lymph # (Auto) (1.2-3.4) [place] # (Auto) (0.1-0.6) Eos # (Auto) (0.0-0.7) Baso # (Auto) (0.0-2.0) K/mm3 Absolute Neuts (auto) (1.4-6.5) pCO2 (35-45) mm/Hg pO2 (80-100) mm/Hg HCO3 (21-28) mmol/L ABG pH (7.35-7.45) ABG Total CO2 (22-28) mmol.L ABG O2 Saturation (95-98) % ABG O2 Content (15-23) ML/dl ABG Base Excess (-2.0-3.0) mmol/L ABG Hemoglobin (11.7-17.4) g/dL ABG Carboxyhemoglobin (0.5-1.5) % POC ABG HHb (Measured) (0-5) % ABG Methemoglobin (0.0-3.0) % ABG O2 Capacity (16-24) mL/dl Hgb O2 Saturation (95.0-98.0) % FiO2 % Sodium (132-148) mmol/L Potassium (3.6-5.0) mmol/L Chloride (98-107) mmol/L Carbon Dioxide (21-33) mmol/L Anion Gap (10-20) BUN (7-21) mg/dL Creatinine (0.8-1.5) mg/dl Est GFR ( Amer) Est GFR (Non-Af Amer) POC Glucose (mg/dL) 75 (65-110) mg/dL Random Glucose (70-110) mg/dL Calcium (8.4-10.5) mg/dL Phosphorus (2.5-4.5) mg/dL Magnesium (1.7-2.2) mg/dL Total Bilirubin (0.2-1.3) mg/dL AST (17-59) U/L ALT (7-56) U/L Alkaline Phosphatase (38-126) U/L Total Protein (5.8-8.3) g/dL Albumin (3.0-4.8) g/dL Globulin gm/dL Albumin/Globulin Ratio (1.1-1.8) Laboratory Results - last 24 hr 07/18/18 07/18/18 07/18/18 01:53 11:35 15:45 WBC RBC Hgb Hct MCV MCH MCHC RDW Plt Count MPV Neut % (Auto) Lymph % (Auto) [place] % (Auto) Eos % (Auto) Baso % (Auto) Lymph # (Auto) [place] # (Auto) Eos # (Auto) Baso # (Auto) Absolute Neuts (auto) pCO2 pO2 HCO3 ABG pH ABG Total CO2 ABG O2 Saturation ABG O2 Content ABG Base Excess ABG Hemoglobin ABG Carboxyhemoglobin POC ABG HHb (Measured) ABG Methemoglobin ABG O2 Capacity Hgb O2 Saturation FiO2 Sodium 144 Potassium 3.5 L Chloride 111 H Carbon Dioxide 31 Anion Gap 6 L BUN 19 Creatinine 1.1 Est GFR ( Amer) > 60 Est GFR (Non-Af Amer) > 60 POC Glucose (mg/dL) 75 100 Random Glucose 113 H Calcium 9.5 Phosphorus Magnesium 1.9 Total Bilirubin AST ALT Alkaline Phosphatase Total Protein Albumin Globulin Albumin/Globulin Ratio 07/19/18 07/19/18 07/19/18 00:01 05:25 05:30 WBC 18.2 H RBC 3.56 Hgb 9.3 L Hct 31.3 L MCV 87.9 MCH 26.1 MCHC 29.7 L RDW 21.6 H Plt Count 610 H MPV 9.9 Neut % (Auto) 83.0 H Lymph % (Auto) 7.1 L [place] % (Auto) 3.9 Eos % (Auto) 5.7 H Baso % (Auto) 0.3 Lymph # (Auto) 1.3 [place] # (Auto) 0.7 H Eos # (Auto) 1.0 H Baso # (Auto) 0.05 Absolute Neuts (auto) 15.11 H pCO2 35 pO2 92.0 HCO3 27.3 ABG pH 7.50 H ABG Total CO2 28.4 H ABG O2 Saturation 98.6 H ABG O2 Content 12.0 L ABG Base Excess 4.0 H ABG Hemoglobin 8.8 L ABG Carboxyhemoglobin 1.5 POC ABG HHb (Measured) 1.4 ABG Methemoglobin 1.2 ABG O2 Capacity 12.2 L Hgb O2 Saturation 96.0 FiO2 50.0 Sodium Potassium Chloride Carbon Dioxide Anion Gap BUN Creatinine Est GFR ( Amer) Est GFR (Non-Af Amer) POC Glucose (mg/dL) 153 H Random Glucose Calcium Phosphorus Magnesium Total Bilirubin AST ALT Alkaline Phosphatase Total Protein Albumin Globulin Albumin/Globulin Ratio 07/19/18 05:30 WBC RBC Hgb Hct MCV MCH MCHC RDW Plt Count MPV Neut % (Auto) Lymph % (Auto) [place] % (Auto) Eos % (Auto) Baso % (Auto) Lymph # (Auto) [place] # (Auto) Eos # (Auto) Baso # (Auto) Absolute Neuts (auto) pCO2 pO2 HCO3 ABG pH ABG Total CO2 ABG O2 Saturation ABG O2 Content ABG Base Excess ABG Hemoglobin ABG Carboxyhemoglobin POC ABG HHb (Measured) ABG Methemoglobin ABG O2 Capacity Hgb O2 Saturation FiO2 Sodium 145 Potassium 3.5 L Chloride 111 H Carbon Dioxide 30 Anion Gap 8 L BUN 18 Creatinine 1.0 Est GFR ( Amer) > 60 Est GFR (Non-Af Amer) > 60 POC Glucose (mg/dL) Random Glucose 116 H Calcium 9.7 Phosphorus 2.6 Magnesium 1.9 Total Bilirubin 0.3 AST 48 ALT 41 Alkaline Phosphatase 285 H Total Protein 5.8 Albumin 2.6 L Globulin 3.1 Albumin/Globulin Ratio 0.8 L Radiology Impressions: Radiology Impressions Gallbladder Ultrasound 07/17/18 15:35 IMPRESSION: Multiple simple right renal cortical cysts. Poor visualization of gallbladder. Fatty infiltration of the liver. No biliary dilatation. The preliminary findings for this examination were reported by [facility] Radiology at 9 p.m. on 07/17/2018. There is concurrence of this report with the preliminary findings. Chest X-Ray 07/18/18 00:30 IMPRESSION: Right basilar infiltrate. Possible pneumonia. Chest X-Ray 07/18/18 07:31 IMPRESSION: Left perihilar opacity. Small bilateral pleural effusion. EKG/Cardiology Studies: Cardiology / EKG Studies 07/18/18 15:52 EKG [ELECTROCARDIOGRAM] Stat Comment: Reason For Exam: changes in hr Fingerstick Blood Sugar Results: 153 Critical Care Progress Note - Nutrition Nutrition: Nutrition Category Date Time Status NPO Diet [DIET] Diets 07/16/18 Breakfast Ordered Assessment/Plan - Assessment and Plan (Free Text) Assessment: 87 y/o male admitted to ICU for AMS in the setting of new onset seizure episode. He developed respiratory failure requiring ventilation s/p trach placed. Plan: Neuro: -awake, non verbal -CT head negative for ICH, mass, edema -EEG negative for seizure , no status epilepticus -CSF cx negative. HSV negative -continue keppra 500 mg q12 Cardio: -HFpEF -continue norvasc, lipitor -maintain MAP>65 Pulm: -Ventilator dependent respiratory failure s/p trach insertion -b/l PNA. continue abx as per ID -ABG 7.5/35/30/92 -on trach vent settings 400/15/5/50% -continue duoneb prn GI: -dislodged PEG tube -PEG tube removed, plan for G tube by surgery -CT A/P (07/17) usbcutaneous/intrapertoneal air, no evidence of abscess collection -continue enteral feeding Renal: -hypokalemia. K repleted, lab repeated this pm, continue monitoring -Mg repleted -maintain euvolemia -d/c IVF -I/O 1600/300 continue monitoring ID: -continue vanc, cefepime, flagyl per ID per ID -procal elevated -leukocytosis is trending down. Afebrile -sputum cx positive for GNR -BCx negative to date -cdiff, MRSA negative -ID following Endo: -right thyroid mass -transfered to [facility] on 06/27 returned to [facility] on 07/15 s/p tach and PEG tube placement -no surgical intervention needed Prophylaxis: GI ppx Protonix DVT SCD, Heparin sq Continue ICU management Full code Case reviewed and plan discussed with attending physician Dr Rodriguez <Dave Rodriguez - Last Filed: 07/19/18 11:27> CCU Objective - Vital Signs / Intake & Output Vital Signs (Last 4 hours): Vital Signs Pulse BP 07/19/18 09:45 60 151/73 H Intake and Output (Last 8hrs): Intake & Output 07/18/18 07/19/18 07/19/18 22:59 06:59 14:59 Intake Total 1600 Output Total 300 Balance 1300 Intake: IV 1600 Left Internal Jugular 1600 Output: Stool 300 - Medications Active Medications: Active Medications Generic Name Dose Route Start Last Admin Trade Name Freq PRN Reason Stop Dose Admin Amino Acid Protein 15 gm 07/15/18 10:00 07/18/18 18:37 Prostat 15 G Packet GT 15 gm BID LUZ MARINA Administration Amlodipine Besylate 5 mg 07/15/18 10:00 07/19/18 09:45 Norvasc PO 5 mg DAILY LUZ MARINA Administration Atorvastatin Calcium 20 mg 07/15/18 17:00 07/18/18 18:39 Lipitor PO 20 mg DIN LUZ MARINA Administration Dextrose 0 ml 07/14/18 22:13 07/17/18 00:59 Dextrose 50% Inj IV 50 ml STAT PRN Administration Hypoglycemia Protocol Protocol Heparin Sodium (Porcine) 5,000 units 07/15/18 06:00 07/19/18 05:03 Heparin SC 5,000 units Q8 LUZ MARINA Administration Protocol Dextrose 1,000 mls @ 0 mls/hr 07/14/18 22:13 Dextrose 5% In Water 1000 Ml IV .Q0M PRN Hypoglycemia Protocol Protocol Per Protocol Cefepime HCl 1 gm in 100 mls @ 100 mls/hr 07/15/18 17:00 07/19/18 05:03 Maxipime 1gm IVPB 100 mls/hr Q8 LUZ MARINA Administration Protocol Levetiracetam 500 mg in 100 mls @ 400 mls/hr 07/16/18 10:00 07/19/18 09:44 Keppra 500mg Ivpb IVPB 400 mls/hr Q12 LUZ MARINA Administration Potassium Chloride 20 meq in 100 mls @ 50 mls/hr 07/19/18 09:00 07/19/18 09:44 Potassium Chloride 20 Meq/100 Ml IVPB 07/19/18 12:59 50 mls/hr Q2H LUZ MARINA Administration Insulin Human Regular 0 units 07/15/18 12:00 07/19/18 00:00 Humulin R Med SC Not Given Q6H [facility] Protocol Nystatin 1 gm 07/16/18 22:00 07/19/18 09:51 Nystop Topical Powder TOP 1 applic Q12H LUZ MARINA Administration Pantoprazole Sodium 40 mg 07/16/18 10:00 07/19/18 09:44 Protonix Inj IVP 40 mg Q12 LUZ MARINA Administration Senna/Docusate Sodium 1 tab 07/15/18 10:00 07/18/18 18:36 Senokot S 50 Mg-8.6 Mg PO 1 tab BID LUZ MARINA Administration - Patient Studies Lab Studies: Microbiology Studies 07/17/18 16:00 Urine Culture - Final Urine Random No Growth (<1,000 CFU/ML) 07/17/18 05:35 Gram Stain - Final Abdomen Wound Culture - Preliminary Gram Negative Bunny 07/15/18 14:30 Blood Culture - Preliminary Blood NO GROWTH AFTER 3 DAYS Lab Studies 07/19/18 07/19/18 07/19/18 Range/Units 05:30 05:30 05:25 WBC 18.2 H (4.5-11.0) 10^3/uL RBC 3.56 (3.5-6.1) 10^6/uL Hgb 9.3 L (14.0-18.0) g/dL Hct 31.3 L (42.0-52.0) % MCV 87.9 (80.0-105.0) fl MCH 26.1 (25.0-35.0) pg MCHC 29.7 L (31.0-37.0) g/dl RDW 21.6 H (11.5-14.5) % Plt Count 610 H (120.0-450.0) 10^3/uL MPV 9.9 (7.0-11.0) fl Neut % (Auto) 83.0 H (50.0-68.0) % Lymph % (Auto) 7.1 L (22.0-35.0) % [place] % (Auto) 3.9 (1.0-6.0) % Eos % (Auto) 5.7 H (1.5-5.0) % Baso % (Auto) 0.3 (0.0-3.0) % Lymph # (Auto) 1.3 (1.2-3.4) [place] # (Auto) 0.7 H (0.1-0.6) Eos # (Auto) 1.0 H (0.0-0.7) Baso # (Auto) 0.05 (0.0-2.0) K/mm3 Absolute Neuts (auto) 15.11 H (1.4-6.5) pCO2 35 (35-45) mm/Hg pO2 92.0 (80-100) mm/Hg HCO3 27.3 (21-28) mmol/L ABG pH 7.50 H (7.35-7.45) ABG Total CO2 28.4 H (22-28) mmol.L ABG O2 Saturation 98.6 H (95-98) % ABG O2 Content 12.0 L (15-23) ML/dl ABG Base Excess 4.0 H (-2.0-3.0) mmol/L ABG Hemoglobin 8.8 L (11.7-17.4) g/dL ABG Carboxyhemoglobin 1.5 (0.5-1.5) % POC ABG HHb (Measured) 1.4 (0-5) % ABG Methemoglobin 1.2 (0.0-3.0) % ABG O2 Capacity 12.2 L (16-24) mL/dl Hgb O2 Saturation 96.0 (95.0-98.0) % FiO2 50.0 % Sodium 145 (132-148) mmol/L Potassium 3.5 L (3.6-5.0) mmol/L Chloride 111 H (98-107) mmol/L Carbon Dioxide 30 (21-33) mmol/L Anion Gap 8 L (10-20) BUN 18 (7-21) mg/dL Creatinine 1.0 (0.8-1.5) mg/dl Est GFR ( Amer) > 60 Est GFR (Non-Af Amer) > 60 POC Glucose (mg/dL) (65-110) mg/dL Random Glucose 116 H (70-110) mg/dL Calcium 9.7 (8.4-10.5) mg/dL Phosphorus 2.6 (2.5-4.5) mg/dL Magnesium 1.9 (1.7-2.2) mg/dL Total Bilirubin 0.3 (0.2-1.3) mg/dL AST 48 (17-59) U/L ALT 41 (7-56) U/L Alkaline Phosphatase 285 H (38-126) U/L Total Protein 5.8 (5.8-8.3) g/dL Albumin 2.6 L (3.0-4.8) g/dL Globulin 3.1 gm/dL Albumin/Globulin Ratio 0.8 L (1.1-1.8) 07/19/18 07/18/18 07/18/18 Range/Units 00:01 15:45 11:35 WBC (4.5-11.0) 10^3/uL RBC (3.5-6.1) 10^6/uL Hgb (14.0-18.0) g/dL Hct (42.0-52.0) % MCV (80.0-105.0) fl MCH (25.0-35.0) pg MCHC (31.0-37.0) g/dl RDW (11.5-14.5) % Plt Count (120.0-450.0) 10^3/uL MPV (7.0-11.0) fl Neut % (Auto) (50.0-68.0) % Lymph % (Auto) (22.0-35.0) % [place] % (Auto) (1.0-6.0) % Eos % (Auto) (1.5-5.0) % Baso % (Auto) (0.0-3.0) % Lymph # (Auto) (1.2-3.4) [place] # (Auto) (0.1-0.6) Eos # (Auto) (0.0-0.7) Baso # (Auto) (0.0-2.0) K/mm3 Absolute Neuts (auto) (1.4-6.5) pCO2 (35-45) mm/Hg pO2 (80-100) mm/Hg HCO3 (21-28) mmol/L ABG pH (7.35-7.45) ABG Total CO2 (22-28) mmol.L ABG O2 Saturation (95-98) % ABG O2 Content (15-23) ML/dl ABG Base Excess (-2.0-3.0) mmol/L ABG Hemoglobin (11.7-17.4) g/dL ABG Carboxyhemoglobin (0.5-1.5) % POC ABG HHb (Measured) (0-5) % ABG Methemoglobin (0.0-3.0) % ABG O2 Capacity (16-24) mL/dl Hgb O2 Saturation (95.0-98.0) % FiO2 % Sodium 144 (132-148) mmol/L Potassium 3.5 L (3.6-5.0) mmol/L Chloride 111 H (98-107) mmol/L Carbon Dioxide 31 (21-33) mmol/L Anion Gap 6 L (10-20) BUN 19 (7-21) mg/dL Creatinine 1.1 (0.8-1.5) mg/dl Est GFR ( Amer) > 60 Est GFR (Non-Af Amer) > 60 POC Glucose (mg/dL) 153 H 100 (65-110) mg/dL Random Glucose 113 H (70-110) mg/dL Calcium 9.5 (8.4-10.5) mg/dL Phosphorus (2.5-4.5) mg/dL Magnesium 1.9 (1.7-2.2) mg/dL Total Bilirubin (0.2-1.3) mg/dL AST (17-59) U/L ALT (7-56) U/L Alkaline Phosphatase (38-126) U/L Total Protein (5.8-8.3) g/dL Albumin (3.0-4.8) g/dL Globulin gm/dL Albumin/Globulin Ratio (1.1-1.8) Laboratory Results - last 24 hr 07/18/18 07/18/18 07/19/18 11:35 15:45 00:01 WBC RBC Hgb Hct MCV MCH MCHC RDW Plt Count MPV Neut % (Auto) Lymph % (Auto) [place] % (Auto) Eos % (Auto) Baso % (Auto) Lymph # (Auto) [place] # (Auto) Eos # (Auto) Baso # (Auto) Absolute Neuts (auto) pCO2 pO2 HCO3 ABG pH ABG Total CO2 ABG O2 Saturation ABG O2 Content ABG Base Excess ABG Hemoglobin ABG Carboxyhemoglobin POC ABG HHb (Measured) ABG Methemoglobin ABG O2 Capacity Hgb O2 Saturation FiO2 Sodium 144 Potassium 3.5 L Chloride 111 H Carbon Dioxide 31 Anion Gap 6 L BUN 19 Creatinine 1.1 Est GFR ( Amer) > 60 Est GFR (Non-Af Amer) > 60 POC Glucose (mg/dL) 100 153 H Random Glucose 113 H Calcium 9.5 Phosphorus Magnesium 1.9 Total Bilirubin AST ALT Alkaline Phosphatase Total Protein Albumin Globulin Albumin/Globulin Ratio 07/19/18 07/19/18 07/19/18 05:25 05:30 05:30 WBC 18.2 H RBC 3.56 Hgb 9.3 L Hct 31.3 L MCV 87.9 MCH 26.1 MCHC 29.7 L RDW 21.6 H Plt Count 610 H MPV 9.9 Neut % (Auto) 83.0 H Lymph % (Auto) 7.1 L [place] % (Auto) 3.9 Eos % (Auto) 5.7 H Baso % (Auto) 0.3 Lymph # (Auto) 1.3 [place] # (Auto) 0.7 H Eos # (Auto) 1.0 H Baso # (Auto) 0.05 Absolute Neuts (auto) 15.11 H pCO2 35 pO2 92.0 HCO3 27.3 ABG pH 7.50 H ABG Total CO2 28.4 H ABG O2 Saturation 98.6 H ABG O2 Content 12.0 L ABG Base Excess 4.0 H ABG Hemoglobin 8.8 L ABG Carboxyhemoglobin 1.5 POC ABG HHb (Measured) 1.4 ABG Methemoglobin 1.2 ABG O2 Capacity 12.2 L Hgb O2 Saturation 96.0 FiO2 50.0 Sodium 145 Potassium 3.5 L Chloride 111 H Carbon Dioxide 30 Anion Gap 8 L BUN 18 Creatinine 1.0 Est GFR ( Amer) > 60 Est GFR (Non-Af Amer) > 60 POC Glucose (mg/dL) Random Glucose 116 H Calcium 9.7 Phosphorus 2.6 Magnesium 1.9 Total Bilirubin 0.3 AST 48 ALT 41 Alkaline Phosphatase 285 H Total Protein 5.8 Albumin 2.6 L Globulin 3.1 Albumin/Globulin Ratio 0.8 L Radiology Impressions: Radiology Impressions Chest X-Ray 04/03/19 06:00 IMPRESSION: No active pulmonary disease. Haziness in the right lower lobe and left perihilar region may represent pulmonary edema. Follow-up is advised. EKG/Cardiology Studies: Cardiology / EKG Studies 07/18/18 15:52 EKG [ELECTROCARDIOGRAM] Stat Comment: Reason For Exam: changes in hr Critical Care Progress Note - Nutrition Nutrition: Nutrition Category Date Time Status NPO Diet [DIET] Diets 07/16/18 Breakfast Ordered Attending/Attestation - Attestation I have personally seen and examined this patient.: Yes I have fully participated in the care of the patient.: Yes I have reviewed all pertinent clinical information: Yes Notes (Text): 07/19/18 11:20 The patient was seen and examined at the bedside. Patient care was discussed with resident Medical records, lab studies, and imaging were reviewed and management issues were discussed and formulated. Agree with above treatment plans as outlined in 's note with addition of the following: VDRF \ Hypoxemia \ Sepsis \ PNA \ COPD \ Thyroid mass \ Renal Cancer \Seizures -hemodynamic monitoring to maintain MAP>65 -mechanical ventilation and o2 supplementation to maintain Spo2 >90 Pao2>60 -monitor for TV 6ml\kg IBW and plateau pressure <30 -ABG in AM reviewed and CXR reviewed -continue pulmonary toileting -continue broad spectrum Abx as per ID team and f\u cultures -f\u Bun\Cr and U\o; monitor and replace e-lites -NPO diet and aspiration precautions -awaiting PEG placement -continue antiseizure precautions and meds -DVT \ PUD prophylaxis CCM time 34mins
--- NOTE | 2018-07-19 09:28 | PN ---
DATE: 07/19/2018(640am-730am) SUBJECTIVE: The patient remains on the ventilator. He is more awake and alert this morning. PHYSICAL EXAMINATION: VITAL SIGNS: Temperature 98.3, pulse 64, respiratory rate 16/15. Blood pressure last recorded - 133/69. HEENT: Normocephalic, atraumatic. No JVD. Positive tracheostomy. CARDIOVASCULAR: Systolic ejection murmur at the lower left sternal border. No S3 gallop. LUNGS: Decreased breath sounds at the bases. No significant rhonchi or wheezing. EXTREMITIES: Mild edema. No cyanosis. No clubbing. Calves are nontender to palpation. GASTROINTESTINAL: Abdomen is soft, nontender and nondistended. Bowel sounds are positive. SKIN: No acute rash. NEUROLOGIC: Exam limited at the present time. PERTINENT LABORATORY DATA: Chest x-ray was done this morning and reviewed. The chest x-ray remains with bilateral pulmonary infiltrates. The chest x-ray does not appear significantly changed from yesterday. Official results are pending. Arterial blood gas was done on PRVC 15, tidal volume 500, FiO2 50%. Results are: pH 7.50, pCO2 35, pO2 of 92. IMPRESSION: 1. Respiratory failure. 2. Bilateral pneumonia. 3. Chronic obstructive pulmonary disease. 4. Seizure disorder. 5. Thyroid mass. 6. Anemia. PLAN: The patient remains on the ventilator. He is more awake and alert this morning. I did discuss the case with the night nurse at length. The night nurse stated the patient had an uneventful night. I did review the chest x-ray - as above. The chest x-ray is not significantly changed from yesterday's film. Official results are pending. I would continue with the antibiotic coverage as per Infectious Disease. Input by Dr. Fortune is noted. I have also reviewed the arterial blood gas. A mixed acid-base disturbance with adequate oxygenation is noted. I would suggest decreasing the tidal volume at this point in time. I will discuss the above with the ICU team. Input by the surgical team is also noted. The patient is for a possible PEG placement on Tuesday. The clinical status of the patient does appear somewhat improved. However, given the above, the future status/prognosis for this elderly patient remains poor. All are aware. I will discuss the above with the entire ICU team in the next few moments. I will discuss the above with the attending physician later this morning. Theo Rivas MD TODD
--- NOTE | 2018-07-19 09:32 | RAD ---
Date of service: 07/19/2018 HISTORY: f/u COMPARISON: 07/18/2018 FINDINGS: LUNGS: The lungs are well inflated. There is haziness in right lower lobe and left perihilar region there is moderate pulmonary venous congestion. PLEURA: No pleural effusions or pneumothorax. CARDIOVASCULAR: Persistent mild cardiomegaly. No aortic atherosclerotic calcifications present. OSSEOUS STRUCTURES: Within normal limits for the patient's age. VISUALIZED UPPER ABDOMEN: Normal. OTHER FINDINGS: None. IMPRESSION: No active pulmonary disease. Haziness in the right lower lobe and left perihilar region may represent pulmonary edema. Follow-up is advised.
[2018-07-19] MEDS: levETIRAcetam 500mg IVPB 500 MG/100 ML BAG IVPB SCH ×2 (09:44→21:47)
[2018-07-19] MEDS: Nystatin 100,000 Units/gm Topical Pow(15 gm) TOP SCH ×2 (09:51→21:48)
[2018-07-19] MEDS: Prostat 15 g packet GT SCH ×2 (10:00→17:22)
[2018-07-19] MEDS: Docusate-Senna 50 mg-8.6 mg Tab PO SCH ×2 (10:00→18:28)
[2018-07-19] MEDS ORDERED: Potassium Chloride 40 mEq/30 ml LIQ UD PO STA (10:02)
[2018-07-19] MEDS ORDERED: Magnesium Sulfate 2 gm/50 ml 2 GM/50 ML BAG IVPB ONE (10:02)
--- NOTE | 2018-07-19 10:34 | PN ---
DATE: 07/19/2018 SUBJECTIVE: He is in bed in the intensive care unit. He has got a trach collar, on the ventilator. He is kept four-point restraints. He has got a problem with his feeding tube and his feeding tube is out and is oozing from the site. MEDICATIONS: He is on dextrose, heparin, Keppra, Lipitor, Maxipime, Norvasc, nystatin powder, potassium, Pro-Stat, Protonix, and Senokot. PHYSICAL EXAMINATION: GENERAL: He has an oropharyngeal tube to feed him right now. He is alert, no apparent distress. He understands. VITAL SIGNS: He has 98.3 temperature, 62 pulse, 131/71 blood pressure, 99% O2 sat. HEAD: Atraumatic, normocephalic. HEART: Regular rate. LUNGS: Decreased breath sounds. ABDOMEN: He has got a bandage over his PEG tube site with oozing, we are going to culture that. Positive bowel sounds. EXTREMITIES: +1 edema. LABORATORY DATA: He has 18.2 , still very high, 9.3 hemoglobin, 31.3 hematocrit with 610 platelets. He might need a CAT scan of the abdomen and pelvis to look for any particular abscess, if there is something. Sodium 145, potassium 3.5, BUN 18, creatinine 1, GFR is greater than 60, sugar is 116, calcium is 9.7, phosphorous 2.6, magnesium is 1.9. Total bili is 0.3, AST is 48, ALT is 41, alk phos 285. He has got gram-negative rods and Pseudomonas aeruginosa. ASSESSMENT AND PLAN: He is being seen by Infectious Disease, Surgery, Pulmonary, and chemical production engineer. I am hoping he will eventually get to a long-term care facility and will keep on aggressively treating him. Aleksey Neal DO MTDD
--- NOTE | 2018-07-19 12:04 | CP.PCM.PN ---
Subjective - Date & Time of Evaluation Date of Evaluation: 07/19/18 Time of Evaluation: 10:01 - Subjective Subjective: General surgery progress note for Dr. Arabella Singletary, PGY-2 Pt seen/examined at bedside No acute events overnight as per nursing. Pt on tube feeds via Dobhoff. at bedside asking for surgical team to talk to son prior to signing consent for G tube placement. Objective - Vital Signs/Intake and Output Vital Signs (last 24 hours): Temp Pulse Resp BP Pulse Ox 99.1 F 63 16 153/76 H 99 07/19/18 11:20 07/19/18 11:20 07/18/18 10:43 07/19/18 11:15 07/19/18 11:20 - Medications Medications: Current Medications Amino Acid Protein (Prostat 15 G Packet) 15 gm GT BID [facility] Last Admin: 07/18/18 18:37 Dose: 15 gm Amlodipine Besylate (Norvasc) 5 mg PO DAILY [facility] Last Admin: 07/19/18 09:45 Dose: 5 mg Atorvastatin Calcium (Lipitor) 20 mg PO DIN [facility] Last Admin: 07/18/18 18:39 Dose: 20 mg Dextrose (Dextrose 50% Inj) 0 ml IV STAT PRN; Protocol PRN Reason: Hypoglycemia Protocol Last Admin: 07/17/18 00:59 Dose: 50 ml Heparin Sodium (Porcine) (Heparin) 5,000 units SC Q8 [facility]; Protocol Last Admin: 07/19/18 05:03 Dose: 5,000 units Dextrose (Dextrose 5% In Water 1000 Ml) 1,000 mls @ 0 mls/hr IV .Q0M PRN; Protocol PRN Reason: Hypoglycemia Protocol Cefepime HCl (Maxipime 1gm) 1 gm in 100 mls @ 100 mls/hr IVPB Q8 [facility]; Protocol Last Admin: 07/19/18 05:03 Dose: 100 mls/hr Levetiracetam (Keppra 500mg Ivpb) 500 mg in 100 mls @ 400 mls/hr IVPB Q12 [facility] Last Admin: 07/19/18 09:44 Dose: 400 mls/hr Potassium Chloride (Potassium Chloride 20 Meq/100 Ml) 20 meq in 100 mls @ 50 mls/hr IVPB Q2H [facility] Stop: 07/19/18 12:59 Last Admin: 07/19/18 09:44 Dose: 50 mls/hr Insulin Human Regular (Humulin R Med) 0 units SC Q6H [facility]; Protocol Last Admin: 07/19/18 00:00 Dose: Not Given Nystatin (Nystop Topical Powder) 1 gm TOP Q12H [facility] Last Admin: 07/19/18 09:51 Dose: 1 applic Pantoprazole Sodium (Protonix Inj) 40 mg IVP Q12 [facility] Last Admin: 07/19/18 09:44 Dose: 40 mg Senna/Docusate Sodium (Senokot S 50 Mg-8.6 Mg) 1 tab PO BID [facility] Last Admin: 07/18/18 18:36 Dose: 1 tab - Labs Labs: 07/19/18 05:30 07/19/18 05:30 APTT 29.7 Seconds (26.9-38.3) 07/15/18 08:30 - Constitutional Appears: Non-toxic, No Acute Distress - Head Exam Head Exam: ATRAUMATIC, NORMAL INSPECTION, NORMOCEPHALIC - Eye Exam Eye Exam: EOMI, Normal appearance - ENT Exam ENT Exam: Mucous Membranes Moist, Normal Exam Additional comments: Dobhoff in place via orogastric tube - Neck Exam Neck Exam: Full ROM, Normal Inspection - Respiratory Exam Respiratory Exam: NORMAL BREATHING PATTERN - Cardiovascular Exam Cardiovascular Exam: REGULAR RHYTHM, +S1, +S2 - GI/Abdominal Exam GI & Abdominal Exam: Soft. 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 Hema Singletary, PGY-2
--- NOTE | 2018-07-19 14:14 | CP.PCM.PN ---
<Abe Cunningham - Last Filed: 07/19/18 14:09> Subjective - Date & Time of Evaluation Date of Evaluation: 07/19/18 Time of Evaluation: 09:00 - Subjective Subjective: Abe Cunningham D.O. PGY-3, Internal Medicine Resident, Infectious Disease Progress Note 87 year old male with a PMH of heart failure, renal Ca s/p nephrectomy, and COPD who was found to have a thyroid mass, was transferred temporarily to [facility] and then transferred back. Infectious disease consultation was requested. Patient was seen and examined at bedside. On ventilator thru trach. Appears comfortable. Objective - Vital Signs/Intake and Output Vital Signs (last 24 hours): Temp Pulse Resp BP Pulse Ox 98.8 F 55 L 16 148/60 100 07/19/18 12:30 07/19/18 12:30 07/18/18 10:43 07/19/18 12:30 07/19/18 12:30 - Medications Medications: Current Medications Amino Acid Protein (Prostat 15 G Packet) 15 gm GT BID [facility] Last Admin: 07/19/18 10:00 Dose: 15 gm Amlodipine Besylate (Norvasc) 5 mg PO DAILY [facility] Last Admin: 07/19/18 09:45 Dose: 5 mg Atorvastatin Calcium (Lipitor) 20 mg PO DIN [facility] Last Admin: 07/18/18 18:39 Dose: 20 mg Dextrose (Dextrose 50% Inj) 0 ml IV STAT PRN; Protocol PRN Reason: Hypoglycemia Protocol Last Admin: 07/17/18 00:59 Dose: 50 ml Heparin Sodium (Porcine) (Heparin) 5,000 units SC Q8 [facility]; Protocol Last Admin: 07/19/18 05:03 Dose: 5,000 units Dextrose (Dextrose 5% In Water 1000 Ml) 1,000 mls @ 0 mls/hr IV .Q0M PRN; Protocol PRN Reason: Hypoglycemia Protocol Cefepime HCl (Maxipime 1gm) 1 gm in 100 mls @ 100 mls/hr IVPB Q8 [facility]; Protocol Last Admin: 07/19/18 13:14 Dose: 100 mls/hr Levetiracetam (Keppra 500mg Ivpb) 500 mg in 100 mls @ 400 mls/hr IVPB Q12 [facility] Last Admin: 07/19/18 09:44 Dose: 400 mls/hr Insulin Human Regular (Humulin R Med) 0 units SC Q6H [facility]; Protocol Last Admin: 07/19/18 13:06 Dose: Not Given Nystatin (Nystop Topical Powder) 1 gm TOP Q12H [facility] Last Admin: 07/19/18 09:51 Dose: 1 applic Pantoprazole Sodium (Protonix Inj) 40 mg IVP Q12 [facility] Last Admin: 07/19/18 09:44 Dose: 40 mg Senna/Docusate Sodium (Senokot S 50 Mg-8.6 Mg) 1 tab PO BID [facility] Last Admin: 07/19/18 10:00 Dose: Not Given - Labs Labs: 07/19/18 05:30 07/19/18 05:30 APTT 29.7 Seconds (26.9-38.3) 07/15/18 08:30 - Constitutional Appears: Chronically Ill elderly male - Head Exam Head Exam: ATRAUMATIC, NORMOCEPHALIC - Eye Exam Eye Exam: absent: Scleral icterus - ENT Exam ENT Exam: Mucous Membranes Moist - Neck Exam Additional comments: s/p trach - Respiratory Exam Respiratory Exam: Clear to Ausculation Bilateral. absent: Rhonchi, Wheezes - Cardiovascular Exam Cardiovascular Exam: +S1, +S2. absent: Gallop, Rubs - GI/Abdominal Exam GI & Abdominal Exam: Soft, Normal Bowel Sounds. absent: Distended, Tenderness - Neurological Exam Neurological Exam: Alert, Awake at times - Skin Skin Exam: Dry, Warm Assessment and Plan - Assessment and Plan (Free Text) Assessment: 87 year old male with a PMH of heart failure, renal Ca s/p nephrectomy, and COPD who was found to have a thyroid mass, was transferred temporarily to [facility] and then transferred back. Infectious disease consultation was requested. 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 Malpositioned PEG tube COPD HFpEF Renal insufficiency Renal CA s/p nephrectomy Seizure disorder Pulmonary hypertension Thyroid mass Continues to be afebrile however leukocytosis very slowly improving MRSA screen negative, d/c'ed vancomycin Wound cx and trach asp showing pseudomonas Continue cefepime day 5 BCx negative 1 day 3 Surgery note reviewed and appreciated Pulmonary note reviewed and appreciated We will follow with you Patient was seen and examined and case to be discussed with attending physician Thank you for the pleasure of participating in the care of this interesting patient <Omer Fortune - Last Filed: 07/19/18 17:49> Objective - Vital Signs/Intake and Output Vital Signs (last 24 hours): Temp Pulse Resp BP Pulse Ox 98.8 F 57 L 16 148/60 100 07/19/18 12:30 07/19/18 17:20 07/18/18 10:43 07/19/18 12:30 07/19/18 12:30 - Medications Medications: Current Medications Amino Acid Protein (Prostat 15 G Packet) 15 gm GT BID [facility] Last Admin: 07/19/18 17:22 Dose: 15 gm Amlodipine Besylate (Norvasc) 5 mg PO DAILY [facility] Last Admin: 07/19/18 09:45 Dose: 5 mg Atorvastatin Calcium (Lipitor) 20 mg PO DIN [facility] Last Admin: 07/19/18 17:23 Dose: 20 mg Dextrose (Dextrose 50% Inj) 0 ml IV STAT PRN; Protocol PRN Reason: Hypoglycemia Protocol Last Admin: 07/17/18 00:59 Dose: 50 ml Heparin Sodium (Porcine) (Heparin) 5,000 units SC Q8 [facility]; Protocol Last Admin: 07/19/18 14:00 Dose: 5,000 units Dextrose (Dextrose 5% In Water 1000 Ml) 1,000 mls @ 0 mls/hr IV .Q0M PRN; Protocol PRN Reason: Hypoglycemia Protocol Levetiracetam (Keppra 500mg Ivpb) 500 mg in 100 mls @ 400 mls/hr IVPB Q12 [facility] Last Admin: 07/19/18 09:44 Dose: 400 mls/hr Meropenem (Merrem Iv 1 Gm Premix) 1 gm in 50 mls @ 100 mls/hr IVPB Q8 [facility]; Protocol Stop: 07/20/18 06:29 Vancomycin HCl (Vancomycin 1gm) 1 gm in 250 mls @ 167 mls/hr IVPB Q12H [facility]; Protocol Insulin Human Regular (Humulin R Med) 0 units SC Q6H [facility]; Protocol Last Admin: 07/19/18 13:06 Dose: Not Given Nystatin (Nystop Topical Powder) 1 gm TOP Q12H [facility] Last Admin: 07/19/18 09:51 Dose: 1 applic Pantoprazole Sodium (Protonix Inj) 40 mg IVP Q12 [facility] Last Admin: 07/19/18 09:44 Dose: 40 mg Senna/Docusate Sodium (Senokot S 50 Mg-8.6 Mg) 1 tab PO BID [facility] Last Admin: 07/19/18 10:00 Dose: Not Given - Labs Labs: 07/19/18 05:30 07/19/18 16:00 APTT 29.7 Seconds (26.9-38.3) 07/15/18 08:30 Attending/Attestation - Attestation I have personally seen and examined this patient.: Yes I have fully participated in the care of the patient.: Yes I have reviewed all pertinent clinical information, including history, physical exam and plan: Yes
[2018-07-19 16:29] LABS: BLOOD UREA NITROGEN 17 mg/dL (7-21); CALCIUM 9.5 mg/dL (8.4-10.5); GFR NON-AFRICAN AMERICAN > 60
[2018-07-19] MEDS: Vancomycin 1gm in NS 250ml 1 GM/250 ML BAG IVPB SCH (18:27)
[2018-07-19] MEDS: Meropenem IV 1 gm in NS 1 GM/50 ML BAG IVPB SCH (21:47)
[2018-07-20] MEDS: Insulin Reg-MEDIUM-Coverage SC SCH ×4 (00:30→17:25)
[2018-07-20] MEDS: Meropenem IV 1 gm in NS 1 GM/50 ML BAG IVPB SCH ×4 (05:31→21:33)
[2018-07-20] MEDS: Vancomycin 1gm in NS 250ml 1 GM/250 ML BAG IVPB SCH ×2 (05:32→17:14)
[2018-07-20 05:35] LABS: HEMOGLOBIN 9.7 g/dL (14.0-18.0); MEAN CELL VOLUME 87.5 fl (80.0-105.0); MEAN CORPUSCULAR HEMOGLOBIN 26.4 pg (25.0-35.0); MEAN CORPUSCULAR HGB CONC 30.1 g/dl (31.0-37.0); MEAN PLATELET VOLUME 9.3 fl (7.0-11.0); RBC 3.68 10^6/uL (3.5-6.1); RED CELL DISTRIBUTION WIDTH 21.6 % (11.5-14.5); WHITE BLOOD COUNT 21.2 10^3/uL (4.5-11.0)
[2018-07-20 05:37] LABS: ARTERIAL BLOOD GAS HCO3 26.2 mmol/L (21-28); ARTERIAL BLOOD GAS HEMOGLOBIN 9.2 g/dL (11.7-17.4); ARTERIAL BLOOD GAS O2 CAPACITY 12.7 mL/dl (16-24); ARTERIAL BLOOD GAS O2 CONTENT 12.1 ML/dl (15-23); ARTERIAL BLOOD GAS O2 SAT 95.4 % (95-98); ARTERIAL BLOOD GAS PCO2 36 mm/Hg (35-45); ARTERIAL BLOOD GAS PH 7.47 (7.35-7.45); ARTERIAL BLOOD GAS TCO2 27.3 mmol.L (22-28)
[2018-07-20 05:51] LABS: ALB/GLOB RATIO 0.7 (1.1-1.8); ALBUMIN 2.6 g/dL (3.0-4.8); ALT/SGPT 42 U/L (7-56); AST/SGOT 44 U/L (17-59); BLOOD UREA NITROGEN 15 mg/dL (7-21); CALCIUM 9.7 mg/dL (8.4-10.5); GFR NON-AFRICAN AMERICAN > 60
--- NOTE | 2018-07-20 07:19 | CP.CCUPN ---
<Jesu Ramirez - Last Filed: 07/20/18 11:39> CCU Subjective - Physician Review Events Since Last Encounter (Free Text): 07/20/18 07:14 pt trach PRVC mode, no acute events overnight, pt off levophed Subjective (Free Text): 07/15/18 07:27 Pt seen and examined this morning at bedside, trach in place, NAD 07/17/18 09:23 pt seen and examined this morning, trach collar in place, pt unable to answer CCU Objective - Vital Signs / Intake & Output Vital Signs (Last 4 hours): Vital Signs Temp Pulse BP Pulse Ox 07/20/18 06:00 65 07/20/18 04:50 98.1 F 68 95 07/20/18 04:45 98.6 F 72 157/59 H 93 L 07/20/18 04:40 98.6 F 74 93 L 07/20/18 04:30 98.4 F 68 132/91 H 84 L 07/20/18 04:20 97.9 F 68 96 07/20/18 04:16 98.1 F 63 158/70 H 100 07/20/18 04:10 97.9 F 76 95 07/20/18 04:01 97.5 F L 62 162/73 H 99 07/20/18 04:00 98.1 F 48 L 97 07/20/18 03:50 97.9 F 63 99 07/20/18 03:45 97.5 F L 51 L 164/76 H 99 07/20/18 03:40 97.5 F L 63 100 07/20/18 03:31 98.4 F 59 L 153/68 H 99 07/20/18 03:30 98.4 F 58 L 98 07/20/18 03:20 98.4 F 55 L 98 07/20/18 03:15 98.6 F 65 158/73 H 98 Intake and Output (Last 8hrs): Intake & Output 07/19/18 07/20/18 07/20/18 22:59 06:59 14:59 Intake Total 2130 350 Output Total 1250 750 Balance 880 -400 Weight 215 lb Intake: IV 1150 350 Left Subclavian 1150 350 Tube Feeding 500 Other 480 Output: Urine 950 750 Urethral (Phan) 950 750 Stool 300 - Physical Exam Head: Positive for: Atraumatic, Normocephalic Pupils: Positive for: PERRL Extroacular Muscles: Positive for: EOMI Mouth: Positive for: Moist Mucous Membranes Respiratory/Chest: Positive for: Clear to Auscultation, Good Air Exchange, Decreased Breath Sounds. Negative for: Respiratory Distress, Accessory Muscle Use Cardiovascular: Positive for: Regular Rate and Rhythm, Normal S1, S2. Negative for: Murmurs Abdomen: Negative for: Tenderness, Distention, Normal Bowel Sounds Upper Extremity: Negative for: Edema Lower Extremity: Positive for: Edema Skin: Positive for: Warm, Dry, Normal Color - Medications Active Medications: Active Medications Generic Name Dose Route Start Last Admin Trade Name Freq PRN Reason Stop Dose Admin Amino Acid Protein 15 gm 07/15/18 10:00 07/19/18 17:22 Prostat 15 G Packet GT 15 gm BID LUZ MARINA Administration Amlodipine Besylate 5 mg 07/15/18 10:00 07/19/18 09:45 Norvasc PO 5 mg DAILY LUZ MARINA Administration Atorvastatin Calcium 20 mg 07/15/18 17:00 07/19/18 17:23 Lipitor PO 20 mg DIN LUZ MARINA Administration Dextrose 0 ml 07/14/18 22:13 07/17/18 00:59 Dextrose 50% Inj IV 50 ml STAT PRN Administration Hypoglycemia Protocol Protocol Heparin Sodium (Porcine) 5,000 units 07/15/18 06:00 07/20/18 05:33 Heparin SC 5,000 units Q8 LUZ MARINA Administration Protocol Dextrose 1,000 mls @ 0 mls/hr 07/14/18 22:13 Dextrose 5% In Water 1000 Ml IV .Q0M PRN Hypoglycemia Protocol Protocol Per Protocol Levetiracetam 500 mg in 100 mls @ 400 mls/hr 07/16/18 10:00 07/19/18 21:47 Keppra 500mg Ivpb IVPB 400 mls/hr Q12 LUZ MARINA Administration Vancomycin HCl 1 gm in 250 mls @ 167 mls/hr 07/19/18 18:00 07/20/18 05:32 Vancomycin 1gm IVPB 167 mls/hr Q12H LUZ MARINA Administration Protocol Meropenem 1 gm in 50 mls @ 100 mls/hr 07/20/18 07:15 Merrem Iv 1 Gm Premix IVPB 07/27/18 07:16 Q8 LUZ MARINA Protocol Insulin Human Regular 0 units 07/15/18 12:00 07/20/18 05:46 Humulin R Med SC Not Given Q6H [facility] Protocol Nystatin 1 gm 07/16/18 22:00 07/19/18 21:48 Nystop Topical Powder TOP 1 applic Q12H LUZ MARINA Administration Pantoprazole Sodium 40 mg 07/16/18 10:00 07/19/18 21:48 Protonix Inj IVP 40 mg Q12 LUZ MARINA Administration Senna/Docusate Sodium 1 tab 07/15/18 10:00 07/19/18 18:28 Senokot S 50 Mg-8.6 Mg PO Not Given BID LUZ MARINA - Patient Studies Lab Studies: Microbiology Studies 07/15/18 14:30 Blood Culture - Preliminary Blood NO GROWTH AFTER 4 DAYS 07/17/18 05:35 Gram Stain - Final Abdomen Wound Culture - Final Pseudomonas Aeruginosa Lab Studies 07/20/18 07/20/18 07/20/18 Range/Units 05:38 05:15 05:15 WBC 21.2 H (4.5-11.0) 10^3/uL RBC 3.68 (3.5-6.1) 10^6/uL Hgb 9.7 L (14.0-18.0) g/dL Hct 32.2 L (42.0-52.0) % MCV 87.5 (80.0-105.0) fl MCH 26.4 (25.0-35.0) pg MCHC 30.1 L (31.0-37.0) g/dl RDW 21.6 H (11.5-14.5) % Plt Count 578 H (120.0-450.0) 10^3/uL MPV 9.3 (7.0-11.0) fl pCO2 (35-45) mm/Hg pO2 (80-100) mm/Hg HCO3 (21-28) mmol/L ABG pH (7.35-7.45) ABG Total CO2 (22-28) mmol.L ABG O2 Saturation (95-98) % ABG O2 Content (15-23) ML/dl ABG Base Excess (-2.0-3.0) mmol/L ABG Hemoglobin (11.7-17.4) g/dL ABG Carboxyhemoglobin (0.5-1.5) % POC ABG HHb (Measured) (0-5) % ABG Methemoglobin (0.0-3.0) % ABG O2 Capacity (16-24) mL/dl Hgb O2 Saturation (95.0-98.0) % FiO2 % Sodium (132-148) mmol/L Potassium (3.6-5.0) mmol/L Chloride (98-107) mmol/L Carbon Dioxide (21-33) mmol/L Anion Gap (10-20) BUN (7-21) mg/dL Creatinine (0.8-1.5) mg/dl Est GFR ( Amer) Est GFR (Non-Af Amer) POC Glucose (mg/dL) 97 (65-110) mg/dL Random Glucose (70-110) mg/dL Calcium (8.4-10.5) mg/dL Phosphorus (2.5-4.5) mg/dL Magnesium (1.7-2.2) mg/dL Total Bilirubin (0.2-1.3) mg/dL AST (17-59) U/L ALT (7-56) U/L Alkaline Phosphatase (38-126) U/L NT-Pro-B Natriuret Pep 4110 H (0-450) pg/mL Total Protein (5.8-8.3) g/dL Albumin (3.0-4.8) g/dL Globulin gm/dL Albumin/Globulin Ratio (1.1-1.8) Procalcitonin (0.19-0.49) NG/ML 07/20/18 07/20/18 07/20/18 Range/Units 05:15 05:11 00:03 WBC (4.5-11.0) 10^3/uL RBC (3.5-6.1) 10^6/uL Hgb (14.0-18.0) g/dL Hct (42.0-52.0) % MCV (80.0-105.0) fl MCH (25.0-35.0) pg MCHC (31.0-37.0) g/dl RDW (11.5-14.5) % Plt Count (120.0-450.0) 10^3/uL MPV (7.0-11.0) fl pCO2 36 (35-45) mm/Hg pO2 60.0 L (80-100) mm/Hg HCO3 26.2 (21-28) mmol/L ABG pH 7.47 H (7.35-7.45) ABG Total CO2 27.3 (22-28) mmol.L ABG O2 Saturation 95.4 (95-98) % ABG O2 Content 12.1 L (15-23) ML/dl ABG Base Excess 2.5 (-2.0-3.0) mmol/L ABG Hemoglobin 9.2 L (11.7-17.4) g/dL ABG Carboxyhemoglobin 1.5 (0.5-1.5) % POC ABG HHb (Measured) 4.5 (0-5) % ABG Methemoglobin 1.0 (0.0-3.0) % ABG O2 Capacity 12.7 L (16-24) mL/dl Hgb O2 Saturation 93.1 L (95.0-98.0) % FiO2 50.0 % Sodium 144 (132-148) mmol/L Potassium 3.6 (3.6-5.0) mmol/L Chloride 112 H (98-107) mmol/L Carbon Dioxide 29 (21-33) mmol/L Anion Gap 7 L (10-20) BUN 15 (7-21) mg/dL Creatinine 1.0 (0.8-1.5) mg/dl Est GFR ( Amer) > 60 Est GFR (Non-Af Amer) > 60 POC Glucose (mg/dL) 88 (65-110) mg/dL Random Glucose 92 (70-110) mg/dL Calcium 9.7 (8.4-10.5) mg/dL Phosphorus 2.2 L (2.5-4.5) mg/dL Magnesium 2.2 (1.7-2.2) mg/dL Total Bilirubin 0.3 (0.2-1.3) mg/dL AST 44 (17-59) U/L ALT 42 (7-56) U/L Alkaline Phosphatase 272 H (38-126) U/L NT-Pro-B Natriuret Pep (0-450) pg/mL Total Protein 6.1 (5.8-8.3) g/dL Albumin 2.6 L (3.0-4.8) g/dL Globulin 3.5 gm/dL Albumin/Globulin Ratio 0.7 L (1.1-1.8) Procalcitonin (0.19-0.49) NG/ML 07/19/18 07/19/18 07/19/18 Range/Units 18:30 17:47 16:00 WBC (4.5-11.0) 10^3/uL RBC (3.5-6.1) 10^6/uL Hgb (14.0-18.0) g/dL Hct (42.0-52.0) % MCV (80.0-105.0) fl MCH (25.0-35.0) pg MCHC (31.0-37.0) g/dl RDW (11.5-14.5) % Plt Count (120.0-450.0) 10^3/uL MPV (7.0-11.0) fl pCO2 (35-45) mm/Hg pO2 (80-100) mm/Hg HCO3 (21-28) mmol/L ABG pH (7.35-7.45) ABG Total CO2 (22-28) mmol.L ABG O2 Saturation (95-98) % ABG O2 Content (15-23) ML/dl ABG Base Excess (-2.0-3.0) mmol/L ABG Hemoglobin (11.7-17.4) g/dL ABG Carboxyhemoglobin (0.5-1.5) % POC ABG HHb (Measured) (0-5) % ABG Methemoglobin (0.0-3.0) % ABG O2 Capacity (16-24) mL/dl Hgb O2 Saturation (95.0-98.0) % FiO2 % Sodium 143 (132-148) mmol/L Potassium 3.6 (3.6-5.0) mmol/L Chloride 109 H (98-107) mmol/L Carbon Dioxide 32 (21-33) mmol/L Anion Gap 6 L (10-20) BUN 17 (7-21) mg/dL Creatinine 1.0 (0.8-1.5) mg/dl Est GFR ( Amer) > 60 Est GFR (Non-Af Amer) > 60 POC Glucose (mg/dL) 115 H (65-110) mg/dL Random Glucose 120 H (70-110) mg/dL Calcium 9.5 (8.4-10.5) mg/dL Phosphorus (2.5-4.5) mg/dL Magnesium 2.3 H (1.7-2.2) mg/dL Total Bilirubin (0.2-1.3) mg/dL AST (17-59) U/L ALT (7-56) U/L Alkaline Phosphatase (38-126) U/L NT-Pro-B Natriuret Pep (0-450) pg/mL Total Protein (5.8-8.3) g/dL Albumin (3.0-4.8) g/dL Globulin gm/dL Albumin/Globulin Ratio (1.1-1.8) Procalcitonin 0.15 L (0.19-0.49) NG/ML 07/19/18 Range/Units 11:21 WBC (4.5-11.0) 10^3/uL RBC (3.5-6.1) 10^6/uL Hgb (14.0-18.0) g/dL Hct (42.0-52.0) % MCV (80.0-105.0) fl MCH (25.0-35.0) pg MCHC (31.0-37.0) g/dl RDW (11.5-14.5) % Plt Count (120.0-450.0) 10^3/uL MPV (7.0-11.0) fl pCO2 (35-45) mm/Hg pO2 (80-100) mm/Hg HCO3 (21-28) mmol/L ABG pH (7.35-7.45) ABG Total CO2 (22-28) mmol.L ABG O2 Saturation (95-98) % ABG O2 Content (15-23) ML/dl ABG Base Excess (-2.0-3.0) mmol/L ABG Hemoglobin (11.7-17.4) g/dL ABG Carboxyhemoglobin (0.5-1.5) % POC ABG HHb (Measured) (0-5) % ABG Methemoglobin (0.0-3.0) % ABG O2 Capacity (16-24) mL/dl Hgb O2 Saturation (95.0-98.0) % FiO2 % Sodium (132-148) mmol/L Potassium (3.6-5.0) mmol/L Chloride (98-107) mmol/L Carbon Dioxide (21-33) mmol/L Anion Gap (10-20) BUN (7-21) mg/dL Creatinine (0.8-1.5) mg/dl Est GFR ( Amer) Est GFR (Non-Af Amer) POC Glucose (mg/dL) 167 H (65-110) mg/dL Random Glucose (70-110) mg/dL Calcium (8.4-10.5) mg/dL Phosphorus (2.5-4.5) mg/dL Magnesium (1.7-2.2) mg/dL Total Bilirubin (0.2-1.3) mg/dL AST (17-59) U/L ALT (7-56) U/L Alkaline Phosphatase (38-126) U/L NT-Pro-B Natriuret Pep (0-450) pg/mL Total Protein (5.8-8.3) g/dL Albumin (3.0-4.8) g/dL Globulin gm/dL Albumin/Globulin Ratio (1.1-1.8) Procalcitonin (0.19-0.49) NG/ML Laboratory Results - last 24 hr 07/19/18 07/19/18 07/19/18 11:21 16:00 17:47 WBC RBC Hgb Hct MCV MCH MCHC RDW Plt Count MPV pCO2 pO2 HCO3 ABG pH ABG Total CO2 ABG O2 Saturation ABG O2 Content ABG Base Excess ABG Hemoglobin ABG Carboxyhemoglobin POC ABG HHb (Measured) ABG Methemoglobin ABG O2 Capacity Hgb O2 Saturation FiO2 Sodium 143 Potassium 3.6 Chloride 109 H Carbon Dioxide 32 Anion Gap 6 L BUN 17 Creatinine 1.0 Est GFR ( Amer) > 60 Est GFR (Non-Af Amer) > 60 POC Glucose (mg/dL) 167 H 115 H Random Glucose 120 H Calcium 9.5 Phosphorus Magnesium 2.3 H Total Bilirubin AST ALT Alkaline Phosphatase NT-Pro-B Natriuret Pep Total Protein Albumin Globulin Albumin/Globulin Ratio Procalcitonin 07/19/18 07/20/18 07/20/18 18:30 00:03 05:11 WBC RBC Hgb Hct MCV MCH MCHC RDW Plt Count MPV pCO2 36 pO2 60.0 L HCO3 26.2 ABG pH 7.47 H ABG Total CO2 27.3 ABG O2 Saturation 95.4 ABG O2 Content 12.1 L ABG Base Excess 2.5 ABG Hemoglobin 9.2 L ABG Carboxyhemoglobin 1.5 POC ABG HHb (Measured) 4.5 ABG Methemoglobin 1.0 ABG O2 Capacity 12.7 L Hgb O2 Saturation 93.1 L FiO2 50.0 Sodium Potassium Chloride Carbon Dioxide Anion Gap BUN Creatinine Est GFR ( Amer) Est GFR (Non-Af Amer) POC Glucose (mg/dL) 88 Random Glucose Calcium Phosphorus Magnesium Total Bilirubin AST ALT Alkaline Phosphatase NT-Pro-B Natriuret Pep Total Protein Albumin Globulin Albumin/Globulin Ratio Procalcitonin 0.15 L 07/20/18 07/20/18 07/20/18 05:15 05:15 05:15 WBC 21.2 H RBC 3.68 Hgb 9.7 L Hct 32.2 L MCV 87.5 MCH 26.4 MCHC 30.1 L RDW 21.6 H Plt Count 578 H MPV 9.3 pCO2 pO2 HCO3 ABG pH ABG Total CO2 ABG O2 Saturation ABG O2 Content ABG Base Excess ABG Hemoglobin ABG Carboxyhemoglobin POC ABG HHb (Measured) ABG Methemoglobin ABG O2 Capacity Hgb O2 Saturation FiO2 Sodium 144 Potassium 3.6 Chloride 112 H Carbon Dioxide 29 Anion Gap 7 L BUN 15 Creatinine 1.0 Est GFR ( Amer) > 60 Est GFR (Non-Af Amer) > 60 POC Glucose (mg/dL) Random Glucose 92 Calcium 9.7 Phosphorus 2.2 L Magnesium 2.2 Total Bilirubin 0.3 AST 44 ALT 42 Alkaline Phosphatase 272 H NT-Pro-B Natriuret Pep 4110 H Total Protein 6.1 Albumin 2.6 L Globulin 3.5 Albumin/Globulin Ratio 0.7 L Procalcitonin 07/20/18 05:38 WBC RBC Hgb Hct MCV MCH MCHC RDW Plt Count MPV pCO2 pO2 HCO3 ABG pH ABG Total CO2 ABG O2 Saturation ABG O2 Content ABG Base Excess ABG Hemoglobin ABG Carboxyhemoglobin POC ABG HHb (Measured) ABG Methemoglobin ABG O2 Capacity Hgb O2 Saturation FiO2 Sodium Potassium Chloride Carbon Dioxide Anion Gap BUN Creatinine Est GFR ( Amer) Est GFR (Non-Af Amer) POC Glucose (mg/dL) 97 Random Glucose Calcium Phosphorus Magnesium Total Bilirubin AST ALT Alkaline Phosphatase NT-Pro-B Natriuret Pep Total Protein Albumin Globulin Albumin/Globulin Ratio Procalcitonin Radiology Impressions: Radiology Impressions Chest X-Ray 07/19/18 06:00 IMPRESSION: No active pulmonary disease. Haziness in the right lower lobe and left perihilar region may represent pulmonary edema. Follow-up is advised. Fingerstick Blood Sugar Results: 98 Critical Care Progress Note - Nutrition Nutrition: Nutrition Category Date Time Status NPO Diet [DIET] Diets 07/16/18 Breakfast Ordered Assessment/Plan - Assessment and Plan (Free Text) Assessment: Pt is an 87 yo male admitted to ICU for AMS in the setting of new onset seizure episode. He developed respiratory failure requiring ventilation s/p trach placed. Plan: Neuro - awake, non verbal - CSF cx negative. 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 continue abx as per ID - ABG 36/60/7.47 - trach vent settings 60%/5/15/400 - continue duoneb prn - vanc, merrem GI - PEG tube removed, plan for G tube by surgery - CT A/P (07/17) subcutaneous/intrapertoneal air, no evidence of abscess collectio n - continue enteral feeding - GI ppx Protonix - new PEG to be placed tomorrow Renal - continue to monitor electrolytes - maintain euvolemia - d/c IVF ID - vanc, merrem - WBC 21.2 - sputum cx positive for GNR - BCx negative to date - cdiff, MRSA negative - ID following Heme/ Onc - SCD, Heparin sq Endo - right thyroid mass - transfered to [facility] on 06/27 returned [place] [facility] [place] - no surgical intervention indicated Pt seen, examined, assessment and plan discussed with Dr Jennifer Ramirez PGY1 - Date & Time Date: 07/20/18 Time: 07:20 <Dave Rodriguez - Last Filed: 07/20/18 12:04> CCU Objective - Vital Signs / Intake & Output Vital Signs (Last 4 hours): Vital Signs Pulse BP 07/20/18 10:34 61 115/71 07/20/18 10:31 132/55 L 07/20/18 10:00 61 Intake and Output (Last 8hrs): Intake & Output 07/19/18 07/20/18 07/20/18 22:59 06:59 14:59 Intake Total 2130 350 Output Total 1250 750 Balance 880 -400 Weight 215 lb Intake: IV 1150 350 Left Subclavian 1150 350 Tube Feeding 500 Other 480 Output: Urine 950 750 Urethral (Phan) 950 750 Stool 300 - Medications Active Medications: Active Medications Generic Name Dose Route Start Last Admin Trade Name Freq PRN Reason Stop Dose Admin Amino Acid Protein 15 gm 07/15/18 10:00 07/20/18 10:35 Prostat 15 G Packet GT 15 gm BID LUZ MARINA Administration Amlodipine Besylate 5 mg 07/15/18 10:00 07/20/18 10:34 Norvasc PO 5 mg DAILY LUZ MARINA Administration Atorvastatin Calcium 20 mg 07/15/18 17:00 07/19/18 17:23 Lipitor PO 20 mg DIN LUZ MARINA Administration Dextrose 0 ml 07/14/18 22:13 07/17/18 00:59 Dextrose 50% Inj IV 50 ml STAT PRN Administration Hypoglycemia Protocol Protocol Heparin Sodium (Porcine) 5,000 units 07/15/18 06:00 07/20/18 05:33 Heparin SC 5,000 units Q8 LZU MARINA Administration Protocol Dextrose 1,000 mls @ 0 mls/hr 07/14/18 22:13 Dextrose 5% In Water 1000 Ml IV .Q0M PRN Hypoglycemia Protocol Protocol Per Protocol Levetiracetam 500 mg in 100 mls @ 400 mls/hr 07/16/18 10:00 07/20/18 10:30 Keppra 500mg Ivpb IVPB 400 mls/hr Q12 LUZ MARINA Administration Vancomycin HCl 1 gm in 250 mls @ 167 mls/hr 07/19/18 18:00 07/20/18 05:32 Vancomycin 1gm IVPB 167 mls/hr Q12H LUZ MARINA Administration Protocol Meropenem 1 gm in 50 mls @ 100 mls/hr 07/20/18 07:15 07/20/18 10:33 Merrem Iv 1 Gm Premix IVPB 07/27/18 07:16 100 mls/hr Q8 LUZ MARINA Administration Protocol Insulin Human Regular 0 units 07/15/18 12:00 07/20/18 05:46 Humulin R Med SC Not Given Q6H [facility] Protocol Nystatin 1 gm 07/16/18 22:00 07/20/18 10:36 Nystop Topical Powder TOP 1 applic Q12H LUZ MARINA Administration Pantoprazole Sodium 40 mg 07/16/18 10:00 07/20/18 10:34 Protonix Inj IVP 40 mg Q12 LUZ MARINA Administration Senna/Docusate Sodium 1 tab 07/15/18 10:00 07/20/18 10:34 Senokot S 50 Mg-8.6 Mg PO 1 tab BID LUZ MARINA Administration - Patient Studies Lab Studies: Microbiology Studies 07/15/18 14:30 Blood Culture - Preliminary Blood NO GROWTH AFTER 4 DAYS 07/17/18 05:35 Gram Stain - Final Abdomen Wound Culture - Final Pseudomonas Aeruginosa Lab Studies 07/20/18 07/20/18 07/20/18 Range/Units 05:38 05:15 05:15 WBC 21.2 H (4.5-11.0) 10^3/uL RBC 3.68 (3.5-6.1) 10^6/uL Hgb 9.7 L (14.0-18.0) g/dL Hct 32.2 L (42.0-52.0) % MCV 87.5 (80.0-105.0) fl MCH 26.4 (25.0-35.0) pg MCHC 30.1 L (31.0-37.0) g/dl RDW 21.6 H (11.5-14.5) % Plt Count 578 H (120.0-450.0) 10^3/uL MPV 9.3 (7.0-11.0) fl pCO2 (35-45) mm/Hg pO2 (80-100) mm/Hg HCO3 (21-28) mmol/L ABG pH (7.35-7.45) ABG Total CO2 (22-28) mmol.L ABG O2 Saturation (95-98) % ABG O2 Content (15-23) ML/dl ABG Base Excess (-2.0-3.0) mmol/L ABG Hemoglobin (11.7-17.4) g/dL ABG Carboxyhemoglobin (0.5-1.5) % POC ABG HHb (Measured) (0-5) % ABG Methemoglobin (0.0-3.0) % ABG O2 Capacity (16-24) mL/dl Hgb O2 Saturation (95.0-98.0) % FiO2 % Sodium (132-148) mmol/L Potassium (3.6-5.0) mmol/L Chloride (98-107) mmol/L Carbon Dioxide (21-33) mmol/L Anion Gap (10-20) BUN (7-21) mg/dL Creatinine (0.8-1.5) mg/dl Est GFR ( Amer) Est GFR (Non-Af Amer) POC Glucose (mg/dL) 97 (65-110) mg/dL Random Glucose (70-110) mg/dL Calcium (8.4-10.5) mg/dL Phosphorus (2.5-4.5) mg/dL Magnesium (1.7-2.2) mg/dL Total Bilirubin (0.2-1.3) mg/dL AST (17-59) U/L ALT (7-56) U/L Alkaline Phosphatase (38-126) U/L NT-Pro-B Natriuret Pep 4110 H (0-450) pg/mL Total Protein (5.8-8.3) g/dL Albumin (3.0-4.8) g/dL Globulin gm/dL Albumin/Globulin Ratio (1.1-1.8) Procalcitonin (0.19-0.49) NG/ML 07/20/18 07/20/18 07/20/18 Range/Units 05:15 05:11 00:03 WBC (4.5-11.0) 10^3/uL RBC (3.5-6.1) 10^6/uL Hgb (14.0-18.0) g/dL Hct (42.0-52.0) % MCV (80.0-105.0) fl MCH (25.0-35.0) pg MCHC (31.0-37.0) g/dl RDW (11.5-14.5) % Plt Count (120.0-450.0) 10^3/uL MPV (7.0-11.0) fl pCO2 36 (35-45) mm/Hg pO2 60.0 L (80-100) mm/Hg HCO3 26.2 (21-28) mmol/L ABG pH 7.47 H (7.35-7.45) ABG Total CO2 27.3 (22-28) mmol.L ABG O2 Saturation 95.4 (95-98) % ABG O2 Content 12.1 L (15-23) ML/dl ABG Base Excess 2.5 (-2.0-3.0) mmol/L ABG Hemoglobin 9.2 L (11.7-17.4) g/dL ABG Carboxyhemoglobin 1.5 (0.5-1.5) % POC ABG HHb (Measured) 4.5 (0-5) % ABG Methemoglobin 1.0 (0.0-3.0) % ABG O2 Capacity 12.7 L (16-24) mL/dl Hgb O2 Saturation 93.1 L (95.0-98.0) % FiO2 50.0 % Sodium 144 (132-148) mmol/L Potassium 3.6 (3.6-5.0) mmol/L Chloride 112 H (98-107) mmol/L Carbon Dioxide 29 (21-33) mmol/L Anion Gap 7 L (10-20) BUN 15 (7-21) mg/dL Creatinine 1.0 (0.8-1.5) mg/dl Est GFR ( Amer) > 60 Est GFR (Non-Af Amer) > 60 POC Glucose (mg/dL) 88 (65-110) mg/dL Random Glucose 92 (70-110) mg/dL Calcium 9.7 (8.4-10.5) mg/dL Phosphorus 2.2 L (2.5-4.5) mg/dL Magnesium 2.2 (1.7-2.2) mg/dL Total Bilirubin 0.3 (0.2-1.3) mg/dL AST 44 (17-59) U/L ALT 42 (7-56) U/L Alkaline Phosphatase 272 H (38-126) U/L NT-Pro-B Natriuret Pep (0-450) pg/mL Total Protein 6.1 (5.8-8.3) g/dL Albumin 2.6 L (3.0-4.8) g/dL Globulin 3.5 gm/dL Albumin/Globulin Ratio 0.7 L (1.1-1.8) Procalcitonin (0.19-0.49) NG/ML 07/19/18 07/19/18 07/19/18 Range/Units 18:30 17:47 16:00 WBC (4.5-11.0) 10^3/uL RBC (3.5-6.1) 10^6/uL Hgb (14.0-18.0) g/dL Hct (42.0-52.0) % MCV (80.0-105.0) fl MCH (25.0-35.0) pg MCHC (31.0-37.0) g/dl RDW (11.5-14.5) % Plt Count (120.0-450.0) 10^3/uL MPV (7.0-11.0) fl pCO2 (35-45) mm/Hg pO2 (80-100) mm/Hg HCO3 (21-28) mmol/L ABG pH (7.35-7.45) ABG Total CO2 (22-28) mmol.L ABG O2 Saturation (95-98) % ABG O2 Content (15-23) ML/dl ABG Base Excess (-2.0-3.0) mmol/L ABG Hemoglobin (11.7-17.4) g/dL ABG Carboxyhemoglobin (0.5-1.5) % POC ABG HHb (Measured) (0-5) % ABG Methemoglobin (0.0-3.0) % ABG O2 Capacity (16-24) mL/dl Hgb O2 Saturation (95.0-98.0) % FiO2 % Sodium 143 (132-148) mmol/L Potassium 3.6 (3.6-5.0) mmol/L Chloride 109 H (98-107) mmol/L Carbon Dioxide 32 (21-33) mmol/L Anion Gap 6 L (10-20) BUN 17 (7-21) mg/dL Creatinine 1.0 (0.8-1.5) mg/dl Est GFR ( Amer) > 60 Est GFR (Non-Af Amer) > 60 POC Glucose (mg/dL) 115 H (65-110) mg/dL Random Glucose 120 H (70-110) mg/dL Calcium 9.5 (8.4-10.5) mg/dL Phosphorus (2.5-4.5) mg/dL Magnesium 2.3 H (1.7-2.2) mg/dL Total Bilirubin (0.2-1.3) mg/dL AST (17-59) U/L ALT (7-56) U/L Alkaline Phosphatase (38-126) U/L NT-Pro-B Natriuret Pep (0-450) pg/mL Total Protein (5.8-8.3) g/dL Albumin (3.0-4.8) g/dL Globulin gm/dL Albumin/Globulin Ratio (1.1-1.8) Procalcitonin 0.15 L (0.19-0.49) NG/ML 07/19/18 Range/Units 11:21 WBC (4.5-11.0) 10^3/uL RBC (3.5-6.1) 10^6/uL Hgb (14.0-18.0) g/dL Hct (42.0-52.0) % MCV (80.0-105.0) fl MCH (25.0-35.0) pg MCHC (31.0-37.0) g/dl RDW (11.5-14.5) % Plt Count (120.0-450.0) 10^3/uL MPV (7.0-11.0) fl pCO2 (35-45) mm/Hg pO2 (80-100) mm/Hg HCO3 (21-28) mmol/L ABG pH (7.35-7.45) ABG Total CO2 (22-28) mmol.L ABG O2 Saturation (95-98) % ABG O2 Content (15-23) ML/dl ABG Base Excess (-2.0-3.0) mmol/L ABG Hemoglobin (11.7-17.4) g/dL ABG Carboxyhemoglobin (0.5-1.5) % POC ABG HHb (Measured) (0-5) % ABG Methemoglobin (0.0-3.0) % ABG O2 Capacity (16-24) mL/dl Hgb O2 Saturation (95.0-98.0) % FiO2 % Sodium (132-148) mmol/L Potassium (3.6-5.0) mmol/L Chloride (98-107) mmol/L Carbon Dioxide (21-33) mmol/L Anion Gap (10-20) BUN (7-21) mg/dL Creatinine (0.8-1.5) mg/dl Est GFR ( Amer) Est GFR (Non-Af Amer) POC Glucose (mg/dL) 167 H (65-110) mg/dL Random Glucose (70-110) mg/dL Calcium (8.4-10.5) mg/dL Phosphorus (2.5-4.5) mg/dL Magnesium (1.7-2.2) mg/dL Total Bilirubin (0.2-1.3) mg/dL AST (17-59) U/L ALT (7-56) U/L Alkaline Phosphatase (38-126) U/L NT-Pro-B Natriuret Pep (0-450) pg/mL Total Protein (5.8-8.3) g/dL Albumin (3.0-4.8) g/dL Globulin gm/dL Albumin/Globulin Ratio (1.1-1.8) Procalcitonin (0.19-0.49) NG/ML Laboratory Results - last 24 hr 07/19/18 07/19/18 07/19/18 11:21 16:00 17:47 WBC RBC Hgb Hct MCV MCH MCHC RDW Plt Count MPV pCO2 pO2 HCO3 ABG pH ABG Total CO2 ABG O2 Saturation ABG O2 Content ABG Base Excess ABG Hemoglobin ABG Carboxyhemoglobin POC ABG HHb (Measured) ABG Methemoglobin ABG O2 Capacity Hgb O2 Saturation FiO2 Sodium 143 Potassium 3.6 Chloride 109 H Carbon Dioxide 32 Anion Gap 6 L BUN 17 Creatinine 1.0 Est GFR ( Amer) > 60 Est GFR (Non-Af Amer) > 60 POC Glucose (mg/dL) 167 H 115 H Random Glucose 120 H Calcium 9.5 Phosphorus Magnesium 2.3 H Total Bilirubin AST ALT Alkaline Phosphatase NT-Pro-B Natriuret Pep Total Protein Albumin Globulin Albumin/Globulin Ratio Procalcitonin 07/19/18 07/20/18 07/20/18 18:30 00:03 05:11 WBC RBC Hgb Hct MCV MCH MCHC RDW Plt Count MPV pCO2 36 pO2 60.0 L HCO3 26.2 ABG pH 7.47 H ABG Total CO2 27.3 ABG O2 Saturation 95.4 ABG O2 Content 12.1 L ABG Base Excess 2.5 ABG Hemoglobin 9.2 L ABG Carboxyhemoglobin 1.5 POC ABG HHb (Measured) 4.5 ABG Methemoglobin 1.0 ABG O2 Capacity 12.7 L Hgb O2 Saturation 93.1 L FiO2 50.0 Sodium Potassium Chloride Carbon Dioxide Anion Gap BUN Creatinine Est GFR ( Amer) Est GFR (Non-Af Amer) POC Glucose (mg/dL) 88 Random Glucose Calcium Phosphorus Magnesium Total Bilirubin AST ALT Alkaline Phosphatase NT-Pro-B Natriuret Pep Total Protein Albumin Globulin Albumin/Globulin Ratio Procalcitonin 0.15 L 07/20/18 07/20/18 07/20/18 05:15 05:15 05:15 WBC 21.2 H RBC 3.68 Hgb 9.7 L Hct 32.2 L MCV 87.5 MCH 26.4 MCHC 30.1 L RDW 21.6 H Plt Count 578 H MPV 9.3 pCO2 pO2 HCO3 ABG pH ABG Total CO2 ABG O2 Saturation ABG O2 Content ABG Base Excess ABG Hemoglobin ABG Carboxyhemoglobin POC ABG HHb (Measured) ABG Methemoglobin ABG O2 Capacity Hgb O2 Saturation FiO2 Sodium 144 Potassium 3.6 Chloride 112 H Carbon Dioxide 29 Anion Gap 7 L BUN 15 Creatinine 1.0 Est GFR ( Amer) > 60 Est GFR (Non-Af Amer) > 60 POC Glucose (mg/dL) Random Glucose 92 Calcium 9.7 Phosphorus 2.2 L Magnesium 2.2 Total Bilirubin 0.3 AST 44 ALT 42 Alkaline Phosphatase 272 H NT-Pro-B Natriuret Pep 4110 H Total Protein 6.1 Albumin 2.6 L Globulin 3.5 Albumin/Globulin Ratio 0.7 L Procalcitonin 07/20/18 05:38 WBC RBC Hgb Hct MCV MCH MCHC RDW Plt Count MPV pCO2 pO2 HCO3 ABG pH ABG Total CO2 ABG O2 Saturation ABG O2 Content ABG Base Excess ABG Hemoglobin ABG Carboxyhemoglobin POC ABG HHb (Measured) ABG Methemoglobin ABG O2 Capacity Hgb O2 Saturation FiO2 Sodium Potassium Chloride Carbon Dioxide Anion Gap BUN Creatinine Est GFR ( Amer) Est GFR (Non-Af Amer) POC Glucose (mg/dL) 97 Random Glucose Calcium Phosphorus Magnesium Total Bilirubin AST ALT Alkaline Phosphatase NT-Pro-B Natriuret Pep Total Protein Albumin Globulin Albumin/Globulin Ratio Procalcitonin Radiology Impressions: Radiology Impressions Chest X-Ray 07/20/18 06:00 IMPRESSION: Limited improvement in pulmonary vascular congestion. Left basilar atelectasis favored over infiltrate. Critical Care Progress Note - Nutrition Nutrition: Nutrition Category Date Time Status NPO Diet [DIET] Diets 07/16/18 Breakfast Ordered Attending/Attestation - Attestation I have personally seen and examined this patient.: Yes I have fully participated in the care of the patient.: Yes I have reviewed all pertinent clinical information: Yes Notes (Text): 07/20/18 12:02 The patient was seen and examined at the bedside. Patient care was discussed with resident Medical records, lab studies, and imaging were reviewed and management issues were discussed and formulated. Agree with above treatment plans as outlined in 's note with addition of the following: VDRF \ Hypoxemia \ Sepsis \ PNA \ COPD \ Thyroid mass \ Renal Cancer \Seizures -hemodynamic monitoring to maintain MAP>65 -mechanical ventilation and o2 supplementation to maintain Spo2 >90 Pao2>60 -monitor for TV 6ml\kg IBW and plateau pressure <30 -ABG in AM reviewed and CXR reviewed -Fio2 increased to 60%; pulmonary team f\u appreciated -continue pulmonary toileting -continue broad spectrum Abx as per ID team and f\u cultures -f\u Bun\Cr and U\o; monitor and replace e-lites -NPO diet and aspiration precautions -awaiting PEG placement tomorrow -continue anti-seizure precautions and Keppra -DVT \ PUD prophylaxis CCM time 32mins
--- NOTE | 2018-07-20 08:28 | RAD ---
Date of service: 07/20/2018 HISTORY: f/u COMPARISON: Portable chest 07/19/2018. TECHNIQUE: 1 view obtained. FINDINGS: LUNGS: Tracheostomy tube is not significantly changed in position as well as left subclavian central venous line. Limited hazy density at the left greater than right perihilar regions persists though slightly improved at the left, suggestive of probable improving CHF. Left hemidiaphragm is not defined suggesting probable left basilar atelectasis with no definite right sided infiltrate appreciable. No pneumothorax bilaterally. Small bilateral pleural effusions are suspected. PLEURA: As above CARDIOVASCULAR: Calcific atherosclerotic changes are seen related to the thoracic aorta. Stable cardiac size. Limited improvement in pulmonary vascular congestion. OSSEOUS STRUCTURES: No significant abnormalities. VISUALIZED UPPER ABDOMEN: Normal. OTHER FINDINGS: None. IMPRESSION: Limited improvement in pulmonary vascular congestion. Left basilar atelectasis favored over infiltrate.
--- NOTE | 2018-07-20 09:23 | PN ---
DATE: 07/20/2018(046nm-054sm) SUBJECTIVE: The patient remains on the ventilator. He is sedated this morning. PHYSICAL EXAMINATION: VITAL SIGNS: Temperature 98.1, pulse 65, respirations 15/15, blood pressure 157/59. HEENT: Normocephalic, atraumatic. No JVD. Positive tracheostomy. CARDIOVASCULAR: Systolic ejection murmur at the lower left sternal border. Questionable S3 gallop. LUNGS: Decreased breath sounds at the bases. No significant rhonchi or wheezing. EXTREMITIES: Mild edema. No cyanosis. No clubbing. GI: Abdomen is soft, nondistended. Bowel sounds are positive. SKIN: No acute rash. NEUROLOGIC: Exam limited at the present time. PERTINENT LABORATORY DATA: Chest x-ray was done this morning and reviewed. The chest x-ray is a very poor, very rotated film. Bilateral pulmonary infiltrates remain. However, there appears to be an increase in the pulmonary vascular congestion. Official results are pending. Arterial blood gas was done on PRVC 15, tidal volume 400, FiO2 50%. Results are: pH 7.47, pCO2 of 36, pO2 of 60. IMPRESSION: 1. Respiratory failure. 2. Bilateral pneumonia. 3. Chronic obstructive pulmonary disease. 4. Seizure disorder. 5. Thyroid mass. 6. Anemia. PLAN: The patient remains on the ventilator. He is more sedated this morning. I did discuss the case with the night nurse at length. The night nurse stated the patient had a fairly good night, but does have episodes of severe bradycardia. I did review the chest x-ray from this morning. The chest x-ray remains with bilateral pulmonary infiltrates. However, there appears to be an increase in the pulmonary vascular congestion underlying. I would continue with the antibiotic coverage as per Infectious Disease. Input by Dr. Fortune is noted. I will also order a B-type natriuretic peptide(??CHF). I have also reviewed the arterial blood gas. The arterial blood gas is less alkalotic, but there is a significant increase in the alveolar-arterial gradient. I did discuss the arterial blood gas with the respiratory therapist. The FiO2 has been increased. Inputs by Infectious Disease and Internal Medicine are also noted. The patient is for PEG tube placement tomorrow morning. Surgical input is noted. The patient remains critically ill with overall poor prognosis. I will discuss the above with the entire ICU team in the next few moments. I will discuss the above with Dr. Neal later this morning. Theo Rivas MD MTDChandu
[2018-07-20] MEDS: levETIRAcetam 500mg IVPB 500 MG/100 ML BAG IVPB SCH ×2 (10:30→21:32)
[2018-07-20] MEDS: Docusate-Senna 50 mg-8.6 mg Tab PO SCH ×2 (10:34→17:14)
[2018-07-20] MEDS: Prostat 15 g packet GT SCH ×2 (10:35→17:26)
[2018-07-20] MEDS: Nystatin 100,000 Units/gm Topical Pow(15 gm) TOP SCH ×2 (10:36→21:34)
--- NOTE | 2018-07-20 12:20 | PN ---
DATE: 07/20/2018 SUBJECTIVE: I saw him in the intensive care unit. He is on the trach vent. He is alert and looking around. He understands what I am saying. He has also got four-point restraint. He is on Dextrose, heparin, Keppra, Lipitor, Merrem, Norvasc, topical powder, Pro-Stat, Protonix, Senokot, and vancomycin. PHYSICAL EXAMINATION: VITAL SIGNS: He has a 98.8 temperature, 53 pulse, 139/72 blood pressure, 100% O2 sat on 35%. HEENT: His head is atraumatic, normocephalic. There is a trach and its a clean trach vent. HEART: Regular rate. LUNGS: Decreased breath sounds, but clear. ABDOMEN: Soft, obese. EXTREMITIES: Trace edema. LABORATORY DATA: He has 21.2 white count, it is still quite high and 9.7 hemoglobin, 32.2 hematocrit with a 578 platelets, hoping for the white count to come down. He is on IV antibiotics. He has 144 sodium, potassium 3.6, BUN 50, creatinine is 1, GFR is greater than 60, sugar is 97, calcium is 9.7, phosphorus 2.2, magnesium 2.2, total bili is 0.3, AST is 44, ALT is 42, alk phos 272, BNP is very high at 4110. He was given Lasix IV this morning for that. Total protein is 6.1, procalcitonin is 0.15. Micro was pseudomonas aeruginosa. ASSESSMENT AND PLAN: He is being seen by the gas stove servicer helper, Pulmonary, Surgery, Infectious Disease. We will continue aggressive treatment and care on Federica Gonsalves hoping to wean him off the trach vent. I think that would really be the best thing for him if he can possibly do it. Continue aggressive treatment and care. Aleksey Neal DO
--- NOTE | 2018-07-20 12:53 | PN ---
DATE: 07/20/2018 CARDIOLOGY FOLLOWUP SUBJECTIVE: The patient remains ventilator, sedated. The patient is . PHYSICAL EXAMINATION VITAL SIGNS: Blood pressure 139/72 and heart rates in the 50s. NECK: Negative JVD. LUNGS: Decreased breath sounds. HEART: S1 and S2. EXTREMITIES: Without edema. LABORATORY DATA: Hemoglobin is 9.7. BUN and creatinine are unremarkable. IMPRESSION; 1. Respiratory failure. 2. Thyroid mass. 3. Chronic obstructive pulmonary disease. 4. Anemia. 5. Bilateral pneumonia. Given these findings, the patient is hemodynamically stable. Prabhakar Cristina MD
[2018-07-20 13:44] LABS: URINE BILIRUBIN NEGATIVE (NEGATIVE); URINE BLOOD NEGATIVE (NEGATIVE); URINE GLUCOSE (UA) NEGATIVE (NEGATIVE); URINE LEUKOCYTE ESTERASE NEGATIVE Leu/uL (NEGATIVE); URINE PROTEIN NEGATIVE mg/dL (<30 mg/dL); URINE UROBILINOGEN 0.2 E.U./dL (<1 E.U./dL)
[2018-07-20 13:48] LABS: URINE APPEARANCE CLEAR (CLEAR); URINE COLOR LIGHT YELLOW (YELLOW)
--- NOTE | 2018-07-20 14:26 | CP.PCM.PN ---
<Abe Cunningham - Last Filed: 07/20/18 14:16> Subjective - Date & Time of Evaluation Date of Evaluation: 07/20/18 Time of Evaluation: 07:40 - Subjective Subjective: Abe Cunningham D.O. PGY-3, Internal Medicine Resident, Infectious Disease Progress Note 87 year old male with a PMH of heart failure, renal Ca s/p nephrectomy, and COPD who was found to have a thyroid mass, was transferred temporarily to [facility] and then transferred back. Infectious disease consultation was requested. Patient was seen and examined at bedside. Trached but trying to mouth words. Appears to be asking where he is and what is happening. Objective - Vital Signs/Intake and Output Vital Signs (last 24 hours): Temp Pulse Resp BP Pulse Ox 98.8 F 61 16 115/71 100 07/20/18 07:20 07/20/18 10:34 07/18/18 10:43 07/20/18 10:34 07/20/18 07:20 Intake and Output: 07/20/18 07/20/18 06:59 18:59 Intake Total 350 Output Total 750 Balance -400 - Medications Medications: Current Medications Amino Acid Protein (Prostat 15 G Packet) 15 gm GT BID LUZ [facility]INA Last Admin: 07/20/18 10:35 Dose: 15 gm Amlodipine Besylate (Norvasc) 5 mg PO DAILY [facility]INA Last Admin: 07/20/18 10:34 Dose: 5 mg Atorvastatin Calcium (Lipitor) 20 mg PO DIN LU[facility] MARINA Last Admin: 07/19/18 17:23 Dose: 20 mg Dextrose (Dextrose 50% Inj) 0 ml IV STAT PRN; Protocol PRN Reason: Hypoglycemia Protocol Last Admin: 07/17/18 00:59 Dose: 50 ml Heparin Sodium (Porcine) (Heparin) 5,000 units SC Q8 LUZ MARINA; Protocol Last Admin: 07/20/18 14:15 Dose: 5,000 units Dextrose (Dextrose 5% In Water 1000 Ml) 1,000 mls @ 0 mls/hr IV .Q0M PRN; Protocol PRN Reason: Hypoglycemia Protocol Levetiracetam (Keppra 500mg Ivpb) 500 mg in 100 mls @ 400 mls/hr IVPB Q12 [facility] Last Admin: 07/20/18 10:30 Dose: 400 mls/hr Vancomycin HCl (Vancomycin 1gm) 1 gm in 250 mls @ 167 mls/hr IVPB Q12H [facility]; Protocol Last Admin: 07/20/18 05:32 Dose: 167 mls/hr Meropenem (Merrem Iv 1 Gm Premix) 1 gm in 50 mls @ 100 mls/hr IVPB Q8 LUZ MARINA; Protocol Stop: 07/27/18 07:16 Last Admin: 07/20/18 14:15 Dose: 100 mls/hr Insulin Human Regular (Humulin R Med) 0 units SC Q6H [facility] MARINA; Protocol Last Admin: 07/20/18 14:10 Dose: Not Given Nystatin (Nystop Topical Powder) 1 gm TOP Q12H [facility] Last Admin: 07/20/18 10:36 Dose: 1 applic Pantoprazole Sodium (Protonix Inj) 40 mg IVP Q12 [facility]INA Last Admin: 07/20/18 10:34 Dose: 40 mg Senna/Docusate Sodium (Senokot S 50 Mg-8.6 Mg) 1 tab PO BID LUZ MARINA Last Admin: 07/20/18 10:34 Dose: 1 tab - Labs Labs: 07/20/18 05:15 07/20/18 05:15 APTT 29.7 Seconds (26.9-38.3) 07/15/18 08:30 - Constitutional Appears: Chronically Ill elderly male - Head Exam Head Exam: ATRAUMATIC, NORMOCEPHALIC - Eye Exam Eye Exam: absent: Scleral icterus - ENT Exam ENT Exam: Mucous Membranes Moist - Neck Exam Additional comments: s/p trach - Respiratory Exam Respiratory Exam: Clear to Ausculation Bilateral. absent: Rhonchi, Wheezes - Cardiovascular Exam Cardiovascular Exam: +S1, +S2. absent: Gallop, Rubs - GI/Abdominal Exam GI & Abdominal Exam: Soft, Normal Bowel Sounds. absent: Distended, Tenderness - Neurological Exam Neurological Exam: Alert, Awake, FARNAZ, mouthing words - Skin Skin Exam: Dry, Warm Assessment and Plan - Assessment and Plan (Free Text) Assessment: 87 year old male with a PMH of heart failure, renal Ca s/p nephrectomy, and COPD who was found to have a thyroid mass, was transferred temporarily to [facility] and then transferred back. Infectious disease consultation was requested. 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 Malpositioned PEG tube COPD HFpEF Renal insufficiency Renal CA s/p nephrectomy Seizure disorder Pulmonary hypertension Thyroid mass Afebrile Continue with re-broadened regimen of merem/vancomycin BCx negative 04/18 day 4 Review of chart shows he's never not had a high white count, could possibly be related to his malignancy, may benefit from hem/onc consult Surgery note reviewed and appreciated Pulmonary note reviewed and appreciated Discussed with ICU team We will follow with you Patient was seen and examined and case to be discussed with attending physician Thank you for the pleasure of participating in the care of this interesting patient <Omer Fortune - Last Filed: 07/20/18 16:44> Objective - Vital Signs/Intake and Output Vital Signs (last 24 hours): Temp Pulse Resp BP Pulse Ox 99.3 F 58 L 16 151/67 H 95 07/20/18 16:20 07/20/18 16:20 07/18/18 10:43 07/20/18 16:15 07/20/18 14:20 Intake and Output: 07/20/18 07/20/18 06:59 18:59 Intake Total 350 Output Total 750 Balance -400 - Medications Medications: Current Medications Amino Acid Protein (Prostat 15 G Packet) 15 gm GT BID COUNTS INCLUDE 234 BEDS AT THE [facility] Last Admin: 07/20/18 10:35 Dose: 15 gm Amlodipine Besylate (Norvasc) 5 mg PO DAILY COUNTS INCLUDE 234 BEDS AT THE [facility] Last Admin: 07/20/18 10:34 Dose: 5 mg Atorvastatin Calcium (Lipitor) 20 mg PO DIN [facility] MARINA Last Admin: 07/19/18 17:23 Dose: 20 mg Dextrose (Dextrose 50% Inj) 0 ml IV STAT PRN; Protocol PRN Reason: Hypoglycemia Protocol Last Admin: 07/17/18 00:59 Dose: 50 ml Heparin Sodium (Porcine) (Heparin) 5,000 units SC Q8 [facility]Z MARINA; Protocol Last Admin: 07/20/18 14:15 Dose: 5,000 units Dextrose (Dextrose 5% In Water 1000 Ml) 1,000 mls @ 0 mls/hr IV .Q0M PRN; Protocol PRN Reason: Hypoglycemia Protocol Levetiracetam (Keppra 500mg Ivpb) 500 mg in 100 mls @ 400 mls/hr IVPB Q12 [facility]INA Last Admin: 07/20/18 10:30 Dose: 400 mls/hr Vancomycin HCl (Vancomycin 1gm) 1 gm in 250 mls @ 167 mls/hr IVPB Q12H [facility] MARINA; Protocol Last Admin: 07/20/18 05:32 Dose: 167 mls/hr Meropenem (Merrem Iv 1 Gm Premix) 1 gm in 50 mls @ 100 mls/hr IVPB Q8 LUZ MARINA; Protocol Stop: 07/27/18 07:16 Last Admin: 07/20/18 14:15 Dose: 100 mls/hr Insulin Human Regular (Humulin R Med) 0 units SC Q6H LUZ MARINA; Protocol Last Admin: 07/20/18 14:10 Dose: Not Given Nystatin (Nystop Topical Powder) 1 gm TOP Q12H [facility] MARINA Last Admin: 07/20/18 10:36 Dose: 1 applic Pantoprazole Sodium (Protonix Inj) 40 mg IVP Q12 [facility] MARINA Last Admin: 07/20/18 10:34 Dose: 40 mg Senna/Docusate Sodium (Senokot S 50 Mg-8.6 Mg) 1 tab PO BID LU[facility] MARINA Last Admin: 07/20/18 10:34 Dose: 1 tab - Labs Labs: 07/20/18 05:15 07/20/18 05:15 APTT 29.7 Seconds (26.9-38.3) 07/15/18 08:30 Attending/Attestation - Attestation I have personally seen and examined this patient.: Yes I have fully participated in the care of the patient.: Yes I have reviewed all pertinent clinical information, including history, physical exam and plan: Yes
--- NOTE | 2018-07-20 14:29 | CP.PCM.PN ---
Subjective - Date & Time of Evaluation Date of Evaluation: 07/20/18 Time of Evaluation: 14:27 - Subjective Subjective: Alyce Napoles PGY1 Progress Note for Dr. Garrido Pt was examined at bedside this morning. He is unable to answer questions and triana ccessfully follow commands at this time. No acute events overnight. Objective - Vital Signs/Intake and Output Vital Signs (last 24 hours): Temp Pulse Resp BP Pulse Ox 98.8 F 61 16 115/71 100 07/20/18 07:20 07/20/18 10:34 07/18/18 10:43 07/20/18 10:34 07/20/18 07:20 Intake and Output: 07/20/18 07/20/18 06:59 18:59 Intake Total 350 Output Total 750 Balance -400 - Medications Medications: Current Medications Amino Acid Protein (Prostat 15 G Packet) 15 gm GT BID LUZ MARINA Last Admin: 07/20/18 10:35 Dose: 15 gm Amlodipine Besylate (Norvasc) 5 mg PO DAILY [facility] Last Admin: 07/20/18 10:34 Dose: 5 mg Atorvastatin Calcium (Lipitor) 20 mg PO DIN LUZ MARINA Last Admin: 07/19/18 17:23 Dose: 20 mg Dextrose (Dextrose 50% Inj) 0 ml IV STAT PRN; Protocol PRN Reason: Hypoglycemia Protocol Last Admin: 07/17/18 00:59 Dose: 50 ml Heparin Sodium (Porcine) (Heparin) 5,000 units SC Q8 LUZ MARINA; Protocol Last Admin: 07/20/18 14:15 Dose: 5,000 units Dextrose (Dextrose 5% In Water 1000 Ml) 1,000 mls @ 0 mls/hr IV .Q0M PRN; Protocol PRN Reason: Hypoglycemia Protocol Levetiracetam (Keppra 500mg Ivpb) 500 mg in 100 mls @ 400 mls/hr IVPB Q12 [facility]INA Last Admin: 07/20/18 10:30 Dose: 400 mls/hr Vancomycin HCl (Vancomycin 1gm) 1 gm in 250 mls @ 167 mls/hr IVPB Q12H LUZ MARINA; Protocol Last Admin: 07/20/18 05:32 Dose: 167 mls/hr Meropenem (Merrem Iv 1 Gm Premix) 1 gm in 50 mls @ 100 mls/hr IVPB Q8 LUZ MARINA; Protocol Stop: 07/27/18 07:16 Last Admin: 07/20/18 14:15 Dose: 100 mls/hr Insulin Human Regular (Humulin R Med) 0 units SC Q6H [facility]; Protocol Last Admin: 07/20/18 14:10 Dose: Not Given Nystatin (Nystop Topical Powder) 1 gm TOP Q12H [facility] MARINA Last Admin: 07/20/18 10:36 Dose: 1 applic Pantoprazole Sodium (Protonix Inj) 40 mg IVP Q12 [facility]Z MARINA Last Admin: 07/20/18 10:34 Dose: 40 mg Senna/Docusate Sodium (Senokot S 50 Mg-8.6 Mg) 1 tab PO BID [facility]Z MARINA Last Admin: 07/20/18 10:34 Dose: 1 tab - Labs Labs: 07/20/18 05:15 07/20/18 05:15 APTT 29.7 Seconds (26.9-38.3) 07/15/18 08:30 - Constitutional Appears: No Acute Distress, Chronically Ill - Head Exam Head Exam: ATRAUMATIC, NORMOCEPHALIC - Eye Exam Eye Exam: EOMI, Normal appearance - ENT Exam Additional comments: Dobhoff in place via orogastric tube - Respiratory Exam Respiratory Exam: NORMAL BREATHING PATTERN. absent: Respiratory Distress - GI/Abdominal Exam Additional comments: previous PEG tube insertion site dressing clean/dry/intact - Neurological Exam Neurological Exam: Awake. absent: Alert, Oriented x3 Assessment and Plan - Assessment and Plan (Free Text) Assessment: 87 yo M with PMH of heart failure, renal Ca s/p nephrectomy, and COPD with thyroid mass transferred back from [facility], now requiring longterm nutritional access. Plan: - hold tube feeds via Dobhoff at midnight - plan for G tube insertion 07/21 - will obtain consent for procedure further recommendations as per Dr. Garrido
[2018-07-21] MEDS: Insulin Reg-MEDIUM-Coverage SC SCH ×4 (01:56→17:14)
[2018-07-21] MEDS: Vancomycin 1gm in NS 250ml 1 GM/250 ML BAG IVPB SCH ×2 (05:46→17:17)
[2018-07-21] MEDS: Meropenem IV 1 gm in NS 1 GM/50 ML BAG IVPB SCH ×3 (05:47→22:27)
[2018-07-21 06:37] LABS: HEMOGLOBIN 9.4 g/dL (14.0-18.0); MEAN CELL VOLUME 88.6 fl (80.0-105.0); MEAN CORPUSCULAR HEMOGLOBIN 26.2 pg (25.0-35.0); MEAN CORPUSCULAR HGB CONC 29.6 g/dl (31.0-37.0); MEAN PLATELET VOLUME 10.1 fl (7.0-11.0); RBC 3.59 10^6/uL (3.5-6.1); RED CELL DISTRIBUTION WIDTH 21.8 % (11.5-14.5); WHITE BLOOD COUNT 19.9 10^3/uL (4.5-11.0)
[2018-07-21 06:53] LABS: INR 1.21; PROTHROMBIN TIME 13.7 SECONDS (9.4-12.5)
[2018-07-21 07:14] LABS: ALB/GLOB RATIO 0.7 (1.1-1.8); ALBUMIN 2.4 g/dL (3.0-4.8); ALT/SGPT 35 U/L (7-56); AST/SGOT 41 U/L (17-59); BLOOD UREA NITROGEN 19 mg/dL (7-21); CALCIUM 9.5 mg/dL (8.4-10.5); GFR NON-AFRICAN AMERICAN > 60
--- NOTE | 2018-07-21 07:36 | PN ---
DATE: 07/21/2018(620am-710am) PULMONARY PROGRESS NOTE SUBJECTIVE: The patient remains on the ventilator. He is currently sedated. PHYSICAL EXAMINATION VITAL SIGNS: Temperature is 98.6, pulse is 41, respiratory rate 15/15, blood pressure 142/72. HEENT: Normocephalic, atraumatic. No JVD. Positive tracheostomy. CARDIOVASCULAR: Systolic ejection murmur at the lower left sternal border. Questionable S3 gallop. LUNGS: Decreased breath sounds at the bases. No rhonchi. No wheezing. EXTREMITIES: Mild edema. No cyanosis, no clubbing. GASTROINTESTINAL: Abdomen is soft, nondistended. Bowel sounds are positive. SKIN: No acute rash. NEUROLOGIC: Limited at the present time. PERTINENT LABORATORY DATA: Chest x-ray was done this morning and reviewed. The chest x-ray remains with bilateral pulmonary infiltrates. Mild pulmonary vascular congestion also remains. Official results are pending. Arterial blood gas - ordered - not done yet. B-type natriuretic peptide from yesterday - 4109. IMPRESSION 1. Respiratory failure. 2. Bilateral pneumonia. 3. Chronic obstructive pulmonary disease. 4. Congestive heart failure. 5. Seizure disorder. 6. Thyroid mass. 7. Anemia. PLAN The patient remains on the ventilator. He is sedated this morning. I did discuss the case with the night nurse at length. The night nurse stated the patient had a fairly uneventful night. However, he still continues to have periods of bradycardia. I did review the chest x-ray from this morning. Findings are noted above. Official results are pending. I am also awaiting a repeat arterial blood gas to be done. I did review the laboratory data from yesterday. A significant rise in the B-type natriuretic peptide was noted. The patient was given intravenous Lasix. The patient also remains on antibiotic therapy - as per Infectious Disease. Temperatures have resolved. Repeat a.m. labs are pending. The patient remains critically ill with very, very guarded/poor prognosis. He is for probable PEG placement this morning. I will discuss the above with the entire ICU team in the next few moments. I will discuss the above with the attending physician later this morning. Theo Rivas MD [facility] # [id number] MTDChandu
[2018-07-21 08:04] LABS: ARTERIAL BLOOD GAS HCO3 28.9 mmol/L (21-28); ARTERIAL BLOOD GAS HEMOGLOBIN 8.7 g/dL (11.7-17.4); ARTERIAL BLOOD GAS O2 CAPACITY 12.1 mL/dl (16-24); ARTERIAL BLOOD GAS O2 SAT 99.1 % (95-98); ARTERIAL BLOOD GAS PCO2 37 mm/Hg (35-45)
--- NOTE | 2018-07-21 08:55 | CP.CCUPN ---
<Geoff Fernandez - Last Filed: 07/21/18 10:24> CCU Subjective - Physician Review Subjective (Free Text): Geoff Fernandez DO. Critical Care Progress note Patient seen and examined at bedside. On PRVC trach ventilation. Opens eyes spontaneously, non verbal. No acute events overnight. Off tube feeding for PEG placement today. CCU Objective - Vital Signs / Intake & Output Vital Signs (Last 4 hours): Vital Signs Temp Pulse Resp BP Pulse Ox 07/21/18 07:49 15 100 07/21/18 07:20 98.8 F 45 L 100 07/21/18 07:16 98.8 F 52 L 146/68 100 07/21/18 07:10 98.8 F 43 L 100 07/21/18 07:01 98.6 F 40 L 133/70 100 07/21/18 07:00 98.6 F 54 L 100 07/21/18 06:50 98.6 F 41 L 100 07/21/18 06:47 98.6 F 50 L 142/72 100 07/21/18 06:40 98.6 F 48 L 100 07/21/18 06:31 98.6 F 51 L 126/73 100 07/21/18 06:30 98.6 F 51 L 100 07/21/18 06:20 98.6 F 41 L 100 07/21/18 06:16 98.6 F 60 136/70 97 07/21/18 06:10 98.6 F 63 100 07/21/18 06:01 98.6 F 59 L 135/62 100 07/21/18 06:00 98.6 F 48 L 100 07/21/18 05:50 98.6 F 52 L 100 07/21/18 05:46 98.6 F 50 L 138/74 100 07/21/18 05:40 98.6 F 43 L 100 07/21/18 05:31 98.6 F 71 134/95 H 96 07/21/18 05:30 98.6 F 65 100 07/21/18 05:20 98.6 F 45 L 100 07/21/18 05:16 98.6 F 72 132/46 L 91 L 07/21/18 05:10 98.6 F 71 100 07/21/18 05:09 98.6 F 73 07/21/18 05:01 98.8 F 57 L 137/78 100 07/21/18 05:00 98.8 F 54 L 100 07/21/18 04:55 98.8 F 86 L Intake and Output (Last 8hrs): Intake & Output 07/20/18 07/21/18 07/21/18 22:59 06:59 14:59 Intake Total 350 1000 Output Total 2700 400 Balance -2350 600 Weight 217 lb 11.2 oz Intake: IV 350 450 Left Subclavian 350 450 Tube Feeding 350 Other 200 Output: Urine 2400 400 Urethral (Phan) 2400 400 Stool 300 - Physical Exam Head: Positive for: Atraumatic, Normocephalic Pupils: Positive for: PERRL Extroacular Muscles: Positive for: EOMI Mouth: Positive for: Moist Mucous Membranes Respiratory/Chest: Positive for: Clear to Auscultation, Good Air Exchange, Decreased Breath Sounds. Negative for: Respiratory Distress, Accessory Muscle Use Cardiovascular: Positive for: Regular Rate and Rhythm, Normal S1, S2. Negative for: Murmurs Abdomen: Negative for: Tenderness, Distention, Normal Bowel Sounds Upper Extremity: Negative for: Edema Lower Extremity: Positive for: Edema Skin: Positive for: Warm, Dry, Normal Color - Medications Active Medications: Active Medications Generic Name Dose Route Start Last Admin Trade Name Freq PRN Reason Stop Dose Admin Amino Acid Protein 15 gm 07/15/18 10:00 07/20/18 17:26 Prostat 15 G Packet GT 15 gm BID LUZ MARINA Administration Amlodipine Besylate 5 mg 07/15/18 10:00 07/20/18 10:34 Norvasc PO 5 mg DAILY LUZ MARINA Administration Atorvastatin Calcium 20 mg 07/15/18 17:00 07/20/18 17:13 Lipitor PO 20 mg DIN LUZ MARINA Administration Dextrose 0 ml 07/14/18 22:13 07/17/18 00:59 Dextrose 50% Inj IV 50 ml STAT PRN Administration Hypoglycemia Protocol Protocol Heparin Sodium (Porcine) 5,000 units 07/15/18 06:00 07/20/18 21:36 Heparin SC 5,000 units Q8 LUZ MARINA Administration Protocol Dextrose 1,000 mls @ 0 mls/hr 07/14/18 22:13 Dextrose 5% In Water 1000 Ml IV .Q0M PRN Hypoglycemia Protocol Protocol Per Protocol Levetiracetam 500 mg in 100 mls @ 400 mls/hr 07/16/18 10:00 07/20/18 21:32 Keppra 500mg Ivpb IVPB 400 mls/hr Q12 LUZ MARINA Administration Vancomycin HCl 1 gm in 250 mls @ 167 mls/hr 07/19/18 18:00 07/21/18 05:46 Vancomycin 1gm IVPB 167 mls/hr Q12H LUZ MARINA Administration Protocol Meropenem 1 gm in 50 mls @ 100 mls/hr 07/20/18 07:15 07/21/18 05:47 Merrem Iv 1 Gm Premix IVPB 07/27/18 07:16 100 mls/hr Q8 LUZ MARINA Administration Protocol Potassium Chloride 10 meq in 100 mls @ 100 mls/hr 07/21/18 08:00 Potassium Chloride 10 Meq/100 Ml IVPB 07/21/18 12:59 Q2H [facility] Insulin Human Regular 0 units 07/15/18 12:00 07/21/18 08:00 Humulin R Med SC Not Given Q6H [facility] Protocol Nystatin 1 gm 07/16/18 22:00 07/20/18 21:34 Nystop Topical Powder TOP 1 applic Q12H LUZ MARINA Administration Pantoprazole Sodium 40 mg 07/16/18 10:00 07/20/18 21:34 Protonix Inj IVP 40 mg Q12 LUZ MARINA Administration Senna/Docusate Sodium 1 tab 07/15/18 10:00 07/20/18 17:14 Senokot S 50 Mg-8.6 Mg PO 1 tab BID LUZ MARINA Administration - Patient Studies Lab Studies: Microbiology Studies 07/19/18 21:30 Gram Stain - Preliminary Abdomen Wound Culture - Preliminary Yeast Species Gram Negative Bunny 07/20/18 13:40 Gram Stain - Final Trachasp 07/19/18 18:30 Blood Culture - Preliminary Blood NO GROWTH AFTER 24 HOURS 07/19/18 18:00 Blood Culture - Preliminary Blood NO GROWTH AFTER 24 HOURS 07/15/18 14:30 Blood Culture - Final Blood NO GROWTH AFTER 5 DAYS Gram Stain - Final TEST NOT PERFORMED Lab Studies 07/21/18 07/21/18 07/21/18 Range/Units 08:00 06:30 05:38 WBC (4.5-11.0) 10^3/uL RBC (3.5-6.1) 10^6/uL Hgb (14.0-18.0) g/dL Hct (42.0-52.0) % MCV (80.0-105.0) fl MCH (25.0-35.0) pg MCHC (31.0-37.0) g/dl RDW (11.5-14.5) % Plt Count (120.0-450.0) 10^3/uL MPV (7.0-11.0) fl PT (9.4-12.5) SECONDS INR APTT (26.9-38.3) Seconds pCO2 37 (35-45) mm/Hg pO2 112.0 H (80-100) mm/Hg HCO3 28.9 H (21-28) mmol/L ABG pH 7.50 H (7.35-7.45) ABG Total CO2 30.0 H (22-28) mmol.L ABG O2 Saturation 99.1 H (95-98) % ABG O2 Content 12.0 L (15-23) ML/dl ABG Base Excess 5.4 H (-2.0-3.0) mmol/L ABG Hemoglobin 8.7 L (11.7-17.4) g/dL ABG Carboxyhemoglobin 1.3 (0.5-1.5) % POC ABG HHb (Measured) 0.9 (0-5) % ABG Methemoglobin 1.2 (0.0-3.0) % ABG O2 Capacity 12.1 L (16-24) mL/dl Hgb O2 Saturation 96.6 (95.0-98.0) % FiO2 60.0 % Sodium 143 (132-148) mmol/L Potassium 3.3 L (3.6-5.0) mmol/L Chloride 108 H (98-107) mmol/L Carbon Dioxide 31 (21-33) mmol/L Anion Gap 7 L (10-20) BUN 19 (7-21) mg/dL Creatinine 1.0 (0.8-1.5) mg/dl Est GFR ( Amer) > 60 Est GFR (Non-Af Amer) > 60 POC Glucose (mg/dL) 94 (65-110) mg/dL Random Glucose 94 (70-110) mg/dL Calcium 9.5 (8.4-10.5) mg/dL Phosphorus 2.2 L (2.5-4.5) mg/dL Magnesium 2.0 (1.7-2.2) mg/dL Total Bilirubin 0.2 (0.2-1.3) mg/dL AST 41 (17-59) U/L ALT 35 (7-56) U/L Alkaline Phosphatase 233 H (38-126) U/L Total Protein 5.9 (5.8-8.3) g/dL Albumin 2.4 L (3.0-4.8) g/dL Globulin 3.4 gm/dL Albumin/Globulin Ratio 0.7 L (1.1-1.8) Urine Color (YELLOW) Urine Appearance (CLEAR) Urine pH (4.7-8.0) Ur Specific [place] (1.005-1.035) Urine Protein (<30 mg/dL) mg/dL Urine Glucose (UA) (NEGATIVE) mg/dL Urine Ketones (NEGATIVE) mg/dL Urine Blood (NEGATIVE) Urine Nitrate (NEGATIVE) Urine Bilirubin (NEGATIVE) Urine Urobilinogen (<1 E.U./dL) E.U./dL Ur Leukocyte Esterase (NEGATIVE) Deejay/uL Blood Type Antibody Screen BBK History Checked 07/21/18 07/21/18 07/21/18 Range/Units 05:00 05:00 00:01 WBC 19.9 H (4.5-11.0) 10^3/uL RBC 3.59 (3.5-6.1) 10^6/uL Hgb 9.4 L (14.0-18.0) g/dL Hct 31.8 L (42.0-52.0) % MCV 88.6 (80.0-105.0) fl MCH 26.2 (25.0-35.0) pg MCHC 29.6 L (31.0-37.0) g/dl RDW 21.8 H (11.5-14.5) % Plt Count 626 H (120.0-450.0) 10^3/uL MPV 10.1 (7.0-11.0) fl PT 13.7 H (9.4-12.5) SECONDS INR 1.21 APTT 32.0 (26.9-38.3) Seconds pCO2 (35-45) mm/Hg pO2 (80-100) mm/Hg HCO3 (21-28) mmol/L ABG pH (7.35-7.45) ABG Total CO2 (22-28) mmol.L ABG O2 Saturation (95-98) % ABG O2 Content (15-23) ML/dl ABG Base Excess (-2.0-3.0) mmol/L ABG Hemoglobin (11.7-17.4) g/dL ABG Carboxyhemoglobin (0.5-1.5) % POC ABG HHb (Measured) (0-5) % ABG Methemoglobin (0.0-3.0) % ABG O2 Capacity (16-24) mL/dl Hgb O2 Saturation (95.0-98.0) % FiO2 % Sodium (132-148) mmol/L Potassium (3.6-5.0) mmol/L Chloride (98-107) mmol/L Carbon Dioxide (21-33) mmol/L Anion Gap (10-20) BUN (7-21) mg/dL Creatinine (0.8-1.5) mg/dl Est GFR ( Amer) Est GFR (Non-Af Amer) POC Glucose (mg/dL) 154 H (65-110) mg/dL Random Glucose (70-110) mg/dL Calcium (8.4-10.5) mg/dL Phosphorus (2.5-4.5) mg/dL Magnesium (1.7-2.2) mg/dL Total Bilirubin (0.2-1.3) mg/dL AST (17-59) U/L ALT (7-56) U/L Alkaline Phosphatase (38-126) U/L Total Protein (5.8-8.3) g/dL Albumin (3.0-4.8) g/dL Globulin gm/dL Albumin/Globulin Ratio (1.1-1.8) Urine Color (YELLOW) Urine Appearance (CLEAR) Urine pH (4.7-8.0) Ur Specific [place] (1.005-1.035) Urine Protein (<30 mg/dL) mg/dL Urine Glucose (UA) (NEGATIVE) mg/dL Urine Ketones (NEGATIVE) mg/dL Urine Blood (NEGATIVE) Urine Nitrate (NEGATIVE) Urine Bilirubin (NEGATIVE) Urine Urobilinogen (<1 E.U./dL) E.U./dL Ur Leukocyte Esterase (NEGATIVE) Deejay/uL Blood Type Antibody Screen BBK History Checked 07/20/18 07/20/18 07/20/18 Range/Units 18:41 17:20 13:20 WBC (4.5-11.0) 10^3/uL RBC (3.5-6.1) 10^6/uL Hgb (14.0-18.0) g/dL Hct (42.0-52.0) % MCV (80.0-105.0) fl MCH (25.0-35.0) pg MCHC (31.0-37.0) g/dl RDW (11.5-14.5) % Plt Count (120.0-450.0) 10^3/uL MPV (7.0-11.0) fl PT (9.4-12.5) SECONDS INR APTT (26.9-38.3) Seconds pCO2 (35-45) mm/Hg pO2 (80-100) mm/Hg HCO3 (21-28) mmol/L ABG pH (7.35-7.45) ABG Total CO2 (22-28) mmol.L ABG O2 Saturation (95-98) % ABG O2 Content (15-23) ML/dl ABG Base Excess (-2.0-3.0) mmol/L ABG Hemoglobin (11.7-17.4) g/dL ABG Carboxyhemoglobin (0.5-1.5) % POC ABG HHb (Measured) (0-5) % ABG Methemoglobin (0.0-3.0) % ABG O2 Capacity (16-24) mL/dl Hgb O2 Saturation (95.0-98.0) % FiO2 % Sodium (132-148) mmol/L Potassium (3.6-5.0) mmol/L Chloride (98-107) mmol/L Carbon Dioxide (21-33) mmol/L Anion Gap (10-20) BUN (7-21) mg/dL Creatinine (0.8-1.5) mg/dl Est GFR ( Amer) Est GFR (Non-Af Amer) POC Glucose (mg/dL) 144 H (65-110) mg/dL Random Glucose (70-110) mg/dL Calcium (8.4-10.5) mg/dL Phosphorus (2.5-4.5) mg/dL Magnesium (1.7-2.2) mg/dL Total Bilirubin (0.2-1.3) mg/dL AST (17-59) U/L ALT (7-56) U/L Alkaline Phosphatase (38-126) U/L Total Protein (5.8-8.3) g/dL Albumin (3.0-4.8) g/dL Globulin gm/dL Albumin/Globulin Ratio (1.1-1.8) Urine Color Light yellow (YELLOW) Urine Appearance Clear (CLEAR) Urine pH 6.0 (4.7-8.0) Ur Specific [place] 1.010 (1.005-1.035) Urine Protein Negative (<30 mg/dL) mg/dL Urine Glucose (UA) Negative (NEGATIVE) mg/dL Urine Ketones Negative (NEGATIVE) mg/dL Urine Blood Negative (NEGATIVE) Urine Nitrate Negative (NEGATIVE) Urine Bilirubin Negative (NEGATIVE) Urine Urobilinogen 0.2 (<1 E.U./dL) E.U./dL Ur Leukocyte Esterase Negative (NEGATIVE) Deejay/uL Blood Type A NEGATIVE Antibody Screen Negative BBK History Checked Patient has bt 07/20/18 Range/Units 12:02 WBC (4.5-11.0) 10^3/uL RBC (3.5-6.1) 10^6/uL Hgb (14.0-18.0) g/dL Hct (42.0-52.0) % MCV (80.0-105.0) fl MCH (25.0-35.0) pg MCHC (31.0-37.0) g/dl RDW (11.5-14.5) % Plt Count (120.0-450.0) 10^3/uL MPV (7.0-11.0) fl PT (9.4-12.5) SECONDS INR APTT (26.9-38.3) Seconds pCO2 (35-45) mm/Hg pO2 (80-100) mm/Hg HCO3 (21-28) mmol/L ABG pH (7.35-7.45) ABG Total CO2 (22-28) mmol.L ABG O2 Saturation (95-98) % ABG O2 Content (15-23) ML/dl ABG Base Excess (-2.0-3.0) mmol/L ABG Hemoglobin (11.7-17.4) g/dL ABG Carboxyhemoglobin (0.5-1.5) % POC ABG HHb (Measured) (0-5) % ABG Methemoglobin (0.0-3.0) % ABG O2 Capacity (16-24) mL/dl Hgb O2 Saturation (95.0-98.0) % FiO2 % Sodium (132-148) mmol/L Potassium (3.6-5.0) mmol/L Chloride (98-107) mmol/L Carbon Dioxide (21-33) mmol/L Anion Gap (10-20) BUN (7-21) mg/dL Creatinine (0.8-1.5) mg/dl Est GFR ( Amer) Est GFR (Non-Af Amer) POC Glucose (mg/dL) 132 H (65-110) mg/dL Random Glucose (70-110) mg/dL Calcium (8.4-10.5) mg/dL Phosphorus (2.5-4.5) mg/dL Magnesium (1.7-2.2) mg/dL Total Bilirubin (0.2-1.3) mg/dL AST (17-59) U/L ALT (7-56) U/L Alkaline Phosphatase (38-126) U/L Total Protein (5.8-8.3) g/dL Albumin (3.0-4.8) g/dL Globulin gm/dL Albumin/Globulin Ratio (1.1-1.8) Urine Color (YELLOW) Urine Appearance (CLEAR) Urine pH (4.7-8.0) Ur Specific [place] (1.005-1.035) Urine Protein (<30 mg/dL) mg/dL Urine Glucose (UA) (NEGATIVE) mg/dL Urine Ketones (NEGATIVE) mg/dL Urine Blood (NEGATIVE) Urine Nitrate (NEGATIVE) Urine Bilirubin (NEGATIVE) Urine Urobilinogen (<1 E.U./dL) E.U./dL Ur Leukocyte Esterase (NEGATIVE) Deejay/uL Blood Type Antibody Screen BBK History Checked Laboratory Results - last 24 hr 07/20/18 07/20/18 07/20/18 12:02 13:20 17:20 WBC RBC Hgb Hct MCV MCH MCHC RDW Plt Count MPV PT INR APTT pCO2 pO2 HCO3 ABG pH ABG Total CO2 ABG O2 Saturation ABG O2 Content ABG Base Excess ABG Hemoglobin ABG Carboxyhemoglobin POC ABG HHb (Measured) ABG Methemoglobin ABG O2 Capacity Hgb O2 Saturation FiO2 Sodium Potassium Chloride Carbon Dioxide Anion Gap BUN Creatinine Est GFR ( Amer) Est GFR (Non-Af Amer) POC Glucose (mg/dL) 132 H 144 H Random Glucose Calcium Phosphorus Magnesium Total Bilirubin AST ALT Alkaline Phosphatase Total Protein Albumin Globulin Albumin/Globulin Ratio Urine Color Light yellow Urine Appearance Clear Urine pH 6.0 Ur Specific [place] 1.010 Urine Protein Negative Urine Glucose (UA) Negative Urine Ketones Negative Urine Blood Negative Urine Nitrate Negative Urine Bilirubin Negative Urine Urobilinogen 0.2 Ur Leukocyte Esterase Negative Blood Type Antibody Screen BBK History Checked 07/20/18 07/21/18 07/21/18 18:41 00:01 05:00 WBC 19.9 H RBC 3.59 Hgb 9.4 L Hct 31.8 L MCV 88.6 MCH 26.2 MCHC 29.6 L RDW 21.8 H Plt Count 626 H MPV 10.1 PT INR APTT pCO2 pO2 HCO3 ABG pH ABG Total CO2 ABG O2 Saturation ABG O2 Content ABG Base Excess ABG Hemoglobin ABG Carboxyhemoglobin POC ABG HHb (Measured) ABG Methemoglobin ABG O2 Capacity Hgb O2 Saturation FiO2 Sodium Potassium Chloride Carbon Dioxide Anion Gap BUN Creatinine Est GFR ( Amer) Est GFR (Non-Af Amer) POC Glucose (mg/dL) 154 H Random Glucose Calcium Phosphorus Magnesium Total Bilirubin AST ALT Alkaline Phosphatase Total Protein Albumin Globulin Albumin/Globulin Ratio Urine Color Urine Appearance Urine pH Ur Specific [place] Urine Protein Urine Glucose (UA) Urine Ketones Urine Blood Urine Nitrate Urine Bilirubin Urine Urobilinogen Ur Leukocyte Esterase Blood Type A NEGATIVE Antibody Screen Negative BBK History Checked Patient has bt 07/21/18 07/21/18 07/21/18 05:00 05:38 06:30 WBC RBC Hgb Hct MCV MCH MCHC RDW Plt Count MPV PT 13.7 H INR 1.21 APTT 32.0 pCO2 pO2 HCO3 ABG pH ABG Total CO2 ABG O2 Saturation ABG O2 Content ABG Base Excess ABG Hemoglobin ABG Carboxyhemoglobin POC ABG HHb (Measured) ABG Methemoglobin ABG O2 Capacity Hgb O2 Saturation FiO2 Sodium 143 Potassium 3.3 L Chloride 108 H Carbon Dioxide 31 Anion Gap 7 L BUN 19 Creatinine 1.0 Est GFR ( Amer) > 60 Est GFR (Non-Af Amer) > 60 POC Glucose (mg/dL) 94 Random Glucose 94 Calcium 9.5 Phosphorus 2.2 L Magnesium 2.0 Total Bilirubin 0.2 AST 41 ALT 35 Alkaline Phosphatase 233 H Total Protein 5.9 Albumin 2.4 L Globulin 3.4 Albumin/Globulin Ratio 0.7 L Urine Color Urine Appearance Urine pH Ur Specific [place] Urine Protein Urine Glucose (UA) Urine Ketones Urine Blood Urine Nitrate Urine Bilirubin Urine Urobilinogen Ur Leukocyte Esterase Blood Type Antibody Screen BBK History Checked 07/21/18 08:00 WBC RBC Hgb Hct MCV MCH MCHC RDW Plt Count MPV PT INR APTT pCO2 37 pO2 112.0 H HCO3 28.9 H ABG pH 7.50 H ABG Total CO2 30.0 H ABG O2 Saturation 99.1 H ABG O2 Content 12.0 L ABG Base Excess 5.4 H ABG Hemoglobin 8.7 L ABG Carboxyhemoglobin 1.3 POC ABG HHb (Measured) 0.9 ABG Methemoglobin 1.2 ABG O2 Capacity 12.1 L Hgb O2 Saturation 96.6 FiO2 60.0 Sodium Potassium Chloride Carbon Dioxide Anion Gap BUN Creatinine Est GFR ( Amer) Est GFR (Non-Af Amer) POC Glucose (mg/dL) Random Glucose Calcium Phosphorus Magnesium Total Bilirubin AST ALT Alkaline Phosphatase Total Protein Albumin Globulin Albumin/Globulin Ratio Urine Color Urine Appearance Urine pH Ur Specific [place] Urine Protein Urine Glucose (UA) Urine Ketones Urine Blood Urine Nitrate Urine Bilirubin Urine Urobilinogen Ur Leukocyte Esterase Blood Type Antibody Screen BBK History Checked Fingerstick Blood Sugar Results: 98 Critical Care Progress Note - Ventilator Checklist Head of Bed 30 Degrees: Yes Daily Sedation Vacation: Yes Daily Assessment of Readiness to Wean: Yes Daily Spontaneous Breathing Trial: Yes PUD Prophalyxis: Yes DVT Prophylaxis: Yes Oral Care with Chlorhexidine Gluconate {CHG}: Yes - Vent Settings MODE:: PRVC TIDAL VOLUME:: 400 RESP RATE:: 15 FIO2:: 60 PEEP:: 5 - Prophylaxis GI Prophylaxis GI: PPI - Prophylaxis DVT Prophylaxis DVT: Heparin SQ - Nutrition Nutrition: Nutrition Category Date Time Status NPO Diet [DIET] Diets 07/16/18 Breakfast Ordered Assessment/Plan - Assessment and Plan (Free Text) Assessment: 87 y/o male admitted to ICU for AMS in the setting of new onset seizure episode. He developed respiratory failure requiring ventilation s/p trach placed. Plan: Neuro: -awake, non verbal -CT head negative for ICH, mass, edema -EEG negative for seizure , no status epilepticus -CSF cx negative. HSV negative -continue keppra 500 mg q12 Cardio: -HFpEF -1st degree AV block -continue norvasc, lipitor -maintain MAP>65 Pulm: -Ventilator dependent respiratory failure s/p trach insertion -b/l PNA. continue abx as per ID -ABG 7.5/37/112 -on PRVC 400/15/5/50% -continue duoneb prn GI: -PEG placement today by surgery team. hold feeding -CT A/P (07/17) subcutaneous/intrapertoneal air, no evidence of abscess collection Renal: -persistent hypokalemia. replete prn. continue monitoring -replete lytes as needed -maintain euvolemia -Renal CA s/p nephrectomy -I/O 1350/3100 continue monitoring ID: -leukocytosis. Afebrile -continue vanc, meropenem per ID -procal elevated -abd wound cx positive for yeast, GNR -initial sputum cx positive for GNR. repeat cx pending -BCx negative to date -cdiff, MRSA negative -ID following Endo: -right thyroid mass -transfered to [facility] on 06/27 returned to [facility] on 07/15 s/p tach and PEG tube placement -no surgical intervention needed Prophylaxis: GI ppx Protonix DVT SCD, Heparin sq Continue ICU management Full code Case reviewed and plan discussed with attending physician Dr Rodriguez <Dave Rodriguez - Last Filed: 07/21/18 10:31> CCU Objective - Vital Signs / Intake & Output Vital Signs (Last 4 hours): Vital Signs Temp Pulse Resp BP Pulse Ox 07/21/18 07:49 15 100 07/21/18 07:20 98.8 F 45 L 100 07/21/18 07:16 98.8 F 52 L 146/68 100 07/21/18 07:10 98.8 F 43 L 100 07/21/18 07:01 98.6 F 40 L 133/70 100 07/21/18 07:00 98.6 F 54 L 100 07/21/18 06:50 98.6 F 41 L 100 07/21/18 06:47 98.6 F 50 L 142/72 100 07/21/18 06:40 98.6 F 48 L 100 07/21/18 06:31 98.6 F 51 L 126/73 100 07/21/18 06:30 98.6 F 51 L 100 Intake and Output (Last 8hrs): Intake & Output 07/20/18 07/21/18 07/21/18 22:59 06:59 14:59 Intake Total 350 1000 Output Total 2700 400 Balance -2350 600 Weight 217 lb 11.2 oz Intake: IV 350 450 Left Subclavian 350 450 Tube Feeding 350 Other 200 Output: Urine 2400 400 Urethral (Phan) 2400 400 Stool 300 - Medications Active Medications: Active Medications Generic Name Dose Route Start Last Admin Trade Name Freq PRN Reason Stop Dose Admin Amino Acid Protein 15 gm 07/15/18 10:00 07/20/18 17:26 Prostat 15 G Packet GT 15 gm BID LUZ MARINA Administration Amlodipine Besylate 5 mg 07/15/18 10:00 07/20/18 10:34 Norvasc PO 5 mg DAILY LUZ MARINA Administration Atorvastatin Calcium 20 mg 07/15/18 17:00 07/20/18 17:13 Lipitor PO 20 mg DIN LUZ MARINA Administration Dextrose 0 ml 07/14/18 22:13 07/17/18 00:59 Dextrose 50% Inj IV 50 ml STAT PRN Administration Hypoglycemia Protocol Protocol Heparin Sodium (Porcine) 5,000 units 07/15/18 06:00 07/20/18 21:36 Heparin SC 5,000 units Q8 LUZ MARINA Administration Protocol Dextrose 1,000 mls @ 0 mls/hr 07/14/18 22:13 Dextrose 5% In Water 1000 Ml IV .Q0M PRN Hypoglycemia Protocol Protocol Per Protocol Levetiracetam 500 mg in 100 mls @ 400 mls/hr 07/16/18 10:00 07/20/18 21:32 Keppra 500mg Ivpb IVPB 400 mls/hr Q12 LUZ MARINA Administration Vancomycin HCl 1 gm in 250 mls @ 167 mls/hr 07/19/18 18:00 07/21/18 05:46 Vancomycin 1gm IVPB 167 mls/hr Q12H LUZ MARINA Administration Protocol Meropenem 1 gm in 50 mls @ 100 mls/hr 07/20/18 07:15 07/21/18 05:47 Merrem Iv 1 Gm Premix IVPB 07/27/18 07:16 100 mls/hr Q8 LUZ MARINA Administration Protocol Potassium Chloride 10 meq in 100 mls @ 100 mls/hr 07/21/18 08:00 07/21/18 08:56 Potassium Chloride 10 Meq/100 Ml IVPB 07/21/18 12:59 100 mls/hr Q2H LUZ MARINA Administration Insulin Human Regular 0 units 07/15/18 12:00 07/21/18 08:00 Humulin R Med SC Not Given Q6H LUZ MARINA Protocol Nystatin 1 gm 07/16/18 22:00 07/20/18 21:34 Nystop Topical Powder TOP 1 applic Q12H LUZ MARINA Administration Pantoprazole Sodium 40 mg 07/16/18 10:00 07/20/18 21:34 Protonix Inj IVP 40 mg Q12 LUZ MARINA Administration Senna/Docusate Sodium 1 tab 07/15/18 10:00 07/20/18 17:14 Senokot S 50 Mg-8.6 Mg PO 1 tab BID LUZ MARINA Administration - Patient Studies Lab Studies: Microbiology Studies 07/19/18 21:30 Gram Stain - Preliminary Abdomen Wound Culture - Preliminary Yeast Species Gram Negative Bunny 07/20/18 13:40 Gram Stain - Final Trachasp 07/19/18 18:30 Blood Culture - Preliminary Blood NO GROWTH AFTER 24 HOURS 07/19/18 18:00 Blood Culture - Preliminary Blood NO GROWTH AFTER 24 HOURS 07/15/18 14:30 Blood Culture - Final Blood NO GROWTH AFTER 5 DAYS Gram Stain - Final TEST NOT PERFORMED Lab Studies 07/21/18 07/21/18 07/21/18 Range/Units 08:00 06:30 05:38 WBC (4.5-11.0) 10^3/uL RBC (3.5-6.1) 10^6/uL Hgb (14.0-18.0) g/dL Hct (42.0-52.0) % MCV (80.0-105.0) fl MCH (25.0-35.0) pg MCHC (31.0-37.0) g/dl RDW (11.5-14.5) % Plt Count (120.0-450.0) 10^3/uL MPV (7.0-11.0) fl PT (9.4-12.5) SECONDS INR APTT (26.9-38.3) Seconds pCO2 37 (35-45) mm/Hg pO2 112.0 H (80-100) mm/Hg HCO3 28.9 H (21-28) mmol/L ABG pH 7.50 H (7.35-7.45) ABG Total CO2 30.0 H (22-28) mmol.L ABG O2 Saturation 99.1 H (95-98) % ABG O2 Content 12.0 L (15-23) ML/dl ABG Base Excess 5.4 H (-2.0-3.0) mmol/L ABG Hemoglobin 8.7 L (11.7-17.4) g/dL ABG Carboxyhemoglobin 1.3 (0.5-1.5) % POC ABG HHb (Measured) 0.9 (0-5) % ABG Methemoglobin 1.2 (0.0-3.0) % ABG O2 Capacity 12.1 L (16-24) mL/dl Hgb O2 Saturation 96.6 (95.0-98.0) % FiO2 60.0 % Sodium 143 (132-148) mmol/L Potassium 3.3 L (3.6-5.0) mmol/L Chloride 108 H (98-107) mmol/L Carbon Dioxide 31 (21-33) mmol/L Anion Gap 7 L (10-20) BUN 19 (7-21) mg/dL Creatinine 1.0 (0.8-1.5) mg/dl Est GFR ( Amer) > 60 Est GFR (Non-Af Amer) > 60 POC Glucose (mg/dL) 94 (65-110) mg/dL Random Glucose 94 (70-110) mg/dL Calcium 9.5 (8.4-10.5) mg/dL Phosphorus 2.2 L (2.5-4.5) mg/dL Magnesium 2.0 (1.7-2.2) mg/dL Total Bilirubin 0.2 (0.2-1.3) mg/dL AST 41 (17-59) U/L ALT 35 (7-56) U/L Alkaline Phosphatase 233 H (38-126) U/L Total Protein 5.9 (5.8-8.3) g/dL Albumin 2.4 L (3.0-4.8) g/dL Globulin 3.4 gm/dL Albumin/Globulin Ratio 0.7 L (1.1-1.8) Urine Color (YELLOW) Urine Appearance (CLEAR) Urine pH (4.7-8.0) Ur Specific [place] (1.005-1.035) Urine Protein (<30 mg/dL) mg/dL Urine Glucose (UA) (NEGATIVE) mg/dL Urine Ketones (NEGATIVE) mg/dL Urine Blood (NEGATIVE) Urine Nitrate (NEGATIVE) Urine Bilirubin (NEGATIVE) Urine Urobilinogen (<1 E.U./dL) E.U./dL Ur Leukocyte Esterase (NEGATIVE) Deejay/uL Blood Type Antibody Screen BBK History Checked 07/21/18 07/21/18 07/21/18 Range/Units 05:00 05:00 00:01 WBC 19.9 H (4.5-11.0) 10^3/uL RBC 3.59 (3.5-6.1) 10^6/uL Hgb 9.4 L (14.0-18.0) g/dL Hct 31.8 L (42.0-52.0) % MCV 88.6 (80.0-105.0) fl MCH 26.2 (25.0-35.0) pg MCHC 29.6 L (31.0-37.0) g/dl RDW 21.8 H (11.5-14.5) % Plt Count 626 H (120.0-450.0) 10^3/uL MPV 10.1 (7.0-11.0) fl PT 13.7 H (9.4-12.5) SECONDS INR 1.21 APTT 32.0 (26.9-38.3) Seconds pCO2 (35-45) mm/Hg pO2 (80-100) mm/Hg HCO3 (21-28) mmol/L ABG pH (7.35-7.45) ABG Total CO2 (22-28) mmol.L ABG O2 Saturation (95-98) % ABG O2 Content (15-23) ML/dl ABG Base Excess (-2.0-3.0) mmol/L ABG Hemoglobin (11.7-17.4) g/dL ABG Carboxyhemoglobin (0.5-1.5) % POC ABG HHb (Measured) (0-5) % ABG Methemoglobin (0.0-3.0) % ABG O2 Capacity (16-24) mL/dl Hgb O2 Saturation (95.0-98.0) % FiO2 % Sodium (132-148) mmol/L Potassium (3.6-5.0) mmol/L Chloride (98-107) mmol/L Carbon Dioxide (21-33) mmol/L Anion Gap (10-20) BUN (7-21) mg/dL Creatinine (0.8-1.5) mg/dl Est GFR ( Amer) Est GFR (Non-Af Amer) POC Glucose (mg/dL) 154 H (65-110) mg/dL Random Glucose (70-110) mg/dL Calcium (8.4-10.5) mg/dL Phosphorus (2.5-4.5) mg/dL Magnesium (1.7-2.2) mg/dL Total Bilirubin (0.2-1.3) mg/dL AST (17-59) U/L ALT (7-56) U/L Alkaline Phosphatase (38-126) U/L Total Protein (5.8-8.3) g/dL Albumin (3.0-4.8) g/dL Globulin gm/dL Albumin/Globulin Ratio (1.1-1.8) Urine Color (YELLOW) Urine Appearance (CLEAR) Urine pH (4.7-8.0) Ur Specific [place] (1.005-1.035) Urine Protein (<30 mg/dL) mg/dL Urine Glucose (UA) (NEGATIVE) mg/dL Urine Ketones (NEGATIVE) mg/dL Urine Blood (NEGATIVE) Urine Nitrate (NEGATIVE) Urine Bilirubin (NEGATIVE) Urine Urobilinogen (<1 E.U./dL) E.U./dL Ur Leukocyte Esterase (NEGATIVE) Deejay/uL Blood Type Antibody Screen BBK History Checked 07/20/18 07/20/18 07/20/18 Range/Units 18:41 17:20 13:20 WBC (4.5-11.0) 10^3/uL RBC (3.5-6.1) 10^6/uL Hgb (14.0-18.0) g/dL Hct (42.0-52.0) % MCV (80.0-105.0) fl MCH (25.0-35.0) pg MCHC (31.0-37.0) g/dl RDW (11.5-14.5) % Plt Count (120.0-450.0) 10^3/uL MPV (7.0-11.0) fl PT (9.4-12.5) SECONDS INR APTT (26.9-38.3) Seconds pCO2 (35-45) mm/Hg pO2 (80-100) mm/Hg HCO3 (21-28) mmol/L ABG pH (7.35-7.45) ABG Total CO2 (22-28) mmol.L ABG O2 Saturation (95-98) % ABG O2 Content (15-23) ML/dl ABG Base Excess (-2.0-3.0) mmol/L ABG Hemoglobin (11.7-17.4) g/dL ABG Carboxyhemoglobin (0.5-1.5) % POC ABG HHb (Measured) (0-5) % ABG Methemoglobin (0.0-3.0) % ABG O2 Capacity (16-24) mL/dl Hgb O2 Saturation (95.0-98.0) % FiO2 % Sodium (132-148) mmol/L Potassium (3.6-5.0) mmol/L Chloride (98-107) mmol/L Carbon Dioxide (21-33) mmol/L Anion Gap (10-20) BUN (7-21) mg/dL Creatinine (0.8-1.5) mg/dl Est GFR ( Amer) Est GFR (Non-Af Amer) POC Glucose (mg/dL) 144 H (65-110) mg/dL Random Glucose (70-110) mg/dL Calcium (8.4-10.5) mg/dL Phosphorus (2.5-4.5) mg/dL Magnesium (1.7-2.2) mg/dL Total Bilirubin (0.2-1.3) mg/dL AST (17-59) U/L ALT (7-56) U/L Alkaline Phosphatase (38-126) U/L Total Protein (5.8-8.3) g/dL Albumin (3.0-4.8) g/dL Globulin gm/dL Albumin/Globulin Ratio (1.1-1.8) Urine Color Light yellow (YELLOW) Urine Appearance Clear (CLEAR) Urine pH 6.0 (4.7-8.0) Ur Specific [place] 1.010 (1.005-1.035) Urine Protein Negative (<30 mg/dL) mg/dL Urine Glucose (UA) Negative (NEGATIVE) mg/dL Urine Ketones Negative (NEGATIVE) mg/dL Urine Blood Negative (NEGATIVE) Urine Nitrate Negative (NEGATIVE) Urine Bilirubin Negative (NEGATIVE) Urine Urobilinogen 0.2 (<1 E.U./dL) E.U./dL Ur Leukocyte Esterase Negative (NEGATIVE) Deejay/uL Blood Type A NEGATIVE Antibody Screen Negative BBK History Checked Patient has bt 07/20/18 Range/Units 12:02 WBC (4.5-11.0) 10^3/uL RBC (3.5-6.1) 10^6/uL Hgb (14.0-18.0) g/dL Hct (42.0-52.0) % MCV (80.0-105.0) fl MCH (25.0-35.0) pg MCHC (31.0-37.0) g/dl RDW (11.5-14.5) % Plt Count (120.0-450.0) 10^3/uL MPV (7.0-11.0) fl PT (9.4-12.5) SECONDS INR APTT (26.9-38.3) Seconds pCO2 (35-45) mm/Hg pO2 (80-100) mm/Hg HCO3 (21-28) mmol/L ABG pH (7.35-7.45) ABG Total CO2 (22-28) mmol.L ABG O2 Saturation (95-98) % ABG O2 Content (15-23) ML/dl ABG Base Excess (-2.0-3.0) mmol/L ABG Hemoglobin (11.7-17.4) g/dL ABG Carboxyhemoglobin (0.5-1.5) % POC ABG HHb (Measured) (0-5) % ABG Methemoglobin (0.0-3.0) % ABG O2 Capacity (16-24) mL/dl Hgb O2 Saturation (95.0-98.0) % FiO2 % Sodium (132-148) mmol/L Potassium (3.6-5.0) mmol/L Chloride (98-107) mmol/L Carbon Dioxide (21-33) mmol/L Anion Gap (10-20) BUN (7-21) mg/dL Creatinine (0.8-1.5) mg/dl Est GFR ( Amer) Est GFR (Non-Af Amer) POC Glucose (mg/dL) 132 H (65-110) mg/dL Random Glucose (70-110) mg/dL Calcium (8.4-10.5) mg/dL Phosphorus (2.5-4.5) mg/dL Magnesium (1.7-2.2) mg/dL Total Bilirubin (0.2-1.3) mg/dL AST (17-59) U/L ALT (7-56) U/L Alkaline Phosphatase (38-126) U/L Total Protein (5.8-8.3) g/dL Albumin (3.0-4.8) g/dL Globulin gm/dL Albumin/Globulin Ratio (1.1-1.8) Urine Color (YELLOW) Urine Appearance (CLEAR) Urine pH (4.7-8.0) Ur Specific [place] (1.005-1.035) Urine Protein (<30 mg/dL) mg/dL Urine Glucose (UA) (NEGATIVE) mg/dL Urine Ketones (NEGATIVE) mg/dL Urine Blood (NEGATIVE) Urine Nitrate (NEGATIVE) Urine Bilirubin (NEGATIVE) Urine Urobilinogen (<1 E.U./dL) E.U./dL Ur Leukocyte Esterase (NEGATIVE) Deejay/uL Blood Type Antibody Screen BBK History Checked Laboratory Results - last 24 hr 07/20/18 07/20/18 07/20/18 12:02 13:20 17:20 WBC RBC Hgb Hct MCV MCH MCHC RDW Plt Count MPV PT INR APTT pCO2 pO2 HCO3 ABG pH ABG Total CO2 ABG O2 Saturation ABG O2 Content ABG Base Excess ABG Hemoglobin ABG Carboxyhemoglobin POC ABG HHb (Measured) ABG Methemoglobin ABG O2 Capacity Hgb O2 Saturation FiO2 Sodium Potassium Chloride Carbon Dioxide Anion Gap BUN Creatinine Est GFR ( Amer) Est GFR (Non-Af Amer) POC Glucose (mg/dL) 132 H 144 H Random Glucose Calcium Phosphorus Magnesium Total Bilirubin AST ALT Alkaline Phosphatase Total Protein Albumin Globulin Albumin/Globulin Ratio Urine Color Light yellow Urine Appearance Clear Urine pH 6.0 Ur Specific [place] 1.010 Urine Protein Negative Urine Glucose (UA) Negative Urine Ketones Negative Urine Blood Negative Urine Nitrate Negative Urine Bilirubin Negative Urine Urobilinogen 0.2 Ur Leukocyte Esterase Negative Blood Type Antibody Screen BBK History Checked 07/20/18 07/21/18 07/21/18 18:41 00:01 05:00 WBC 19.9 H RBC 3.59 Hgb 9.4 L Hct 31.8 L MCV 88.6 MCH 26.2 MCHC 29.6 L RDW 21.8 H Plt Count 626 H MPV 10.1 PT INR APTT pCO2 pO2 HCO3 ABG pH ABG Total CO2 ABG O2 Saturation ABG O2 Content ABG Base Excess ABG Hemoglobin ABG Carboxyhemoglobin POC ABG HHb (Measured) ABG Methemoglobin ABG O2 Capacity Hgb O2 Saturation FiO2 Sodium Potassium Chloride Carbon Dioxide Anion Gap BUN Creatinine Est GFR ( Amer) Est GFR (Non-Af Amer) POC Glucose (mg/dL) 154 H Random Glucose Calcium Phosphorus Magnesium Total Bilirubin AST ALT Alkaline Phosphatase Total Protein Albumin Globulin Albumin/Globulin Ratio Urine Color Urine Appearance Urine pH Ur Specific [place] Urine Protein Urine Glucose (UA) Urine Ketones Urine Blood Urine Nitrate Urine Bilirubin Urine Urobilinogen Ur Leukocyte Esterase Blood Type A NEGATIVE Antibody Screen Negative BBK History Checked Patient has bt 07/21/18 07/21/18 07/21/18 05:00 05:38 06:30 WBC RBC Hgb Hct MCV MCH MCHC RDW Plt Count MPV PT 13.7 H INR 1.21 APTT 32.0 pCO2 pO2 HCO3 ABG pH ABG Total CO2 ABG O2 Saturation ABG O2 Content ABG Base Excess ABG Hemoglobin ABG Carboxyhemoglobin POC ABG HHb (Measured) ABG Methemoglobin ABG O2 Capacity Hgb O2 Saturation FiO2 Sodium 143 Potassium 3.3 L Chloride 108 H Carbon Dioxide 31 Anion Gap 7 L BUN 19 Creatinine 1.0 Est GFR ( Amer) > 60 Est GFR (Non-Af Amer) > 60 POC Glucose (mg/dL) 94 Random Glucose 94 Calcium 9.5 Phosphorus 2.2 L Magnesium 2.0 Total Bilirubin 0.2 AST 41 ALT 35 Alkaline Phosphatase 233 H Total Protein 5.9 Albumin 2.4 L Globulin 3.4 Albumin/Globulin Ratio 0.7 L Urine Color Urine Appearance Urine pH Ur Specific [place] Urine Protein Urine Glucose (UA) Urine Ketones Urine Blood Urine Nitrate Urine Bilirubin Urine Urobilinogen Ur Leukocyte Esterase Blood Type Antibody Screen BBK History Checked 07/21/18 08:00 WBC RBC Hgb Hct MCV MCH MCHC RDW Plt Count MPV PT INR APTT pCO2 37 pO2 112.0 H HCO3 28.9 H ABG pH 7.50 H ABG Total CO2 30.0 H ABG O2 Saturation 99.1 H ABG O2 Content 12.0 L ABG Base Excess 5.4 H ABG Hemoglobin 8.7 L ABG Carboxyhemoglobin 1.3 POC ABG HHb (Measured) 0.9 ABG Methemoglobin 1.2 ABG O2 Capacity 12.1 L Hgb O2 Saturation 96.6 FiO2 60.0 Sodium Potassium Chloride Carbon Dioxide Anion Gap BUN Creatinine Est GFR ( Amer) Est GFR (Non-Af Amer) POC Glucose (mg/dL) Random Glucose Calcium Phosphorus Magnesium Total Bilirubin AST ALT Alkaline Phosphatase Total Protein Albumin Globulin Albumin/Globulin Ratio Urine Color Urine Appearance Urine pH Ur Specific [place] Urine Protein Urine Glucose (UA) Urine Ketones Urine Blood Urine Nitrate Urine Bilirubin Urine Urobilinogen Ur Leukocyte Esterase Blood Type Antibody Screen BBK History Checked Radiology Impressions: Radiology Impressions Chest X-Ray 07/21/18 06:00 IMPRESSION: Moderate vascular congestion and perihilar infiltrates. Tracheostomy and nasogastric tube in satisfactory position Critical Care Progress Note - Nutrition Nutrition: Nutrition Category Date Time Status NPO Diet [DIET] Diets 07/16/18 Breakfast Ordered Attending/Attestation - Attestation I have personally seen and examined this patient.: Yes I have fully participated in the care of the patient.: Yes I have reviewed all pertinent clinical information: Yes Notes (Text): 07/21/18 10:30 The patient was seen and examined at the bedside. Patient care was discussed with resident Medical records, lab studies, and imaging were reviewed and management issues were discussed and formulated. Agree with above treatment plans as outlined in 's note with addition of the following: VDRF \ Hypoxemia \ Sepsis \ PNA \ COPD \ Thyroid mass \ Renal Cancer \Seizures -hemodynamic monitoring to maintain MAP>65 -hold norvasc as pt bradycardic -mechanical ventilation and o2 supplementation to maintain Spo2 >90 Pao2>60 -monitor for TV 6ml\kg IBW and plateau pressure <30 -ABG in AM reviewed and CXR reviewed -pulmonary team f\u appreciated -continue pulmonary toileting -continue broad spectrum Abx as per ID team and f\u cultures -f\u Bun\Cr and U\o; monitor and replace e-lites -NPO diet and aspiration precautions -awaiting PEG placement today -continue anti-seizure precautions and Keppra -DVT \ PUD prophylaxis -D\c plan to [facility] CCM time 31mins
[2018-07-21] MEDS ORDERED: Midazolam 2 MG/2 ML VIAL ONE (09:08)
[2018-07-21] MEDS ORDERED: Propofol 10 mg/ml Inj (20 ML) ONE (09:08)
[2018-07-21] MEDS ORDERED: Rocuronium 10 mg/ml (5 ml) ONE (09:10)
[2018-07-21] MEDS ORDERED: Bupivacaine 0.5% 50 ML IJ ONE ×2 (09:19→11:15)
[2018-07-21] MEDS ORDERED: Lidocaine 1% Inj (20ml) ONE (09:19)
--- NOTE | 2018-07-21 09:50 | RAD ---
Date of service: 07/21/2018 HISTORY: f/u COMPARISON: 07/20/2018 TECHNIQUE: 1 view obtained. FINDINGS: LUNGS: Moderate vascular congestion and perihilar infiltrates. Tracheostomy and nasogastric tube in satisfactory position PLEURA: No significant pleural effusion identified, no pneumothorax apparent. CARDIOVASCULAR: Aortic calcification Normal cardiac size. OSSEOUS STRUCTURES: No significant abnormalities. VISUALIZED UPPER ABDOMEN: Normal. OTHER FINDINGS: None. IMPRESSION: Moderate vascular congestion and perihilar infiltrates. Tracheostomy and nasogastric tube in satisfactory position
[2018-07-21] MEDS ORDERED: Vancomycin 1 g Inj ONE (10:15)
[2018-07-21] MEDS ORDERED: ePHEDrine 50 mg/ml Inj ONE (10:54)
--- NOTE | 2018-07-21 12:24 | PCM.SURG1 ---
Surgeon's Initial Post Op Note - Surgeon's Notes Surgeon: Dr. Garrido Color Mixer: Dr. Garcia PGY-4, Dr. Wilkinson Type of Anesthesia: General Endo, Local Pre-Operative Diagnosis: Dislodged PEG, need for feeding tube Operative Findings: adhesions to abdominal wall and bowel adhesed to liver Post-Operative Diagnosis: Need for feeding tube Operation Performed: Open gastrostomy tube Specimen/Specimens Removed: none Estimated Blood Loss: EBL {In ML}: 25 Blood Products Given: N/A Drains Used: No Drains Post-Op Condition: Fair Date of Surgery/Procedure: 07/21/18 Time of Surgery/Procedure: 12:27
[2018-07-21] MEDS: levETIRAcetam 500mg IVPB 500 MG/100 ML BAG IVPB SCH ×2 (12:37→21:53)
[2018-07-21] MEDS: Prostat 15 g packet GT SCH ×2 (12:38→17:13)
[2018-07-21] MEDS: Docusate-Senna 50 mg-8.6 mg Tab PO SCH ×2 (12:38→17:13)
[2018-07-21] MEDS: Nystatin 100,000 Units/gm Topical Pow(15 gm) TOP SCH ×2 (12:49→22:02)
--- NOTE | 2018-07-21 14:27 | CP.PCM.PN ---
<Abe Cunningham - Last Filed: 07/21/18 14:23> Subjective - Date & Time of Evaluation Date of Evaluation: 07/21/18 Time of Evaluation: 08:15 - Subjective Subjective: Abe Cunningham D.O. PGY-3, Internal Medicine Resident, Infectious Disease Progress Note 87 year old male with a PMH of heart failure, renal Ca s/p nephrectomy, and COPD who was found to have a thyroid mass, was transferred temporarily to [facility] and then transferred back. Infectious disease consultation was requested. Patient was seen and examined at bedside. Intubated. Plan for G tube today. Objective - Vital Signs/Intake and Output Vital Signs (last 24 hours): Temp Pulse Resp BP Pulse Ox 98.8 F 45 L 15 146/68 100 07/21/18 07:20 07/21/18 07:20 07/21/18 07:49 07/21/18 07:16 07/21/18 07:49 Intake and Output: 07/21/18 07/21/18 06:59 18:59 Intake Total 1000 Output Total 400 Balance 600 - Medications Medications: Current Medications Amino Acid Protein (Prostat 15 G Packet) 15 gm GT BID [facility] Last Admin: 07/21/18 12:38 Dose: Not Given Atorvastatin Calcium (Lipitor) 20 mg PO DIN [facility] Last Admin: 07/20/18 17:13 Dose: 20 mg Dextrose (Dextrose 50% Inj) 0 ml IV STAT PRN; Protocol PRN Reason: Hypoglycemia Protocol Last Admin: 07/17/18 00:59 Dose: 50 ml Heparin Sodium (Porcine) (Heparin) 5,000 units SC Q8 [facility]; Protocol Last Admin: 07/20/18 21:36 Dose: 5,000 units Dextrose (Dextrose 5% In Water 1000 Ml) 1,000 mls @ 0 mls/hr IV .Q0M PRN; Protocol PRN Reason: Hypoglycemia Protocol Levetiracetam (Keppra 500mg Ivpb) 500 mg in 100 mls @ 400 mls/hr IVPB Q12 [facility] Last Admin: 07/21/18 12:37 Dose: Not Given Vancomycin HCl (Vancomycin 1gm) 1 gm in 250 mls @ 167 mls/hr IVPB Q12H [facility]; Protocol Last Admin: 07/21/18 05:46 Dose: 167 mls/hr Meropenem (Merrem Iv 1 Gm Premix) 1 gm in 50 mls @ 100 mls/hr IVPB Q8 [facility]; Protocol Stop: 07/27/18 07:16 Last Admin: 07/21/18 14:17 Dose: Not Given Insulin Human Regular (Humulin R Med) 0 units SC Q6H [facility]; Protocol Last Admin: 07/21/18 12:36 Dose: Not Given Morphine Sulfate (Morphine) 2 mg IVP Q4H PRN PRN Reason: Pain, moderate (4-7) Nystatin (Nystop Topical Powder) 1 gm TOP Q12H [facility] Last Admin: 07/21/18 12:49 Dose: 1 applic Pantoprazole Sodium (Protonix Inj) 40 mg IVP Q12 [facility] Last Admin: 07/21/18 12:45 Dose: 40 mg Senna/Docusate Sodium (Senokot S 50 Mg-8.6 Mg) 1 tab PO BID [facility] Last Admin: 07/21/18 12:38 Dose: Not Given - Labs Labs: 07/21/18 05:00 07/21/18 06:30 PT 13.7 SECONDS (9.4-12.5) H 07/21/18 05:00 INR 1.21 07/21/18 05:00 APTT 32.0 Seconds (26.9-38.3) 07/21/18 05:00 - Constitutional Appears: Chronically Ill elderly male, trached - Head Exam Head Exam: ATRAUMATIC, NORMOCEPHALIC - Eye Exam Eye Exam: absent: Scleral icterus - ENT Exam ENT Exam: Mucous Membranes Moist - Neck Exam Additional comments: s/p trach - Respiratory Exam Respiratory Exam: Clear to Ausculation Bilateral. absent: Rhonchi, Wheezes - Cardiovascular Exam Cardiovascular Exam: +S1, +S2. absent: Gallop, Rubs - GI/Abdominal Exam GI & Abdominal Exam: Soft, Normal Bowel Sounds. absent: Distended, Tenderness - Neurological Exam Neurological Exam: Alert, Awake, FARNAZ, mouthing words - Skin Skin Exam: Dry, Warm Assessment and Plan - Assessment and Plan (Free Text) Assessment: 87 year old male with a PMH of heart failure, renal Ca s/p nephrectomy, and COPD who was found to have a thyroid mass, was transferred temporarily to [facility] and then transferred back. Infectious disease consultation was requested. 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 Malpositioned PEG tube COPD HFpEF Renal insufficiency Renal CA s/p nephrectomy Seizure disorder Pulmonary hypertension Thyroid mass Afebrile For G tube placement today with surgery Repeat BCx negative 2/2 day 1 Repeat UCx negative Abdmen Cx growing GNR and yeast Continue merem/vancomycin day 2 Pulmonary note reviewed and appreciated Cardio note reviewed and appreciated We will follow alongside you Patient was seen and examined and case to be discussed with attending physician Thank you for the pleasure of participating in the care of this interesting patient <Omer Fortune - Last Filed: 07/21/18 16:30> Objective - Vital Signs/Intake and Output Vital Signs (last 24 hours): Temp Pulse Resp BP Pulse Ox 98.8 F 45 L 15 146/68 100 07/21/18 07:20 07/21/18 07:20 07/21/18 07:49 07/21/18 07:16 07/21/18 07:49 Intake and Output: 07/21/18 07/21/18 06:59 18:59 Intake Total 1000 Output Total 400 Balance 600 - Medications Medications: Current Medications Amino Acid Protein (Prostat 15 G Packet) 15 gm GT BID [facility] Last Admin: 07/21/18 12:38 Dose: Not Given Atorvastatin Calcium (Lipitor) 20 mg PO DIN [facility] Last Admin: 07/20/18 17:13 Dose: 20 mg Dextrose (Dextrose 50% Inj) 0 ml IV STAT PRN; Protocol PRN Reason: Hypoglycemia Protocol Last Admin: 07/17/18 00:59 Dose: 50 ml Heparin Sodium (Porcine) (Heparin) 5,000 units SC Q8 [facility]; Protocol Last Admin: 07/20/18 21:36 Dose: 5,000 units Dextrose (Dextrose 5% In Water 1000 Ml) 1,000 mls @ 0 mls/hr IV .Q0M PRN; Protocol PRN Reason: Hypoglycemia Protocol Levetiracetam (Keppra 500mg Ivpb) 500 mg in 100 mls @ 400 mls/hr IVPB Q12 [facility] Last Admin: 07/21/18 12:37 Dose: Not Given Vancomycin HCl (Vancomycin 1gm) 1 gm in 250 mls @ 167 mls/hr IVPB Q12H [facility]; Pro tocol Last Admin: 07/21/18 05:46 Dose: 167 mls/hr Meropenem (Merrem Iv 1 Gm Premix) 1 gm in 50 mls @ 100 mls/hr IVPB Q8 [facility]; Protocol Stop: 07/27/18 07:16 Last Admin: 07/21/18 14:17 Dose: Not Given Potassium Chloride 20 meq/ (Dextrose/Sodium Chloride) 1,010 mls @ 140 mls/hr IV .Q7H13M [facility] Insulin Human Regular (Humulin R Med) 0 units SC Q6H [facility]; Protocol Last Admin: 07/21/18 12:36 Dose: Not Given Morphine Sulfate (Morphine) 2 mg IVP Q4H PRN PRN Reason: Pain, moderate (4-7) Nystatin (Nystop Topical Powder) 1 gm TOP Q12H [facility] Last Admin: 07/21/18 12:49 Dose: 1 applic Pantoprazole Sodium (Protonix Inj) 40 mg IVP Q12 [facility] Last Admin: 07/21/18 12:45 Dose: 40 mg Senna/Docusate Sodium (Senokot S 50 Mg-8.6 Mg) 1 tab PO BID [facility] Last Admin: 07/21/18 12:38 Dose: Not Given - Labs Labs: 07/21/18 05:00 07/21/18 06:30 PT 13.7 SECONDS (9.4-12.5) H 07/21/18 05:00 INR 1.21 07/21/18 05:00 APTT 32.0 Seconds (26.9-38.3) 07/21/18 05:00 Attending/Attestation - Attestation I have personally seen and examined this patient.: Yes I have fully participated in the care of the patient.: Yes I have reviewed all pertinent clinical information, including history, physical exam and plan: Yes
--- NOTE | 2018-07-21 14:53 | PN ---
DATE: 07/21/2018 CARDIOLOGY FOLLOWUP SUBJECTIVE: The patient remains on a ventilator. PHYSICAL EXAMINATION VITAL SIGNS: Blood pressure is stable. Heart rate is bradycardic with blocked . NECK: Negative JVD. LUNGS: Without rales. HEART: Reveal S1 and S2. EXTREMITIES: Without edema. LABORATORY DATA: BUN and creatinine are unremarkable. Potassium is 3.3. Hemoglobin is 9.4. LV function is normal with mild pulmonary hypertension. Given these findings, the patient has had his optimal cardiovascular status for his planned . Prabhakar Cristina MD
--- NOTE | 2018-07-21 15:07 | PN ---
DATE: 07/21/2018 SUBJECTIVE: He is in the intensive care unit. He has a trach vent. He is going to go for a PEG tube today. He is optimized at moderate risk to severe risk due to his medication list. He is on vancomycin, Senokot, Protonix, Pro-Stat, potassium, nystatin, Norvasc, Merrem, Lipitor, Keppra, insulin, and dextrose. PHYSICAL EXAMINATION: GENERAL: He is alert. Right now, he is vent dependent. VITAL SIGNS: He has 98.8 temperature, 52 pulse, 100 respiratory rate, 146/60 blood pressure. HEAD: Atraumatic, normocephalic. HEART: Regular rate. LUNGS: Decreased breath sounds, but clear. ABDOMEN: Soft, nontender. Positive bowel sounds. EXTREMITIES: No edema. He has got a feeding tube being placed today. I will watch him closely. LABORATORY DATA: He has a 19.9 white count, still very high on antibiotics. Hemoglobin 11.4, hematocrit 31.8, platelets of 626. Sodium 143, potassium 3.3. I replaced the potassium. BUN 7, creatinine 19, GFR is greater than 60, sugar 94, calcium is 9.5. AST is 0.2, ALT is 41, alk phos is 35. ASSESSMENT AND PLAN: He is going to go for a feeding tube today, hopefully he will do well. He has been seen by multiple doctors. He had acute respiratory failure with the trach vent. Aleksey Neal DO
[2018-07-21] MEDS ORDERED: Potassium Chloride 20 MEQ in Dextrose 5%/0.45% NS 1,000 ML IV SCH (15:30)
[2018-07-21] MEDS: Fluconazole IV 200mg/100 ml NS 100 ML IVPB SCH (17:16)
[2018-07-22] MEDS: Insulin Reg-MEDIUM-Coverage SC SCH ×4 (00:30→21:46)
[2018-07-22 05:50] LABS: HEMOGLOBIN 9.8 g/dL (14.0-18.0); MEAN CELL VOLUME 89.1 fl (80.0-105.0); MEAN CORPUSCULAR HEMOGLOBIN 26.1 pg (25.0-35.0); MEAN CORPUSCULAR HGB CONC 29.3 g/dl (31.0-37.0); MEAN PLATELET VOLUME 9.9 fl (7.0-11.0); PLATELET COUNT 588 10^3/uL (120.0-450.0); RBC 3.76 10^6/uL (3.5-6.1); RED CELL DISTRIBUTION WIDTH 22.1 % (11.5-14.5)
[2018-07-22 06:04] LABS: WHITE BLOOD COUNT 27.3 10^3/uL (4.5-11.0)
[2018-07-22] MEDS: Meropenem IV 1 gm in NS 1 GM/50 ML BAG IVPB SCH ×3 (06:11→21:49)
[2018-07-22 06:12] LABS: ALB/GLOB RATIO 0.8 (1.1-1.8); ALBUMIN 2.6 g/dL (3.0-4.8); ALT/SGPT 31 U/L (7-56); AST/SGOT 40 U/L (17-59); BLOOD UREA NITROGEN 17 mg/dL (7-21); CALCIUM 9.9 mg/dL (8.4-10.5); GFR NON-AFRICAN AMERICAN > 60
[2018-07-22] MEDS: Vancomycin 1gm in NS 250ml 1 GM/250 ML BAG IVPB SCH ×2 (06:12→20:32)
[2018-07-22 06:42] LABS: ARTERIAL BLOOD GAS HEMOGLOBIN 11.6 g/dL (11.7-17.4); ARTERIAL BLOOD GAS O2 CAPACITY 15.8 mL/dl (16-24); ARTERIAL BLOOD GAS O2 CONTENT 15.3 ML/dl (15-23); ARTERIAL BLOOD GAS O2 SAT 96.6 % (95-98); ARTERIAL BLOOD GAS PCO2 38 mm/Hg (35-45); ARTERIAL BLOOD GAS PH 7.49 (7.35-7.45); ARTERIAL BLOOD GAS TCO2 30.2 mmol.L (22-28)
[2018-07-22 08:20] LABS: EOSINOPHIL 1 % (0.0-3.0); LYMPHOCYTE 3 % (22.0-35.0); MONOCYTE 3 % (1.0-6.0); MYELOCYTE 1 %; NEUTROPHIL 92 % (50.0-70.0); PLATELET ESTIMATE HIGH (NORMAL)
[2018-07-22 08:21] LABS: LARGE PLATELETS PRESENT
--- NOTE | 2018-07-22 08:32 | CP.PCM.PN ---
Subjective - Date & Time of Evaluation Date of Evaluation: 07/22/18 Time of Evaluation: 08:28 - Subjective Subjective: General Surgery Dr. Garrido Pt seen and examined @bedside. No acute events overnight. ROS unobtainable due to trach. Vent settings: 400/15/5/35% Objective - Vital Signs/Intake and Output Vital Signs (last 24 hours): Temp Pulse Resp BP Pulse Ox 99.7 F H 65 15 163/80 H 95 07/22/18 06:20 07/22/18 06:20 07/21/18 07:49 07/22/18 06:02 07/22/18 06:20 - Medications Medications: Current Medications Amino Acid Protein (Prostat 15 G Packet) 15 gm GT BID [facility] Last Admin: 07/21/18 17:13 Dose: Not Given Atorvastatin Calcium (Lipitor) 20 mg PO DIN [facility] Last Admin: 07/21/18 17:14 Dose: Not Given Dextrose (Dextrose 50% Inj) 0 ml IV STAT PRN; Protocol PRN Reason: Hypoglycemia Protocol Last Admin: 07/17/18 00:59 Dose: 50 ml Heparin Sodium (Porcine) (Heparin) 5,000 units SC Q8 [facility]; Protocol Last Admin: 07/20/18 21:36 Dose: 5,000 units Dextrose (Dextrose 5% In Water 1000 Ml) 1,000 mls @ 0 mls/hr IV .Q0M PRN; Protocol PRN Reason: Hypoglycemia Protocol Levetiracetam (Keppra 500mg Ivpb) 500 mg in 100 mls @ 400 mls/hr IVPB Q12 [facility] Last Admin: 07/21/18 21:53 Dose: 400 mls/hr Vancomycin HCl (Vancomycin 1gm) 1 gm in 250 mls @ 167 mls/hr IVPB Q12H [facility]; Protocol Last Admin: 07/22/18 06:12 Dose: 167 mls/hr Meropenem (Merrem Iv 1 Gm Premix) 1 gm in 50 mls @ 100 mls/hr IVPB Q8 [facility]; Protocol Stop: 07/27/18 07:16 Last Admin: 07/22/18 06:11 Dose: 100 mls/hr Fluconazole (Diflucan Iv 200 Mg/100 Ml Ns) 100 mls @ 100 mls/hr IVPB DAILY [facility]; Protocol Last Admin: 07/21/18 17:16 Dose: 100 mls/hr Insulin Human Regular (Humulin R Med) 0 units SC Q6H [facility]; Protocol Last Admin: 07/22/18 06:18 Dose: Not Given Morphine Sulfate (Morphine) 2 mg IVP Q4H PRN PRN Reason: Pain, moderate (4-7) Nystatin (Nystop Topical Powder) 1 gm TOP Q12H [facility] Last Admin: 07/21/18 22:02 Dose: 1 applic Pantoprazole Sodium (Protonix Inj) 40 mg IVP Q12 [facility] Last Admin: 07/21/18 21:57 Dose: 40 mg Senna/Docusate Sodium (Senokot S 50 Mg-8.6 Mg) 1 tab PO BID [facility] Last Admin: 07/21/18 17:13 Dose: Not Given - Labs Labs: 07/22/18 05:15 07/22/18 05:15 PT 13.7 SECONDS (9.4-12.5) H 07/21/18 05:00 INR 1.21 07/21/18 05:00 APTT 32.0 Seconds (26.9-38.3) 07/21/18 05:00 - Constitutional Appears: Non-toxic, No Acute Distress - Head Exam Head Exam: NORMAL INSPECTION - Eye Exam Eye Exam: Normal appearance - ENT Exam ENT Exam: Mucous Membranes Moist - Neck Exam Additional comments: trach in place - Respiratory Exam Respiratory Exam: NORMAL BREATHING PATTERN. absent: Accessory Muscle Use, Respiratory Distress (mech ventilation) - Cardiovascular Exam Cardiovascular Exam: absent: Bradycardia, Tachycardia - GI/Abdominal Exam GI & Abdominal Exam: Soft, Tenderness (appropriate TTP). absent: Distended, Firm, Guarding, Rigid, Rebound Additional comments: dressing stained, dry, intact G-tube in place, capped - Extremities Exam Extremities Exam: Normal Inspection - Neurological Exam Neurological Exam: Alert, Awake - Psychiatric Exam Psychiatric exam: Normal Affect, Normal Mood - Skin Skin Exam: Dry, Intact, Normal Color, Warm Assessment and Plan - Assessment and Plan (Free Text) Assessment: 87 y/o M POD#1 s/p open gastrostomy Plan: - start tube feeds @10mL/hr - titrate TF to goal - monitor bowel fxn - cont management per ICU Pt discussed w/ Dr. Hema Cheung PGY3
[2018-07-22] MEDS: Fluconazole IV 200mg/100 ml NS 100 ML IVPB SCH (08:58)
--- NOTE | 2018-07-22 08:59 | PN ---
DATE: 07/22/2018(630am-720am) SUBJECTIVE: The patient remains on the ventilator. He is less sedated this morning. PHYSICAL EXAMINATION: VITAL SIGNS: Temperature 99.7, pulse 65, respiratory rate 16/15, blood pressure 163/80. HEENT: Normocephalic, atraumatic. No JVD. Positive tracheostomy. CARDIOVASCULAR: Systolic ejection murmur at the lower left sternal border. Questionable S3 gallop. LUNGS: Decreased breath sounds at the bases. No rhonchi. No wheezing. EXTREMITIES: Mild edema. No cyanosis. No clubbing. Calves are nontender to palpation. GASTROINTESTINAL: Abdomen is soft, nontender, and nondistended. Bowel sounds are positive. There is a PEG tube in place. SKIN: No acute rash. NEUROLOGIC: Limited at the present time. PERTINENT LABORATORY DATA: Chest x-ray was done this morning and reviewed. Compared to yesterday's film, today's film shows less pulmonary infiltrates and less pulmonary edema. Arterial blood gas was done on PRBC 15, tidal volume 400, and FiO2 35%. The results are: pH 7.49, pCO2 38, pO2 of 70. IMPRESSION: 1. Respiratory failure. 2. Bilateral pneumonia. 3. Chronic obstructive pulmonary disease. 4. Congestive heart failure. 5. Seizure disorder. 6. Thyroid mass. 7. Anemia. 8. Congestive heart failure. PLAN: The patient remains on the ventilator. He is less sedated this morning. I did discuss the case with the night nurse at length. The night nurse stated the patient had an uneventful night. I did review the chest x-ray from this morning. Findings are noted above. Official results are pending. Overall, the chest x-ray appears much improved. I also reviewed the arterial blood gas. The arterial blood gas reveals a near normal pH, but remains with a [id number] increase in the alveolar-arterial gradient. I would continue with the antibiotic coverage as per Infectious Disease. Increased temperatures are noted over the past 24 hours. In addition, there is an increasing leukocytosis noted. I will try to touch base with Dr. Fortune this morning. Inputs by Surgery and Cardiology are also noted. Clinical status of the patient is certainly improved overall. However, unfortunately, the overall status/prognosis for this elderly patient remains very guarded at best/poor. I will discuss the above with the entire ICU team in the next few moments. I will discuss the above with Dr. Neal later this morning. Theo Rivas MD [facility]
[2018-07-22] MEDS: levETIRAcetam 500mg IVPB 500 MG/100 ML BAG IVPB SCH ×2 (09:00→21:49)
[2018-07-22] MEDS: Nystatin 100,000 Units/gm Topical Pow(15 gm) TOP SCH (09:01)
--- NOTE | 2018-07-22 10:47 | PN ---
DATE: 07/22/2018 EQUIPMENT CLEANER AND TESTER NOTE SUBJECTIVE: The patient is awake and response by looking at to when touched or verbally spoken to. The patient has tracheostomy on ventilator, FiO2 is 40%. The patient recently had PEG tube placed. He is getting and he is hemodynamically stable. PHYSICAL EXAMINATION VITAL SIGNS: His temperature is 99.7, pulse is 65, respirations are 20, and BP is 163/80. SKIN: Warm and dry. HEENT: Head atraumatic, and normocephalic. Eyes; reactive to light. Ears, nose and throat seemed to be within normal limits. NECK: Supple. No JVD. No thyroid enlargement. No lymph nodes. HEART: Has regular rate and rhythm. Normal S1 and S2. LUNGS: Reveals rare rhonchi bilaterally. ABDOMEN: Soft. Decreased bowel sounds. GENITALIA: Deferred. RECTAL: Deferred. MUSCULOSKELETAL: No joint deformities. EXTREMITIES: Reveal positive edema. NEUROLOGICALLY: The patient is awake, but on ventilator with a tracheostomy. Seems to be moving all extremities. LABORATORY DATA: His white count is 27.3, hemoglobin is 9.8 and hematocrit 33.5 with platelets of 588,000. Arterial blood is 7.49, PCO2 of 38 and pO2 of 70. Sodium is 144, potassium 3.9, chloride 109, CO2 of 31 with a BUN of 17, creatinine of 1.1 and glucose of 98. IMPRESSION: This patient has respiratory failure requiring ventilator support and tracheostomy. The patient has increased white count rule out sepsis. He is noted to have congestive heart failure, history of renal cancer status post nephrectomy, chronic obstructive pulmonary disease, anemia, renal insufficiency and seizure disorder as well as pulmonary hypertension. PLAN: We will continue with ventilator support and work closely with a adobe ball mixer. He is continuing with IV fluids. The patient is on fluconazole, Keppra, Lipitor, TPN, Protonix, vancomycin, and morphine p.r.n., also the patient is on meropenem. We will continue to treat aggressively along with the other consultants and the primary care doctor. Rebel Cardoso MD [facility] # [id number]
--- NOTE | 2018-07-22 11:36 | CP.PCM.PN ---
Subjective - Date & Time of Evaluation Date of Evaluation: 07/22/18 Time of Evaluation: 09:20 - Subjective Subjective: Patient is still on the ventilator, with tracheostomy tube, not in distress, no fevers. Objective - Vital Signs/Intake and Output Vital Signs (last 24 hours): Temp Pulse Resp BP Pulse Ox 99.7 F H 65 15 163/80 H 95 07/22/18 06:20 07/22/18 06:20 07/21/18 07:49 07/22/18 06:02 07/22/18 06:20 - Medications Medications: Current Medications Amino Acid Protein (Prostat 15 G Packet) 15 gm GT BID [facility] Last Admin: 07/21/18 17:13 Dose: Not Given Atorvastatin Calcium (Lipitor) 20 mg PO DIN [facility] Last Admin: 07/21/18 17:14 Dose: Not Given Dextrose (Dextrose 50% Inj) 0 ml IV STAT PRN; Protocol PRN Reason: Hypoglycemia Protocol Last Admin: 07/17/18 00:59 Dose: 50 ml Heparin Sodium (Porcine) (Heparin) 5,000 units SC Q8 [facility]; Protocol Last Admin: 07/20/18 21:36 Dose: 5,000 units Dextrose (Dextrose 5% In Water 1000 Ml) 1,000 mls @ 0 mls/hr IV .Q0M PRN; Protocol PRN Reason: Hypoglycemia Protocol Levetiracetam (Keppra 500mg Ivpb) 500 mg in 100 mls @ 400 mls/hr IVPB Q12 [facility] Last Admin: 07/21/18 21:53 Dose: 400 mls/hr Vancomycin HCl (Vancomycin 1gm) 1 gm in 250 mls @ 167 mls/hr IVPB Q12H [facility]; P rotocol Last Admin: 07/22/18 06:12 Dose: 167 mls/hr Meropenem (Merrem Iv 1 Gm Premix) 1 gm in 50 mls @ 100 mls/hr IVPB Q8 [facility]; Protocol Stop: 07/27/18 07:16 Last Admin: 07/22/18 06:11 Dose: 100 mls/hr Fluconazole (Diflucan Iv 200 Mg/100 Ml Ns) 100 mls @ 100 mls/hr IVPB DAILY [facility]; Protocol Last Admin: 07/21/18 17:16 Dose: 100 mls/hr Insulin Human Regular (Humulin R Med) 0 units SC Q6H [facility]; Protocol Last Admin: 07/22/18 06:18 Dose: Not Given Morphine Sulfate (Morphine) 2 mg IVP Q4H PRN PRN Reason: Pain, moderate (4-7) Nystatin (Nystop Topical Powder) 1 gm TOP Q12H [facility] Last Admin: 07/21/18 22:02 Dose: 1 applic Pantoprazole Sodium (Protonix Inj) 40 mg IVP Q12 [facility] Last Admin: 07/21/18 21:57 Dose: 40 mg Senna/Docusate Sodium (Senokot S 50 Mg-8.6 Mg) 1 tab PO BID [facility] Last Admin: 07/21/18 17:13 Dose: Not Given - Labs Labs: 07/22/18 05:15 07/22/18 05:15 PT 13.7 SECONDS (9.4-12.5) H 07/21/18 05:00 INR 1.21 07/21/18 05:00 APTT 32.0 Seconds (26.9-38.3) 07/21/18 05:00 - Constitutional Appears: Chronically Ill - Head Exam Head Exam: NORMAL INSPECTION - ENT Exam Additional comments: tracheostomy tube in place - Respiratory Exam Respiratory Exam: Decreased Breath Sounds - Cardiovascular Exam Cardiovascular Exam: +S1, +S2 - GI/Abdominal Exam GI & Abdominal Exam: Soft. absent: Tenderness Additional comments: PEG tube in place Assessment and Plan - Assessment and Plan (Free Text) Plan: Assessment severe sepsis with HCAP with Pseudomonas in this patient with TDRF renal CA S/P nephrectomy chronic CHF S/P PEG tube placement COPD pulmonary HTN thyroid mass Plan continue Vancomycin and Merrem day 3 and will continue to monitor clinically reviewed trach cultures, showing Pseudomonas
[2018-07-22] MEDS: Morphine 2 mg/ml ISec IVP PRN (11:40)
--- NOTE | 2018-07-22 13:13 | RAD ---
HISTORY: f/u COMPARISON: Chest x-ray performed 07/21/18 TECHNIQUE: Chest, one view. FINDINGS: Numerous external wires and leads obscure evaluation of the underlying parenchyma. Examination limited by habitus, hypoinflation, and patient obliquity. Tracheostomy tube. Nasogastric tube. LUNGS: Moderate vascular congestion and perihilar and medial right upper lobe infiltrates/consolidative changes persist. PLEURA: No significant pleural effusion identified. No definite pneumothorax . CARDIOVASCULAR: Mild cardiomegaly. Atherosclerotic calcifications of the aorta. OSSEOUS STRUCTURES: Degenerative changes. VISUALIZED UPPER ABDOMEN: Unremarkable. OTHER FINDINGS: None. IMPRESSION: Tracheostomy tube. Nasogastric tube. Moderate vascular congestion and perihilar and medial right upper lobe infiltrates/consolidative changes persist.
--- NOTE | 2018-07-22 15:46 | PN ---
DATE: 07/22/2018 SUBJECTIVE: He is in the intensive care unit. He is on the trach ventilator. I think they can try to give him a chance to get decreased the ventilator and trying to get him closer to weaning which would be wonderful, so we can get him off the ventilator. He has a very good chance of improving in trouble, they put a feeding tube in him. MEDICATIONS: He is on dextrose, Diflucan, heparin, Keppra, Lipitor, Merrem, morphine, nystatin, Pro-Stat, Protonix, Senokot, vancomycin, and Xanax. PHYSICAL EXAMINATION: GENERAL: He is alert, aware, understands what is going on. VITAL SIGNS: He has a 99.7 temp, 65 pulse, 163/80 blood pressure, 97% O2 sat on 40%. HEAD: Atraumatic, normocephalic. HEART: Regular rate. LUNGS: Decreased breath sounds bilaterally, but clear. ABDOMEN: Soft, obese. EXTREMITIES: No edema. LABORATORY DATA: My worry is that his white count is 27.3, hemoglobin is 9.8, hematocrit 33.5, platelets of 588. He has 144 sodium, potassium 3.9, BUN is 17, creatinine 1.1, GFR is greater than 60, sugar is 98, calcium is 9.9, phosphorous 2.8, magnesium 1.9. Total bili is 0.3, AST is 40, ALT is 31, alk phos 221. ASSESSMENT AND PLAN: He is being seen by Infectious Disease, the back wedger, Pulmonary. Infectious Disease continue vancomycin and Merrem. Hopefully, the white count will start to decline. Hopefully, we can get him off the ventilator. We will continue with aggressive treatment and care. Aleksey Nela DO MTDD
[2018-07-22] MEDS: Docusate-Senna 50 mg-8.6 mg Tab PO SCH (20:27)
[2018-07-23] MEDS: Insulin Reg-MEDIUM-Coverage SC SCH ×4 (01:40→22:13)
[2018-07-23] MEDS: Nystatin 100,000 Units/gm Topical Pow(15 gm) TOP SCH ×3 (05:26→22:12)
[2018-07-23] MEDS: Meropenem IV 1 gm in NS 1 GM/50 ML BAG IVPB SCH ×3 (05:26→22:10)
[2018-07-23] MEDS: Morphine 2 mg/ml ISec IVP PRN ×3 (05:26→22:12)
[2018-07-23 05:41] LABS: HEMOGLOBIN 9.3 g/dL (14.0-18.0); MEAN CELL VOLUME 88.3 fl (80.0-105.0); MEAN CORPUSCULAR HEMOGLOBIN 26.6 pg (25.0-35.0); MEAN CORPUSCULAR HGB CONC 30.1 g/dl (31.0-37.0); MEAN PLATELET VOLUME 9.7 fl (7.0-11.0); RBC 3.5 10^6/uL (3.5-6.1); RED CELL DISTRIBUTION WIDTH 22.2 % (11.5-14.5); WHITE BLOOD COUNT 22.1 10^3/uL (4.5-11.0)
[2018-07-23 05:49] LABS: ARTERIAL BLOOD GAS HCO3 27.6 mmol/L (21-28); ARTERIAL BLOOD GAS HEMOGLOBIN 9.2 g/dL (11.7-17.4); ARTERIAL BLOOD GAS O2 CAPACITY 12.7 mL/dl (16-24); ARTERIAL BLOOD GAS O2 CONTENT 12.2 ML/dl (15-23); ARTERIAL BLOOD GAS O2 SAT 96.1 % (95-98); ARTERIAL BLOOD GAS PCO2 33 mm/Hg (35-45); ARTERIAL BLOOD GAS PH 7.53 (7.35-7.45); ARTERIAL BLOOD GAS TCO2 28.6 mmol.L (22-28)
--- NOTE | 2018-07-23 06:01 | CP.PCM.PN ---
Subjective - Date & Time of Evaluation Date of Evaluation: 07/23/18 Time of Evaluation: 05:57 - Subjective Subjective: General Surgery Dr. Garrido pt seen and examined @bedside, Pt w/ low-grade fever overnight, Tmax 100.8. Pt ventilated via trach, ROS unobtainable. tolerating tube feeds. Tracheal aspirate (+)Pseudomonas Objective - Vital Signs/Intake and Output Vital Signs (last 24 hours): Temp Pulse Resp BP Pulse Ox 98.7 F 71 15 144/57 L 93 L 07/22/18 20:00 07/22/18 22:00 07/21/18 07:49 07/22/18 18:01 07/22/18 18:50 Intake and Output: 07/22/18 07/23/18 18:59 06:59 Intake Total 1370 Output Total 1000 Balance 370 - Medications Medications: Current Medications Alprazolam (Xanax) 0.25 mg PEG Q12 PRN; Protocol PRN Reason: Anxiety Stop: 07/29/18 10:01 Last Admin: 07/23/18 05:26 Dose: 0.25 mg Amino Acid Protein (Prostat 15 G Packet) 15 gm GT BID [facility] Last Admin: 07/21/18 17:13 Dose: Not Given Atorvastatin Calcium (Lipitor) 20 mg PO DIN [facility] Last Admin: 07/22/18 16:29 Dose: 20 mg Dextrose (Dextrose 50% Inj) 0 ml IV STAT PRN; Protocol PRN Reason: Hypoglycemia Protocol Last Admin: 07/17/18 00:59 Dose: 50 ml Heparin Sodium (Porcine) (Heparin) 5,000 units SC Q8 [facility]; Protocol Last Admin: 07/22/18 21:50 Dose: 5,000 units Dextrose (Dextrose 5% In Water 1000 Ml) 1,000 mls @ 0 mls/hr IV .Q0M PRN; Protocol PRN Reason: Hypoglycemia Protocol Levetiracetam (Keppra 500mg Ivpb) 500 mg in 100 mls @ 400 mls/hr IVPB Q12 [facility] Last Admin: 07/22/18 21:49 Dose: 400 mls/hr Meropenem (Merrem Iv 1 Gm Premix) 1 gm in 50 mls @ 100 mls/hr IVPB Q8 [facility]; Protocol Stop: 07/27/18 07:16 Last Admin: 07/23/18 05:26 Dose: 100 mls/hr Fluconazole (Diflucan Iv 200 Mg/100 Ml Ns) 100 mls @ 100 mls/hr IVPB DAILY [facility]; Protocol Last Admin: 07/22/18 08:58 Dose: 100 mls/hr Insulin Human Regular (Humulin R Med) 0 units SC Q6H [facility]; Protocol Last Admin: 07/23/18 01:40 Dose: Not Given Morphine Sulfate (Morphine) 2 mg IVP Q4H PRN PRN Reason: Pain, moderate (4-7) Last Admin: 07/23/18 05:26 Dose: 2 mg Nystatin (Nystop Topical Powder) 1 gm TOP Q12H [facility] Last Admin: 07/23/18 05:26 Dose: 1 applic Pantoprazole Sodium (Protonix Inj) 40 mg IVP Q12 [facility] Last Admin: 07/22/18 21:50 Dose: 40 mg Senna/Docusate Sodium (Senokot S 50 Mg-8.6 Mg) 1 tab PO BID [facility] Last Admin: 07/22/18 20:27 Dose: Not Given - Labs Labs: 07/23/18 05:30 07/22/18 05:15 PT 13.7 SECONDS (9.4-12.5) H 07/21/18 05:00 INR 1.21 07/21/18 05:00 APTT 32.0 Seconds (26.9-38.3) 07/21/18 05:00 - Constitutional Appears: Non-toxic, No Acute Distress - Head Exam Head Exam: NORMAL INSPECTION - ENT Exam ENT Exam: Mucous Membranes Moist - Neck Exam Additional comments: trach in place - Respiratory Exam Respiratory Exam: NORMAL BREATHING PATTERN (mechanical ventilation). absent: Accessory Muscle Use, Respiratory Distress - Cardiovascular Exam Cardiovascular Exam: absent: Bradycardia, Tachycardia - GI/Abdominal Exam GI & Abdominal Exam: Soft, Tenderness (appropriate TTP). absent: Distended, Firm, Guarding Additional comments: midline incision c/d/i G-tube in place - Extremities Exam Extremities Exam: Normal Inspection - Neurological Exam Neurological Exam: Alert, Awake - Psychiatric Exam Psychiatric exam: Normal Affect, Normal Mood - Skin Skin Exam: Dry, Intact, Normal Color, Warm Assessment and Plan - Assessment and Plan (Free Text) Assessment: 87 y/o N POD#2 s/p open gastrostomy tube placement Plan: - advance tube feeds to goal - monitor vitals - monitor bowel fxn - f/u Dietary recs for bolus vs continuous feeds - cont management per ICU - DVT PPx Pt discussed w/ Dr. Hema Cheung PGY3
[2018-07-23 06:07] LABS: ALB/GLOB RATIO 0.8 (1.1-1.8); ALBUMIN 2.6 g/dL (3.0-4.8); ALT/SGPT 33 U/L (7-56); AST/SGOT 50 U/L (17-59); BLOOD UREA NITROGEN 19 mg/dL (7-21); CALCIUM 9.7 mg/dL (8.4-10.5); GFR NON-AFRICAN AMERICAN > 60
[2018-07-23] MEDS: Levalbuterol 1.25 MG/3 ML Inhal Soln UD IH SCH ×3 (07:38→19:35)
[2018-07-23] MEDS: Acetylcysteine 20% Inhal Soln (4ml) IH SCH ×2 (07:38→19:40)
--- NOTE | 2018-07-23 08:33 | RAD ---
HISTORY: f/u COMPARISON: Chest x-ray performed 07/22/18 TECHNIQUE: Chest, one view. FINDINGS: Examination limited by habitus and patient obliquity. The patient's chin obscures evaluation right lung apex. Tracheostomy tube. Left-sided central venous catheter likely terminating at the bronchiocephalic/SVC junction. Nasogastric tube longer evident, presumably removed. LUNGS: Complete opacification the left hemithorax. Moderate congestion within the right hemithorax. CARDIOVASCULAR: Partially obscured. OSSEOUS STRUCTURES: Degenerative changes. VISUALIZED UPPER ABDOMEN: Unremarkable. OTHER FINDINGS: None. IMPRESSION: Tracheostomy tube. Left-sided central venous catheter likely terminating at the bronchiocephalic/SVC junction. Nasogastric tube longer evident, presumably removed. Complete opacification the left hemithorax. Moderate congestion within the right hemithorax.
[2018-07-23] MEDS: levETIRAcetam 500mg IVPB 500 MG/100 ML BAG IVPB SCH ×2 (09:49→22:10)
[2018-07-23] MEDS: Docusate-Senna 50 mg-8.6 mg Tab PO SCH (09:49)
[2018-07-23] MEDS: Fluconazole IV 200mg/100 ml NS 100 ML IVPB SCH (09:49)
[2018-07-23] MEDS: Prostat 15 g packet GT SCH (09:51)
--- NOTE | 2018-07-23 10:06 | PN ---
DATE: 07/23/2018 CASHIER COURTESY BOOTH NOTE SUBJECTIVE: The patient is resting with tracheostomy on the ventilator. Does respond to spoking word and touch. He is not heavily sedated. He has an FiO2 on the ventilator of 40%. The patient is getting PEG tube feedings and is tolerating well. He is hemodynamically stable. PHYSICAL EXAMINATION: VITAL SIGNS: Note that his temperature is 98.7, his pulse is 71, respirations are 21 and his BP is 144/57. SKIN: Warm and dry. HEENT: Head is atraumatic and normocephalic. Eyes reactive to light. Ears, nose and throat seem to be within normal limits. Note that he does have a tracheostomy in place. LUNGS: Reveals bilateral rhonchi with mild decreased breath sounds on the left. HEART: Regular rate and rhythm. Normal S1 and S2. ABDOMEN: Soft. PEG tube in place. Decreased bowel sounds. GENITALIA: Deferred. RECTAL: Deferred. MUSCULOSKELETAL: No joint deformities. EXTREMITIES: Reveals positive edema. NEUROLOGIC: The patient is arousable even though on the ventilator. LABORATORY DATA: Reveals white count of 22.1, hemoglobin 9.3, hematocrit 30.9 with platelets of 499,000. Arterial blood gas reveals a pH of 7.53, PCO2 of 33 and PO2 of 62. Sodium is 143, potassium 3.6, chloride 109, CO2 of 31 with a BUN of 19, creatinine of 1.0 and glucose of 137. Chest x-ray reveals complete opacification of the left possible collapse with associated pleural effusion. This is unofficial reading. IMPRESSION: The patient has respiratory failure requiring ventilator support and has tracheostomy. He has a left-sided lung collapse with associated pleural effusion and may be secondary to mucus plugging. The patient has increased white count with pneumonia and possible sepsis. He has history of congestive heart failure, renal cancer status post nephrectomy, chronic obstructive pulmonary disease, anemia, renal insufficiency, seizure disorder, as well as pulmonary hypertension. PLAN: As far as our plan, we will continue with ventilator support. Continue with aggressive pulmonary toilet. Continue with chest PT and with suctioning. The patient is being followed closely by his research statistician Dr. Rivas. We will continue with IV fluids and he is on fluconazole, Keppra, Lipitor, Protonix, vancomycin and meropenem. The patient will continue to be followed with chest x-ray and arterial blood gas. We will continue to treat aggressively along with the other consultants and the primary care doctor. Rebel Cardoso MD
--- NOTE | 2018-07-23 10:19 | PN ---
DATE: 07/23/2018(630am-720am) SUBJECTIVE: The patient remains on the ventilator. He is sedated this morning. PHYSICAL EXAMINATION: VITAL SIGNS: Last temperature recorded is 98.7. T-max over the past 24 hours - 100.4. Pulse this morning 72, respiratory rate 16/15, last blood pressure recorded 144/57. HEENT: Normocephalic, atraumatic. No JVD. Positive tracheostomy. CARDIOVASCULAR: Systolic ejection murmur at the lower left sternal border. Questionable S3 gallop. LUNGS: Decreased breath sounds at the bases. Mild bilateral rhonchi. No wheezing. EXTREMITIES: Mild edema. No cyanosis, no clubbing. GASTROINTESTINAL: Abdomen is soft, nondistended. Bowel sounds are positive. There is a PEG tube in place. SKIN: No acute rash. NEUROLOGIC: Limited at the present time. PERTINENT LABORATORY DATA: Chest x-ray was done this morning and reviewed. A right lower lobe infiltrate remains. However, on today's film, there is opacification with diffuse infiltrate noted to the left lung. The trachea does appear midline. Official results are pending. Arterial blood gas was done on PRBC 15, tidal volume 400, FIO2 of 40%. Results are: pH 7.53, pCO2 of 33, pO2 of 62. CBC: White blood 22.1K, hemoglobin 9.3, hematocrit 30.9, platelets of 499,000. IMPRESSION: 1. Respiratory failure. 2. Bilateral pneumonia. 3. Chronic obstructive pulmonary disease. 4. Congestive heart failure. 5. Seizure disorder. 6. Thyroid mass. 7. Anemia. 8. Rule out atelectasis left lung PLAN: The patient remains on the ventilator. He is sedated this morning. I did discuss the case with the night nurse at length. The night nurse informed me that the patient had a mostly uneventful night. I did review the chest x-ray from this morning. Findings are noted above. Official results are pending. Again, there is diffuse infiltrate/opacification in the left lung. This may represent worsening pneumonia or atelectasis. The trachea is midline, which points against atelectasis. In addition, there has been an increase in the temperatures and white count over the past few days. I will touch base with Infectious Disease this morning. I did review the case and x-ray with the respiratory therapist this morning. The patient will be placed on Xopenex nebulizer treatments and Mucomyst. Respiratory will also perform deep suctioning this morning. Specimens will be sent for culture and sensitivity. I have also reviewed the arterial blood gas. The arterial blood gas is worse with a significant increase in the alveolar-arterial gradient. The FIO2 will be increased this morning. Inputs by Surgery, Internal Medicine, and Infectious Disease are noted. Again, I will try to touch base with Infectious Disease this morning. The patient remains critically ill with overall poor prognosis. I will discuss the above with the entire ICU team in the next few moments. I will also discuss the above with Dr. Neal later this morning. Theo Rivas MD MTDD
--- NOTE | 2018-07-23 10:26 | CP.PCM.PN ---
Subjective - Date & Time of Evaluation Date of Evaluation: 07/23/18 Time of Evaluation: 08:40 - Subjective Subjective: Still on the ventilator, not in distress, no fevers overnight. Objective - Vital Signs/Intake and Output Vital Signs (last 24 hours): Temp Pulse Resp BP Pulse Ox 99.7 F H 65 15 163/80 H 95 07/22/18 06:20 07/22/18 06:20 07/21/18 07:49 07/22/18 06:02 07/22/18 06:20 - Medications Medications: Current Medications Alprazolam (Xanax) 0.25 mg PEG Q12 PRN; Protocol PRN Reason: Anxiety Stop: 07/29/18 10:01 Amino Acid Protein (Prostat 15 G Packet) 15 gm GT BID [facility] Last Admin: 07/21/18 17:13 Dose: Not Given Atorvastatin Calcium (Lipitor) 20 mg PO DIN [facility] Last Admin: 07/21/18 17:14 Dose: Not Given Dextrose (Dextrose 50% Inj) 0 ml IV STAT PRN; Protocol PRN Reason: Hypoglycemia Protocol Last Admin: 07/17/18 00:59 Dose: 50 ml Heparin Sodium (Porcine) (Heparin) 5,000 units SC Q8 [facility]; Protocol Last Admin: 07/20/18 21:36 Dose: 5,000 units Dextrose (Dextrose 5% In Water 1000 Ml) 1,000 mls @ 0 mls/hr IV .Q0M PRN; Protocol PRN Reason: Hypoglycemia Protocol Levetiracetam (Keppra 500mg Ivpb) 500 mg in 100 mls @ 400 mls/hr IVPB Q12 [facility] Last Admin: 07/22/18 09:00 Dose: 400 mls/hr Vancomycin HCl (Vancomycin 1gm) 1 gm in 250 mls @ 167 mls/hr IVPB Q12H [facility]; Protocol Last Admin: 07/22/18 06:12 Dose: 167 mls/hr Meropenem (Merrem Iv 1 Gm Premix) 1 gm in 50 mls @ 100 mls/hr IVPB Q8 [facility]; Pr otocol Stop: 07/27/18 07:16 Last Admin: 07/22/18 06:11 Dose: 100 mls/hr Fluconazole (Diflucan Iv 200 Mg/100 Ml Ns) 100 mls @ 100 mls/hr IVPB DAILY [facility]; Protocol Last Admin: 07/22/18 08:58 Dose: 100 mls/hr Insulin Human Regular (Humulin R Med) 0 units SC Q6H [facility]; Protocol Last Admin: 07/22/18 06:18 Dose: Not Given Morphine Sulfate (Morphine) 2 mg IVP Q4H PRN PRN Reason: Pain, moderate (4-7) Nystatin (Nystop Topical Powder) 1 gm TOP Q12H [facility] Last Admin: 07/22/18 09:01 Dose: 1 applic Pantoprazole Sodium (Protonix Inj) 40 mg IVP Q12 [facility] Last Admin: 07/21/18 21:57 Dose: 40 mg Senna/Docusate Sodium (Senokot S 50 Mg-8.6 Mg) 1 tab PO BID [facility] Last Admin: 07/21/18 17:13 Dose: Not Given - Labs Labs: 07/22/18 05:15 07/22/18 05:15 PT 13.7 SECONDS (9.4-12.5) H 07/21/18 05:00 INR 1.21 07/21/18 05:00 APTT 32.0 Seconds (26.9-38.3) 07/21/18 05:00 - Constitutional Appears: Chronically Ill - Head Exam Head Exam: NORMAL INSPECTION - ENT Exam Additional comments: tracheostomy tube in place - Respiratory Exam Respiratory Exam: Decreased Breath Sounds - Cardiovascular Exam Cardiovascular Exam: +S1, +S2 - GI/Abdominal Exam GI & Abdominal Exam: Soft. absent: Tenderness Assessment and Plan - Assessment and Plan (Free Text) Plan: Assessment severe sepsis with HCAP on the left side with Pseudomonas in this patient with TDRF renal CA S/P nephrectomy chronic CHF S/P PEG tube placement COPD pulmonary HTN thyroid mass Plan continue Vancomycin and Merrem day 4 and will continue to monitor clinically - Pseudomonas is sensitive to Merrem; will repeat MRSA nares screen to see if we can d/c Vancomycin reviewed CXR today, showing opacification of the left hemithorax WBC count has decreased to 22 today from 27 yesterday
--- NOTE | 2018-07-23 12:56 | PN ---
DATE: 07/23/2018 SUBJECTIVE: He is not doing well today. He is in the hospital for respiratory failure, bilateral pneumonia, COPD, CHF, seizure disorder, thyroid mass and anemia. He is trached on the ventilator difficult to get him off the ventilator, they tried in the past 24 hours, did not succeed. He has poor prognosis. He is not alert today. PHYSICAL EXAMINATION: VITAL SIGNS: He has got 100.4 temperature, it is down to 98.7; 71 pulse and 93% on 40%. HEENT: Head is atraumatic and normocephalic. HEART: Regular rate. LUNGS: Decreased breath sounds. ABDOMEN: Soft and obese. EXTREMITIES: No edema. MEDICATIONS: He is on acetylcysteine dextrose, Diflucan which is new, heparin, Keppra, Lipitor, Merrem, morphine, nystatin, Pro-Stat, Protonix, Senokot, Xanax and Xopenex. LABORATORY DATA: He has a 143 sodium, potassium 3.6, BUN 19, creatinine 1, GFR is greater than 60, sugar is 137, calcium 9.7, phosphorous 2, magnesium 2, total bilirubin is 0.2, AST is 50, ALT is 63, alk phos is 211 and total protein is 5.8. White count was 27 yesterday it is down to 22.1 in the right direction, hemoglobin 9.3, hematocrit 30.9 and platelets 499. . We will continue with aggressive treatment and care, Infectious Disease, It Applications Developer, Pulmonary. Cardiology is checking his labs. We will continue with aggressive treatment and care. Aleksey Neal DO MTDD
[2018-07-24 05:19] LABS: ARTERIAL BLOOD GAS HCO3 32.8 mmol/L (21-28); ARTERIAL BLOOD GAS HEMOGLOBIN 8.8 g/dL (11.7-17.4); ARTERIAL BLOOD GAS O2 CAPACITY 12.1 mL/dl (16-24); ARTERIAL BLOOD GAS O2 CONTENT 11.9 ML/dl (15-23); ARTERIAL BLOOD GAS O2 SAT 98.4 % (95-98); ARTERIAL BLOOD GAS PCO2 45 mm/Hg (35-45); ARTERIAL BLOOD GAS PH 7.47 (7.35-7.45); ARTERIAL BLOOD GAS TCO2 34.2 mmol.L (22-28)
[2018-07-24] MEDS: Insulin Reg-MEDIUM-Coverage SC SCH ×2 (06:01→12:00)
[2018-07-24] MEDS: Meropenem IV 1 gm in NS 1 GM/50 ML BAG IVPB SCH ×3 (06:04→22:34)
[2018-07-24] MEDS: Morphine 2 mg/ml ISec IVP PRN (06:04)
[2018-07-24 07:14] LABS: ALB/GLOB RATIO 0.8 (1.1-1.8); ALBUMIN 2.6 g/dL (3.0-4.8); ALT/SGPT 59 U/L (7-56); AST/SGOT 120 U/L (17-59); BLOOD UREA NITROGEN 18 mg/dL (7-21); CALCIUM 9.3 mg/dL (8.4-10.5); GFR NON-AFRICAN AMERICAN > 60
[2018-07-24 07:16] LABS: HEMOGLOBIN 9.5 g/dL (14.0-18.0); MEAN CELL VOLUME 89.6 fl (80.0-105.0); MEAN CORPUSCULAR HEMOGLOBIN 25.9 pg (25.0-35.0); MEAN CORPUSCULAR HGB CONC 28.9 g/dl (31.0-37.0); MEAN PLATELET VOLUME 10.6 fl (7.0-11.0); RBC 3.67 10^6/uL (3.5-6.1); WHITE BLOOD COUNT 16.8 10^3/uL (4.5-11.0)
--- NOTE | 2018-07-24 07:41 | PN ---
DATE: 07/24/2018(630am-720am) PULMONARY NOTE SUBJECTIVE: The patient remains on the ventilator. He is sedated this morning. PHYSICAL EXAMINATION: VITALS: (Last noted in the computer): Temperature is 99.3, pulse on the monitor is 74, respirations 15/15, last blood pressure recorded 151/80. HEENT: Normocephalic, atraumatic. No JVD. Positive tracheostomy. CARDIOVASCULAR: Systolic ejection murmur at the lower left sternal border. Questionable S3 gallop. LUNGS: Decreased breath sounds at both bases. Less rhonchi. No wheezing. EXTREMITIES: Mild edema. No cyanosis. No clubbing. GASTROINTESTINAL: Abdomen is soft, nondistended. Bowel sounds are positive. There is a PEG tube in place. SKIN: No acute rash. NEUROLOGIC: Exam limited at the present time. PERTINENT LABORATORY DATA: Chest x-ray was done this morning and reviewed. There is a significant decrease in the left lung opacity on today's film-- with increased aeration noted to the left lung. Bilateral hazy infiltrates remain. Arterial blood gas was done on PRBC 15, tidal volume 400, FiO2 60%. Results are: PH 7.47, pCO2 of 45, pO2 of 84. IMPRESSON: 1. Respiratory failure. 2. Bilateral pneumonia. 3. Chronic obstructive pulmonary disease. 4. Congestive heart failure. 5. Seizure disorder. 6. Thyroid mass. 7. Anemia. PLAN: The patient remains on the ventilator. He is sedated this morning. I did discuss the case with the night nurse at length. The night nurse stated that the patient had an uneventful night. I did review the chest x-ray from this morning. Again, there is a significant decrease in the opacification noted to the left lung. Given the rapid improvement, most likely a mucous plug was removed yesterday by Respiratory/suctioning. We will continue with the aggressive pulmonary toileting. I have also reviewed the arterial blood gas. The arterial blood gas is improved, but remains with a significant alveolar-arterial gradient. Inputs by Infectious Disease and Internal Medicine are also noted. Repeat a.m. labs are pending. Clinical status of the patient is certainly improved - compared to last week. However, again, the overall status/prognosis for this elderly patient remains poor. All are aware. I will discuss the above with the entire ICU team in the next few moments. I will also discuss the above with Dr. Neal later this morning. Theo Rivas MD TODD
[2018-07-24] MEDS: Acetylcysteine 20% Inhal Soln (4ml) IH SCH ×2 (08:08→19:27)
[2018-07-24] MEDS: Levalbuterol 1.25 MG/3 ML Inhal Soln UD IH SCH ×3 (08:09→19:28)
--- NOTE | 2018-07-24 08:27 | OP ---
PROCEDURE DATE: 07/21/2018 SENIOR HUMAN RESOURCES REPRESENTATIVE: 1. Neva Garcia DO, PGY-4 2. Bar Wilkinson D.O., PGY-1 PREOPERATIVE DIAGNOSIS: Need for prolonged inhaled nutrition. POSTOPERATIVE DIAGNOSIS: Need for prolonged inhaled nutrition. PROCEDURE: Open gastrostomy insertion. SURGEON: Leno Garrido MD TYPE OF ANESTHESIA: General. ESTIMATED BLOOD LOSS: 25 mL DRAINS: None. COMPLICATIONS: None. INDICATIONS: This is an 87-year-old male requiring prolonged inhaled nutrition after having a dislodged PEG tube. DESCRIPTION OF PROCEDURE: The patient was placed in a supine position. General endotracheal anesthesia was induced. A time-out was completed verifying correct patient, procedure site, positioning and implants prior to the beginning of the procedure. Preoperative antibiotics were given. The abdomen was prepped and draped in the usual sterile fashion. A short upper midline incision was made and deepened through the subcutaneous tissues with electrocautery. Hemostasis was assured. The linea alba was incised and the peritoneal cavity was entered. The abdomen was explored. There were some adhesions to the abdominal wall which were lysed sharply under direct vision with Metzenbaum scissors. The stomach was identified and the location on the anterior wall near the greater curvature was selected. That site was approximated to the chosen exit site and found to reach without tension. A small incision was made and the 24-Tajik gastrostomy tube was passed to the anterior abdominal wall into the field. A purse-string suture of 0 Vicryl was placed on the anterior surface of the stomach and an antrotomy was made with electrocautery in the center of the suture. The catheter was inserted into the lumen of the stomach. The purse-string suture was secured in place in such a manner as to inverse the stomach onto the catheter. The stomach was then tagged to the anterior abdominal wall and the catheter entrance site with several 0 Vicryl silk sutures in such a manner as to prevent leakage or torsion. The catheter was secured to the skin with 3-0 silk suture. The catheter was attached to a Phan bag for drainage. Hemostasis was checked and the omentum was brought adjacent to the surgical field. The fascia was closed with a running suture of 0 double PDS and the subcutaneous tissues were closed with a 3-0 Vicryl. The skin was then closed with skin renetta. The patient tolerated the procedure well and was taken to the PACU in stable condition. Neva Garcia DO Leno Garrido MD
[2018-07-24] MEDS: levETIRAcetam 500mg IVPB 500 MG/100 ML BAG IVPB SCH ×2 (09:46→22:35)
[2018-07-24] MEDS: Nystatin 100,000 Units/gm Topical Pow(15 gm) TOP SCH ×2 (09:50→22:36)
[2018-07-24] MEDS: Prostat 15 g packet GT SCH ×2 (09:55→17:37)
--- NOTE | 2018-07-24 09:59 | RAD ---
Date of service: 07/24/2018 HISTORY: f/u COMPARISON: 07/23/2018 TECHNIQUE: 1 view obtained. FINDINGS: LUNGS: There is improved aeration of the left lung. There is moderate vascular congestion and minimal bibasilar infiltrates PLEURA: No significant pleural effusion identified, no pneumothorax apparent. CARDIOVASCULAR: Aortic calcification Moderate cardiomegaly OSSEOUS STRUCTURES: No significant abnormalities. VISUALIZED UPPER ABDOMEN: Normal. OTHER FINDINGS: None. IMPRESSION: There is improved aeration of the left lung. There is moderate vascular congestion and minimal bibasilar infiltrates
--- NOTE | 2018-07-24 10:32 | PN ---
DATE: 07/24/2018 SUBJECTIVE: I saw him this morning in bed. He is usually alert and talking to me, he is not alert and not talking, but aware what I am saying. He has got a trach on the ventilator. He has got mittens for his hands, because he has been pulling at things, he has got a feeding tube and the past 24 hours mentally he has been little bit off. He is on acetylcysteine, dextrose, Diflucan, heparin, insulin Lipitor, Merrem, morphine, nystatin, Prostat, Protonix, Xanax and Xopenex. PHYSICAL EXAMINATION VITAL SIGNS: He had a T-max of 99.1, it is 99.3 now, 67 pulse, 151/80 blood pressure, 16 respiratory rate and O2 sat on 60%. HEENT: Head is atraumatic, normocephalic. GENERAL: He is not alert today, he only looks at me and smiles and understands what I am saying, but not this morning, we cannot arouse him. HEART: Regular rate. LUNGS: Decreased breath sounds. ABDOMEN: Soft and obese. EXTREMITIES: No edema. He is in restraints because he pulled things out. LABORATORY DATA: He has a 16.8 white count the best it has been, 9.5 hemoglobin, 32.9 hematocrit with a 503 platelets. A 142 sodium, potassium 3.5 we will replace the potassium, BUN 18, creatinine 1, GFR greater than 60, sugar 95, calcium is 9.3, total bili is 2.5, magnesium is 1.9, total bili is 0.2, AST is 120, ALT is 59, alk phos 209 and total protein is 5.8. Pseudomonas growing, seen by Pulmonary, Laundry Operator Finishing and Infectious Disease. He has got respiratory failure, bilateral pneumonia, chronic obstructive pulmonary disease, congestive heart failure, seizure disorder, thyroid mass, and anemia. He is on trach vent with a feeding tube. He has got a LTAC plan. Aleksey Neal DO MTDChandu
--- NOTE | 2018-07-24 11:24 | CP.CCUPN ---
<Tomy Aguilar - Last Filed: 07/24/18 13:39> CCU Subjective - Physician Review Events Since Last Encounter (Free Text): Tomy Aguilar DO, PGY-1 MICU Progress Note for Dr. Ojeda 07/24/18 11:19 Patient noted to have low grade fevers (Tmax 99.9) yesterday but has been afebrile overnight. No other acute events overnight. Subjective (Free Text): Patient was seen and examined at bedside this AM. He remains on PRVC via trach and is off sedation. He is alert, responsive to loud verbal and painful stimuli. He is otherwise somnolent and generally non-cooperative with examination. CCU Objective - Vital Signs / Intake & Output Vital Signs (Last 4 hours): Vital Signs Resp BP Pulse Ox 07/24/18 09:47 133/58 L 07/24/18 08:10 23 98 Intake and Output (Last 8hrs): Intake & Output 07/23/18 07/24/18 07/24/18 22:59 06:59 14:59 Intake Total 680 Output Total 750 Balance -70 Intake: IV 300 Left Subclavian 300 Tube Feeding 280 Other 100 Output: Urine 750 Urethral (Phan) 750 - Physical Exam Physical Exam Limitations: Positive for: Clinical Condition, Uncooperative Head: Positive for: Atraumatic, Normocephalic Pupils: Positive for: PERRL Extroacular Muscles: Positive for: EOMI Mouth: Positive for: Moist Mucous Membranes Pharnyx: Positive for: Normal. Negative for: ERYTHEMA, EXUDATE Nose (External): Positive for: Atraumatic Nose (Internal): Positive for: No Active Bleeding Neck: Negative for: JVD Respiratory/Chest: Positive for: Good Air Exchange (on PRVC, breath sounds auscultated b/l), Wheezes (faint end expiratory wheezes b/l). Negative for: Respiratory Distress, Accessory Muscle Use, Rales, Rhonchi Cardiovascular: Positive for: Regular Rate and Rhythm, Normal S1, S2. Negative for: Murmurs, Rub, Gallop Abdomen: Positive for: Normal Bowel Sounds, Other (gastrostomy tube in place, surrounding area clean, dry, intact with minimal erythema). Negative for: Tenderness, Distention Upper Extremity: Positive for: Normal Inspection, NORMAL PULSES, Capillary Refill < 2s. Negative for: Edema Lower Extremity: Positive for: Edema (b/l 1+ pitting edema with venous stasis dermatitis, multipodus boots in place), NORMAL PULSES, Capillary Refill < 2 s Skin: Positive for: Warm, Dry, Pale Other physical findings (Free Text): opens eyes spontaneously to verbal, painful stimuli - Medications Active Medications: Active Medications Generic Name Dose Route Start Last Admin Trade Name Freq PRN Reason Stop Dose Admin Acetylcysteine 4 ml 07/23/18 08:00 07/24/18 08:08 Acetylcysteine 20% IH 4 ml BIDRESP LUZ MARINA Administration Alprazolam 0.25 mg 07/22/18 09:20 07/23/18 05:26 Xanax PEG 07/29/18 10:01 0.25 mg Q12 PRN Administration Anxiety Protocol Amino Acid Protein 15 gm 07/15/18 10:00 07/24/18 09:55 Prostat 15 G Packet GT 15 gm BID LUZ MARINA Administration Atorvastatin Calcium 20 mg 07/15/18 17:00 07/23/18 16:14 Lipitor PO 20 mg DIN LUZ MARINA Administration Dextrose 0 ml 07/14/18 22:13 07/17/18 00:59 Dextrose 50% Inj IV 50 ml STAT PRN Administration Hypoglycemia Protocol Protocol Furosemide 40 mg 07/24/18 10:00 07/24/18 09:47 Lasix IVP 40 mg DAILY LUZ MARINA Administration Heparin Sodium (Porcine) 5,000 units 07/15/18 06:00 07/24/18 06:04 Heparin SC 5,000 units Q8 LUZ MARINA Administration Protocol Dextrose 1,000 mls @ 0 mls/hr 07/14/18 22:13 Dextrose 5% In Water 1000 Ml IV .Q0M PRN Hypoglycemia Protocol Protocol Per Protocol Levetiracetam 500 mg in 100 mls @ 400 mls/hr 07/16/18 10:00 07/24/18 09:46 Keppra 500mg Ivpb IVPB 400 mls/hr Q12 LUZ MARINA Administration Fluconazole 100 mls @ 100 mls/hr 07/21/18 16:45 07/23/18 09:49 Diflucan Iv 200 Mg/100 Ml Ns IVPB 100 mls/hr DAILY LUZ MARINA Administration Protocol Meropenem 1 gm in 50 mls @ 100 mls/hr 07/23/18 14:00 07/24/18 06:04 Merrem Iv 1 Gm Premix IVPB 100 mls/hr Q8 LUZ MARINA Administration Protocol Potassium Chloride 20 meq in 100 mls @ 50 mls/hr 07/24/18 09:00 07/24/18 09:53 Potassium Chloride 20 Meq/100 Ml IVPB 07/24/18 12:59 50 mls/hr Q2H LUZ MARINA Administration Insulin Human Regular 0 units 07/15/18 12:00 07/24/18 06:01 Humulin R Med SC Not Given Q6H LUZ MARINA Protocol Levalbuterol HCl 1.25 mg 07/23/18 08:00 07/24/18 08:09 Xopenex IH 1.25 mg [id number] LUZ MARINA Administration Morphine Sulfate 2 mg 07/23/18 14:09 07/24/18 06:04 Morphine IVP 2 mg Q4H PRN Administration Pain, moderate (4-7) Nystatin 1 gm 07/16/18 22:00 07/24/18 09:50 Nystop Topical Powder TOP 1 applic Q12H LUZ MARINA Administration Pantoprazole Sodium 40 mg 07/16/18 10:00 07/24/18 09:51 Protonix Inj IVP 40 mg Q12 LUZ MARINA Administration - Patient Studies Lab Studies: Microbiology Studies 07/23/18 11:30 Gram Stain - Final Trachasp 07/19/18 18:30 Blood Culture - Preliminary Blood NO GROWTH AFTER 4 DAYS 07/19/18 18:00 Blood Culture - Preliminary Blood NO GROWTH AFTER 4 DAYS Lab Studies 07/24/18 07/24/18 07/24/18 Range/Units 06:01 05:30 05:30 WBC 16.8 H D (4.5-11.0) 10^3/uL RBC 3.67 (3.5-6.1) 10^6/uL Hgb 9.5 L (14.0-18.0) g/dL Hct 32.9 L (42.0-52.0) % MCV 89.6 (80.0-105.0) fl MCH 25.9 (25.0-35.0) pg MCHC 28.9 L (31.0-37.0) g/dl RDW 22.0 H (11.5-14.5) % Plt Count 503 H (120.0-450.0) 10^3/uL MPV 10.6 (7.0-11.0) fl pCO2 (35-45) mm/Hg pO2 (80-100) mm/Hg HCO3 (21-28) mmol/L ABG pH (7.35-7.45) ABG Total CO2 (22-28) mmol.L ABG O2 Saturation (95-98) % ABG O2 Content (15-23) ML/dl ABG Base Excess (-2.0-3.0) mmol/L ABG Hemoglobin (11.7-17.4) g/dL ABG Carboxyhemoglobin (0.5-1.5) % POC ABG HHb (Measured) (0-5) % ABG Methemoglobin (0.0-3.0) % ABG O2 Capacity (16-24) mL/dl Hgb O2 Saturation (95.0-98.0) % FiO2 % Sodium 142 (132-148) mmol/L Potassium 3.5 L (3.6-5.0) mmol/L Chloride 107 (98-107) mmol/L Carbon Dioxide 31 (21-33) mmol/L Anion Gap 8 L (10-20) BUN 18 (7-21) mg/dL Creatinine 1.0 (0.8-1.5) mg/dl Est GFR ( Amer) > 60 Est GFR (Non-Af Amer) > 60 POC Glucose (mg/dL) 107 (65-110) mg/dL Random Glucose 95 (70-110) mg/dL Calcium 9.3 (8.4-10.5) mg/dL Phosphorus 2.5 (2.5-4.5) mg/dL Magnesium 1.9 (1.7-2.2) mg/dL Total Bilirubin 0.2 (0.2-1.3) mg/dL AST 120 H D (17-59) U/L ALT 59 H (7-56) U/L Alkaline Phosphatase 209 H (38-126) U/L Total Protein 5.8 (5.8-8.3) g/dL Albumin 2.6 L (3.0-4.8) g/dL Globulin 3.3 gm/dL Albumin/Globulin Ratio 0.8 L (1.1-1.8) 07/24/18 07/23/18 07/23/18 Range/Units 05:10 23:54 17:54 WBC (4.5-11.0) 10^3/uL RBC (3.5-6.1) 10^6/uL Hgb (14.0-18.0) g/dL Hct (42.0-52.0) % MCV (80.0-105.0) fl MCH (25.0-35.0) pg MCHC (31.0-37.0) g/dl RDW (11.5-14.5) % Plt Count (120.0-450.0) 10^3/uL MPV (7.0-11.0) fl pCO2 45 (35-45) mm/Hg pO2 84.0 (80-100) mm/Hg HCO3 32.8 H (21-28) mmol/L ABG pH 7.47 H (7.35-7.45) ABG Total CO2 34.2 H (22-28) mmol.L ABG O2 Saturation 98.4 H (95-98) % ABG O2 Content 11.9 L (15-23) ML/dl ABG Base Excess 8.3 H (-2.0-3.0) mmol/L ABG Hemoglobin 8.8 L (11.7-17.4) g/dL ABG Carboxyhemoglobin 1.5 (0.5-1.5) % POC ABG HHb (Measured) 1.6 (0-5) % ABG Methemoglobin 1.5 (0.0-3.0) % ABG O2 Capacity 12.1 L (16-24) mL/dl Hgb O2 Saturation 95.4 (95.0-98.0) % FiO2 60.0 % Sodium (132-148) mmol/L Potassium (3.6-5.0) mmol/L Chloride (98-107) mmol/L Carbon Dioxide (21-33) mmol/L Anion Gap (10-20) BUN (7-21) mg/dL Creatinine (0.8-1.5) mg/dl Est GFR ( Amer) Est GFR (Non-Af Amer) POC Glucose (mg/dL) 110 102 (65-110) mg/dL Random Glucose (70-110) mg/dL Calcium (8.4-10.5) mg/dL Phosphorus (2.5-4.5) mg/dL Magnesium (1.7-2.2) mg/dL Total Bilirubin (0.2-1.3) mg/dL AST (17-59) U/L ALT (7-56) U/L Alkaline Phosphatase (38-126) U/L Total Protein (5.8-8.3) g/dL Albumin (3.0-4.8) g/dL Globulin gm/dL Albumin/Globulin Ratio (1.1-1.8) 07/23/18 Range/Units 11:18 WBC (4.5-11.0) 10^3/uL RBC (3.5-6.1) 10^6/uL Hgb (14.0-18.0) g/dL Hct (42.0-52.0) % MCV (80.0-105.0) fl MCH (25.0-35.0) pg MCHC (31.0-37.0) g/dl RDW (11.5-14.5) % Plt Count (120.0-450.0) 10^3/uL MPV (7.0-11.0) fl pCO2 (35-45) mm/Hg pO2 (80-100) mm/Hg HCO3 (21-28) mmol/L ABG pH (7.35-7.45) ABG Total CO2 (22-28) mmol.L ABG O2 Saturation (95-98) % ABG O2 Content (15-23) ML/dl ABG Base Excess (-2.0-3.0) mmol/L ABG Hemoglobin (11.7-17.4) g/dL ABG Carboxyhemoglobin (0.5-1.5) % POC ABG HHb (Measured) (0-5) % ABG Methemoglobin (0.0-3.0) % ABG O2 Capacity (16-24) mL/dl Hgb O2 Saturation (95.0-98.0) % FiO2 % Sodium (132-148) mmol/L Potassium (3.6-5.0) mmol/L Chloride (98-107) mmol/L Carbon Dioxide (21-33) mmol/L Anion Gap (10-20) BUN (7-21) mg/dL Creatinine (0.8-1.5) mg/dl Est GFR ( Amer) Est GFR (Non-Af Amer) POC Glucose (mg/dL) 129 H (65-110) mg/dL Random Glucose (70-110) mg/dL Calcium (8.4-10.5) mg/dL Phosphorus (2.5-4.5) mg/dL Magnesium (1.7-2.2) mg/dL Total Bilirubin (0.2-1.3) mg/dL AST (17-59) U/L ALT (7-56) U/L Alkaline Phosphatase (38-126) U/L Total Protein (5.8-8.3) g/dL Albumin (3.0-4.8) g/dL Globulin gm/dL Albumin/Globulin Ratio (1.1-1.8) Laboratory Results - last 24 hr 07/23/18 07/23/18 07/23/18 11:18 17:54 23:54 WBC RBC Hgb Hct MCV MCH MCHC RDW Plt Count MPV pCO2 pO2 HCO3 ABG pH ABG Total CO2 ABG O2 Saturation ABG O2 Content ABG Base Excess ABG Hemoglobin ABG Carboxyhemoglobin POC ABG HHb (Measured) ABG Methemoglobin ABG O2 Capacity Hgb O2 Saturation FiO2 Sodium Potassium Chloride Carbon Dioxide Anion Gap BUN Creatinine Est GFR ( Amer) Est GFR (Non-Af Amer) POC Glucose (mg/dL) 129 H 102 110 Random Glucose Calcium Phosphorus Magnesium Total Bilirubin AST ALT Alkaline Phosphatase Total Protein Albumin Globulin Albumin/Globulin Ratio 07/24/18 07/24/18 07/24/18 05:10 05:30 05:30 WBC 16.8 H D RBC 3.67 Hgb 9.5 L Hct 32.9 L MCV 89.6 MCH 25.9 MCHC 28.9 L RDW 22.0 H Plt Count 503 H MPV 10.6 pCO2 45 pO2 84.0 HCO3 32.8 H ABG pH 7.47 H ABG Total CO2 34.2 H ABG O2 Saturation 98.4 H ABG O2 Content 11.9 L ABG Base Excess 8.3 H ABG Hemoglobin 8.8 L ABG Carboxyhemoglobin 1.5 POC ABG HHb (Measured) 1.6 ABG Methemoglobin 1.5 ABG O2 Capacity 12.1 L Hgb O2 Saturation 95.4 FiO2 60.0 Sodium 142 Potassium 3.5 L Chloride 107 Carbon Dioxide 31 Anion Gap 8 L BUN 18 Creatinine 1.0 Est GFR ( Amer) > 60 Est GFR (Non-Af Amer) > 60 POC Glucose (mg/dL) Random Glucose 95 Calcium 9.3 Phosphorus 2.5 Magnesium 1.9 Total Bilirubin 0.2 AST 120 H D ALT 59 H Alkaline Phosphatase 209 H Total Protein 5.8 Albumin 2.6 L Globulin 3.3 Albumin/Globulin Ratio 0.8 L 07/24/18 06:01 WBC RBC Hgb Hct MCV MCH MCHC RDW Plt Count MPV pCO2 pO2 HCO3 ABG pH ABG Total CO2 ABG O2 Saturation ABG O2 Content ABG Base Excess ABG Hemoglobin ABG Carboxyhemoglobin POC ABG HHb (Measured) ABG Methemoglobin ABG O2 Capacity Hgb O2 Saturation FiO2 Sodium Potassium Chloride Carbon Dioxide Anion Gap BUN Creatinine Est GFR ( Amer) Est GFR (Non-Af Amer) POC Glucose (mg/dL) 107 Random Glucose Calcium Phosphorus Magnesium Total Bilirubin AST ALT Alkaline Phosphatase Total Protein Albumin Globulin Albumin/Globulin Ratio Radiology Impressions: Radiology Impressions Chest X-Ray 07/24/18 06:00 IMPRESSION: There is improved aeration of the left lung. There is moderate vascular congestion and minimal bibasilar infiltrates Fingerstick Blood Sugar Results: 107 Review of Systems - Review of Systems Systems not reviewed;Unavailable: Uncooperative Critical Care Progress Note - Ventilator Checklist Head of Bed 30 Degrees: Yes Daily Sedation Vacation: Yes Daily Assessment of Readiness to Wean: Yes Daily Spontaneous Breathing Trial: Yes PUD Prophalyxis: Yes DVT Prophylaxis: Yes Oral Care with Chlorhexidine Gluconate {CHG}: Yes - Vent Settings MODE:: PRVC TIDAL VOLUME:: 400 RESP RATE:: 15 FIO2:: 40 PEEP:: 8 - Extremities/Vascular Does the Patient have a Central Venous Catheter?: Yes Insertion Site: Internal Jugular Vein Does the Patient have a Phan Catheter?: Yes - Restraints Justification for Restraints: High risk for removing IV access - Prophylaxis GI Prophylaxis GI: PPI - Prophylaxis DVT Prophylaxis DVT: Heparin SQ - Nutrition Nutrition: Nutrition Category Date Time Status NPO Diet [DIET] Diets 07/16/18 Breakfast Ordered Assessment/Plan - Assessment and Plan (Free Text) Assessment: 87 yo M with PMH of 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 He was initially admitted earlier this month and was found to be high risk for ET intubation due to thyroid mass and was transferred to [facility] per Dr. Ndiaye recs. No surgical intervention was pursued aside from tracheostomy placement. He was subsequently transferred back to [facility] [place]. He is pending LTAC placement. Plan: Neuro: Remains somnolent but responsive to verbal and painful stimuli PERRL, other reflexes intact Continue Keppra 500 mg BID for seizure ppx Re-orient as necessary Cardio: Intermittent episodes of bradycardia noted overnight, but remaining HD stable Most recent EKG showed sinus bradycardia with bifasicular block TTE: moderate pulm HTN with mild TR and CA with LVEF of > 50% Continue with continuous cardiac monitoring Maintain MAP>65 Monitor for S/Sx of HD compromise Cardiology following, all recs appreciated Pulm: Patient remains dependent on mechanical ventilation with failed weaning trials thus far Difficult intubation due to obstructing thyroid mass ABG: mild metabolic alkalosis with high A-a gradient Change vent settings to PRVC 400/15/8/40 CXR: b/l lower lobe edema Will start lasix 40 mg IVP daily and monitor for improvement of pulmonary edema Conservative fluid management Maintain SpO2 >90% Appropriate ventilator management: Maintain head of bed > 30 degrees Maintain oral hygiene with chlorhexidine rinse Daily ABG and CXR Daily sedation and weaning trials Patient has been accepted by 2 LTAC facilities, f/u with SW regarding son's preferences for LTAC facility Pulmonology, Dr. Rivas, following, all recs appreciated GI: Patient is s/p gastrostomy tube placement POD 3 Continue NPO Tube feeds increased to goal per slip tender recs Surgery following, all recs appreciated /Nephro: BUN/Cr stable at 18/1.0 Mild oliguria noted at 0.3 cc/kg/hr for past 24 hrs Continue Strict I & O Replete electrolytes as needed Maintain euvolemia Endo: Random glucose: 98 Maintain euglycemia Heme/Onc: H/H stable at 9.5/32.9 Continue monitoring H/H and for sx of HD compromise S/p transfusion 2 u PRBCs on 07/16/18 Transfuse additional units PRN for Hgb < 8 ID: Has remained afebrile with persistent leukocytosis but down trended from yesterday On day 2 of merrem for management of b/l lower lobe infiltrates and positive sputum cx, vanc discontinued Sputum cx positive for pseudomonas on 07/20/18 Repeat sputum cx sent on 07/23/18, results pending ID following, all recs appreciated DVT/GI PPX: SC heparin/protonix Full Code Tube feeds per surgery/slip tender recs Monitor in MICU Patient seen, examined with, and plan discussed with my attending Dr. Rusty Aguilar D.O. IM Resident PGY-1 Pager: [phone] <Micah Ojeda - Last Filed: 07/24/18 13:49> CCU Objective - Vital Signs / Intake & Output Intake and Output (Last 8hrs): Intake & Output 07/23/18 07/24/18 07/24/18 22:59 06:59 14:59 Intake Total 680 Output Total 750 Balance -70 Intake: IV 300 Left Subclavian 300 Tube Feeding 280 Other 100 Output: Urine 750 Urethral (Phan) 750 - Medications Active Medications: Active Medications Generic Name Dose Route Start Last Admin Trade Name Freq PRN Reason Stop Dose Admin Acetylcysteine 4 ml 07/23/18 08:00 07/24/18 08:08 Acetylcysteine 20% IH 4 ml BIDRESP LUZ MARINA Administration Alprazolam 0.25 mg 07/22/18 09:20 07/23/18 05:26 Xanax PEG 07/29/18 10:01 0.25 mg Q12 PRN Administration Anxiety Protocol Amino Acid Protein 15 gm 07/15/18 10:00 07/24/18 09:55 Prostat 15 G Packet GT 15 gm BID LUZ MARINA Administration Atorvastatin Calcium 20 mg 07/15/18 17:00 07/23/18 16:14 Lipitor PO 20 mg DIN LUZ MARINA Administration Dextrose 0 ml 07/14/18 22:13 07/17/18 00:59 Dextrose 50% Inj IV 50 ml STAT PRN Administration Hypoglycemia Protocol Protocol Furosemide 40 mg 07/24/18 10:00 07/24/18 09:47 Lasix IVP 40 mg DAILY LUZ MARINA Administration Heparin Sodium (Porcine) 5,000 units 07/15/18 06:00 07/24/18 06:04 Heparin SC 5,000 units Q8 LUZ MARINA Administration Protocol Dextrose 1,000 mls @ 0 mls/hr 07/14/18 22:13 Dextrose 5% In Water 1000 Ml IV .Q0M PRN Hypoglycemia Protocol Protocol Per Protocol Levetiracetam 500 mg in 100 mls @ 400 mls/hr 07/16/18 10:00 07/24/18 09:46 Keppra 500mg Ivpb IVPB 400 mls/hr Q12 LUZ MARINA Administration Fluconazole 100 mls @ 100 mls/hr 07/21/18 16:45 07/23/18 09:49 Diflucan Iv 200 Mg/100 Ml Ns IVPB 100 mls/hr DAILY LUZ MARINA Administration Protocol Meropenem 1 gm in 50 mls @ 100 mls/hr 07/23/18 14:00 07/24/18 06:04 Merrem Iv 1 Gm Premix IVPB 100 mls/hr Q8 LUZ MARINA Administration Protocol Insulin Human Regular 0 units 07/15/18 12:00 07/24/18 06:01 Humulin R Med SC Not Given Q6H LUZ MARINA Protocol Levalbuterol HCl 1.25 mg 07/23/18 08:00 07/24/18 13:41 Xopenex IH 1.25 mg [id number] LUZ MARINA Administration Morphine Sulfate 2 mg 07/23/18 14:09 07/24/18 06:04 Morphine IVP 2 mg Q4H PRN Administration Pain, moderate (4-7) Nystatin 1 gm 07/16/18 22:00 07/24/18 09:50 Nystop Topical Powder TOP 1 applic Q12H LUZ MARINA Administration Pantoprazole Sodium 40 mg 07/16/18 10:00 07/24/18 09:51 Protonix Inj IVP 40 mg Q12 LUZ MARINA Administration - Patient Studies Lab Studies: Microbiology Studies 07/23/18 11:30 Gram Stain - Final Trachasp 07/19/18 18:30 Blood Culture - Preliminary Blood NO GROWTH AFTER 4 DAYS 07/19/18 18:00 Blood Culture - Preliminary Blood NO GROWTH AFTER 4 DAYS Lab Studies 07/24/18 07/24/18 07/24/18 Range/Units 11:42 06:01 05:30 WBC 16.8 H D (4.5-11.0) 10^3/uL RBC 3.67 (3.5-6.1) 10^6/uL Hgb 9.5 L (14.0-18.0) g/dL Hct 32.9 L (42.0-52.0) % MCV 89.6 (80.0-105.0) fl MCH 25.9 (25.0-35.0) pg MCHC 28.9 L (31.0-37.0) g/dl RDW 22.0 H (11.5-14.5) % Plt Count 503 H (120.0-450.0) 10^3/uL MPV 10.6 (7.0-11.0) fl pCO2 (35-45) mm/Hg pO2 (80-100) mm/Hg HCO3 (21-28) mmol/L ABG pH (7.35-7.45) ABG Total CO2 (22-28) mmol.L ABG O2 Saturation (95-98) % ABG O2 Content (15-23) ML/dl ABG Base Excess (-2.0-3.0) mmol/L ABG Hemoglobin (11.7-17.4) g/dL ABG Carboxyhemoglobin (0.5-1.5) % POC ABG HHb (Measured) (0-5) % ABG Methemoglobin (0.0-3.0) % ABG O2 Capacity (16-24) mL/dl Hgb O2 Saturation (95.0-98.0) % FiO2 % Sodium (132-148) mmol/L Potassium (3.6-5.0) mmol/L Chloride (98-107) mmol/L Carbon Dioxide (21-33) mmol/L Anion Gap (10-20) BUN (7-21) mg/dL Creatinine (0.8-1.5) mg/dl Est GFR ( Amer) Est GFR (Non-Af Amer) POC Glucose (mg/dL) 100 107 (65-110) mg/dL Random Glucose (70-110) mg/dL Calcium (8.4-10.5) mg/dL Phosphorus (2.5-4.5) mg/dL Magnesium (1.7-2.2) mg/dL Total Bilirubin (0.2-1.3) mg/dL AST (17-59) U/L ALT (7-56) U/L Alkaline Phosphatase (38-126) U/L Total Protein (5.8-8.3) g/dL Albumin (3.0-4.8) g/dL Globulin gm/dL Albumin/Globulin Ratio (1.1-1.8) 07/24/18 07/24/18 07/23/18 Range/Units 05:30 05:10 23:54 WBC (4.5-11.0) 10^3/uL RBC (3.5-6.1) 10^6/uL Hgb (14.0-18.0) g/dL Hct (42.0-52.0) % MCV (80.0-105.0) fl MCH (25.0-35.0) pg MCHC (31.0-37.0) g/dl RDW (11.5-14.5) % Plt Count (120.0-450.0) 10^3/uL MPV (7.0-11.0) fl pCO2 45 (35-45) mm/Hg pO2 84.0 (80-100) mm/Hg HCO3 32.8 H (21-28) mmol/L ABG pH 7.47 H (7.35-7.45) ABG Total CO2 34.2 H (22-28) mmol.L ABG O2 Saturation 98.4 H (95-98) % ABG O2 Content 11.9 L (15-23) ML/dl ABG Base Excess 8.3 H (-2.0-3.0) mmol/L ABG Hemoglobin 8.8 L (11.7-17.4) g/dL ABG Carboxyhemoglobin 1.5 (0.5-1.5) % POC ABG HHb (Measured) 1.6 (0-5) % ABG Methemoglobin 1.5 (0.0-3.0) % ABG O2 Capacity 12.1 L (16-24) mL/dl Hgb O2 Saturation 95.4 (95.0-98.0) % FiO2 60.0 % Sodium 142 (132-148) mmol/L Potassium 3.5 L (3.6-5.0) mmol/L Chloride 107 (98-107) mmol/L Carbon Dioxide 31 (21-33) mmol/L Anion Gap 8 L (10-20) BUN 18 (7-21) mg/dL Creatinine 1.0 (0.8-1.5) mg/dl Est GFR ( Amer) > 60 Est GFR (Non-Af Amer) > 60 POC Glucose (mg/dL) 110 (65-110) mg/dL Random Glucose 95 (70-110) mg/dL Calcium 9.3 (8.4-10.5) mg/dL Phosphorus 2.5 (2.5-4.5) mg/dL Magnesium 1.9 (1.7-2.2) mg/dL Total Bilirubin 0.2 (0.2-1.3) mg/dL AST 120 H D (17-59) U/L ALT 59 H (7-56) U/L Alkaline Phosphatase 209 H (38-126) U/L Total Protein 5.8 (5.8-8.3) g/dL Albumin 2.6 L (3.0-4.8) g/dL Globulin 3.3 gm/dL Albumin/Globulin Ratio 0.8 L (1.1-1.8) 07/23/18 Range/Units 17:54 WBC (4.5-11.0) 10^3/uL RBC (3.5-6.1) 10^6/uL Hgb (14.0-18.0) g/dL Hct (42.0-52.0) % MCV (80.0-105.0) fl MCH (25.0-35.0) pg MCHC (31.0-37.0) g/dl RDW (11.5-14.5) % Plt Count (120.0-450.0) 10^3/uL MPV (7.0-11.0) fl pCO2 (35-45) mm/Hg pO2 (80-100) mm/Hg HCO3 (21-28) mmol/L ABG pH (7.35-7.45) ABG Total CO2 (22-28) mmol.L ABG O2 Saturation (95-98) % ABG O2 Content (15-23) ML/dl ABG Base Excess (-2.0-3.0) mmol/L ABG Hemoglobin (11.7-17.4) g/dL ABG Carboxyhemoglobin (0.5-1.5) % POC ABG HHb (Measured) (0-5) % ABG Methemoglobin (0.0-3.0) % ABG O2 Capacity (16-24) mL/dl Hgb O2 Saturation (95.0-98.0) % FiO2 % Sodium (132-148) mmol/L Potassium (3.6-5.0) mmol/L Chloride (98-107) mmol/L Carbon Dioxide (21-33) mmol/L Anion Gap (10-20) BUN (7-21) mg/dL Creatinine (0.8-1.5) mg/dl Est GFR ( Amer) Est GFR (Non-Af Amer) POC Glucose (mg/dL) 102 (65-110) mg/dL Random Glucose (70-110) mg/dL Calcium (8.4-10.5) mg/dL Phosphorus (2.5-4.5) mg/dL Magnesium (1.7-2.2) mg/dL Total Bilirubin (0.2-1.3) mg/dL AST (17-59) U/L ALT (7-56) U/L Alkaline Phosphatase (38-126) U/L Total Protein (5.8-8.3) g/dL Albumin (3.0-4.8) g/dL Globulin gm/dL Albumin/Globulin Ratio (1.1-1.8) Laboratory Results - last 24 hr 07/23/18 07/23/18 07/24/18 17:54 23:54 05:10 WBC RBC Hgb Hct MCV MCH MCHC RDW Plt Count MPV pCO2 45 pO2 84.0 HCO3 32.8 H ABG pH 7.47 H ABG Total CO2 34.2 H ABG O2 Saturation 98.4 H ABG O2 Content 11.9 L ABG Base Excess 8.3 H ABG Hemoglobin 8.8 L ABG Carboxyhemoglobin 1.5 POC ABG HHb (Measured) 1.6 ABG Methemoglobin 1.5 ABG O2 Capacity 12.1 L Hgb O2 Saturation 95.4 FiO2 60.0 Sodium Potassium Chloride Carbon Dioxide Anion Gap BUN Creatinine Est GFR ( Amer) Est GFR (Non-Af Amer) POC Glucose (mg/dL) 102 110 Random Glucose Calcium Phosphorus Magnesium Total Bilirubin AST ALT Alkaline Phosphatase Total Protein Albumin Globulin Albumin/Globulin Ratio 07/24/18 07/24/18 07/24/18 05:30 05:30 06:01 WBC 16.8 H D RBC 3.67 Hgb 9.5 L Hct 32.9 L MCV 89.6 MCH 25.9 MCHC 28.9 L RDW 22.0 H Plt Count 503 H MPV 10.6 pCO2 pO2 HCO3 ABG pH ABG Total CO2 ABG O2 Saturation ABG O2 Content ABG Base Excess ABG Hemoglobin ABG Carboxyhemoglobin POC ABG HHb (Measured) ABG Methemoglobin ABG O2 Capacity Hgb O2 Saturation FiO2 Sodium 142 Potassium 3.5 L Chloride 107 Carbon Dioxide 31 Anion Gap 8 L BUN 18 Creatinine 1.0 Est GFR ( Amer) > 60 Est GFR (Non-Af Amer) > 60 POC Glucose (mg/dL) 107 Random Glucose 95 Calcium 9.3 Phosphorus 2.5 Magnesium 1.9 Total Bilirubin 0.2 AST 120 H D ALT 59 H Alkaline Phosphatase 209 H Total Protein 5.8 Albumin 2.6 L Globulin 3.3 Albumin/Globulin Ratio 0.8 L 07/24/18 11:42 WBC RBC Hgb Hct MCV MCH MCHC RDW Plt Count MPV pCO2 pO2 HCO3 ABG pH ABG Total CO2 ABG O2 Saturation ABG O2 Content ABG Base Excess ABG Hemoglobin ABG Carboxyhemoglobin POC ABG HHb (Measured) ABG Methemoglobin ABG O2 Capacity Hgb O2 Saturation FiO2 Sodium Potassium Chloride Carbon Dioxide Anion Gap BUN Creatinine Est GFR ( Amer) Est GFR (Non-Af Amer) POC Glucose (mg/dL) 100 Random Glucose Calcium Phosphorus Magnesium Total Bilirubin AST ALT Alkaline Phosphatase Total Protein Albumin Globulin Albumin/Globulin Ratio Radiology Impressions: Radiology Impressions Chest X-Ray 07/24/18 06:00 IMPRESSION: There is improved aeration of the left lung. There is moderate vascular congestion and minimal bibasilar infiltrates Critical Care Progress Note - Nutrition Nutrition: Nutrition Category Date Time Status NPO Diet [DIET] Diets 07/16/18 Breakfast Ordered Attending/Attestation - Attestation I have personally seen and examined this patient.: Yes I have fully participated in the care of the patient.: Yes I have reviewed all pertinent clinical information: Yes Notes (Text): 07/24/18 13:[address] Ojeda note
--- NOTE | 2018-07-24 14:38 | PN ---
DATE: 07/24/2018 SUBJECTIVE: The patient seen and examined at bedside. He is comfortable. He is following commands; however, he just failed pressure support trial. He is on PRVC 400/15/8/40%. PHYSICAL EXAMINATION: VITAL SIGNS: On that setting, his oxygen saturation is 97-98%, blood pressure 133/58, heart rate 69, respiratory rate 21, end-tidal CO2 on the monitor 40. The patient is on 30 mL per hour of enteral feeds.. He tolerated well. He does not require any sedation. HEENT: Head and neck atraumatic. The patient is status post trach and trach look okay. HEART: Regular rate and rhythm. S1 and S2 normal. LUNGS: Clear to auscultation anteriorly. ABDOMEN: Soft, nontender, nondistended. There is a fresh scar with relatively fresh renetta on the anterior abdominal wall, slightly erythematous; however, no pus coming out. Surgical team is following this as well. PEG tube looks okay. There is no discharge or erythema around the PEG tube. MUSCULOSKELETAL: 1-2+ bilateral pedal and ankle edema. NEURO: The patient moves all extremities spontaneously. SKIN: Moist. PSYCH: The patient is alert, awake. MEDICATIONS: Mucomyst inhaled, Xanax p.r.n., Lipitor, Diflucan, Lasix 40 mg IV daily (just started), heparin subcutaneous, regular insulin sliding scale medium protocol, Xopenex every 6 hours, Keppra, meropenem, nystatin, Protonix, potassium supplementation. LABORATORY DATA: WBC 16.8, down from 22.1; hemoglobin 9.5; platelet count 503. Sodium 142; potassium 3.5 (supplemented); glucose 107; AST 120; ALT 59; alkaline phosphatase 209. Blood gas today is 7.47/45/84 on 60% FiO2. DIAGNOSTIC DATA: Chest x-ray showed bilateral congestion, appears to be slightly worse than yesterday. ASSESSMENT AND PLAN: This is an 87-year-old gentleman with hypoxemic respiratory failure/ventilator dependent respiratory failure status post tracheotomy. Neurologic: The patient is alert, awake, moving all extremities spontaneously and on command. I have very low suspicion at the present time for acute intracranial pathology. Pulmonary: The patient just failed another pressure support trial. We will continue with conservative fluid and oxygen management. I decreased the FiO2 down to 40% and increased PEEP to 8. I started the patient on Lasix while aggressively supplemented potassium. We will continue with head of bed elevated to more than 35 degrees, oral hygiene, deep vein thrombosis and gastrointestinal prophylaxes. We will continue with daily sedation vacation and weaning trials. The patient did have pseudomonas growing from the sputum. The patient is on meropenem. He is afebrile and his leukocytosis is improving. We will continue to follow endotracheal aspirate cultures. Cardiovascular: The patient is hemodynamically stable. GI: The patient tolerates 30 mL per hour of enteral feeds. Aspiration precaution. GI prophylaxis. ID: The patient's leukocytosis is going down. The patient is on meropenem and Diflucan for his pneumonia. Renal: Renal function has stabilized at creatinine level of 1. We will continue to maintain mean arterial pressure of more than 65, avoid hyperchloremia and maintain euvolemia and euglycemia. Endocrine: We will maintain blood glucose within 140-180 range according to night sugar trial and avoid hypoglycemia episodes. ccm time 40 min Micah Ojeda MD [facility]
[2018-07-24] MEDS: Fluconazole IV 200mg/100 ml NS 100 ML IVPB SCH (14:40)
--- NOTE | 2018-07-24 14:43 | CP.PCM.PN ---
Subjective - Date & Time of Evaluation Date of Evaluation: 07/24/18 Time of Evaluation: 07:00 - Subjective Subjective: GENERAL SURGERY PROGRESS NOTE FOR DR. ROLLE Patient seen and examined at bedside in the ICU. Pt currently at tube feeds at 30cc/hr. Incision had some erythema so 1 staple was removed and wound explored with Q tip. Small amount of serosanguinous fluid drained. Objective - Vital Signs/Intake and Output Vital Signs (last 24 hours): Temp Pulse Resp BP Pulse Ox 99.3 F 67 23 133/58 L 98 07/23/18 17:01 07/24/18 00:00 07/24/18 08:10 07/24/18 09:47 07/24/18 08:10 - Medications Medications: Current Medications Acetylcysteine (Acetylcysteine 20%) 4 ml IH BIDRESP LUZ MARINA Last Admin: 07/24/18 08:08 Dose: 4 ml Alprazolam (Xanax) 0.25 mg PEG Q12 PRN; Protocol PRN Reason: Anxiety Stop: 07/29/18 10:01 Last Admin: 07/23/18 05:26 Dose: 0.25 mg Amino Acid Protein (Prostat 15 G Packet) 15 gm GT BID LUZ MARINA Last Admin: 07/24/18 09:55 Dose: 15 gm Atorvastatin Calcium (Lipitor) 20 mg PO DIN LUZ MARINA Last Admin: 07/23/18 16:14 Dose: 20 mg Dextrose (Dextrose 50% Inj) 0 ml IV STAT PRN; Protocol PRN Reason: Hypoglycemia Protocol Last Admin: 07/17/18 00:59 Dose: 50 ml Furosemide (Lasix) 40 mg IVP DAILY LUZ MARINA Last Admin: 07/24/18 09:47 Dose: 40 mg Heparin Sodium (Porcine) (Heparin) 5,000 units SC Q8 LUZ MARINA; Protocol Last Admin: 07/24/18 06:04 Dose: 5,000 units Dextrose (Dextrose 5% In Water 1000 Ml) 1,000 mls @ 0 mls/hr IV .Q0M PRN; Protocol PRN Reason: Hypoglycemia Protocol Levetiracetam (Keppra 500mg Ivpb) 500 mg in 100 mls @ 400 mls/hr IVPB Q12 LUZ MARINA Last Admin: 07/24/18 09:46 Dose: 400 mls/hr Fluconazole (Diflucan Iv 200 Mg/100 Ml Ns) 100 mls @ 100 mls/hr IVPB DAILY LUZ MARINA; Protocol Last Admin: 07/24/18 14:40 Dose: 100 mls/hr Meropenem (Merrem Iv 1 Gm Premix) 1 gm in 50 mls @ 100 mls/hr IVPB Q8 LUZ MARINA; Protocol Last Admin: 07/24/18 06:04 Dose: 100 mls/hr Insulin Human Regular (Humulin R Med) 0 units SC Q6H LUZ MARINA; Protocol Last Admin: 07/24/18 06:01 Dose: Not Given Levalbuterol HCl (Xopenex) 1.25 mg IH [id number] LUZ MARINA Last Admin: 07/24/18 13:41 Dose: 1.25 mg Morphine Sulfate (Morphine) 2 mg IVP Q4H PRN PRN Reason: Pain, moderate (4-7) Last Admin: 07/24/18 06:04 Dose: 2 mg Nystatin (Nystop Topical Powder) 1 gm TOP Q12H LUZ MARINA Last Admin: 07/24/18 09:50 Dose: 1 applic Pantoprazole Sodium (Protonix Inj) 40 mg IVP Q12 LUZ MARINA Last Admin: 07/24/18 09:51 Dose: 40 mg - Labs Labs: 07/24/18 05:30 07/24/18 05:30 PT 13.7 SECONDS (9.4-12.5) H 07/21/18 05:00 INR 1.21 07/21/18 05:00 APTT 32.0 Seconds (26.9-38.3) 07/21/18 05:00 - Constitutional Appears: Non-toxic, No Acute Distress - Head Exam Head Exam: ATRAUMATIC, NORMAL INSPECTION - ENT Exam Additional comments: trach - Respiratory Exam Respiratory Exam: NORMAL BREATHING PATTERN (via trach). absent: Respiratory Distress - Cardiovascular Exam Cardiovascular Exam: +S1, +S2 - GI/Abdominal Exam GI & Abdominal Exam: Soft. absent: Distended, Firm, Guarding, Rigid, Tenderness, Rebound Additional comments: Erythema along incision, renetta in place, G tube with tube feeds running at 30cc/hr Assessment and Plan - Assessment and Plan (Free Text) Assessment: 87M w/ dislodged PEG tube s/p open gastrostomy tube insertion POD#3 Plan: - Advance tube feeds to goal - FU dietary recs - Further care as per ICU Discussed plan with Dr. Hema Garcia PGY-4
--- NOTE | 2018-07-25 01:41 | PN ---
DATE: 07/24/2018 SUBJECTIVE: The patient is in bed, seen earlier today, in no acute distress. The patient was seen in room 129, bed 3. PHYSICAL EXAMINATION: VITAL SIGNS: Temperature is 99, blood pressure is 130/ , respiratory rate of 18, heart rate of 58. HEENT: Unremarkable. NECK: Supple. LUNGS: Have decreased breath sounds. HEART: Normal S1 and S2. ABDOMEN: Soft. LABORATORY EXAMINATION: Reveals a white count down to 16,800; creatinine of 1.0. Microbiology is noted with gram-negative rods, Pseudomonas in the trach collar, relatively sensitive organism. REVIEW OF ORDERS: Reveals the patient to be on meropenem. Microbiology reveals nasal MRSA not detected. Repeat cultures have grown Pseudomonas from the trach site. ASSESSMENT AND PLAN: This is an 87-year-old male with severe sepsis, healthcare-associated pneumonia left sided with Pseudomonas at tract site and renal cancer status post nephrectomy, chronic congestive heart failure status post percutaneous endoscopic gastrostomy tube placement, thyroid mass, pulmonary hypertension, on meropenem day #5. The patient's nasal Methicillin-resistant Staphylococcus aureus screen is negative, day #5 of meropenem. Case was discussed with Dr. Rivas. Omer Fortune MD
[2018-07-25] MEDS: Insulin Reg-MEDIUM-Coverage SC SCH ×2 (02:03→07:30)
[2018-07-25] MEDS: Levalbuterol 1.25 MG/3 ML Inhal Soln UD IH SCH ×4 (02:43→20:30)
[2018-07-25 05:27] LABS: ARTERIAL BLOOD GAS HCO3 33.5 mmol/L (21-28); ARTERIAL BLOOD GAS HEMOGLOBIN 8.7 g/dL (11.7-17.4); ARTERIAL BLOOD GAS O2 CONTENT 11.9 ML/dl (15-23); ARTERIAL BLOOD GAS O2 SAT 98.8 % (95-98); ARTERIAL BLOOD GAS PCO2 41 mm/Hg (35-45); ARTERIAL BLOOD GAS PH 7.52 (7.35-7.45); ARTERIAL BLOOD GAS TCO2 34.8 mmol.L (22-28)
[2018-07-25 06:56] LABS: BASO # 0.04 K/mm3 (0.0-2.0); BASO % 0.3 % (0.0-3.0); HEMOGLOBIN 9.1 g/dL (14.0-18.0); LYMPH # 1.3 (1.2-3.4); LYMPH % 9.8 % (22.0-35.0); MEAN CELL VOLUME 89.5 fl (80.0-105.0); MEAN CORPUSCULAR HEMOGLOBIN 26.6 pg (25.0-35.0); MEAN CORPUSCULAR HGB CONC 29.7 g/dl (31.0-37.0); MEAN PLATELET VOLUME 10.2 fl (7.0-11.0); MONO # 1.2 (0.1-0.6); MONO % 9.2 % (1.0-6.0); RBC 3.42 10^6/uL (3.5-6.1); RED CELL DISTRIBUTION WIDTH 21.8 % (11.5-14.5); WHITE BLOOD COUNT 12.7 10^3/uL (4.5-11.0)
[2018-07-25 07:07] LABS: ALB/GLOB RATIO 0.8 (1.1-1.8); ALBUMIN 2.6 g/dL (3.0-4.8); ALT/SGPT 82 U/L (7-56); AST/SGOT 116 U/L (17-59); BLOOD UREA NITROGEN 20 mg/dL (7-21); CALCIUM 9.3 mg/dL (8.4-10.5); GFR NON-AFRICAN AMERICAN > 60
[2018-07-25] MEDS ORDERED: Potassium Chloride 40 mEq/30 ml LIQ UD PEG ONE (07:12)
[2018-07-25] MEDS: Meropenem IV 1 gm in NS 1 GM/50 ML BAG IVPB SCH ×2 (07:24→21:45)
--- NOTE | 2018-07-25 08:40 | RAD ---
Date of service: 07/25/2018 HISTORY: f/u COMPARISON: 07/24/2018 TECHNIQUE: 1 view obtained. FINDINGS: LUNGS: No active pulmonary disease. PLEURA: No significant pleural effusion identified, no pneumothorax apparent. CARDIOVASCULAR: Aortic calcification Mild cardiomegaly moderate vascular congestion showing slight improvement OSSEOUS STRUCTURES: No significant abnormalities. VISUALIZED UPPER ABDOMEN: Normal. OTHER FINDINGS: None. IMPRESSION: Moderate vascular congestion showing slight improvement
[2018-07-25] MEDS: levETIRAcetam 500mg IVPB 500 MG/100 ML BAG IVPB SCH ×2 (09:05→21:46)
[2018-07-25] MEDS: Prostat 15 g packet GT SCH ×2 (09:08→09:09)
--- NOTE | 2018-07-25 09:26 | CP.CCUPN ---
<Tomy Aguilar - Last Filed: 07/25/18 11:27> CCU Subjective - Physician Review Events Since Last Encounter (Free Text): Tomy Aguilar DO, PGY-1 MICU Progress Note for Dr. Kathy Ennis Patient remained afebrile overnight without significant events. Subjective (Free Text): Patient was seen and examined at bedside this AM. He remains on PRVC via trach and is off sedation. He appears more awake and responsive today. He responds to verbal and painful stimuli but does not verbalize. Other ROS were unattainable due to patient's non-verbalization. CCU Objective - Vital Signs / Intake & Output Vital Signs (Last 4 hours): Vital Signs Resp BP Pulse Ox 07/25/18 09:06 131/74 07/25/18 07:33 28 H 97 Intake and Output (Last 8hrs): Intake & Output 07/24/18 07/25/18 07/25/18 22:59 06:59 14:59 Intake Total 1530 Output Total 3200 700 Balance -1670 -700 Intake: IV 450 Left Subclavian 450 Oral 0 Tube Feeding 480 Other 600 Output: Urine 2700 700 Urethral (Phan) 2700 700 Stool 500 - Physical Exam Physical Exam Limitations: Positive for: Clinical Condition Head: Positive for: Atraumatic, Normocephalic Pupils: Positive for: PERRL Extroacular Muscles: Positive for: EOMI Mouth: Positive for: Moist Mucous Membranes Pharnyx: Positive for: Normal. Negative for: ERYTHEMA, EXUDATE Nose (External): Positive for: Atraumatic Nose (Internal): Positive for: No Active Bleeding Neck: Negative for: JVD Respiratory/Chest: Positive for: Good Air Exchange (on PRVC, breath sounds auscultated b/l). Negative for: Respiratory Distress, Accessory Muscle Use, Wheezes, Rales, Rhonchi Cardiovascular: Positive for: Regular Rate and Rhythm, Normal S1, S2. Negative for: Murmurs, Rub, Gallop Abdomen: Positive for: Normal Bowel Sounds, Feeding Tubes, Other (gastrostomy tu be in place with greater erythema than yesterday, one staple removed per surgery team recs). Negative for: Tenderness, Distention Upper Extremity: Positive for: Normal Inspection, NORMAL PULSES, Capillary Refill < 2s. Negative for: Edema Lower Extremity: Positive for: Edema (b/l 1+ pitting edema with venous stasis dermatitis, multipodus boots in place), NORMAL PULSES, Capillary Refill < 2 s Neurological: Positive for: Other (appears awake and alert but is non-verbal) Skin: Positive for: Warm, Dry, Pale Psychiatric: Negative for: Agitated - Medications Active Medications: Active Medications Generic Name Dose Route Start Last Admin Trade Name Freq PRN Reason Stop Dose Admin Acetylcysteine 4 ml 07/23/18 08:00 07/24/18 19:27 Acetylcysteine 20% IH 4 ml BIDRESP LUZ MARINA Administration Alprazolam 0.25 mg 07/22/18 09:20 07/23/18 05:26 Xanax PEG 07/29/18 10:01 0.25 mg Q12 PRN Administration Anxiety Protocol Amino Acid Protein 15 gm 07/15/18 10:00 07/25/18 09:09 Prostat 15 G Packet GT 15 gm BID LUZ MARINA Administration Atorvastatin Calcium 20 mg 07/15/18 17:00 07/24/18 17:37 Lipitor PO 20 mg DIN LUZ MARINA Administration Dextrose 0 ml 07/14/18 22:13 07/17/18 00:59 Dextrose 50% Inj IV 50 ml STAT PRN Administration Hypoglycemia Protocol Protocol Furosemide 40 mg 07/24/18 10:00 07/25/18 09:06 Lasix IVP 40 mg DAILY LUZ MARINA Administration Heparin Sodium (Porcine) 5,000 units 07/15/18 06:00 07/25/18 07:25 Heparin SC 5,000 units Q8 LUZ MARINA Administration Protocol Dextrose 1,000 mls @ 0 mls/hr 07/14/18 22:13 Dextrose 5% In Water 1000 Ml IV .Q0M PRN Hypoglycemia Protocol Protocol Per Protocol Levetiracetam 500 mg in 100 mls @ 400 mls/hr 07/16/18 10:00 07/25/18 09:05 Keppra 500mg Ivpb IVPB 400 mls/hr Q12 LUZ MARINA Administration Meropenem 1 gm in 50 mls @ 100 mls/hr 07/23/18 14:00 07/25/18 07:24 Merrem Iv 1 Gm Premix IVPB 100 mls/hr Q8 LUZ MARINA Administration Protocol Insulin Human Regular 0 units 07/15/18 12:00 07/25/18 07:30 Humulin R Med SC Not Given Q6H LUZ MARINA Protocol Levalbuterol HCl 1.25 mg 07/23/18 08:00 07/25/18 07:03 Xopenex IH 1.25 mg [id number] LUZ MARINA Administration Morphine Sulfate 2 mg 07/23/18 14:09 07/24/18 06:04 Morphine IVP 2 mg Q4H PRN Administration Pain, moderate (4-7) Nystatin 1 gm 07/16/18 22:00 07/24/18 22:36 Nystop Topical Powder TOP 1 applic Q12H LUZ MARINA Administration Pantoprazole Sodium 40 mg 07/16/18 10:00 07/25/18 09:10 Protonix Inj IVP 40 mg Q12 LUZ MARINA Administration - Patient Studies Lab Studies: Microbiology Studies 07/19/18 18:30 Blood Culture - Final Blood NO GROWTH AFTER 5 DAYS Gram Stain - Final TEST NOT PERFORMED 07/19/18 18:00 Blood Culture - Final Blood NO GROWTH AFTER 5 DAYS Gram Stain - Final TEST NOT PERFORMED 07/23/18 11:30 Gram Stain - Final Trachasp Sputum Culture - Preliminary Gram Negative Bunny Lab Studies 07/25/18 07/25/18 07/25/18 Range/Units 07:18 06:20 06:20 WBC 12.7 H D (4.5-11.0) 10^3/uL RBC 3.42 L (3.5-6.1) 10^6/uL Hgb 9.1 L (14.0-18.0) g/dL Hct 30.6 L (42.0-52.0) % MCV 89.5 (80.0-105.0) fl MCH 26.6 (25.0-35.0) pg MCHC 29.7 L (31.0-37.0) g/dl RDW 21.8 H (11.5-14.5) % Plt Count 436 (120.0-450.0) 10^3/uL MPV 10.2 (7.0-11.0) fl Neut % (Auto) 72.7 H (50.0-68.0) % Lymph % (Auto) 9.8 L (22.0-35.0) % [place] % (Auto) 9.2 H (1.0-6.0) % Eos % (Auto) 8.0 H (1.5-5.0) % Baso % (Auto) 0.3 (0.0-3.0) % Lymph # (Auto) 1.3 (1.2-3.4) [place] # (Auto) 1.2 H (0.1-0.6) Eos # (Auto) 1.0 H (0.0-0.7) Baso # (Auto) 0.04 (0.0-2.0) K/mm3 Absolute Neuts (auto) 9.23 H (1.4-6.5) pCO2 (35-45) mm/Hg pO2 (80-100) mm/Hg HCO3 (21-28) mmol/L ABG pH (7.35-7.45) ABG Total CO2 (22-28) mmol.L ABG O2 Saturation (95-98) % ABG O2 Content (15-23) ML/dl ABG Base Excess (-2.0-3.0) mmol/L ABG Hemoglobin (11.7-17.4) g/dL ABG Carboxyhemoglobin (0.5-1.5) % POC ABG HHb (Measured) (0-5) % ABG Methemoglobin (0.0-3.0) % ABG O2 Capacity (16-24) mL/dl Hgb O2 Saturation (95.0-98.0) % FiO2 % Sodium 142 (132-148) mmol/L Potassium 3.4 L (3.6-5.0) mmol/L Chloride 104 (98-107) mmol/L Carbon Dioxide 34 H (21-33) mmol/L Anion Gap 7 L (10-20) BUN 20 (7-21) mg/dL Creatinine 1.1 (0.8-1.5) mg/dl Est GFR ( Amer) > 60 Est GFR (Non-Af Amer) > 60 POC Glucose (mg/dL) 130 H (65-110) mg/dL Random Glucose 122 H (70-110) mg/dL Calcium 9.3 (8.4-10.5) mg/dL Phosphorus 2.5 (2.5-4.5) mg/dL Magnesium 1.8 (1.7-2.2) mg/dL Total Bilirubin 0.2 (0.2-1.3) mg/dL AST 116 H (17-59) U/L ALT 82 H (7-56) U/L Alkaline Phosphatase 199 H (38-126) U/L Total Protein 5.8 (5.8-8.3) g/dL Albumin 2.6 L (3.0-4.8) g/dL Globulin 3.2 gm/dL Albumin/Globulin Ratio 0.8 L (1.1-1.8) 07/25/18 07/25/18 07/24/18 Range/Units 05:10 00:29 18:26 WBC (4.5-11.0) 10^3/uL RBC (3.5-6.1) 10^6/uL Hgb (14.0-18.0) g/dL Hct (42.0-52.0) % MCV (80.0-105.0) fl MCH (25.0-35.0) pg MCHC (31.0-37.0) g/dl RDW (11.5-14.5) % Plt Count (120.0-450.0) 10^3/uL MPV (7.0-11.0) fl Neut % (Auto) (50.0-68.0) % Lymph % (Auto) (22.0-35.0) % [place] % (Auto) (1.0-6.0) % Eos % (Auto) (1.5-5.0) % Baso % (Auto) (0.0-3.0) % Lymph # (Auto) (1.2-3.4) [place] # (Auto) (0.1-0.6) Eos # (Auto) (0.0-0.7) Baso # (Auto) (0.0-2.0) K/mm3 Absolute Neuts (auto) (1.4-6.5) pCO2 41 (35-45) mm/Hg pO2 96.0 (80-100) mm/Hg HCO3 33.5 H (21-28) mmol/L ABG pH 7.52 H (7.35-7.45) ABG Total CO2 34.8 H (22-28) mmol.L ABG O2 Saturation 98.8 H (95-98) % ABG O2 Content 11.9 L (15-23) ML/dl ABG Base Excess 9.8 H (-2.0-3.0) mmol/L ABG Hemoglobin 8.7 L (11.7-17.4) g/dL ABG Carboxyhemoglobin 1.5 (0.5-1.5) % POC ABG HHb (Measured) 1.2 (0-5) % ABG Methemoglobin 1.0 (0.0-3.0) % ABG O2 Capacity 12.0 L (16-24) mL/dl Hgb O2 Saturation 96.3 (95.0-98.0) % FiO2 40.0 % Sodium (132-148) mmol/L Potassium (3.6-5.0) mmol/L Chloride (98-107) mmol/L Carbon Dioxide (21-33) mmol/L Anion Gap (10-20) BUN (7-21) mg/dL Creatinine (0.8-1.5) mg/dl Est GFR ( Amer) Est GFR (Non-Af Amer) POC Glucose (mg/dL) 133 H 130 H (65-110) mg/dL Random Glucose (70-110) mg/dL Calcium (8.4-10.5) mg/dL Phosphorus (2.5-4.5) mg/dL Magnesium (1.7-2.2) mg/dL Total Bilirubin (0.2-1.3) mg/dL AST (17-59) U/L ALT (7-56) U/L Alkaline Phosphatase (38-126) U/L Total Protein (5.8-8.3) g/dL Albumin (3.0-4.8) g/dL Globulin gm/dL Albumin/Globulin Ratio (1.1-1.8) 07/24/18 Range/Units 11:42 WBC (4.5-11.0) 10^3/uL RBC (3.5-6.1) 10^6/uL Hgb (14.0-18.0) g/dL Hct (42.0-52.0) % MCV (80.0-105.0) fl MCH (25.0-35.0) pg MCHC (31.0-37.0) g/dl RDW (11.5-14.5) % Plt Count (120.0-450.0) 10^3/uL MPV (7.0-11.0) fl Neut % (Auto) (50.0-68.0) % Lymph % (Auto) (22.0-35.0) % [place] % (Auto) (1.0-6.0) % Eos % (Auto) (1.5-5.0) % Baso % (Auto) (0.0-3.0) % Lymph # (Auto) (1.2-3.4) [place] # (Auto) (0.1-0.6) Eos # (Auto) (0.0-0.7) Baso # (Auto) (0.0-2.0) K/mm3 Absolute Neuts (auto) (1.4-6.5) pCO2 (35-45) mm/Hg pO2 (80-100) mm/Hg HCO3 (21-28) mmol/L ABG pH (7.35-7.45) ABG Total CO2 (22-28) mmol.L ABG O2 Saturation (95-98) % ABG O2 Content (15-23) ML/dl ABG Base Excess (-2.0-3.0) mmol/L ABG Hemoglobin (11.7-17.4) g/dL ABG Carboxyhemoglobin (0.5-1.5) % POC ABG HHb (Measured) (0-5) % ABG Methemoglobin (0.0-3.0) % ABG O2 Capacity (16-24) mL/dl Hgb O2 Saturation (95.0-98.0) % FiO2 % Sodium (132-148) mmol/L Potassium (3.6-5.0) mmol/L Chloride (98-107) mmol/L Carbon Dioxide (21-33) mmol/L Anion Gap (10-20) BUN (7-21) mg/dL Creatinine (0.8-1.5) mg/dl Est GFR ( Amer) Est GFR (Non-Af Amer) POC Glucose (mg/dL) 100 (65-110) mg/dL Random Glucose (70-110) mg/dL Calcium (8.4-10.5) mg/dL Phosphorus (2.5-4.5) mg/dL Magnesium (1.7-2.2) mg/dL Total Bilirubin (0.2-1.3) mg/dL AST (17-59) U/L ALT (7-56) U/L Alkaline Phosphatase (38-126) U/L Total Protein (5.8-8.3) g/dL Albumin (3.0-4.8) g/dL Globulin gm/dL Albumin/Globulin Ratio (1.1-1.8) Laboratory Results - last 24 hr 07/24/18 07/24/18 07/25/18 11:42 18:26 00:29 WBC RBC Hgb Hct MCV MCH MCHC RDW Plt Count MPV Neut % (Auto) Lymph % (Auto) [place] % (Auto) Eos % (Auto) Baso % (Auto) Lymph # (Auto) [place] # (Auto) Eos # (Auto) Baso # (Auto) Absolute Neuts (auto) pCO2 pO2 HCO3 ABG pH ABG Total CO2 ABG O2 Saturation ABG O2 Content ABG Base Excess ABG Hemoglobin ABG Carboxyhemoglobin POC ABG HHb (Measured) ABG Methemoglobin ABG O2 Capacity Hgb O2 Saturation FiO2 Sodium Potassium Chloride Carbon Dioxide Anion Gap BUN Creatinine Est GFR ( Amer) Est GFR (Non-Af Amer) POC Glucose (mg/dL) 100 130 H 133 H Random Glucose Calcium Phosphorus Magnesium Total Bilirubin AST ALT Alkaline Phosphatase Total Protein Albumin Globulin Albumin/Globulin Ratio 07/25/18 07/25/18 07/25/18 05:10 06:20 06:20 WBC 12.7 H D RBC 3.42 L Hgb 9.1 L Hct 30.6 L MCV 89.5 MCH 26.6 MCHC 29.7 L RDW 21.8 H Plt Count 436 MPV 10.2 Neut % (Auto) 72.7 H Lymph % (Auto) 9.8 L [place] % (Auto) 9.2 H Eos % (Auto) 8.0 H Baso % (Auto) 0.3 Lymph # (Auto) 1.3 [place] # (Auto) 1.2 H Eos # (Auto) 1.0 H Baso # (Auto) 0.04 Absolute Neuts (auto) 9.23 H pCO2 41 pO2 96.0 HCO3 33.5 H ABG pH 7.52 H ABG Total CO2 34.8 H ABG O2 Saturation 98.8 H ABG O2 Content 11.9 L ABG Base Excess 9.8 H ABG Hemoglobin 8.7 L ABG Carboxyhemoglobin 1.5 POC ABG HHb (Measured) 1.2 ABG Methemoglobin 1.0 ABG O2 Capacity 12.0 L Hgb O2 Saturation 96.3 FiO2 40.0 Sodium 142 Potassium 3.4 L Chloride 104 Carbon Dioxide 34 H Anion Gap 7 L BUN 20 Creatinine 1.1 Est GFR ( Amer) > 60 Est GFR (Non-Af Amer) > 60 POC Glucose (mg/dL) Random Glucose 122 H Calcium 9.3 Phosphorus 2.5 Magnesium 1.8 Total Bilirubin 0.2 AST 116 H ALT 82 H Alkaline Phosphatase 199 H Total Protein 5.8 Albumin 2.6 L Globulin 3.2 Albumin/Globulin Ratio 0.8 L 07/25/18 07:18 WBC RBC Hgb Hct MCV MCH MCHC RDW Plt Count MPV Neut % (Auto) Lymph % (Auto) [place] % (Auto) Eos % (Auto) Baso % (Auto) Lymph # (Auto) [place] # (Auto) Eos # (Auto) Baso # (Auto) Absolute Neuts (auto) pCO2 pO2 HCO3 ABG pH ABG Total CO2 ABG O2 Saturation ABG O2 Content ABG Base Excess ABG Hemoglobin ABG Carboxyhemoglobin POC ABG HHb (Measured) ABG Methemoglobin ABG O2 Capacity Hgb O2 Saturation FiO2 Sodium Potassium Chloride Carbon Dioxide Anion Gap BUN Creatinine Est GFR ( Amer) Est GFR (Non-Af Amer) POC Glucose (mg/dL) 130 H Random Glucose Calcium Phosphorus Magnesium Total Bilirubin AST ALT Alkaline Phosphatase Total Protein Albumin Globulin Albumin/Globulin Ratio Radiology Impressions: Radiology Impressions Chest X-Ray 07/24/18 06:00 IMPRESSION: There is improved aeration of the left lung. There is moderate vascular congestion and minimal bibasilar infiltrates Chest X-Ray 07/25/18 06:00 IMPRESSION: Moderate vascular congestion showing slight improvement Fingerstick Blood Sugar Results: 118 Critical Care Progress Note - Nutrition Nutrition: Nutrition Category Date Time Status NPO Diet [DIET] Diets 07/16/18 Breakfast Ordered Assessment/Plan - Assessment and Plan (Free Text) Assessment: 87 yo M with PMH of mild-moderate pulmonary HTN (with moderate TR/OR last TTE 06/2018), RCC (s/p nephrectomy), COPD, unspecified seizures, and a thyroid mass of unknown histology admitted to MICU for concern of AMS and new onset seizure, who subsequently developed respiratory failure requiring mechanical ventilation. He was initially admitted earlier this month and was found to be high risk for ET intubation due to thyroid mass and was transferred to [facility] per Dr. Ndiaye recs. No surgical intervention was pursued aside from tracheostomy placement. [place] was subsequently [place] [facility] pending LTAC placement. Plan: Neuro: Appears less somnolent today, continues to respond to painful/verbal stimuli PERRL, other reflexes intact Continue Keppra 500 mg BID for seizure ppx Re-orient as necessary Cardio: Continues to have mild bradycardia while sleeping at night but is otherwise HD stable Most recent EKG showed sinus bradycardia with bifasicular block TTE: moderate pulm HTN with mild TR and OR with LVEF of > 50% Continue with continuous cardiac monitoring Maintain MAP>65 Monitor for S/Sx of HD compromise Cardiology following, all recs appreciated Pulm: Patient remains dependent on mechanical ventilation and has failed prior weaning trials Difficult intubation due to obstructing thyroid mass Repeat CXR today with improvement of b/l pulmonary edema Continue conservative fluid management Maintain SpO2 >90% Continue ventilator settings: 400/15/5/60 Appropriate ventilator management: Maintain head of bed > 30 degrees Maintain oral hygiene with chlorhexidine rinse Daily ABG and CXR Daily sedation and weaning trials Patient has been accepted by 2 LTAC facilities, f/u with SW regarding son's preferences for LTAC facility Pulmonology, Dr. Rivas, following, all recs appreciated GI: Patient is s/p gastrostomy tube placement POD 4 Continue NPO Continue tube feeds at goal rate per bead picker recs Gastrostomy site appears to have slight increased erythema today, surgery team removed 1 staple Surgery following, all recs appreciated /Nephro: BUN/Cr stable at 20/1.1 UOP increased since yesterday, now > 1.0 cc/kg/24 hr likely 2/2 lasix administration Significant metabolic alkalosis identified, suspect likely 2/2 contraction alkalosis from lasix Hold future lasix doses Replete K and other electrolytes PRN Continue Strict I & O Maintain euvolemia Endo: Random glucose: 118 Maintain euglycemia Heme/Onc: H/H stable at 9.1/30.6 without overt signs of HD compromise S/p transfusion 2 u PRBCs on 07/16/18 Transfuse additional units PRN for Hgb < 8 ID: Has remained afebrile with persistent leukocytosis but down trended from yesterday On day 3 of merrem for management of b/l lower lobe infiltrates and positive sputum cx, vanc discontinued Sputum cx positive for pseudomonas on 07/20/18 and again positive for GNR 07/23/18 ID following, all recs appreciated DVT/GI PPX: SC heparin/protonix Full Code Tube feeds per surgery/bead picker recs Monitor in MICU Patient seen, examined with, and plan discussed with my attending Dr. Kathy Aguilar D.O. IM Resident PGY-1 Pager: [phone] <Jas Ennis - Last Filed: 07/25/18 17:51> CCU Objective - Vital Signs / Intake & Output Intake and Output (Last 8hrs): Intake & Output 07/25/18 07/25/18 07/25/18 06:59 14:59 22:59 Output Total 700 Balance -700 Output: Urine 700 Urethral (Phan) 700 - Medications Active Medications: Active Medications Generic Name Dose Route Start Last Admin Trade Name Freq PRN Reason Stop Dose Admin Acetylcysteine 4 ml 07/23/18 08:00 07/24/18 19:27 Acetylcysteine 20% IH 4 ml BIDRESP LUZ MARINA Administration Alprazolam 0.25 mg 07/22/18 09:20 07/23/18 05:26 Xanax PEG 07/29/18 10:01 0.25 mg Q12 PRN Administration Anxiety Protocol Amino Acid Protein 15 gm 07/15/18 10:00 07/25/18 09:09 Prostat 15 G Packet GT 15 gm BID LUZ MARINA Administration Atorvastatin Calcium 20 mg 07/15/18 17:00 07/24/18 17:37 Lipitor PO 20 mg DIN LUZ MARINA Administration Dextrose 0 ml 07/14/18 22:13 07/17/18 00:59 Dextrose 50% Inj IV 50 ml STAT PRN Administration Hypoglycemia Protocol Protocol Furosemide 40 mg 07/24/18 10:00 07/25/18 09:06 Lasix IVP 40 mg DAILY LUZ MARINA Administration Heparin Sodium (Porcine) 5,000 units 07/15/18 06:00 07/25/18 07:25 Heparin SC 5,000 units Q8 LUZ MARINA Administration Protocol Dextrose 1,000 mls @ 0 mls/hr 07/14/18 22:13 Dextrose 5% In Water 1000 Ml IV .Q0M PRN Hypoglycemia Protocol Protocol Per Protocol Levetiracetam 500 mg in 100 mls @ 400 mls/hr 07/16/18 10:00 07/25/18 09:05 Keppra 500mg Ivpb IVPB 400 mls/hr Q12 LUZ MARINA Administration Meropenem 1 gm in 50 mls @ 100 mls/hr 07/23/18 14:00 07/25/18 07:24 Merrem Iv 1 Gm Premix IVPB 100 mls/hr Q8 LUZ MARINA Administration Protocol Insulin Human Regular 0 units 07/15/18 12:00 07/25/18 07:30 Humulin R Med SC Not Given Q6H LUZ MARINA Protocol Levalbuterol HCl 1.25 mg 07/23/18 08:00 07/25/18 13:05 Xopenex IH 1.25 mg [id number] LUZ MARINA Administration Morphine Sulfate 2 mg 07/23/18 14:09 07/24/18 06:04 Morphine IVP 2 mg Q4H PRN Administration Pain, moderate (4-7) Nystatin 1 gm 07/16/18 22:00 07/24/18 22:36 Nystop Topical Powder TOP 1 applic Q12H LUZ MARINA Administration Pantoprazole Sodium 40 mg 07/16/18 10:00 07/25/18 09:10 Protonix Inj IVP 40 mg Q12 LUZ MARINA Administration - Patient Studies Lab Studies: Microbiology Studies 07/23/18 11:30 Gram Stain - Final Trachasp Sputum Culture - Final Pseudomonas Aeruginosa 07/19/18 18:30 Blood Culture - Final Blood NO GROWTH AFTER 5 DAYS Gram Stain - Final TEST NOT PERFORMED 07/19/18 18:00 Blood Culture - Final Blood NO GROWTH AFTER 5 DAYS Gram Stain - Final TEST NOT PERFORMED Lab Studies 07/25/18 07/25/18 07/25/18 Range/Units 17:12 12:33 07:18 WBC (4.5-11.0) 10^3/uL RBC (3.5-6.1) 10^6/uL Hgb (14.0-18.0) g/dL Hct (42.0-52.0) % MCV (80.0-105.0) fl MCH (25.0-35.0) pg MCHC (31.0-37.0) g/dl RDW (11.5-14.5) % Plt Count (120.0-450.0) 10^3/uL MPV (7.0-11.0) fl Neut % (Auto) (50.0-68.0) % Lymph % (Auto) (22.0-35.0) % [place] % (Auto) (1.0-6.0) % Eos % (Auto) (1.5-5.0) % Baso % (Auto) (0.0-3.0) % Lymph # (Auto) (1.2-3.4) [place] # (Auto) (0.1-0.6) Eos # (Auto) (0.0-0.7) Baso # (Auto) (0.0-2.0) K/mm3 Absolute Neuts (auto) (1.4-6.5) pCO2 (35-45) mm/Hg pO2 (80-100) mm/Hg HCO3 (21-28) mmol/L ABG pH (7.35-7.45) ABG Total CO2 (22-28) mmol.L ABG O2 Saturation (95-98) % ABG O2 Content (15-23) ML/dl ABG Base Excess (-2.0-3.0) mmol/L ABG Hemoglobin (11.7-17.4) g/dL ABG Carboxyhemoglobin (0.5-1.5) % POC ABG HHb (Measured) (0-5) % ABG Methemoglobin (0.0-3.0) % ABG O2 Capacity (16-24) mL/dl Hgb O2 Saturation (95.0-98.0) % FiO2 % Sodium (132-148) mmol/L Potassium (3.6-5.0) mmol/L Chloride (98-107) mmol/L Carbon Dioxide (21-33) mmol/L Anion Gap (10-20) BUN (7-21) mg/dL Creatinine (0.8-1.5) mg/dl Est GFR ( Amer) Est GFR (Non-Af Amer) POC Glucose (mg/dL) 146 H 158 H 130 H (65-110) mg/dL Random Glucose (70-110) mg/dL Calcium (8.4-10.5) mg/dL Phosphorus (2.5-4.5) mg/dL Magnesium (1.7-2.2) mg/dL Total Bilirubin (0.2-1.3) mg/dL AST (17-59) U/L ALT (7-56) U/L Alkaline Phosphatase (38-126) U/L Total Protein (5.8-8.3) g/dL Albumin (3.0-4.8) g/dL Globulin gm/dL Albumin/Globulin Ratio (1.1-1.8) 07/25/18 07/25/18 07/25/18 Range/Units 06:20 06:20 05:10 WBC 12.7 H D (4.5-11.0) 10^3/uL RBC 3.42 L (3.5-6.1) 10^6/uL Hgb 9.1 L (14.0-18.0) g/dL Hct 30.6 L (42.0-52.0) % MCV 89.5 (80.0-105.0) fl MCH 26.6 (25.0-35.0) pg MCHC 29.7 L (31.0-37.0) g/dl RDW 21.8 H (11.5-14.5) % Plt Count 436 (120.0-450.0) 10^3/uL MPV 10.2 (7.0-11.0) fl Neut % (Auto) 72.7 H (50.0-68.0) % Lymph % (Auto) 9.8 L (22.0-35.0) % [place] % (Auto) 9.2 H (1.0-6.0) % Eos % (Auto) 8.0 H (1.5-5.0) % Baso % (Auto) 0.3 (0.0-3.0) % Lymph # (Auto) 1.3 (1.2-3.4) [place] # (Auto) 1.2 H (0.1-0.6) Eos # (Auto) 1.0 H (0.0-0.7) Baso # (Auto) 0.04 (0.0-2.0) K/mm3 Absolute Neuts (auto) 9.23 H (1.4-6.5) pCO2 41 (35-45) mm/Hg pO2 96.0 (80-100) mm/Hg HCO3 33.5 H (21-28) mmol/L ABG pH 7.52 H (7.35-7.45) ABG Total CO2 34.8 H (22-28) mmol.L ABG O2 Saturation 98.8 H (95-98) % ABG O2 Content 11.9 L (15-23) ML/dl ABG Base Excess 9.8 H (-2.0-3.0) mmol/L ABG Hemoglobin 8.7 L (11.7-17.4) g/dL ABG Carboxyhemoglobin 1.5 (0.5-1.5) % POC ABG HHb (Measured) 1.2 (0-5) % ABG Methemoglobin 1.0 (0.0-3.0) % ABG O2 Capacity 12.0 L (16-24) mL/dl Hgb O2 Saturation 96.3 (95.0-98.0) % FiO2 40.0 % Sodium 142 (132-148) mmol/L Potassium 3.4 L (3.6-5.0) mmol/L Chloride 104 (98-107) mmol/L Carbon Dioxide 34 H (21-33) mmol/L Anion Gap 7 L (10-20) BUN 20 (7-21) mg/dL Creatinine 1.1 (0.8-1.5) mg/dl Est GFR ( Amer) > 60 Est GFR (Non-Af Amer) > 60 POC Glucose (mg/dL) (65-110) mg/dL Random Glucose 122 H (70-110) mg/dL Calcium 9.3 (8.4-10.5) mg/dL Phosphorus 2.5 (2.5-4.5) mg/dL Magnesium 1.8 (1.7-2.2) mg/dL Total Bilirubin 0.2 (0.2-1.3) mg/dL AST 116 H (17-59) U/L ALT 82 H (7-56) U/L Alkaline Phosphatase 199 H (38-126) U/L Total Protein 5.8 (5.8-8.3) g/dL Albumin 2.6 L (3.0-4.8) g/dL Globulin 3.2 gm/dL Albumin/Globulin Ratio 0.8 L (1.1-1.8) 07/25/18 07/24/18 Range/Units 00:29 18:26 WBC (4.5-11.0) 10^3/uL RBC (3.5-6.1) 10^6/uL Hgb (14.0-18.0) g/dL Hct (42.0-52.0) % MCV (80.0-105.0) fl MCH (25.0-35.0) pg MCHC (31.0-37.0) g/dl RDW (11.5-14.5) % Plt Count (120.0-450.0) 10^3/uL MPV (7.0-11.0) fl Neut % (Auto) (50.0-68.0) % Lymph % (Auto) (22.0-35.0) % [place] % (Auto) (1.0-6.0) % Eos % (Auto) (1.5-5.0) % Baso % (Auto) (0.0-3.0) % Lymph # (Auto) (1.2-3.4) [place] # (Auto) (0.1-0.6) Eos # (Auto) (0.0-0.7) Baso # (Auto) (0.0-2.0) K/mm3 Absolute Neuts (auto) (1.4-6.5) pCO2 (35-45) mm/Hg pO2 (80-100) mm/Hg HCO3 (21-28) mmol/L ABG pH (7.35-7.45) ABG Total CO2 (22-28) mmol.L ABG O2 Saturation (95-98) % ABG O2 Content (15-23) ML/dl ABG Base Excess (-2.0-3.0) mmol/L ABG Hemoglobin (11.7-17.4) g/dL ABG Carboxyhemoglobin (0.5-1.5) % POC ABG HHb (Measured) (0-5) % ABG Methemoglobin (0.0-3.0) % ABG O2 Capacity (16-24) mL/dl Hgb O2 Saturation (95.0-98.0) % FiO2 % Sodium (132-148) mmol/L Potassium (3.6-5.0) mmol/L Chloride (98-107) mmol/L Carbon Dioxide (21-33) mmol/L Anion Gap (10-20) BUN (7-21) mg/dL Creatinine (0.8-1.5) mg/dl Est GFR ( Amer) Est GFR (Non-Af Amer) POC Glucose (mg/dL) 133 H 130 H (65-110) mg/dL Random Glucose (70-110) mg/dL Calcium (8.4-10.5) mg/dL Phosphorus (2.5-4.5) mg/dL Magnesium (1.7-2.2) mg/dL Total Bilirubin (0.2-1.3) mg/dL AST (17-59) U/L ALT (7-56) U/L Alkaline Phosphatase (38-126) U/L Total Protein (5.8-8.3) g/dL Albumin (3.0-4.8) g/dL Globulin gm/dL Albumin/Globulin Ratio (1.1-1.8) Laboratory Results - last 24 hr 07/24/18 07/25/18 07/25/18 18:26 00:29 05:10 WBC RBC Hgb Hct MCV MCH MCHC RDW Plt Count MPV Neut % (Auto) Lymph % (Auto) [place] % (Auto) Eos % (Auto) Baso % (Auto) Lymph # (Auto) [place] # (Auto) Eos # (Auto) Baso # (Auto) Absolute Neuts (auto) pCO2 41 pO2 96.0 HCO3 33.5 H ABG pH 7.52 H ABG Total CO2 34.8 H ABG O2 Saturation 98.8 H ABG O2 Content 11.9 L ABG Base Excess 9.8 H ABG Hemoglobin 8.7 L ABG Carboxyhemoglobin 1.5 POC ABG HHb (Measured) 1.2 ABG Methemoglobin 1.0 ABG O2 Capacity 12.0 L Hgb O2 Saturation 96.3 FiO2 40.0 Sodium Potassium Chloride Carbon Dioxide Anion Gap BUN Creatinine Est GFR ( Amer) Est GFR (Non-Af Amer) POC Glucose (mg/dL) 130 H 133 H Random Glucose Calcium Phosphorus Magnesium Total Bilirubin AST ALT Alkaline Phosphatase Total Protein Albumin Globulin Albumin/Globulin Ratio 07/25/18 07/25/18 07/25/18 06:20 06:20 07:18 WBC 12.7 H D RBC 3.42 L Hgb 9.1 L Hct 30.6 L MCV 89.5 MCH 26.6 MCHC 29.7 L RDW 21.8 H Plt Count 436 MPV 10.2 Neut % (Auto) 72.7 H Lymph % (Auto) 9.8 L [place] % (Auto) 9.2 H Eos % (Auto) 8.0 H Baso % (Auto) 0.3 Lymph # (Auto) 1.3 [place] # (Auto) 1.2 H Eos # (Auto) 1.0 H Baso # (Auto) 0.04 Absolute Neuts (auto) 9.23 H pCO2 pO2 HCO3 ABG pH ABG Total CO2 ABG O2 Saturation ABG O2 Content ABG Base Excess ABG Hemoglobin ABG Carboxyhemoglobin POC ABG HHb (Measured) ABG Methemoglobin ABG O2 Capacity Hgb O2 Saturation FiO2 Sodium 142 Potassium 3.4 L Chloride 104 Carbon Dioxide 34 H Anion Gap 7 L BUN 20 Creatinine 1.1 Est GFR ( Amer) > 60 Est GFR (Non-Af Amer) > 60 POC Glucose (mg/dL) 130 H Random Glucose 122 H Calcium 9.3 Phosphorus 2.5 Magnesium 1.8 Total Bilirubin 0.2 AST 116 H ALT 82 H Alkaline Phosphatase 199 H Total Protein 5.8 Albumin 2.6 L Globulin 3.2 Albumin/Globulin Ratio 0.8 L 07/25/18 07/25/18 12:33 17:12 WBC RBC Hgb Hct MCV MCH MCHC RDW Plt Count MPV Neut % (Auto) Lymph % (Auto) [place] % (Auto) Eos % (Auto) Baso % (Auto) Lymph # (Auto) [place] # (Auto) Eos # (Auto) Baso # (Auto) Absolute Neuts (auto) pCO2 pO2 HCO3 ABG pH ABG Total CO2 ABG O2 Saturation ABG O2 Content ABG Base Excess ABG Hemoglobin ABG Carboxyhemoglobin POC ABG HHb (Measured) ABG Methemoglobin ABG O2 Capacity Hgb O2 Saturation FiO2 Sodium Potassium Chloride Carbon Dioxide Anion Gap BUN Creatinine Est GFR ( Amer) Est GFR (Non-Af Amer) POC Glucose (mg/dL) 158 H 146 H Random Glucose Calcium Phosphorus Magnesium Total Bilirubin AST ALT Alkaline Phosphatase Total Protein Albumin Globulin Albumin/Globulin Ratio Radiology Impressions: Radiology Impressions Chest X-Ray 07/25/18 06:00 IMPRESSION: Moderate vascular congestion showing slight improvement Critical Care Progress Note - Nutrition Nutrition: Nutrition Category Date Time Status NPO Diet [DIET] Diets 07/16/18 Breakfast Ordered Addendum Addendum: 07/25/18 17:51 MICU Attending Addendum: Patient seen and examined with housestaff, case discussed on rounds. I agree with resident note above with the following additions/exceptions: 87M hx of CHF, renal cancer s/p nephrectomy, COPD, seizures, and a thyroid mass being managed for AMS and vent depedant resp failure Initially [place] [facility] [place] and [place]. Was being tx for seizures/AMS. Noted to have large thyroid mass. Transferred to [facility] on 06/27 where he had a trach/peg placed. [place] [facility] [place] w/ dislodged PEG tube now s/p open gastrostomy tube insertion. Currently on low vt on vent, plan to wean to trach collar if possible Growing GNR in sputum still likely pseudomonas on merrem as per ID Keppra for seizures hypoK and metabolic alk likely from contractin alkalosis, hold diuresis today hep Sq dvt ppx ppi for gi ppx Rest of care as per resident note above Jas Ennis MD Attending Pulmonary Critical Care Sleep Medicine
--- NOTE | 2018-07-25 10:05 | PN ---
DATE: 07/25/2018(640am-730am) PULMONARY NOTE SUBJECTIVE: The patient remains on the ventilator. He is currently sedated. PHYSICAL EXAMINATION: VITAL SIGNS: Temperature is 99.1, pulse on the monitor is 81, respiratory rate 16/15, blood pressure 146/73. HEENT: Normocephalic, atraumatic. No JVD. Positive tracheostomy. CARDIOVASCULAR: Systolic ejection murmur at the lower left sternal border. Questionable S3 gallop. LUNGS: Decreased breath sounds at both bases. Minimal/less rhonchi. No wheezing. GASTROINTESTINAL: Abdomen is soft, nontender, and nondistended. Bowel sounds are positive. There is a PEG tube in place. EXTREMITIES: Mild edema, no cyanosis, no clubbing. SKIN: No acute rash. NEUROLOGIC: Exam limited at the present time. PERTINENT LABORATORY DATA: Chest x-ray was done this morning and reviewed. Bilateral infiltrates remain, but there appears to be less pulmonary edema. Arterial blood gas was done on PRVC 15, tidal volume 400, FIO2 of 40%. Results are: PH 7.52, pCO2 of 41, pO2 of 96. IMPRESSION: 1. Respiratory failure. 2. Bilateral pneumonia. 3. Chronic obstructive pulmonary disease. 4. Congestive heart failure. 5. Seizure disorder. 6. Thyroid mass. 7. Anemia. PLAN: The patient remains on the ventilator. He remains sedated. I did discuss the case with the night nurse at length. The night nurse stated the patient had an uneventful night. I did review the chest x-ray from this morning. Findings are noted above. Official results are pending. However, the film does appear improved this morning. I have also reviewed the arterial blood gas. The arterial blood gas has also improved-- with a decrease in the alveolar-arterial gradient. I will discuss possible weaning trials with the ICU team later this morning. On physical exam, there is no significant bronchospasm noted. I will continue the current nebulizer treatments for now. The patient also remains on intravenous Lasix. Input by infectious disease (Dr. Fortune) is also noted. Temperatures have decreased. The leukocytosis is resolving. Clinical status of the patient has certainly improved - compared to the initial presentation. However, unfortunately, the future status/prognosis for this elderly patient appears poor. All are aware. I will discuss the above with the entire ICU team in the next few moments. I will also discuss the above with Dr. Neal later this morning. Theo Rivas MD [facility]
--- NOTE | 2018-07-25 14:44 | PN ---
DATE: 07/25/2018 SUBJECTIVE: The patient is in bed, in no acute distress and nontoxic. This patient is trached; was [facility]. PHYSICAL EXAMINATION: VITAL SIGNS: Temperature is 99, blood pressure is 131/70, respiratory rate of 18, and heart rate of 90. HEENT: Unremarkable. NECK: Supple. LUNGS: Decreased breath sounds. HEART: Normal S1 and S2. ABDOMEN: Soft. LABORATORY DATA: Laboratory examination reveals a white count of 12,700 and hemoglobin of 9. Chemistry reveals a BUN of 20 and creatinine of 1.1. Urinalysis is noted. Microbiology reveals a pseudomonas, gram-negative joão also. Chest x-ray from today; no active pulmonary disease. Dr. Rivas's note from today is appreciated. ASSESSMENT AND PLAN: An 87-year-old male with severe sepsis, healthcare-associated pneumonia, left-sided pseudomonas, a trach site; the patient has renal cancer, status post nephrectomy; chronic congestive heart failure, status post percutaneous endoscopic gastrostomy tube; thyroid mass; and pulmonary hypertension. Day #6 of meropenem. Repeat chest x-ray is negative and last procalcitonin is 0.15. We will discontinue the meropenem in next 24 to 48 hours. Omer Fortune MD
--- NOTE | 2018-07-25 16:20 | PN ---
DATE: 07/25/2018 SUBJECTIVE: He has a trach he is on the vent. I was there with the respiratory therapist, we are trying to wean him off the vent. He is alert, he understands what we wants to do. He also says he wants to go home and told him he has off the vent before he go home, he understands that. MEDICATIONS: He is on acetylcysteine, dextrose, heparin, insulin, Keppra, Lasix, Lipitor, Merrem, morphine, nystatin, Prostat, Protonix, Xanax and Xopenex. PHYSICAL EXAMINATION: VITAL SIGNS: He has a 99.1 temp, max was 99.3; 58 pulse; 11 respiratory rate and 97% O2 sat on 35% GENERAL: He is alert. He is aware, he understands what is going on. HEENT: Head is atraumatic and normocephalic. NECK: He is got a trach, it looks clean. HEART: Regular rate. LUNGS: Decreased breath sounds, but clean and clear. ABDOMEN: Soft, obese and nontender. EXTREMITIES: Trace edema. LABORATORY DATA: He has a 12.7 white count still coming down nicely, 9.1 hemoglobin, 30.6 hematocrit with 436 platelets. 12.7 white count that has been since he has been here. He is starting to be improving from the antibiotics. He has a sodium 142, potassium 3.4 replaced potassium, BUN is 20, creatinine 1.1, GFR is greater than 60, sugar is 130, calcium 9.3, phosphorous 2.5, magnesium 1.8, total bili is 0.2, AST is 116, ALT is 82 and alk phos 199. He had lot of things going out in his Gram stain of the trach. ASSESSMENT AND PLAN: He is being seen by Infectious Disease, Surgery, Vertical Lathe Operator, Pulmonary, and Cardiology. Continue aggressive treatment and care. Replaced potassium. Encourage him to take deep breaths. get him off the ventilator. Good skin care. He has got respiratory failure and sepsis. Continue aggressive treatment and care. Aleksey Nela DO [facility]
--- NOTE | 2018-07-25 20:08 | CP.PCM.PN ---
Subjective - Date & Time of Evaluation Date of Evaluation: 07/25/18 Time of Evaluation: 07:00 - Subjective Subjective: GENERAL SURGERY PROGRESS NOTE FOR DR. ROLLE Patient seen and examined at bedside in the ICU. Pt currently at tube feeds at 50cc/hr. No residuals per nurse. Objective - Vital Signs/Intake and Output Vital Signs (last 24 hours): Temp Pulse Resp BP Pulse Ox 99.1 F 100 H 28 H 131/74 97 07/25/18 00:50 07/25/18 12:00 07/25/18 07:33 07/25/18 09:06 07/25/18 07:33 Intake and Output: 07/25/18 07/26/18 18:59 06:59 Intake Total 2040 Output Total 1425 Balance 615 - Medications Medications: Current Medications Acetylcysteine (Acetylcysteine 20%) 4 ml IH BIDRESP LUZ MARINA Last Admin: 07/24/18 19:27 Dose: 4 ml Alprazolam (Xanax) 0.25 mg PEG Q12 PRN; Protocol PRN Reason: Anxiety Stop: 07/29/18 10:01 Last Admin: 07/23/18 05:26 Dose: 0.25 mg Amino Acid Protein (Prostat 15 G Packet) 15 gm GT BID LUZ MARINA Last Admin: 07/25/18 09:09 Dose: 15 gm Atorvastatin Calcium (Lipitor) 20 mg PO DIN LUZ MARINA Last Admin: 07/24/18 17:37 Dose: 20 mg Dextrose (Dextrose 50% Inj) 0 ml IV STAT PRN; Protocol PRN Reason: Hypoglycemia Protocol Last Admin: 07/17/18 00:59 Dose: 50 ml Furosemide (Lasix) 40 mg IVP DAILY LUZ MARINA Last Admin: 07/25/18 09:06 Dose: 40 mg Heparin Sodium (Porcine) (Heparin) 5,000 units SC Q8 LUZ MARINA; Protocol Last Admin: 07/25/18 07:25 Dose: 5,000 units Dextrose (Dextrose 5% In Water 1000 Ml) 1,000 mls @ 0 mls/hr IV .Q0M PRN; Protocol PRN Reason: Hypoglycemia Protocol Levetiracetam (Keppra 500mg Ivpb) 500 mg in 100 mls @ 400 mls/hr IVPB Q12 LUZ MARINA Last Admin: 07/25/18 09:05 Dose: 400 mls/hr Meropenem (Merrem Iv 1 Gm Premix) 1 gm in 50 mls @ 100 mls/hr IVPB Q8 LUZ MARINA; Protocol Last Admin: 07/25/18 07:24 Dose: 100 mls/hr Insulin Human Regular (Humulin R Med) 0 units SC Q6H LUZ MARINA; Protocol Last Admin: 07/25/18 07:30 Dose: Not Given Levalbuterol HCl (Xopenex) 1.25 mg IH [id number] LUZ MARINA Last Admin: 07/25/18 13:05 Dose: 1.25 mg Morphine Sulfate (Morphine) 2 mg IVP Q4H PRN PRN Reason: Pain, moderate (4-7) Last Admin: 07/24/18 06:04 Dose: 2 mg Nystatin (Nystop Topical Powder) 1 gm TOP Q12H LUZ MARINA Last Admin: 07/24/18 22:36 Dose: 1 applic Pantoprazole Sodium (Protonix Inj) 40 mg IVP Q12 LUZ MARINA Last Admin: 07/25/18 09:10 Dose: 40 mg - Labs Labs: 07/25/18 06:20 07/25/18 06:20 PT 13.7 SECONDS (9.4-12.5) H 07/21/18 05:00 INR 1.21 07/21/18 05:00 APTT 32.0 Seconds (26.9-38.3) 07/21/18 05:00 - Constitutional Appears: Non-toxic, No Acute Distress - Neck Exam Additional comments: trach - Respiratory Exam Respiratory Exam: NORMAL BREATHING PATTERN (via trach). absent: Respiratory Distress - Cardiovascular Exam Cardiovascular Exam: +S1, +S2 - GI/Abdominal Exam GI & Abdominal Exam: Soft. absent: Distended, Firm, Guarding, Rigid, Tenderness Additional comments: Gastrostomy tube in place with tube feeds at 50cc/hr Incision with less erythema than yesterday. No drainage [place] in place - Neurological Exam Neurological Exam: Alert, Awake - Psychiatric Exam Psychiatric exam: Normal Affect, Normal Mood - Skin Skin Exam: Normal Color, Warm Assessment and Plan - Assessment and Plan (Free Text) Assessment: 87M w/ dislodged PEG tube s/p open gastrostomy tube insertion POD#4 Plan: - Advance tube feeds to goal - FU dietary recs - Once tolerating tube feeds at goal, clear for discharge to LTACH from surgical standpoint - Further care as per ICU Discussed plan with Dr. Hema Garcia PGY-4
[2018-07-25] MEDS: Nystatin 100,000 Units/gm Topical Pow(15 gm) TOP SCH (21:51)
[2018-07-26] MEDS: Levalbuterol 1.25 MG/3 ML Inhal Soln UD IH SCH ×3 (02:35→13:02)
[2018-07-26] MEDS: Insulin Reg-MEDIUM-Coverage SC SCH ×2 (06:08→13:14)
[2018-07-26 06:33] LABS: ARTERIAL BLOOD GAS HCO3 31.3 mmol/L (21-28); ARTERIAL BLOOD GAS HEMOGLOBIN 9.5 g/dL (11.7-17.4); ARTERIAL BLOOD GAS O2 CAPACITY 13.2 mL/dl (16-24); ARTERIAL BLOOD GAS O2 SAT 98.4 % (95-98); ARTERIAL BLOOD GAS PCO2 44 mm/Hg (35-45); ARTERIAL BLOOD GAS PH 7.46 (7.35-7.45); ARTERIAL BLOOD GAS TCO2 32.7 mmol.L (22-28)
[2018-07-26 06:35] LABS: BASO # 0.06 K/mm3 (0.0-2.0); BASO % 0.5 % (0.0-3.0); EOS # 0.7 (0.0-0.7); EOS % 6.3 % (1.5-5.0); HEMOGLOBIN 9.4 g/dL (14.0-18.0); LYMPH # 1.7 (1.2-3.4); LYMPH % 15.1 % (22.0-35.0); MEAN CELL VOLUME 89.4 fl (80.0-105.0); MEAN CORPUSCULAR HEMOGLOBIN 26.3 pg (25.0-35.0); MEAN CORPUSCULAR HGB CONC 29.4 g/dl (31.0-37.0); MEAN PLATELET VOLUME 10.7 fl (7.0-11.0); MONO % 8.8 % (1.0-6.0); RBC 3.58 10^6/uL (3.5-6.1); RED CELL DISTRIBUTION WIDTH 21.8 % (11.5-14.5); WHITE BLOOD COUNT 11.5 10^3/uL (4.5-11.0)
[2018-07-26] MEDS: Meropenem IV 1 gm in NS 1 GM/50 ML BAG IVPB SCH ×2 (06:49→13:37)
[2018-07-26] MEDS ORDERED: Potassium Chloride 20 mEq/15 ml LIQ UD PO STA ×3 (07:01→16:35)
[2018-07-26 07:06] LABS: ALB/GLOB RATIO 0.8 (1.1-1.8); ALBUMIN 2.8 g/dL (3.0-4.8); ALT/SGPT 81 U/L (7-56); AST/SGOT 90 U/L (17-59); BLOOD UREA NITROGEN 22 mg/dL (7-21); CALCIUM 9.5 mg/dL (8.4-10.5); GFR NON-AFRICAN AMERICAN > 60
--- NOTE | 2018-07-26 08:09 | PN ---
DATE: 07/26/2018(955am-055am) SUBJECTIVE: The patient remains on the ventilator. He is less sedated this morning. PHYSICAL EXAMINATION: VITAL SIGNS: (Last noted in the computer): Temperature is 99.1, pulse on the monitor is 72, respiratory rate 16/15, blood pressure 131/74. HEENT: Normocephalic, atraumatic. No JVD. Positive tracheostomy. CARDIOVASCULAR: Systolic ejection murmur at the lower left sternal border. Questionable S3 gallop. LUNGS: Decreased breath sounds at both bases. Minimal/less rhonchi. No wheezing. EXTREMITIES: Mild edema, no cyanosis, no clubbing. Calves are nontender to palpation. GASTROINTESTINAL: Abdomen is soft, nontender and nondistended. Bowel sounds are positive. There is a PEG tube in place. SKIN: No acute rash. NEUROLOGIC: Exam limited at the present time. PERTINENT LABORATORY DATA: Chest x-ray was done this morning and reviewed. The chest x-ray is similar to yesterday's film, but certainly improved from a few days ago. Official results are pending. Arterial blood gas was done on PRBC 15, tidal volume 400, FIO2 40%. Results are: PH 7.46, pCO2 of 44, pO2 of 88. IMPRESSION: 1. Respiratory failure. 2. Bilateral pneumonia. 3. Chronic obstructive pulmonary disease. 4. Congestive heart failure. 5. Seizure disorder. 6. Thyroid mass. 7. Anemia. PLAN: The patient remains on the ventilator. He is less sedated this morning. I did discuss the case with the night nurse at length. The night nurse stated that the patient had an uneventful night. I did review the chest x-ray from this morning. The chest x-ray appears similar to yesterday's film, but improved from a few days ago. I have also reviewed the arterial blood gas. The arterial blood gas continues to improve - now with normal pH, and a decrease in the alveolar-arterial gradient. I did discuss the case with the respiratory therapist at length yesterday. Unfortunately, the patient did fail weaning trials. Hopefully, we will try him again today. Keep in mind, that the patient may very well need a long-term care facility. On physical exam, there is certainly less bronchospasm noted. In addition, as above, the alveolar-arterial gradient is also less. I will continue the current nebulizer treatments for now. Inputs by Infectious Disease, Surgery, and Cardiology are also noted. The patient remains critically ill with overall poor prognosis. I will discuss the above with the entire ICU team in the next few moments. I will also discuss the above with Dr. Neal later this morning. Theo Rivas MD MTDD
--- NOTE | 2018-07-26 08:20 | PN ---
DATE: 07/26/2018 SUBJECTIVE: The patient is in bed, in no acute distress, on trach. No fevers, uneventful night. PHYSICAL EXAMINATION: VITAL SIGNS: Temperature is 99, blood pressure is 130/70, respiratory rate of 18. HEENT: Unremarkable. NECK: Supple. LUNGS: Have decreased breath sounds. HEART: Normal S1, S2. ABDOMEN: Soft. LABORATORY DATA: White count 11,000, hemoglobin 9, platelets of 424. Chemistries reveals a BUN of 22, creatinine of 1.1, phos is 208. Microbiology is noted. The patient had a chest x-ray this morning, the results are pending. ASSESSMENT AND PLAN: This is an 87-year-old male with severe sepsis, healthcare-associated pneumonia, left-sided, with Pseudomonas at the trach site and the patient with renal cancer, status post nephrectomy, chronic congestive heart failure, status post percutaneous endoscopic gastrostomy tube with a thyroid mass and pulmonary hypertension. Today is day #7 of meropenem. Case discussed with Dr. Aguilar who feels that the patient's pneumonia is improving. Current recommendation is 4 to 7 days for healthcare-associated pneumonia. White count this morning is down to 11,500. Omer Fortune MD
[2018-07-26] MEDS: Nystatin 100,000 Units/gm Topical Pow(15 gm) TOP SCH (09:05)
[2018-07-26] MEDS: levETIRAcetam 500mg IVPB 500 MG/100 ML BAG IVPB SCH (09:09)
[2018-07-26] MEDS: Prostat 15 g packet GT SCH ×2 (09:13→17:20)
--- NOTE | 2018-07-26 09:32 | CP.CCUPN ---
<Tomy Aguilar - Last Filed: 07/26/18 12:41> CCU Subjective - Physician Review Events Since Last Encounter (Free Text): Tomy Aguilar DO, PGY-1 MICU Progress Note for Dr. Kathy Ennis Patient remained afebrile overnight without significant events. Tube feeds have been continuing with minimal residual. Has had episodes of bradycardia while sleeping in the low 50s but increases when awake. Subjective (Free Text): Patient was seen and examined at bedside this AM. He continues to fail weaning trials and remains on PRVC. He continues to be awake and responsive but non verbal. Other ROS were unattainable due to patient's non-verbalization. CCU Objective - Vital Signs / Intake & Output Vital Signs (Last 4 hours): Vital Signs Temp Pulse Resp BP Pulse Ox 07/26/18 08:00 99.3 F 56 L 143/79 93 L 07/26/18 07:50 99.3 F 71 98 07/26/18 07:45 99.3 F 77 07/26/18 07:40 99.3 F 68 07/26/18 07:30 99.1 F 76 07/26/18 07:20 99.1 F 73 07/26/18 07:10 99.3 F 79 07/26/18 07:00 99.3 F 79 21 170/80 H 98 07/26/18 06:50 99.3 F 71 07/26/18 06:40 99.3 F 78 07/26/18 06:30 99.1 F 79 07/26/18 06:20 99.1 F 70 07/26/18 06:10 99.3 F 74 07/26/18 06:00 99.3 F 60 145/86 07/26/18 05:50 99.3 F 57 L 07/26/18 05:40 99.3 F 64 07/26/18 05:30 99.3 F 77 Intake and Output (Last 8hrs): Intake & Output 07/25/18 07/26/18 07/26/18 22:59 06:59 14:59 Intake Total 2040 Output Total 1425 Balance 615 Intake: IV 520 Left Subclavian 260 Scalp 260 Tube Feeding 1520 Output: Urine 1025 Urethral (Phan) 1025 Stool 400 - Physical Exam Head: Positive for: Atraumatic, Normocephalic Pupils: Positive for: PERRL Extroacular Muscles: Positive for: EOMI Mouth: Positive for: Moist Mucous Membranes Pharnyx: Positive for: Normal. Negative for: ERYTHEMA, EXUDATE Nose (External): Positive for: Atraumatic Nose (Internal): Positive for: No Active Bleeding Neck: Negative for: JVD Respiratory/Chest: Positive for: Good Air Exchange (on PRVC, breath sounds auscultated b/l). Negative for: Respiratory Distress, Accessory Muscle Use, Wheezes, Rales, Rhonchi Cardiovascular: Positive for: Regular Rate and Rhythm, Normal S1, S2. Negative for: Murmurs, Rub, Gallop Abdomen: Positive for: Normal Bowel Sounds, Feeding Tubes, Other (gastrostomy tube in place with improved surrounding erythema). Negative for: Tenderness, Distention Upper Extremity: Positive for: Normal Inspection, NORMAL PULSES, Capillary Refill < 2s. Negative for: Edema Lower Extremity: Positive for: Edema (b/l 1+ pitting edema with venous stasis dermatitis, multipodus boots in place), NORMAL PULSES, Capillary Refill < 2 s Neurological: Positive for: Other (appears awake and alert but is non-verbal) Skin: Positive for: Warm, Dry, Pale, Other (venous stasis dermatitis b/l) Psychiatric: Negative for: Agitated - Medications Active Medications: Active Medications Generic Name Dose Route Start Last Admin Trade Name Freq PRN Reason Stop Dose Admin Acetylcysteine 4 ml 07/23/18 08:00 07/24/18 19:27 Acetylcysteine 20% IH 4 ml BIDRESP LUZ MARINA Administration Alprazolam 0.25 mg 07/22/18 09:20 07/23/18 05:26 Xanax PEG 07/29/18 10:01 0.25 mg Q12 PRN Administration Anxiety Protocol Amino Acid Protein 15 gm 07/15/18 10:00 07/26/18 09:13 Prostat 15 G Packet GT 15 gm BID LUZ MARINA Administration Atorvastatin Calcium 20 mg 07/15/18 17:00 07/24/18 17:37 Lipitor PO 20 mg DIN LUZ MARINA Administration Dextrose 0 ml 07/14/18 22:13 07/17/18 00:59 Dextrose 50% Inj IV 50 ml STAT PRN Administration Hypoglycemia Protocol Protocol Furosemide 40 mg 07/24/18 10:00 07/25/18 09:06 Lasix IVP 40 mg DAILY LUZ MARINA Administration Heparin Sodium (Porcine) 5,000 units 07/15/18 06:00 07/26/18 06:44 Heparin SC 5,000 units Q8 LUZ MARINA Administration Protocol Dextrose 1,000 mls @ 0 mls/hr 07/14/18 22:13 Dextrose 5% In Water 1000 Ml IV .Q0M PRN Hypoglycemia Protocol Protocol Per Protocol Levetiracetam 500 mg in 100 mls @ 400 mls/hr 07/16/18 10:00 07/26/18 09:09 Keppra 500mg Ivpb IVPB 400 mls/hr Q12 LUZ MARINA Administration Meropenem 1 gm in 50 mls @ 100 mls/hr 07/23/18 14:00 07/26/18 06:49 Merrem Iv 1 Gm Premix IVPB 100 mls/hr Q8 LUZ MARINA Administration Protocol Insulin Human Regular 0 units 07/15/18 12:00 07/26/18 06:08 Humulin R Med SC Not Given Q6H LUZ MARINA Protocol Levalbuterol HCl 1.25 mg 07/23/18 08:00 07/26/18 07:37 Xopenex IH 1.25 mg [id number] LUZ MARINA Administration Morphine Sulfate 2 mg 07/23/18 14:09 07/24/18 06:04 Morphine IVP 2 mg Q4H PRN Administration Pain, moderate (4-7) Nystatin 1 gm 07/16/18 22:00 07/26/18 09:05 Nystop Topical Powder TOP 1 applic Q12H LUZ MARINA Administration Pantoprazole Sodium 40 mg 07/16/18 10:00 07/26/18 09:07 Protonix Inj IVP 40 mg Q12 LUZ MARINA Administration - Patient Studies Lab Studies: Microbiology Studies 07/23/18 10:14 MRSA Culture (Admit) - Final Naris MRSA NOT DETECTED 07/23/18 11:30 Gram Stain - Final Trachasp Sputum Culture - Final Pseudomonas Aeruginosa Lab Studies 07/26/18 07/26/18 07/26/18 Range/Units 07:10 06:21 06:00 WBC (4.5-11.0) 10^3/uL RBC (3.5-6.1) 10^6/uL Hgb (14.0-18.0) g/dL Hct (42.0-52.0) % MCV (80.0-105.0) fl MCH (25.0-35.0) pg MCHC (31.0-37.0) g/dl RDW (11.5-14.5) % Plt Count (120.0-450.0) 10^3/uL MPV (7.0-11.0) fl Neut % (Auto) (50.0-68.0) % Lymph % (Auto) (22.0-35.0) % [place] % (Auto) (1.0-6.0) % Eos % (Auto) (1.5-5.0) % Baso % (Auto) (0.0-3.0) % Lymph # (Auto) (1.2-3.4) [place] # (Auto) (0.1-0.6) Eos # (Auto) (0.0-0.7) Baso # (Auto) (0.0-2.0) K/mm3 Absolute Neuts (auto) (1.4-6.5) pCO2 44 (35-45) mm/Hg pO2 88.0 (80-100) mm/Hg HCO3 31.3 H (21-28) mmol/L ABG pH 7.46 H (7.35-7.45) ABG Total CO2 32.7 H (22-28) mmol.L ABG O2 Saturation 98.4 H (95-98) % ABG O2 Content 13.0 L (15-23) ML/dl ABG Base Excess 6.7 H (-2.0-3.0) mmol/L ABG Hemoglobin 9.5 L (11.7-17.4) g/dL ABG Carboxyhemoglobin 1.4 (0.5-1.5) % POC ABG HHb (Measured) 1.6 (0-5) % ABG Methemoglobin 1.0 (0.0-3.0) % ABG O2 Capacity 13.2 L (16-24) mL/dl Hgb O2 Saturation 96.0 (95.0-98.0) % FiO2 40.0 % Sodium (132-148) mmol/L Potassium (3.6-5.0) mmol/L Chloride (98-107) mmol/L Carbon Dioxide (21-33) mmol/L Anion Gap (10-20) BUN (7-21) mg/dL Creatinine (0.8-1.5) mg/dl Est GFR ( Amer) Est GFR (Non-Af Amer) POC Glucose (mg/dL) 136 H 49 L (65-110) mg/dL Random Glucose (70-110) mg/dL Calcium (8.4-10.5) mg/dL Phosphorus (2.5-4.5) mg/dL Magnesium (1.7-2.2) mg/dL Total Bilirubin (0.2-1.3) mg/dL AST (17-59) U/L ALT (7-56) U/L Alkaline Phosphatase (38-126) U/L Total Protein (5.8-8.3) g/dL Albumin (3.0-4.8) g/dL Globulin gm/dL Albumin/Globulin Ratio (1.1-1.8) 07/26/18 07/26/18 07/26/18 Range/Units 05:30 05:30 00:12 WBC 11.5 H (4.5-11.0) 10^3/uL RBC 3.58 (3.5-6.1) 10^6/uL Hgb 9.4 L (14.0-18.0) g/dL Hct 32.0 L (42.0-52.0) % MCV 89.4 (80.0-105.0) fl MCH 26.3 (25.0-35.0) pg MCHC 29.4 L (31.0-37.0) g/dl RDW 21.8 H (11.5-14.5) % Plt Count 424 (120.0-450.0) 10^3/uL MPV 10.7 (7.0-11.0) fl Neut % (Auto) 69.3 H (50.0-68.0) % Lymph % (Auto) 15.1 L (22.0-35.0) % [place] % (Auto) 8.8 H (1.0-6.0) % Eos % (Auto) 6.3 H (1.5-5.0) % Baso % (Auto) 0.5 (0.0-3.0) % Lymph # (Auto) 1.7 (1.2-3.4) [place] # (Auto) 1.0 H (0.1-0.6) Eos # (Auto) 0.7 (0.0-0.7) Baso # (Auto) 0.06 (0.0-2.0) K/mm3 Absolute Neuts (auto) 7.94 H (1.4-6.5) pCO2 (35-45) mm/Hg pO2 (80-100) mm/Hg HCO3 (21-28) mmol/L ABG pH (7.35-7.45) ABG Total CO2 (22-28) mmol.L ABG O2 Saturation (95-98) % ABG O2 Content (15-23) ML/dl ABG Base Excess (-2.0-3.0) mmol/L ABG Hemoglobin (11.7-17.4) g/dL ABG Carboxyhemoglobin (0.5-1.5) % POC ABG HHb (Measured) (0-5) % ABG Methemoglobin (0.0-3.0) % ABG O2 Capacity (16-24) mL/dl Hgb O2 Saturation (95.0-98.0) % FiO2 % Sodium 141 (132-148) mmol/L Potassium 3.2 L (3.6-5.0) mmol/L Chloride 103 (98-107) mmol/L Carbon Dioxide 34 H (21-33) mmol/L Anion Gap 7 L (10-20) BUN 22 H (7-21) mg/dL Creatinine 1.1 (0.8-1.5) mg/dl Est GFR ( Amer) > 60 Est GFR (Non-Af Amer) > 60 POC Glucose (mg/dL) 147 H (65-110) mg/dL Random Glucose 95 (70-110) mg/dL Calcium 9.5 (8.4-10.5) mg/dL Phosphorus 2.6 (2.5-4.5) mg/dL Magnesium 1.9 (1.7-2.2) mg/dL Total Bilirubin 0.2 (0.2-1.3) mg/dL AST 90 H D (17-59) U/L ALT 81 H (7-56) U/L Alkaline Phosphatase 208 H (38-126) U/L Total Protein 6.2 (5.8-8.3) g/dL Albumin 2.8 L (3.0-4.8) g/dL Globulin 3.4 gm/dL Albumin/Globulin Ratio 0.8 L (1.1-1.8) 07/25/18 07/25/18 07/25/18 Range/Units 22:08 17:12 12:33 WBC (4.5-11.0) 10^3/uL RBC (3.5-6.1) 10^6/uL Hgb (14.0-18.0) g/dL Hct (42.0-52.0) % MCV (80.0-105.0) fl MCH (25.0-35.0) pg MCHC (31.0-37.0) g/dl RDW (11.5-14.5) % Plt Count (120.0-450.0) 10^3/uL MPV (7.0-11.0) fl Neut % (Auto) (50.0-68.0) % Lymph % (Auto) (22.0-35.0) % [place] % (Auto) (1.0-6.0) % Eos % (Auto) (1.5-5.0) % Baso % (Auto) (0.0-3.0) % Lymph # (Auto) (1.2-3.4) [place] # (Auto) (0.1-0.6) Eos # (Auto) (0.0-0.7) Baso # (Auto) (0.0-2.0) K/mm3 Absolute Neuts (auto) (1.4-6.5) pCO2 (35-45) mm/Hg pO2 (80-100) mm/Hg HCO3 (21-28) mmol/L ABG pH (7.35-7.45) ABG Total CO2 (22-28) mmol.L ABG O2 Saturation (95-98) % ABG O2 Content (15-23) ML/dl ABG Base Excess (-2.0-3.0) mmol/L ABG Hemoglobin (11.7-17.4) g/dL ABG Carboxyhemoglobin (0.5-1.5) % POC ABG HHb (Measured) (0-5) % ABG Methemoglobin (0.0-3.0) % ABG O2 Capacity (16-24) mL/dl Hgb O2 Saturation (95.0-98.0) % FiO2 % Sodium (132-148) mmol/L Potassium (3.6-5.0) mmol/L Chloride (98-107) mmol/L Carbon Dioxide (21-33) mmol/L Anion Gap (10-20) BUN (7-21) mg/dL Creatinine (0.8-1.5) mg/dl Est GFR ( Amer) Est GFR (Non-Af Amer) POC Glucose (mg/dL) 151 H 146 H 158 H (65-110) mg/dL Random Glucose (70-110) mg/dL Calcium (8.4-10.5) mg/dL Phosphorus (2.5-4.5) mg/dL Magnesium (1.7-2.2) mg/dL Total Bilirubin (0.2-1.3) mg/dL AST (17-59) U/L ALT (7-56) U/L Alkaline Phosphatase (38-126) U/L Total Protein (5.8-8.3) g/dL Albumin (3.0-4.8) g/dL Globulin gm/dL Albumin/Globulin Ratio (1.1-1.8) Laboratory Results - last 24 hr 07/25/18 07/25/18 07/25/18 12:33 17:12 22:08 WBC RBC Hgb Hct MCV MCH MCHC RDW Plt Count MPV Neut % (Auto) Lymph % (Auto) [place] % (Auto) Eos % (Auto) Baso % (Auto) Lymph # (Auto) [place] # (Auto) Eos # (Auto) Baso # (Auto) Absolute Neuts (auto) pCO2 pO2 HCO3 ABG pH ABG Total CO2 ABG O2 Saturation ABG O2 Content ABG Base Excess ABG Hemoglobin ABG Carboxyhemoglobin POC ABG HHb (Measured) ABG Methemoglobin ABG O2 Capacity Hgb O2 Saturation FiO2 Sodium Potassium Chloride Carbon Dioxide Anion Gap BUN Creatinine Est GFR ( Amer) Est GFR (Non-Af Amer) POC Glucose (mg/dL) 158 H 146 H 151 H Random Glucose Calcium Phosphorus Magnesium Total Bilirubin AST ALT Alkaline Phosphatase Total Protein Albumin Globulin Albumin/Globulin Ratio 07/26/18 07/26/18 07/26/18 00:12 05:30 05:30 WBC 11.5 H RBC 3.58 Hgb 9.4 L Hct 32.0 L MCV 89.4 MCH 26.3 MCHC 29.4 L RDW 21.8 H Plt Count 424 MPV 10.7 Neut % (Auto) 69.3 H Lymph % (Auto) 15.1 L [place] % (Auto) 8.8 H Eos % (Auto) 6.3 H Baso % (Auto) 0.5 Lymph # (Auto) 1.7 [place] # (Auto) 1.0 H Eos # (Auto) 0.7 Baso # (Auto) 0.06 Absolute Neuts (auto) 7.94 H pCO2 pO2 HCO3 ABG pH ABG Total CO2 ABG O2 Saturation ABG O2 Content ABG Base Excess ABG Hemoglobin ABG Carboxyhemoglobin POC ABG HHb (Measured) ABG Methemoglobin ABG O2 Capacity Hgb O2 Saturation FiO2 Sodium 141 Potassium 3.2 L Chloride 103 Carbon Dioxide 34 H Anion Gap 7 L BUN 22 H Creatinine 1.1 Est GFR ( Amer) > 60 Est GFR (Non-Af Amer) > 60 POC Glucose (mg/dL) 147 H Random Glucose 95 Calcium 9.5 Phosphorus 2.6 Magnesium 1.9 Total Bilirubin 0.2 AST 90 H D ALT 81 H Alkaline Phosphatase 208 H Total Protein 6.2 Albumin 2.8 L Globulin 3.4 Albumin/Globulin Ratio 0.8 L 07/26/18 07/26/18 07/26/18 06:00 06:21 07:10 WBC RBC Hgb Hct MCV MCH MCHC RDW Plt Count MPV Neut % (Auto) Lymph % (Auto) [place] % (Auto) Eos % (Auto) Baso % (Auto) Lymph # (Auto) [place] # (Auto) Eos # (Auto) Baso # (Auto) Absolute Neuts (auto) pCO2 44 pO2 88.0 HCO3 31.3 H ABG pH 7.46 H ABG Total CO2 32.7 H ABG O2 Saturation 98.4 H ABG O2 Content 13.0 L ABG Base Excess 6.7 H ABG Hemoglobin 9.5 L ABG Carboxyhemoglobin 1.4 POC ABG HHb (Measured) 1.6 ABG Methemoglobin 1.0 ABG O2 Capacity 13.2 L Hgb O2 Saturation 96.0 FiO2 40.0 Sodium Potassium Chloride Carbon Dioxide Anion Gap BUN Creatinine Est GFR ( Amer) Est GFR (Non-Af Amer) POC Glucose (mg/dL) 49 L 136 H Random Glucose Calcium Phosphorus Magnesium Total Bilirubin AST ALT Alkaline Phosphatase Total Protein Albumin Globulin Albumin/Globulin Ratio Fingerstick Blood Sugar Results: 147 Review of Systems - Review of Systems Systems not reviewed;Unavailable: Dementia Critical Care Progress Note - Ventilator Checklist Head of Bed 30 Degrees: Yes Daily Sedation Vacation: Yes Daily Assessment of Readiness to Wean: Yes Daily Spontaneous Breathing Trial: Yes PUD Prophalyxis: Yes DVT Prophylaxis: Yes Oral Care with Chlorhexidine Gluconate {CHG}: Yes - Vent Settings MODE:: PRVC TIDAL VOLUME:: 400 RESP RATE:: 15 FIO2:: 60 PEEP:: 5 - Extremities/Vascular Does the Patient have a Central Venous Catheter?: Yes Insertion Site: Internal Jugular Vein - Prophylaxis GI Prophylaxis GI: PPI - Prophylaxis DVT Prophylaxis DVT: Heparin SQ - Nutrition Nutrition: Nutrition Category Date Time Status NPO Diet [DIET] Diets 07/16/18 Breakfast Ordered Assessment/Plan - Assessment and Plan (Free Text) Assessment: 87 yo M with PMH of mild-moderate pulmonary HTN (with moderate TR/MI last TTE 06/2018), RCC (s/p nephrectomy), COPD, unspecified seizures, and a thyroid mass of unknown histology admitted to MICU for concern of AMS and new onset seizure, who subsequently developed respiratory failure requiring mechanical ventilation. He was initially admitted earlier this month and was found to be high risk for ET intubation due to thyroid mass and was transferred to [facility] per Dr. Ndiaye recs. No surgical intervention was pursued aside from tracheostomy place ment. He was subsequently transferred back to [facility]. He is pending LTAC placement. Plan: Neuro: Appears less somnolent today, continues to respond to painful/verbal stimuli PERRL, other reflexes intact Continue Keppra 500 mg BID for seizure ppx Re-orient as necessary Cardio: Continues to have mild bradycardia while sleeping at night but is otherwise HD stable Most recent EKG showed sinus bradycardia with bifasicular block TTE: moderate pulm HTN with mild TR and MI with LVEF of > 50% Continue with continuous cardiac monitoring Maintain MAP>65 Monitor for S/Sx of HD compromise Cardiology following, all recs appreciated Pulm: Patient remains dependent on mechanical ventilation and has failed prior weaning trials Difficult intubation due to obstructing thyroid mass Repeat CXR today with improvement of b/l pulmonary edema Continue conservative fluid management Maintain SpO2 >90% Continue ventilator settings: 400/15/5/60 Appropriate ventilator management: Maintain head of bed > 30 degrees Maintain oral hygiene with chlorhexidine rinse Daily ABG and CXR Daily sedation and weaning trials Patient has been accepted by 2 LTAC facilities Patient's son has decided on a facility, will plan on transportation later today Stable to be transferred to LTAC facility Pulmonology, Dr. Rivas, following, all recs appreciated GI: Patient is s/p gastrostomy tube placement POD 4 Continue NPO and tube feeds at goal rate per medical oncology physician recs Gastrostomy site surrounding erythema improved today Surgery following, all recs appreciated /Nephro: BUN/Cr stable at 22/1.1 UOP continues to be adequate Metabolic alkalosis 2/2 lasix improving today Continue to hold lasix Replete electrolytes PRN Continue Strict I & O Maintain euvolemia Endo: Random glucose: 95 Maintain euglycemia Heme/Onc: H/H improved to 9.4/32 without overt signs of HD compromise S/p transfusion 2 u PRBCs on 07/16/18 Transfuse additional units PRN for Hgb < 8 ID: Has remained afebrile with persistent leukocytosis but down trended from yesterday On day 4 of merrem for management of b/l lower lobe infiltrates and positive sputum cx, vanc discontinued Sputum cx positive for pseudomonas on 07/20/18 and again positive for pseudomonas on 07/23/18 ID following, all recs appreciated DVT/GI PPX: SC heparin/protonix Full Code Tube feeds per surgery/medical oncology physician recs Monitor in MICU, may transfer to LTAC facility Patient seen, examined with, and plan discussed with my attending Dr. Kathy Aguilar D.O. IM Resident PGY-1 Pager: [phone] <Jas Ennis - Last Filed: 07/26/18 17:50> CCU Objective - Vital Signs / Intake & Output Vital Signs (Last 4 hours): Vital Signs Pulse 07/26/18 16:00 62 - Medications Active Medications: Active Medications Generic Name Dose Route Start Last Admin Trade Name Freq PRN Reason Stop Dose Admin Acetylcysteine 4 ml 07/23/18 08:00 07/24/18 19:27 Acetylcysteine 20% IH 4 ml BIDRESP LUZ MARINA Administration Alprazolam 0.25 mg 07/22/18 09:20 07/23/18 05:26 Xanax PEG 07/29/18 10:01 0.25 mg Q12 PRN Administration Anxiety Protocol Amino Acid Protein 15 gm 07/15/18 10:00 07/26/18 17:20 Prostat 15 G Packet GT 15 gm BID LUZ MARINA Administration Atorvastatin Calcium 20 mg 07/15/18 17:00 07/26/18 16:32 Lipitor PO 20 mg DIN LUZ MARINA Administration Dextrose 0 ml 07/14/18 22:13 07/17/18 00:59 Dextrose 50% Inj IV 50 ml STAT PRN Administration Hypoglycemia Protocol Protocol Furosemide 40 mg 07/24/18 10:00 07/25/18 09:06 Lasix IVP 40 mg DAILY LUZ MARINA Administration Heparin Sodium (Porcine) 5,000 units 07/15/18 06:00 07/26/18 13:44 Heparin SC 5,000 units Q8 LUZ MARINA Administration Protocol Dextrose 1,000 mls @ 0 mls/hr 07/14/18 22:13 Dextrose 5% In Water 1000 Ml IV .Q0M PRN Hypoglycemia Protocol Protocol Per Protocol Levetiracetam 500 mg in 100 mls @ 400 mls/hr 07/16/18 10:00 07/26/18 09:09 Keppra 500mg Ivpb IVPB 400 mls/hr Q12 LUZ MARINA Administration Meropenem 1 gm in 50 mls @ 100 mls/hr 07/23/18 14:00 07/26/18 13:37 Merrem Iv 1 Gm Premix IVPB 100 mls/hr Q8 LUZ MARINA Administration Protocol Insulin Human Regular 0 units 07/15/18 12:00 07/26/18 13:14 Humulin R Med SC Not Given Q6H LUZ MARINA Protocol Levalbuterol HCl 1.25 mg 07/23/18 08:00 07/26/18 13:02 Xopenex IH 1.25 mg [id number] LUZ MARINA Administration Morphine Sulfate 2 mg 07/23/18 14:09 07/24/18 06:04 Morphine IVP 2 mg Q4H PRN Administration Pain, moderate (4-7) Nystatin 1 gm 07/16/18 22:00 07/26/18 09:05 Nystop Topical Powder TOP 1 applic Q12H LUZ MARINA Administration Pantoprazole Sodium 40 mg 07/16/18 10:00 07/26/18 09:07 Protonix Inj IVP 40 mg Q12 LUZ MARINA Administration - Patient Studies Lab Studies: Microbiology Studies 07/23/18 10:14 MRSA Culture (Admit) - Final Naris MRSA NOT DETECTED Lab Studies 07/26/18 07/26/18 07/26/18 Range/Units 07:10 06:21 06:00 WBC (4.5-11.0) 10^3/uL RBC (3.5-6.1) 10^6/uL Hgb (14.0-18.0) g/dL Hct (42.0-52.0) % MCV (80.0-105.0) fl MCH (25.0-35.0) pg MCHC (31.0-37.0) g/dl RDW (11.5-14.5) % Plt Count (120.0-450.0) 10^3/uL MPV (7.0-11.0) fl Neut % (Auto) (50.0-68.0) % Lymph % (Auto) (22.0-35.0) % [place] % (Auto) (1.0-6.0) % Eos % (Auto) (1.5-5.0) % Baso % (Auto) (0.0-3.0) % Lymph # (Auto) (1.2-3.4) [place] # (Auto) (0.1-0.6) Eos # (Auto) (0.0-0.7) Baso # (Auto) (0.0-2.0) K/mm3 Absolute Neuts (auto) (1.4-6.5) pCO2 44 (35-45) mm/Hg pO2 88.0 (80-100) mm/Hg HCO3 31.3 H (21-28) mmol/L ABG pH 7.46 H (7.35-7.45) ABG Total CO2 32.7 H (22-28) mmol.L ABG O2 Saturation 98.4 H (95-98) % ABG O2 Content 13.0 L (15-23) ML/dl ABG Base Excess 6.7 H (-2.0-3.0) mmol/L ABG Hemoglobin 9.5 L (11.7-17.4) g/dL ABG Carboxyhemoglobin 1.4 (0.5-1.5) % POC ABG HHb (Measured) 1.6 (0-5) % ABG Methemoglobin 1.0 (0.0-3.0) % ABG O2 Capacity 13.2 L (16-24) mL/dl Hgb O2 Saturation 96.0 (95.0-98.0) % FiO2 40.0 % Sodium (132-148) mmol/L Potassium (3.6-5.0) mmol/L Chloride (98-107) mmol/L Carbon Dioxide (21-33) mmol/L Anion Gap (10-20) BUN (7-21) mg/dL Creatinine (0.8-1.5) mg/dl Est GFR ( Amer) Est GFR (Non-Af Amer) POC Glucose (mg/dL) 136 H 49 L (65-110) mg/dL Random Glucose (70-110) mg/dL Calcium (8.4-10.5) mg/dL Phosphorus (2.5-4.5) mg/dL Magnesium (1.7-2.2) mg/dL Total Bilirubin (0.2-1.3) mg/dL AST (17-59) U/L ALT (7-56) U/L Alkaline Phosphatase (38-126) U/L Total Protein (5.8-8.3) g/dL Albumin (3.0-4.8) g/dL Globulin gm/dL Albumin/Globulin Ratio (1.1-1.8) 07/26/18 07/26/18 07/26/18 Range/Units 05:30 05:30 00:12 WBC 11.5 H (4.5-11.0) 10^3/uL RBC 3.58 (3.5-6.1) 10^6/uL Hgb 9.4 L (14.0-18.0) g/dL Hct 32.0 L (42.0-52.0) % MCV 89.4 (80.0-105.0) fl MCH 26.3 (25.0-35.0) pg MCHC 29.4 L (31.0-37.0) g/dl RDW 21.8 H (11.5-14.5) % Plt Count 424 (120.0-450.0) 10^3/uL MPV 10.7 (7.0-11.0) fl Neut % (Auto) 69.3 H (50.0-68.0) % Lymph % (Auto) 15.1 L (22.0-35.0) % [place] % (Auto) 8.8 H (1.0-6.0) % Eos % (Auto) 6.3 H (1.5-5.0) % Baso % (Auto) 0.5 (0.0-3.0) % Lymph # (Auto) 1.7 (1.2-3.4) [place] # (Auto) 1.0 H (0.1-0.6) Eos # (Auto) 0.7 (0.0-0.7) Baso # (Auto) 0.06 (0.0-2.0) K/mm3 Absolute Neuts (auto) 7.94 H (1.4-6.5) pCO2 (35-45) mm/Hg pO2 (80-100) mm/Hg HCO3 (21-28) mmol/L ABG pH (7.35-7.45) ABG Total CO2 (22-28) mmol.L ABG O2 Saturation (95-98) % ABG O2 Content (15-23) ML/dl ABG Base Excess (-2.0-3.0) mmol/L ABG Hemoglobin (11.7-17.4) g/dL ABG Carboxyhemoglobin (0.5-1.5) % POC ABG HHb (Measured) (0-5) % ABG Methemoglobin (0.0-3.0) % ABG O2 Capacity (16-24) mL/dl Hgb O2 Saturation (95.0-98.0) % FiO2 % Sodium 141 (132-148) mmol/L Potassium 3.2 L (3.6-5.0) mmol/L Chloride 103 (98-107) mmol/L Carbon Dioxide 34 H (21-33) mmol/L Anion Gap 7 L (10-20) BUN 22 H (7-21) mg/dL Creatinine 1.1 (0.8-1.5) mg/dl Est GFR ( Amer) > 60 Est GFR (Non-Af Amer) > 60 POC Glucose (mg/dL) 147 H (65-110) mg/dL Random Glucose 95 (70-110) mg/dL Calcium 9.5 (8.4-10.5) mg/dL Phosphorus 2.6 (2.5-4.5) mg/dL Magnesium 1.9 (1.7-2.2) mg/dL Total Bilirubin 0.2 (0.2-1.3) mg/dL AST 90 H D (17-59) U/L ALT 81 H (7-56) U/L Alkaline Phosphatase 208 H (38-126) U/L Total Protein 6.2 (5.8-8.3) g/dL Albumin 2.8 L (3.0-4.8) g/dL Globulin 3.4 gm/dL Albumin/Globulin Ratio 0.8 L (1.1-1.8) 07/25/18 Range/Units 22:08 WBC (4.5-11.0) 10^3/uL RBC (3.5-6.1) 10^6/uL Hgb (14.0-18.0) g/dL Hct (42.0-52.0) % MCV (80.0-105.0) fl MCH (25.0-35.0) pg MCHC (31.0-37.0) g/dl RDW (11.5-14.5) % Plt Count (120.0-450.0) 10^3/uL MPV (7.0-11.0) fl Neut % (Auto) (50.0-68.0) % Lymph % (Auto) (22.0-35.0) % [place] % (Auto) (1.0-6.0) % Eos % (Auto) (1.5-5.0) % Baso % (Auto) (0.0-3.0) % Lymph # (Auto) (1.2-3.4) [place] # (Auto) (0.1-0.6) Eos # (Auto) (0.0-0.7) Baso # (Auto) (0.0-2.0) K/mm3 Absolute Neuts (auto) (1.4-6.5) pCO2 (35-45) mm/Hg pO2 (80-100) mm/Hg HCO3 (21-28) mmol/L ABG pH (7.35-7.45) ABG Total CO2 (22-28) mmol.L ABG O2 Saturation (95-98) % ABG O2 Content (15-23) ML/dl ABG Base Excess (-2.0-3.0) mmol/L ABG Hemoglobin (11.7-17.4) g/dL ABG Carboxyhemoglobin (0.5-1.5) % POC ABG HHb (Measured) (0-5) % ABG Methemoglobin (0.0-3.0) % ABG O2 Capacity (16-24) mL/dl Hgb O2 Saturation (95.0-98.0) % FiO2 % Sodium (132-148) mmol/L Potassium (3.6-5.0) mmol/L Chloride (98-107) mmol/L Carbon Dioxide (21-33) mmol/L Anion Gap (10-20) BUN (7-21) mg/dL Creatinine (0.8-1.5) mg/dl Est GFR ( Amer) Est GFR (Non-Af Amer) POC Glucose (mg/dL) 151 H (65-110) mg/dL Random Glucose (70-110) mg/dL Calcium (8.4-10.5) mg/dL Phosphorus (2.5-4.5) mg/dL Magnesium (1.7-2.2) mg/dL Total Bilirubin (0.2-1.3) mg/dL AST (17-59) U/L ALT (7-56) U/L Alkaline Phosphatase (38-126) U/L Total Protein (5.8-8.3) g/dL Albumin (3.0-4.8) g/dL Globulin gm/dL Albumin/Globulin Ratio (1.1-1.8) Laboratory Results - last 24 hr 07/25/18 07/26/18 07/26/18 22:08 00:12 05:30 WBC 11.5 H RBC 3.58 Hgb 9.4 L Hct 32.0 L MCV 89.4 MCH 26.3 MCHC 29.4 L RDW 21.8 H Plt Count 424 MPV 10.7 Neut % (Auto) 69.3 H Lymph % (Auto) 15.1 L [place] % (Auto) 8.8 H Eos % (Auto) 6.3 H Baso % (Auto) 0.5 Lymph # (Auto) 1.7 [place] # (Auto) 1.0 H Eos # (Auto) 0.7 Baso # (Auto) 0.06 Absolute Neuts (auto) 7.94 H pCO2 pO2 HCO3 ABG pH ABG Total CO2 ABG O2 Saturation ABG O2 Content ABG Base Excess ABG Hemoglobin ABG Carboxyhemoglobin POC ABG HHb (Measured) ABG Methemoglobin ABG O2 Capacity Hgb O2 Saturation FiO2 Sodium Potassium Chloride Carbon Dioxide Anion Gap BUN Creatinine Est GFR ( Amer) Est GFR (Non-Af Amer) POC Glucose (mg/dL) 151 H 147 H Random Glucose Calcium Phosphorus Magnesium Total Bilirubin AST ALT Alkaline Phosphatase Total Protein Albumin Globulin Albumin/Globulin Ratio 07/26/18 07/26/18 07/26/18 05:30 06:00 06:21 WBC RBC Hgb Hct MCV MCH MCHC RDW Plt Count MPV Neut % (Auto) Lymph % (Auto) [place] % (Auto) Eos % (Auto) Baso % (Auto) Lymph # (Auto) [place] # (Auto) Eos # (Auto) Baso # (Auto) Absolute Neuts (auto) pCO2 44 pO2 88.0 HCO3 31.3 H ABG pH 7.46 H ABG Total CO2 32.7 H ABG O2 Saturation 98.4 H ABG O2 Content 13.0 L ABG Base Excess 6.7 H ABG Hemoglobin 9.5 L ABG Carboxyhemoglobin 1.4 POC ABG HHb (Measured) 1.6 ABG Methemoglobin 1.0 ABG O2 Capacity 13.2 L Hgb O2 Saturation 96.0 FiO2 40.0 Sodium 141 Potassium 3.2 L Chloride 103 Carbon Dioxide 34 H Anion Gap 7 L BUN 22 H Creatinine 1.1 Est GFR ( Amer) > 60 Est GFR (Non-Af Amer) > 60 POC Glucose (mg/dL) 49 L Random Glucose 95 Calcium 9.5 Phosphorus 2.6 Magnesium 1.9 Total Bilirubin 0.2 AST 90 H D ALT 81 H Alkaline Phosphatase 208 H Total Protein 6.2 Albumin 2.8 L Globulin 3.4 Albumin/Globulin Ratio 0.8 L 07/26/18 07:10 WBC RBC Hgb Hct MCV MCH MCHC RDW Plt Count MPV Neut % (Auto) Lymph % (Auto) [place] % (Auto) Eos % (Auto) Baso % (Auto) Lymph # (Auto) [place] # (Auto) Eos # (Auto) Baso # (Auto) Absolute Neuts (auto) pCO2 pO2 HCO3 ABG pH ABG Total CO2 ABG O2 Saturation ABG O2 Content ABG Base Excess ABG Hemoglobin ABG Carboxyhemoglobin POC ABG HHb (Measured) ABG Methemoglobin ABG O2 Capacity Hgb O2 Saturation FiO2 Sodium Potassium Chloride Carbon Dioxide Anion Gap BUN Creatinine Est GFR ( Amer) Est GFR (Non-Af Amer) POC Glucose (mg/dL) 136 H Random Glucose Calcium Phosphorus Magnesium Total Bilirubin AST ALT Alkaline Phosphatase Total Protein Albumin Globulin Albumin/Globulin Ratio Radiology Impressions: Radiology Impressions Chest X-Ray 07/26/18 06:00 IMPRESSION: Moderate cardiomegaly and moderate to severe vascular congestion Critical Care Progress Note - Nutrition Nutrition: Nutrition Category Date Time Status NPO Diet [DIET] Diets 07/16/18 Breakfast Ordered Addendum Addendum: 07/26/18 17:49 MICU Attending Addendum: Patient seen and examined with housestaff, case discussed on rounds. I agree with resident note above with the following additions/exceptions: 87M hx of CHF, renal cancer s/p nephrectomy, COPD, seizures, and a thyroid mass being managed for AMS and vent depedant resp failure Initially admitted to [facility] 06/23 and intubated. Was being tx for seizures/AMS. Noted to have large thyroid mass. Transferred to [facility] on 06/27 where he had a trach/peg placed. Returned to [facility] 07/15 w/ dislodged PEG tube now s/p open gastrostomy tube insertion. Currently on low vt on vent, Growing pseudomonas via trach on merrem as per ID Keppra for seizures hypoK and metabolic alk likely from contractin alkalosis, hold diuresis today Patient sceduled for transfer to [facility]ACH today TLC removed hep Sq dvt ppx ppi for gi ppx Rest of care as per resident note above Jas Ennis MD Attending Pulmonary Critical Care Sleep Medicine
--- NOTE | 2018-07-26 09:37 | PN ---
DATE: 07/26/2018 CARDIOLOGY FOLLOWUP SUBJECTIVE: The patient remains on a ventilator. PHYSICAL EXAMINATION VITAL SIGNS: Blood pressure 131/74, heart rate 100. NECK: Negative JVD. LUNGS: Without rales. HEART: Reveals S1, S2. EXTREMITIES: Without edema. LABORATORY DATA: Hemoglobin is 9.4. Chemistries; BUN and creatinine 21 and 1.1 with glucose of 147. IMPRESSION: 1. Respiratory failure. 2. Bilateral pneumonia. 3. Chronic obstructive pulmonary disease. 4. Thyroid mass. 5. Anemia. PLAN: Given these findings, the patient is hemodynamically unchanged. Awaiting for transfer to LTAC. Prabhakar Cristina MD
--- NOTE | 2018-07-26 10:28 | CP.PCM.PN ---
Subjective - Date & Time of Evaluation Date of Evaluation: 07/26/18 Time of Evaluation: 10:28 - Subjective Subjective: General surgery progress note for Dr. Garrido Patient seen and examined at bedside in the ICU. Pt currently at tube feeds at 70/hr. Minimal residuals per nurse. Pt denies fever, chills, chest pain, sob, abdominal pain, n/v/d, pain at G-tube site. Objective - Vital Signs/Intake and Output Vital Signs (last 24 hours): Temp Pulse Resp BP Pulse Ox 99.3 F 56 L 21 143/79 93 L 07/26/18 08:00 07/26/18 08:00 07/26/18 07:00 07/26/18 08:00 07/26/18 08:00 - Medications Medications: Current Medications Acetylcysteine (Acetylcysteine 20%) 4 ml IH BIDRESP LUZ MARINA Last Admin: 07/24/18 19:27 Dose: 4 ml Alprazolam (Xanax) 0.25 mg PEG Q12 PRN; Protocol PRN Reason: Anxiety Stop: 07/29/18 10:01 Last Admin: 07/23/18 05:26 Dose: 0.25 mg Amino Acid Protein (Prostat 15 G Packet) 15 gm GT BID LUZ MARINA Last Admin: 07/26/18 09:13 Dose: 15 gm Atorvastatin Calcium (Lipitor) 20 mg PO DIN LUZ MARINA Last Admin: 07/24/18 17:37 Dose: 20 mg Dextrose (Dextrose 50% Inj) 0 ml IV STAT PRN; Protocol PRN Reason: Hypoglycemia Protocol Last Admin: 07/17/18 00:59 Dose: 50 ml Furosemide (Lasix) 40 mg IVP DAILY LUZ MARINA Last Admin: 07/25/18 09:06 Dose: 40 mg Heparin Sodium (Porcine) (Heparin) 5,000 units SC Q8 LUZ MARINA; Protocol Last Admin: 07/26/18 06:44 Dose: 5,000 units Dextrose (Dextrose 5% In Water 1000 Ml) 1,000 mls @ 0 mls/hr IV .Q0M PRN; Protocol PRN Reason: Hypoglycemia Protocol Levetiracetam (Keppra 500mg Ivpb) 500 mg in 100 mls @ 400 mls/hr IVPB Q12 LUZ MARINA Last Admin: 07/26/18 09:09 Dose: 400 mls/hr Meropenem (Merrem Iv 1 Gm Premix) 1 gm in 50 mls @ 100 mls/hr IVPB Q8 LUZ MARINA; Protocol Last Admin: 07/26/18 06:49 Dose: 100 mls/hr Insulin Human Regular (Humulin R Med) 0 units SC Q6H LUZ MARINA; Protocol Last Admin: 07/26/18 06:08 Dose: Not Given Levalbuterol HCl (Xopenex) 1.25 mg IH [id number] LUZ MARINA Last Admin: 07/26/18 07:37 Dose: 1.25 mg Morphine Sulfate (Morphine) 2 mg IVP Q4H PRN PRN Reason: Pain, moderate (4-7) Last Admin: 07/24/18 06:04 Dose: 2 mg Nystatin (Nystop Topical Powder) 1 gm TOP Q12H LUZ MARINA Last Admin: 07/26/18 09:05 Dose: 1 applic Pantoprazole Sodium (Protonix Inj) 40 mg IVP Q12 LUZ MARINA Last Admin: 07/26/18 09:07 Dose: 40 mg - Labs Labs: 07/26/18 05:30 07/26/18 05:30 PT 13.7 SECONDS (9.4-12.5) H 07/21/18 05:00 INR 1.21 07/21/18 05:00 APTT 32.0 Seconds (26.9-38.3) 07/21/18 05:00 - Constitutional Appears: Non-toxic, No Acute Distress - Head Exam Head Exam: ATRAUMATIC, NORMAL INSPECTION - Eye Exam Eye Exam: EOMI, Normal appearance - ENT Exam ENT Exam: Mucous Membranes Moist - Respiratory Exam Respiratory Exam: NORMAL BREATHING PATTERN Additional comments: (+) tracheostomy, without signs of infection, bleeding or discharge - Cardiovascular Exam Cardiovascular Exam: REGULAR RHYTHM, +S1, +S2 - GI/Abdominal Exam GI & Abdominal Exam: Soft, Tenderness (minimal tenderness at vertical incision site). absent: Distended, Firm, Guarding, Rigid Additional comments: (+) Vertical incision with erythema that is improved, minimal tenderness, no induration, no warmth. [place] in place. NO active drainage. - Extremities Exam Extremities Exam: Normal Capillary Refill, Pedal Edema (1+ pitting edema). absent: Calf Tenderness - Neurological Exam Neurological Exam: Alert, Awake - Psychiatric Exam Psychiatric exam: Normal Affect, Normal Mood - Skin Skin Exam: Dry, Warm Additional comments: (+) chronic venous stasis changes bilaterally Assessment and Plan - Assessment and Plan (Free Text) Assessment: 87 yo M with PMH of mild-moderate pulmonary HTN (with moderate TR/FL last TTE 06/2018), RCC (s/p nephrectomy), COPD, unspecified seizures, and a thyroid mass of unknown histology admitted to MICU for concern of AMS and new onset seizure, who subsequently developed respiratory failure requiring mechanical ventilation. General surgery consulted for dislodged PEG tube; s/p open gastrostomy tube insertion POD#5. Plan: - Continue tube feeds at 70 mL/hr unless otherwise indicated by want ad clerk - Pt is cleared for discharge to LTAC from surgical standpoint. Planned for discharged to LTAC as per primary team. - Pt should follow up with Dr. Garrido in 1 week for evaluation of G tube, midline incision and potential staple removal - Further recommendations as per ICU team Case discussed with Dr. Hema Zhang PGY1 Pager # [phone]
--- NOTE | 2018-07-26 10:48 | RAD ---
Date of service: 07/26/2018 HISTORY: f/u COMPARISON: 07/25/2018 TECHNIQUE: 1 view obtained. FINDINGS: LUNGS: No active pulmonary disease. PLEURA: No significant pleural effusion identified, no pneumothorax apparent. CARDIOVASCULAR: No aortic atherosclerotic calcification present. Moderate cardiomegaly. Moderate to severe vascular congestion unchanged OSSEOUS STRUCTURES: No significant abnormalities. VISUALIZED UPPER ABDOMEN: Normal. OTHER FINDINGS: None. IMPRESSION: Moderate cardiomegaly and moderate to severe vascular congestion
--- NOTE | 2018-07-26 13:58 | PN ---
DATE: 07/26/2018 SUBJECTIVE: He is comfortable in bed. He is on the trach vent. They tried to wean him yesterday and they have been trying to wean him everyday. The plan is to get him to an LTAC. I was actually asked to talk to the son, I spoke to son this morning. They will talk to social services assistant today about where they want to send him, I think [facility] might [facility] takes the ride back and forth. MEDICATIONS: He is on acetylcysteine, dextrose, heparin, insulin, Keppra, Lipitor, Merrem, morphine, nystatin, Pro-Stat, Protonix, Xanax and Xopenex. PHYSICAL EXAMINATION: VITAL SIGNS: He has a 99.3 temperature, 65 pulse, 143/79 blood pressure, 93% O2 sat. HEENT: Head is atraumatic and normocephalic. NECK: He is got a trach. He is on the vent. HEART: Regular rate. LUNGS: Decreased breath sounds, but clear. ABDOMEN: Soft, obese. EXTREMITIES: . No edema. LABORATORY DATA: He has 11.5 white count, that is the best it has been; 9.4 hemoglobin; 32 hematocrit; 424 platelets. He has 141 sodium, potassium 3.2 replaced potassium, BUN 22, creatinine 1.1, GFR is greater than 60, sugar is 95, calcium is 9.5, phosphorous 2.6, magnesium 1.9, total bilirubin is 0.2, AST is 90, ALT is 81, alk phos 208. ASSESSMENT AND PLAN: He is being seen by Infectious Disease, Pulmonary, Surgery, Supply Chain Manager. He has multiple issues. We are trying to get him to LTAC. I spoke with the son, he is the power of exhaust worker. He has severe sepsis, pneumonia, trach, pulmonary hypertension, thyroid mass. We will continue with aggressive treatment and care till we get him to an LTAC. Aleksey Neal DO MTDD
[2018-07-26 18:57] VITALS: BP 144/72; PULSE 65; O2SAT 96
[2018-07-26 19:00] VITALS: RESP 18; TEMP 99.1
== END 2018-07-26 19:25 | DRG 853 ==
LOC: CCU 21:40
PROVIDERS: ADMIT Family Medicine; ATTEND Family Medicine
PROC: 5A1955Z Respiratory Ventilation, Greater than 96 Consecutive Hours (ICD-10-PCS; 2018-07-14)
PROC: 0DP63UZ Removal of Feeding Device from Stomach, Percutaneous Approach (ICD-10-PCS; 2018-07-15)
PROC: 05PY33Z Removal of Infusion Device from Upper Vein, Percutaneous Approach (ICD-10-PCS; 2018-07-15)
PROC: 05H633Z Insertion of Infusion Device into Left Subclavian Vein, Percutaneous Approach (ICD-10-PCS; 2018-07-15)
PROC: 3E04329 Introduction of Other Anti-infective into Central Vein, Percutaneous Approach (ICD-10-PCS; 2018-07-15)
PROC: 30230N1 Transfusion of Nonautologous Red Blood Cells into Peripheral Vein, Open Approach (ICD-10-PCS; 2018-07-16)
PROC: 0DH67UZ Insertion of Feeding Device into Stomach, Via Natural or Artificial Opening (ICD-10-PCS; 2018-07-18)
PROC: 3E0G76Z Introduction of Nutritional Substance into Upper GI, Via Natural or Artificial Opening (ICD-10-PCS; 2018-07-21)
PROC: 0DH60UZ Insertion of Feeding Device into Stomach, Open Approach (ICD-10-PCS; principal; 2018-07-21 09:30)
DX: A41.9 Sepsis, unspecified organism (principal); J15.1 Pneumonia due to Pseudomonas; J96.01 Acute respiratory failure with hypoxia; N17.9 Acute kidney failure, unspecified; J44.0 Chronic obstructive pulmonary disease with (acute) lower respiratory infection; I50.30 Unspecified diastolic (congestive) heart failure; I13.0 Hypertensive heart and chronic kidney disease with heart failure and stage 1 through stage 4 chronic kidney disease, or unspecified chronic kidney disease; L02.211 Cutaneous abscess of abdominal wall; J98.11 Atelectasis; E87.3 Alkalosis; Z99.11 Dependence on respirator [ventilator] status; Z43.1 Encounter for attention to gastrostomy; R65.20 Severe sepsis without septic shock; N18.9 Chronic kidney disease, unspecified; I27.20 Pulmonary hypertension, unspecified; E03.9 Hypothyroidism, unspecified; D64.9 Anemia, unspecified; G40.909 Epilepsy, unspecified, not intractable, without status epilepticus; K76.0 Fatty (change of) liver, not elsewhere classified; N28.1 Cyst of kidney, acquired; E16.2 Hypoglycemia, unspecified; E87.6 Hypokalemia; Z85.528 Personal history of other malignant neoplasm of kidney; Z90.5 Acquired absence of kidney; Y95 Nosocomial condition; Z78.1 Physical restraint status; Z91.19 Patient's noncompliance with other medical treatment and regimen; Z93.0 Tracheostomy status